=== PATIENT | male | born 1940 | race Caucasian/White ===

== ENCOUNTER 2017-05-28 11:00 | Inpatient (IN) | payer MEDICARE ==
[2017-05-28] MEDS ORDERED: ACETAMINOPHEN TAB 500 MG TAB PO STA (11:11)
[2017-05-28] MEDS ORDERED: IPRATROPIUM-ALBUTEROL 3 ML NEB INHALATION STA (11:13)
--- NOTE | 2017-05-28 11:19 | ED ---
SOB HPI - General Chief Complaint: Shortness of Breath Stated Complaint: Cough, headache, poss sinus infection Source: patient, EMS Mode of arrival: EMS - History of Present Illness Initial Comments: Patient is a 77-year-old male who presents for evaluation for shortness of breath/cough and sore throat for the last 2-3 days. Past medical history as below. Patient saw his primary care physician yesterday and prescribed him amoxicillin for suspected sinus infection. He precipitously declined today. He states that he is coughing up a clear phlegm. Shortness of breath. Sore throat secondary to the cough. He denies any ear pain or sinus pain. He has a fever of 103 currently. Known diabetic and his sugars been a little bit elevated. Been compliant with his medications. He has no history of heart failure. He's had an echo in the past which was apparently normal. No swelling to the lower extremities. No no sick contacts. No recent long distance travel. No history of DVT or pulmonary embolism. Currently denies headaches, chest pain, nausea, vomiting, diarrhea, pain or burning with urination. - Related Data Home Medications Medication Instructions Recorded Confirmed Aspirin EC [Ecotrin Low Dose] 81 mg PO DAILY 05/28/17 05/28/17 Atorvastatin [Lipitor] 80 mg PO HS 05/28/17 05/28/17 EPINEPHrine (Auto Inject) [Epipen] 0.3 mg PO ONCE PRN 05/28/17 05/28/17 Nitroglycerin Sl Tabs [Nitrostat] 0.4 mg SUBLINGUAL Q5M PRN 05/28/17 05/28/17 Pioglitazone [Actos] 45 mg PO DAILY 05/28/17 05/28/17 Primidone [Mysoline] 50 mg PO DAILY 05/28/17 05/28/17 Quinapril HCl [Accupril] 20 mg PO DAILY 05/28/17 05/28/17 Sodium Polystyrene Sulfon/Sorb 15 gm PO DAILY 05/28/17 05/28/17 [Kionex 15 gm/60 ml Suspension] Soy Lecithin 1 cap PO BID 05/28/17 05/28/17 glyBURIDE [Diabeta] 5 mg PO BID 05/28/17 05/28/17 sitaGLIPtin [Januvia] 100 mg PO DAILY 05/28/17 05/28/17 Allergies Allergy/AdvReac Type Severity Reaction Status Date / Time bee venom protein (honey bee) Allergy Anaphylaxis Verified 05/28/17 11:20 Review of Systems ROS Statement: Those systems with pertinent positive or pertinent negative responses have been documented in the HPI. ROS Other: All systems not noted in ROS Statement are negative. Past Medical History Past Medical History: Diabetes Mellitus, Hyperlipidemia History of Any Multi-Drug Resistant Organisms: None Reported Past Surgical History: No Surgical Hx Reported Past Psychological History: No Psychological Hx Reported Smoking Status: Former smoker Past Alcohol Use History: None Reported Past Drug Use History: None Reported General Exam General appearance: alert, in no apparent distress, other (Nontoxic appearing) Head exam: Present: atraumatic, normocephalic, normal inspection Eye exam: Present: normal appearance, PERRL, EOMI. Absent: scleral icterus, conjunctival injection, periorbital swelling ENT exam: Present: normal exam, normal oropharynx, mucous membranes moist, TM's normal bilaterally, other (Normal TMs bilaterally. No significant erythema to the posterior oropharynx. Cannot fully visualize tonsils but appear otherwise unremarkable. Anterior cervical lymphadenopathy. No pain with palpation of the sinuses.) Neck exam: Present: normal inspection. Absent: tenderness, meningismus, lymphadenopathy Respiratory exam: Present: wheezes, rales, other (Coarse breath sounds bilaterally with intermittent rails and wheeze. Conversational dyspnea. No hypoxia. Tachypea.). Absent: respiratory distress, rhonchi, stridor Cardiovascular Exam: Present: regular rate, normal rhythm, normal heart sounds, other (Normal S1 and S2. Distal pulses intact. Warm extremities. Cap refill less than 3 seconds.). Absent: systolic murmur, diastolic murmur, rubs, gallop , clicks GI/Abdominal exam: Present: soft, normal bowel sounds. Absent: distended, tenderness, guarding, rebound, rigid Extremities exam: Present: normal inspection, full ROM, normal capillary refill. Absent: tenderness, pedal edema, joint swelling, calf tenderness Back exam: Present: normal inspection Neurological exam: Present: alert, oriented X3, CN II-XII intact Psychiatric exam: Present: normal affect, normal mood Skin exam: Present: warm, dry, intact, normal color. Absent: rash Course Vital Signs 05/28/17 05/28/17 05/28/17 11:01 12:14 12:23 Temperature 103.3 F H Pulse Rate 93 88 92 Respiratory 20 Rate Blood Pressure 170/72 O2 Sat by Pulse 95 Oximetry 05/28/17 13:03 Temperature 102.8 F H Pulse Rate 89 Respiratory 18 Rate Blood Pressure 134/60 O2 Sat by Pulse 93 L Oximetry Medical Decision Making - Medical Decision Making 1110: Patient is a 77 year old male who presents for evaluation for cough and shortness of breath with sore throat over the last 3 days. Prescribed amoxicillin yesterday but precipitously decline today and his respiratory status. He has 3 out of 4 surgical criteria at this time. Tachypnea, tachycardia, febrile. He has no history of heart failure and the patient specifically states he's had a normal echocardiogram in the past. He has no swelling to the lower extremities. Strongly suspect bilateral pneumonia at this time. He has no swelling to the lower extremities. We'll order 2500 mL normal saline bolus. 2 view chest x-ray. Blood cultures, laboratory studies with a VBG, lactic acid and blood cultures. We'll empirically started on Rocephin and his ether myosin as he has no risk factors for hospital-acquired pneumonia. 1230: Reviewed EKG. Normal sinus rhythm at 92. AR interval 192. QRS 72. QTc 445. No ST changes. 1235: Reevaluated the patient. States that he feels terrible. Significant pain to his throat. He is tolerating his secretions. States that the pain in his throat is worse than any of his other symptoms. Continues to have coarse breath sounds bilaterally. Review chest x-ray which did not reveal a significant lobar pneumonia. There is some cephalization though however. No pleural effusions or signs of pulmonary vascular congestion. Laboratory studies revealed no leukocytosis or left shift. Lactic acid 1.8. Acute on chronic any disease. As the patient has 3 out of 4 SIRS criteria end organ damage with worsening kidney function and mild hypoxia and failed outpatient therapy, recommending admission for IV antibiotics and continued breathing treatments. Page to Dr. Welch's group per PCP preference. 1300: Reevaluated the patient. Heart rate improved to the 80s. Respiratory rate remains on the high end of normal and the 18-20 range. Pulse ox in the 93- 95% range on room air. Good cap refill less than 3 seconds. Believe that the patient is stable for the floor at this time. 1315: Spoke with Dr. Swesnon who agrees with admission. No further orders. - Lab Data Result diagrams: 05/28/17 12:09 05/28/17 12:09 Lab Results 05/28/17 05/28/17 05/28/17 Range/Units 12:09 12:09 12:09 WBC 7.8 (3.8-10.6) k/uL RBC 3.82 L (4.30-5.90) m/uL Hgb 12.2 L (13.0-17.5) gm/dL Hct 37.1 L (39.0-53.0) % MCV 97.1 (80.0-100.0) fL MCH 31.8 (25.0-35.0) pg MCHC 32.8 (31.0-37.0) g/dL RDW 14.4 (11.5-15.5) % Plt Count 120 L (150-450) k/uL Neutrophils % (Manual) 78 % Band Neutrophils % 9 % Lymphocytes % (Manual) 6 % Monocytes % (Manual) 7 % Neutrophils # (Manual) 6.70 (1.3-7.7) k/uL Lymphocytes # (Manual) 0.47 L (1.0-4.8) k/uL Monocytes # (Manual) 0.55 (0-1.0) k/uL Nucleated RBCs 0 (0-0) /100 WBC RBC Morphology Normal PT (9.0-12.0) sec INR (<1.2) APTT (22.0-30.0) sec VBG pH (7.31-7.41) VBG pCO2 (37-51) mmHg VBG HCO3 (24-28) mmol/L Sodium 133 L (137-145) mmol/L Potassium 4.4 (3.5-5.1) mmol/L Chloride 102 (98-107) mmol/L Carbon Dioxide 21 L (22-30) mmol/L Anion Gap 10 mmol/L BUN 34 H (9-20) mg/dL Creatinine 2.01 H (0.66-1.25) mg/dL Est GFR (MDRD) Af Amer 39 (>60 ml/min/1.73 sqM) Est GFR (MDRD) Non-Af 32 (>60 ml/min/1.73 sqM) Glucose 350 H (74-99) mg/dL Plasma Lactic Acid Shiva 1.8 (0.7-2.0) mmol/L Calcium 8.1 L (8.4-10.2) mg/dL Total Bilirubin 0.7 (0.2-1.3) mg/dL AST 40 (17-59) U/L ALT 46 (21-72) U/L Alkaline Phosphatase 59 (38-126) U/L Total Protein 6.6 (6.3-8.2) g/dL Albumin 3.5 (3.5-5.0) g/dL Urine Color Urine Appearance (Clear) Urine pH (5.0-8.0) Ur Specific [place] (1.001-1.035) Urine Protein (Negative) Urine Glucose (UA) (Negative) Urine Ketones (Negative) Urine Blood (Negative) Urine Nitrite (Negative) Urine Bilirubin (Negative) Urine Urobilinogen (<2.0) mg/dL Ur Leukocyte Esterase (Negative) Urine RBC (0-5) /hpf Urine WBC (0-5) /hpf Urine Mucus (None) /hpf 05/28/17 05/28/17 05/28/17 Range/Units 12:09 12:09 12:45 WBC (3.8-10.6) k/uL RBC (4.30-5.90) m/uL Hgb (13.0-17.5) gm/dL Hct (39.0-53.0) % MCV (80.0-100.0) fL MCH (25.0-35.0) pg MCHC (31.0-37.0) g/dL RDW (11.5-15.5) % Plt Count (150-450) k/uL Neutrophils % (Manual) % Band Neutrophils % % Lymphocytes % (Manual) % Monocytes % (Manual) % Neutrophils # (Manual) (1.3-7.7) k/uL Lymphocytes # (Manual) (1.0-4.8) k/uL Monocytes # (Manual) (0-1.0) k/uL Nucleated RBCs (0-0) /100 WBC RBC Morphology PT 11.4 (9.0-12.0) sec INR 1.1 (<1.2) APTT 22.3 (22.0-30.0) sec VBG pH 7.38 (7.31-7.41) VBG pCO2 37 (37-51) mmHg VBG HCO3 21 L (24-28) mmol/L Sodium (137-145) mmol/L Potassium (3.5-5.1) mmol/L Chloride (98-107) mmol/L Carbon Dioxide (22-30) mmol/L Anion Gap mmol/L BUN (9-20) mg/dL Creatinine (0.66-1.25) mg/dL Est GFR (MDRD) Af Amer (>60 ml/min/1.73 sqM) Est GFR (MDRD) Non-Af (>60 ml/min/1.73 sqM) Glucose (74-99) mg/dL Plasma Lactic Acid Shiva (0.7-2.0) mmol/L Calcium (8.4-10.2) mg/dL Total Bilirubin (0.2-1.3) mg/dL AST (17-59) U/L ALT (21-72) U/L Alkaline Phosphatase (38-126) U/L Total Protein (6.3-8.2) g/dL Albumin (3.5-5.0) g/dL Urine Color Yellow Urine Appearance Clear (Clear) Urine pH 5.5 (5.0-8.0) Ur Specific [place] 1.011 (1.001-1.035) Urine Protein 1+ H (Negative) Urine Glucose (UA) 3+ H (Negative) Urine Ketones Negative (Negative) Urine Blood Trace H (Negative) Urine Nitrite Negative (Negative) Urine Bilirubin Negative (Negative) Urine Urobilinogen <2.0 (<2.0) mg/dL Ur Leukocyte Esterase Negative (Negative) Urine RBC 6 H (0-5) /hpf Urine WBC 1 (0-5) /hpf Urine Mucus Rare H (None) /hpf Disposition Clinical Impression: Sepsis, CAP (community acquired pneumonia), Acute on chronic kidney failure Disposition: ADMITTED IP TO THIS HOSP Condition: Fair Referrals: Lesly Ortiz MD [Primary Care Provider] - 1-2 days Decision to Admit Reason: Admit from EC
--- NOTE | 2017-05-28 11:48 | XR ---
EXAMINATION TYPE: XR chest 2V DATE OF EXAM: 05/28/2017 COMPARISON: NONE HISTORY: Shortness of breath TECHNIQUE: Frontal and lateral views of the chest are obtained. FINDINGS: Scattered senescent parenchymal changes noted. Hyperinflation compatible with COPD. No evidence for infiltrate. No evidence for atelectasis. Vascular crowding at the lung bases. Heart size is stable. Mediastinal structures are stable and grossly unremarkable. No evidence for hilar prominence. Degenerative changes dorsal spine. IMPRESSION: 1. No evidence for acute pulmonary disease.
[2017-05-28] MEDS: SODIUM CHLORIDE 0.9% 500 ML IV SCH ×3 (12:02→13:22)
[2017-05-28 12:25] LABS: CH 31.9; HCT 37.1 % (39.0-53.0); HDW 2.82; HGB 12.2 gm/dL (13.0-17.5); Immature Gran Flag Moderate; MCH 31.8 pg (25.0-35.0); MCHC 32.8 g/dL (31.0-37.0); MCV 97.1 fL (80.0-100.0); Mean Platelet Volume 8.8; RBC 3.82 m/uL (4.30-5.90); RDW 14.4 % (11.5-15.5); VBG PH 7.38 (7.31-7.41); WBC 7.8 k/uL (3.8-10.6); WBC (Perox) 7.78
[2017-05-28 12:30] LABS: INR 1.1 (<1.2); Partial Thromboplastin Time 22.3 sec (22.0-30.0); Prothrombin Time 11.4 sec (9.0-12.0)
[2017-05-28 12:35] LABS: Calcium 8.1 mg/dL (8.4-10.2); Potassium 4.4 mmol/L (3.5-5.1); Total Bilirubin 0.7 mg/dL (0.2-1.3); Total Protein 6.6 g/dL (6.3-8.2)
[2017-05-28] MEDS ORDERED: RX INFO: IV CONTRAST WAS GIVEN 1 EACH MISC MISCELLANE PRN (12:37)
[2017-05-28] MEDS ORDERED: KETOROLAC 30 MG/ML 1 ML VIAL IVP STA (12:38)
[2017-05-28 12:45] LABS: Add Differential Manual Differential
[2017-05-28 12:47] LABS: Band Neutrophils % 9 %; Nucleated Red Blood Cells 0 /100 WBC (0-0); Total Cells Counted 100
[2017-05-28 12:48] LABS: RBC Morphology Normal
[2017-05-28 13:00] LABS: Appearance,Urine Clear (Clear); Bilirubin,Urine Negative (Negative); Glucose,Urine (UA) 3+ (Negative); Ketones,Urine Negative (Negative); Leukocyte Esterase,Urine Negative (Negative); Mucus,Urine Rare /hpf; Nitrite,Urine Negative (Negative); PH, Urine 5.5 (5.0-8.0); Particle Count 3383; Protein,Urine 1+ (Negative); RBC,Urine 6 /hpf (0-5); Specific Gravity,Urine 1.011 (1.001-1.035); UA Billing (MACRO vs. MICRO) MICRO; Urobilinogen,Urine <2.0 mg/dL (<2.0); WBC,Urine 1 /hpf (0-5)
[2017-05-28] MEDS ORDERED: NALOXONE 0.4 MG/ML 1 ML VIAL IV PRN (13:13)
[2017-05-28] MEDS ORDERED: ACETAMINOPHEN TAB 325 MG TAB PO PRN (14:15)
[2017-05-28 14:44] LABS: Glucose,Whole Blood 289 mg/dL (75-99)
[2017-05-28] MEDS: AZITHROMYCIN 500 MG in SODIUM CHLORIDE 0.9% 250 ML IVPB SCH (14:57)
[2017-05-28] MEDS ORDERED: NITROGLYCERIN SL TABS 0.4 MG TAB SUBLINGUAL PRN (15:38)
[2017-05-28] MEDS: SODIUM CHLORIDE 0.9% 1,000 ML IV SCH (15:48)
[2017-05-28 16:57] LABS: Glucose,Whole Blood 310 mg/dL (75-99)
[2017-05-28] MEDS ORDERED: INSULIN LISPRO (humaLOG) 300 UNIT/3 ML VIAL SQ SCH (17:30)
[2017-05-28] MEDS: INSULIN LISPRO (humaLOG) 300 UNIT/3 ML VIAL SQ SCH ×2 (17:40→21:14)
[2017-05-28] MEDS ORDERED: IPRATROPIUM-ALBUTEROL 3 ML NEB INHALATION PRN ×2 (18:52)
[2017-05-28] MEDS ORDERED: INSULIN LISPRO (humaLOG) 300 UNIT/3 ML VIAL SQ ONE ×2 (18:54→21:46)
[2017-05-28] MEDS: SYMBICORT 160-4.5 MCG INHALER INHALATION SCH (19:09)
[2017-05-28] MEDS: IPRATROPIUM-ALBUTEROL 3 ML NEB INHALATION SCH (19:29)
[2017-05-28 19:53] LABS: Hemoglobin A1C 6.9 % (4.2-6.1)
[2017-05-28] MEDS: ATORVASTATIN 80 MG TAB PO SCH (20:32)
[2017-05-28 21:00] LABS: Glucose,Whole Blood 241 mg/dL (75-99)
[2017-05-28] MEDS ORDERED: methylPREDNISolone SOD SUCCI 125 MG/2 ML VIAL IV STA (21:44)
[2017-05-28] MEDS ORDERED: INSULIN GLARGINE 100 UNIT/ML 10 ML VIAL SQ SCH (21:45)
[2017-05-28] MEDS: guaiFENesin-DM 100-10MG/5ML 10 ML CUP PO PRN (22:15)
[2017-05-29] MEDS ORDERED: FUROSEMIDE 10 MG/ML 4 ML VIAL IV STA (00:11)
[2017-05-29 00:25] LABS: Glucose,Whole Blood 201 mg/dL (75-99)
--- NOTE | 2017-05-29 01:10 | XR ---
CXR 1 View INDICATION: Shortness of breath COMPARISON: Chest radiograph 05/28/17 11:41:39 FINDINGS: The cardiomediastinal silhouette is similar. Calcification of the aortic knob. Increased lung markings, nonspecific. Possible ill defined opacification of the medial bilateral lower lung thomson. There maybe some atelectasis at the lung bases. No definite evidence for pleural effusions. Osseous structures are grossly unchanged. Degenerative changes of the right acromioclavicular joint. There are overlying leads limiting evaluation. Tubular structure overlying the right upper chest/lower neck, nonspecific. Please correlate with physical exam. IMPRESSION: Possible ill defined opacification of the medial bilateral lower lung thomosn, nonspecific and may represent atelectasis although air space disease is difficult to exclude. No definite evidence for large pleural effusion.
[2017-05-29 01:17] LABS: ABG Base Excess -6.3 mmol/L; ABG HCO3 17 mmol/L (21-25); ABG PCO2 24 mmHg (35-45); ABG PH 7.46 (7.35-7.45); ABG PO2 110 mmHg (83-108); ABG TCO2 18 mmol/L (19-24)
[2017-05-29 05:21] LABS: CH 32.4; CHCM 32.2; HDW 2.81; HGB 11.8 gm/dL (13.0-17.5); Immature Gran Flag Marked; MCH 32.4 pg (25.0-35.0); MCV 101.3 fL (80.0-100.0); Macrocytosis Slight; Mean Platelet Volume 8.7; RBC 3.65 m/uL (4.30-5.90); RDW 14.9 % (11.5-15.5); WBC 8.1 k/uL (3.8-10.6); WBC (Perox) 8.65
[2017-05-29 05:32] LABS: Magnesium 1.6 mg/dL (1.6-2.3); Phosphorous 3.6 mg/dL (2.5-4.5); Potassium 4.9 mmol/L (3.5-5.1); Total Bilirubin 0.8 mg/dL (0.2-1.3); Total Protein 6.7 g/dL (6.3-8.2)
[2017-05-29] MEDS ORDERED: Magnesium Replacement Protocol 1 EACH MISC MISCELLANE PRN (05:58)
[2017-05-29] MEDS ORDERED: methylPREDNISolone SOD SUCCI 125 MG/2 ML VIAL IV SCH (06:00)
[2017-05-29] MEDS: MAGNESIUM SULFATE-D5W PMX 1 GM in DEXTROSE/WATER 1 100ML.BAG IVPB SCH ×2 (06:26→07:33)
[2017-05-29 07:14] LABS: Add Differential Manual Differential
[2017-05-29 07:25] LABS: Band Neutrophils % 53 %; Metamyelocytes % 2 %; Nucleated Red Blood Cells 0 /100 WBC (0-0); Total Cells Counted 200
[2017-05-29 07:26] LABS: Large Platelets Present
[2017-05-29] MEDS: SYMBICORT 160-4.5 MCG INHALER INHALATION SCH ×2 (07:29→19:47)
[2017-05-29] MEDS: IPRATROPIUM-ALBUTEROL 3 ML NEB INHALATION SCH ×4 (07:29→19:47)
[2017-05-29 07:51] LABS: Glucose,Whole Blood 277 mg/dL (75-99)
--- NOTE | 2017-05-29 07:51 | XR ---
EXAMINATION TYPE: XR chest 1V DATE OF EXAM: 05/29/2017 COMPARISON: NONE HISTORY: Shortness of breath. Follow-up exam. TECHNIQUE: Single frontal view of the chest is obtained. FINDINGS: The previously described bibasilar opacities appear less conspicuous on today's examinatio n and likely represent bibasilar atelectasis. No pleural effusion or pneumothorax. Cardiomediastinal silhouette is within normal limits. Osseous structures are intact. IMPRESSION: 1. Bibasilar opacities appear as atelectasis, however early pneumonia remains a possibility in the ap propriate clinical setting.
[2017-05-29] MEDS: INSULIN LISPRO (humaLOG) 300 UNIT/3 ML VIAL SQ SCH ×6 (07:55→12:43)
[2017-05-29] MEDS: HEPARIN SODIUM,PORCINE 5,000 UNIT/ML 1 ML VIAL SQ SCH ×2 (07:56→15:43)
[2017-05-29] MEDS ORDERED: FAMOTIDINE 20 MG TAB PO SCH (09:00)
[2017-05-29] MEDS ORDERED: LISINOPRIL 20 MG TAB PO SCH (09:00)
[2017-05-29] MEDS: PRIMIDONE 50 MG TAB PO SCH (09:42)
[2017-05-29] MEDS: LINAGLIPTIN 5 MG TABLET PO SCH (09:42)
[2017-05-29] MEDS: ASPIRIN 81 MG CHEW PO SCH (09:42)
[2017-05-29] MEDS: PIOGLITAZONE 45 MG TAB PO SCH (09:42)
[2017-05-29 09:47] LABS: Creatine Kinase MB 3.9 ng/mL (0.0-2.4); Troponin I 0.112 ng/mL (0.000-0.034)
[2017-05-29] MEDS: AZITHROMYCIN 500 MG in SODIUM CHLORIDE 0.9% 250 ML IVPB SCH (11:22)
[2017-05-29 11:32] LABS: Glucose,Whole Blood 362 mg/dL (75-99)
--- NOTE | 2017-05-29 14:09 | P.HPIM ---
History of Present Illness Patient is a 77-year-old male who presents for evaluation for shortness of breath/cough and sore throat for the last 2-3 days. Past medical history as below. Patient saw his primary care physician yesterday and prescribed him amoxicillin for suspected sinus infection. He states that he is coughing up a clear phlegm. Shortness of breath. Sore throat secondary to the cough. He denies any ear pain or sinus pain. He has a fever of 103 currently. Known diabetic and his sugars been a little bit elevated. Been compliant with his medications. He has no history of heart failure. He's had an echo in the past which was apparently normal. No swelling to the lower extremities. No no sick contacts. No recent long distance travel. No history of DVT or pulmonary embolism. Currently denies headaches, chest pain, nausea, vomiting, diarrhea, pain or burning with urination. Patient denied any photophobia, abdominal pain patient started having diarrhea after antibiotics. There is no clear-cut evidence of pneumonia on the chest x-ray, no other sources of infections and was were appreciated patient was started on antibiotics for pneumonia from ER. Patient is afebrile since his admission last night. As patient was hypotensive was transferred to ICU last night. Review of Systems REVIEW OF SYSTEMS: CONSTITUTIONAL: No fever, no malaise, no fatigue. HEENT: No recent visual problems or hearing problems. Denied any sore throat. CARDIOVASCULAR: No chest pain, orthopnea, PND, no palpitations, no syncope. PULMONARY: As mentioned in nature history of present illness GASTROINTESTINAL: No diarrhea, no nausea, no vomiting, no abdominal pain. Normoactive bowel sounds. NEUROLOGICAL: No headaches, no weakness, no numbness. HEMATOLOGICAL: Denies any bleeding or petechiae. GENITOURINARY: Denies any burning micturition, frequency, or urgency. MUSCULOSKELETAL/RHEUMATOLOGICAL: Denies any joint pain, swelling, or any muscle pain. ENDOCRINE: Denies any polyuria or polydipsia. The rest of the 14-point review of systems is negative. Past Medical History Past Medical History: Diabetes Mellitus, Hyperlipidemia, Hypertension, Renal Disease Additional Past Medical History / Comment(s): NIDDM TYPE II, ANEMIA LONG AGO History of Any Multi-Drug Resistant Organisms: None Reported Past Surgical History: No Surgical Hx Reported Additional Past Surgical History / Comment(s): L SHOULDER CYSTECTOMY, BILATERAL CATARACT REMOVALS WITH LENS IMPLANTS. Past Anesthesia/Blood Transfusion Reactions: No Reported Reaction Past Psychological History: No Psychological Hx Reported Additional Psychological History / Comment(s): PT RESIDES WITH HIS SPOUSE. HE IS INDEPENDENT. Smoking Status: Former smoker Past Alcohol Use History: None Reported Additional Past Alcohol Use History / Comment(s): PT STATES HE STARTED SMOKING IN 1960 AND QUIT MANY YRS AGO BUT CANNOT RECALL YEAR OR HIS AGE AT TIME OF QUITTING. Past Drug Use History: None Reported - Past Family History Father Family Medical History: Diabetes Mellitus Additional Family Medical History / Comment(s): FATHER AT THE AGE OF 89YRS. Mother Family Medical History: COPD Additional Family Medical History / Comment(s): MOTHER HAD A "BAD HEART." SHE OF EMPHYSEMA AT THE AGE OF 68YRS. Medications and Allergies Home Medications Medication Instructions Recorded Confirmed Type Aspirin EC [Ecotrin Low Dose] 81 mg PO DAILY 05/28/17 05/28/17 History Atorvastatin [Lipitor] 80 mg PO HS 05/28/17 05/28/17 History EPINEPHrine (Auto Inject) [Epipen] 0.3 mg PO ONCE PRN 05/28/17 05/28/17 History Nitroglycerin Sl Tabs [Nitrostat] 0.4 mg SUBLINGUAL Q5M PRN 05/28/17 05/28/17 History Pioglitazone [Actos] 45 mg PO DAILY 05/28/17 05/28/17 History Primidone [Mysoline] 50 mg PO DAILY 05/28/17 05/28/17 History Quinapril HCl [Accupril] 20 mg PO DAILY 05/28/17 05/28/17 History Sodium Polystyrene Sulfon/Sorb 15 gm PO DAILY 05/28/17 05/28/17 History [Kionex 15 gm/60 ml Suspension] Soy Lecithin 1 cap PO BID 05/28/17 05/28/17 History glyBURIDE [Diabeta] 5 mg PO BID 05/28/17 05/28/17 History sitaGLIPtin [Januvia] 100 mg PO DAILY 05/28/17 05/28/17 History Allergies Allergy/AdvReac Type Severity Reaction Status Date / Time bee venom protein (honey bee) Allergy Anaphylaxis Verified 05/28/17 11:20 Physical Exam Vitals: Vital Signs Temp Pulse Pulse Resp BP BP Pulse Ox 05/29/17 12:00 98.6 F 67 18 123/55 95 05/29/17 11:28 72 05/29/17 11:20 70 05/29/17 11:00 64 19 87/45 95 05/29/17 10:00 70 19 87/45 98 05/29/17 09:00 75 19 149/54 97 05/29/17 08:30 75 16 97 05/29/17 08:00 75 20 149/54 97 05/29/17 07:40 76 05/29/17 07:32 66 95 05/29/17 07:30 70 24 123/47 99 05/29/17 07:00 60 18 123/47 97 05/29/17 06:30 64 21 140/52 98 05/29/17 06:00 77 18 135/63 100 05/29/17 05:30 64 19 135/63 100 05/29/17 05:00 64 20 148/52 100 05/29/17 04:30 64 23 141/56 100 05/29/17 04:00 99.5 F 57 L 20 141/56 98 05/29/17 03:30 68 23 129/63 97 05/29/17 03:00 62 21 125/53 96 05/29/17 02:30 62 23 148/59 98 05/29/17 02:00 66 19 152/66 94 L 05/29/17 01:30 72 24 149/62 97 05/29/17 01:00 99.8 F H 70 25 H 128/55 98 05/29/17 00:50 72 27 H 144/55 97 05/29/17 00:40 73 26 H 144/55 98 05/29/17 00:34 71 27 H 144/55 98 05/28/17 23:00 101.6 F H 81 30 H 138/56 98 05/28/17 22:45 101.7 F H 82 30 H 179/69 97 05/28/17 19:23 94 05/28/17 19:09 90 05/28/17 15:10 99.4 F 05/28/17 14:41 101.2 F H 89 18 128/73 97 Intake and Output 05/28/17 05/29/17 05/29/17 22:59 06:59 14:59 Intake Total 60 840 Output Total 1010 930 Balance -950 -90 Intake: IV 60 550 Azithromycin 500 mg In 250 Sodium Chloride 0.9% 250 ml @ 125 mls/hr IVPB DAILY [facility] Rx#:[id number] Magnesium Sulfate-D5w Pmx 200 1 gm In Dextrose/Water 1 100ml.bag @ 100 mls/hr IVPB Q1H [facility] Rx#: [id number] Sodium Chloride 0.9% 1, 60 100 000 ml @ 20 mls/hr IV . Q24H [facility] Rx#:[id number] Intake, IV Titration 50 Amount cefTRIAXone 1,000 mg In 50 Sodium Chloride 0.9% 50 ml @ 100 mls/hr IVPB DAILY [facility] Rx#:[id number] Oral 240 Output: Urine 1010 930 Other: Voiding Method Urinal Urinal # Voids 2 1 1 Weight 96 kg Patient Weight 05/30/17 06:59 Weight 96 kg PHYSICAL EXAMINATION: GENERAL: The patient is alert and oriented x3, not in any acute distress. Well developed, well nourished. HEENT: Pupils are round and equally reacting to light. EOMI. No scleral icterus. No conjunctival pallor. Normocephalic, atraumatic. No pharyngeal erythema. No thyromegaly. CARDIOVASCULAR: S1 and S2 present. No murmurs, rubs, or gallops. PULMONARY: Chest is clear to auscultation, bilateral expiratory wheezing was appreciated. ABDOMEN: Soft, nontender, nondistended, normoactive bowel sounds. No palpable organomegaly. MUSCULOSKELETAL: No joint swelling or deformity. EXTREMITIES: No cyanosis, clubbing, or pedal edema. NEUROLOGICAL: Gross neurological examination did not reveal any focal deficits. SKIN: No rashes. Results CBC & Chem 7: 05/29/17 04:52 05/29/17 04:52 Labs: Abnormal Lab Results - Last 24 Hours (Table) 05/28/17 05/28/17 05/28/17 Range/Units 12:09 14:40 16:54 RBC (4.30-5.90) m/uL Hgb (13.0-17.5) gm/dL Hct (39.0-53.0) % MCV (80.0-100.0) fL Plt Count (150-450) k/uL Lymphocytes # (Manual) (1.0-4.8) k/uL Metamyelocytes # (Man) (0) k/uL ABG pH (7.35-7.45) ABG pCO2 (35-45) mmHg ABG pO2 (83-108) mmHg ABG HCO3 (21-25) mmol/L ABG Total CO2 (19-24) mmol/L ABG O2 Saturation (94-97) % Sodium (137-145) mmol/L Carbon Dioxide (22-30) mmol/L BUN (9-20) mg/dL Creatinine (0.66-1.25) mg/dL Glucose (74-99) mg/dL POC Glucose (mg/dL) 289 H 310 H (75-99) mg/dL Hemoglobin A1c 6.9 H (4.2-6.1) % Plasma Lactic Acid Shiva (0.7-2.0) mmol/L Calcium (8.4-10.2) mg/dL Total Creatine Kinase (55-170) U/L CK-MB (CK-2) (0.0-2.4) ng/mL Troponin I (0.000-0.034) ng/mL 05/28/17 05/29/17 05/29/17 Range/Units 20:44 00:22 00:39 RBC (4.30-5.90) m/uL Hgb (13.0-17.5) gm/dL Hct (39.0-53.0) % MCV (80.0-100.0) fL Plt Count (150-450) k/uL Lymphocytes # (Manual) (1.0-4.8) k/uL Metamyelocytes # (Man) (0) k/uL ABG pH (7.35-7.45) ABG pCO2 (35-45) mmHg ABG pO2 (83-108) mmHg ABG HCO3 (21-25) mmol/L ABG Total CO2 (19-24) mmol/L ABG O2 Saturation (94-97) % Sodium (137-145) mmol/L Carbon Dioxide (22-30) mmol/L BUN (9-20) mg/dL Creatinine (0.66-1.25) mg/dL Glucose (74-99) mg/dL POC Glucose (mg/dL) 241 H 201 H (75-99) mg/dL Hemoglobin A1c (4.2-6.1) % Plasma Lactic Acid Shiva 2.9 H* (0.7-2.0) mmol/L Calcium (8.4-10.2) mg/dL Total Creatine Kinase (55-170) U/L CK-MB (CK-2) (0.0-2.4) ng/mL Troponin I (0.000-0.034) ng/mL 05/29/17 05/29/17 05/29/17 Range/Units 01:07 04:52 04:52 RBC 3.65 L (4.30-5.90) m/uL Hgb 11.8 L (13.0-17.5) gm/dL Hct 37.0 L (39.0-53.0) % MCV 101.3 H (80.0-100.0) fL Plt Count 105 L (150-450) k/uL Lymphocytes # (Manual) 0.57 L (1.0-4.8) k/uL Metamyelocytes # (Man) 0.16 H (0) k/uL ABG pH 7.46 H (7.35-7.45) ABG pCO2 24 L (35-45) mmHg ABG pO2 110 H (83-108) mmHg ABG HCO3 17 L (21-25) mmol/L ABG Total CO2 18 L (19-24) mmol/L ABG O2 Saturation 99.0 H (94-97) % Sodium 135 L (137-145) mmol/L Carbon Dioxide 19 L (22-30) mmol/L BUN 36 H (9-20) mg/dL Creatinine 1.90 H (0.66-1.25) mg/dL Glucose 230 H (74-99) mg/dL POC Glucose (mg/dL) (75-99) mg/dL Hemoglobin A1c (4.2-6.1) % Plasma Lactic Acid Shiva (0.7-2.0) mmol/L Calcium 8.0 L (8.4-10.2) mg/dL Total Creatine Kinase (55-170) U/L CK-MB (CK-2) (0.0-2.4) ng/mL Troponin I (0.000-0.034) ng/mL 05/29/17 05/29/17 05/29/17 Range/Units 04:52 07:49 10:19 RBC (4.30-5.90) m/uL Hgb (13.0-17.5) gm/dL Hct (39.0-53.0) % MCV (80.0-100.0) fL Plt Count (150-450) k/uL Lymphocytes # (Manual) (1.0-4.8) k/uL Metamyelocytes # (Man) (0) k/uL ABG pH (7.35-7.45) ABG pCO2 (35-45) mmHg ABG pO2 (83-108) mmHg ABG HCO3 (21-25) mmol/L ABG Total CO2 (19-24) mmol/L ABG O2 Saturation (94-97) % Sodium (137-145) mmol/L Carbon Dioxide (22-30) mmol/L BUN (9-20) mg/dL Creatinine (0.66-1.25) mg/dL Glucose (74-99) mg/dL POC Glucose (mg/dL) 277 H (75-99) mg/dL Hemoglobin A1c (4.2-6.1) % Plasma Lactic Acid Shiva (0.7-2.0) mmol/L Calcium (8.4-10.2) mg/dL Total Creatine Kinase 548 H (55-170) U/L CK-MB (CK-2) 3.9 H* (0.0-2.4) ng/mL Troponin I 0.112 H* 0.077 H* (0.000-0.034) ng/mL 05/29/17 Range/Units 11:30 RBC (4.30-5.90) m/uL Hgb (13.0-17.5) gm/dL Hct (39.0-53.0) % MCV (80.0-100.0) fL Plt Count (150-450) k/uL Lymphocytes # (Manual) (1.0-4.8) k/uL Metamyelocytes # (Man) (0) k/uL ABG pH (7.35-7.45) ABG pCO2 (35-45) mmHg ABG pO2 (83-108) mmHg ABG HCO3 (21-25) mmol/L ABG Total CO2 (19-24) mmol/L ABG O2 Saturation (94-97) % Sodium (137-145) mmol/L Carbon Dioxide (22-30) mmol/L BUN (9-20) mg/dL Creatinine (0.66-1.25) mg/dL Glucose (74-99) mg/dL POC Glucose (mg/dL) 362 H (75-99) mg/dL Hemoglobin A1c (4.2-6.1) % Plasma Lactic Acid Shiva (0.7-2.0) mmol/L Calcium (8.4-10.2) mg/dL Total Creatine Kinase (55-170) U/L CK-MB (CK-2) (0.0-2.4) ng/mL Troponin I (0.000-0.034) ng/mL Microbiology - Last 24 Hours (Table) 05/28/17 12:45 Urine Culture - Preliminary Urine,Voided Thrombosis Risk Factor Assmnt - Choose All That Apply Any of the Below Risk Factors Present?: Yes Each Factor Represents 1 point: Medical pt on bed rest, Obesity (BMI >25), Serious lung disease incl. pneumonia (< 1month) Other Risk Factors: Yes Each Risk Factor Represents 3 Points: Age 75 years or older Other congenital or acquired thrombophilia - If yes, enter type in comment: No Thrombosis Risk Factor Assessment Total Risk Factor Score: 6 Thrombosis Risk Factor Assessment Level: High Risk Assessment and Plan Plan: #1 sepsis: Source of infection is not clear there is a very low suspicion of pneumonia and patient is on antibiotics for pneumonia in the form of Rocephin and azithromycin which will be continued. We'll await for the blood cultures. #2 COPD with acute exacerbation and acute hypercapnic respiratory failure secondary to that which improved. Patient will be switched to oral prednisone #3 diabetes mellitus type 2: Highly elevated blood sugars secondary to systemic steroids patient will be resumed on his home regimen additionally patient will be on sliding scale for systemic steroids. #4 minimally elevation of troponins without any chest pain or significant EKG changes, this is secondary to hypoxemia from COPD. #5 acute renal failure secondary to prerenal azotemia expected to improve with IV fluids. 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
--- NOTE | 2017-05-29 16:43 | ECHOF ---
Referral Reason:assess LVF MEASUREMENTS -------- HEIGHT: 165.1 cm WEIGHT: 77.1 kg BP: 120/60 RVIDd: 3.2 cm (< 3.3) IVSd: 1.0 cm (0.6 - 1.1) LVIDd: 5.0 cm (3.9 - 5.3) LVPWd: 1.1 cm (0.6 - 1.1) IVSs: 1.5 cm LVIDs: 3.7 cm LVPWs: 1.1 cm LA Diam: 4.0 cm (2.7 - 3.8) LAESV Index (A-L): 44.15 ml/m Ao Diam: 3.3 cm (2.0 - 3.7) LA Diam: 3.9 cm (2.7 - 3.8) MV EXCURSION: 18.742 mm (> 18.000) MV EF SLOPE: 73 mm/s (70 - 150) EPSS: 0.7 cm MV E Vipin: 0.71 m/s MV DecT: 314 ms MV A Vipin: 1.12 m/s MV E/A Ratio: 0.63 RAP: 5.00 mmHg RVSP: 19.41 mmHg FINDINGS -------- Sinus rhythm. This was a techncally difficult study with suboptimal views, , Definity utilized for enhancement of images. There is mild concentric left ventricular hypertrophy. Overall left ventricular systolic function is normal with, an EF between 55 - 60 %. The right ventricle is normal in size. LA is severely dilated >40 ml/m2 The right atrial size is normal. There is mild aortic valve sclerosis. There is no evidence of aortic regurgitation. Mild mitral annular calcification present. Mild mitral regurgitation is present. Mild tricuspid regurgitation present. Right ventricular systolic pressure is normal at < 35 mmHg. There is no evidence of pulmonary hypertension. The pulmonic valve was not well visualized. The aortic root, ascending aorta and aortic arch are normal. There is no pericardial effusion. CONCLUSIONS -------- 1. This was a techncally difficult study with suboptimal views, , Definity utilized for enhancement of images. 2. Mild tricuspid regurgitation present. 3. Right ventricular systolic pressure is normal at < 35 mmHg. 4. There is no evidence of pulmonary hypertension. 5. The pulmonic valve was not well visualized. 6. The aortic root, ascending aorta and aortic arch are normal. 7. There is no pericardial effusion. 8. There is mild concentric left ventricular hypertrophy. 9. Overall left ventricular systolic function is normal with, an EF between 55 - 60 %. 10. The right ventricle is normal in size. 11. LA is severely dilated >40 ml/m2 12. The right atrial size is normal. 13. There is mild aortic valve sclerosis. 14. Mild mitral annular calcification present. 15. Mild mitral regurgitation is present. HEAT CURER: Molly Red RDCS
[2017-05-29 17:23] LABS: Glucose,Whole Blood 436 mg/dL (75-99)
[2017-05-29] MEDS ORDERED: INSULIN REGULAR BOLUS (FROM DRIP BAG) IV PRN (17:23)
[2017-05-29] MEDS: INSULIN REGULAR 100 UNIT in SODIUM CHLORIDE 0.9% 100 ML IV SCH ×2 (17:53→22:10)
[2017-05-29] MEDS: BENZOCAINE/MENTHOL LOZENG 1 EACH LOZENGE MUCOUS MEM PRN ×2 (17:57→23:02)
[2017-05-29 18:28] LABS: Glucose,Whole Blood 413 mg/dL (75-99)
[2017-05-29 19:02] LABS: Glucose,Whole Blood 377 mg/dL (75-99)
[2017-05-29 20:00] LABS: Glucose,Whole Blood 270 mg/dL (75-99)
[2017-05-29] MEDS: SODIUM CHLORIDE 0.9% 1,000 ML IV SCH (20:08)
[2017-05-29] MEDS ORDERED: INSULIN GLARGINE 100 UNIT/ML 10 ML VIAL SQ SCH (21:00)
[2017-05-29] MEDS: ATORVASTATIN 80 MG TAB PO SCH (21:04)
[2017-05-29 21:06] LABS: Glucose,Whole Blood 246 mg/dL (75-99)
[2017-05-29 22:00] LABS: Glucose,Whole Blood 212 mg/dL (75-99)
[2017-05-29 22:59] LABS: Glucose,Whole Blood 156 mg/dL (75-99)
[2017-05-29] MEDS: guaiFENesin-DM 100-10MG/5ML 10 ML CUP PO PRN (23:36)
[2017-05-30 00:05] LABS: Glucose,Whole Blood 121 mg/dL (75-99)
[2017-05-30] MEDS: HEPARIN SODIUM,PORCINE 5,000 UNIT/ML 1 ML VIAL SQ SCH ×4 (00:06→21:45)
[2017-05-30 01:07] LABS: Glucose,Whole Blood 117 mg/dL (75-99)
[2017-05-30 01:58] LABS: Glucose,Whole Blood 118 mg/dL (75-99)
[2017-05-30 03:01] LABS: Glucose,Whole Blood 123 mg/dL (75-99)
[2017-05-30 04:00] LABS: Glucose,Whole Blood 130 mg/dL (75-99)
[2017-05-30 05:05] LABS: Glucose,Whole Blood 130 mg/dL (75-99)
[2017-05-30 05:38] LABS: Basophils % (A) 0 %; CH 32.7; CHCM 33.3; Eosinophils % (A) 0 %; HCT 33.3 % (39.0-53.0); HDW 2.81; HGB 10.8 gm/dL (13.0-17.5); Luc # (Auto) 0.13; Luc % (Auto) 2; Lymphocytes # (A) 0.8 k/uL (1.0-4.8); Lymphocytes % (A) 9 %; MCH 31.9 pg (25.0-35.0); MCHC 32.3 g/dL (31.0-37.0); MCV 98.9 fL (80.0-100.0); Mean Platelet Volume 9.5; Monocytes # (A) 0.4 k/uL (0-1.0); Monocytes % (A) 5 %; Neutrophils # (A) 7.2 k/uL (1.3-7.7); Neutrophils % (A) 84 %; RBC 3.37 m/uL (4.30-5.90); WBC 8.6 k/uL (3.8-10.6); WBC (Perox) 9.12
[2017-05-30 05:57] LABS: Magnesium 2.3 mg/dL (1.6-2.3); Phosphorous 3.6 mg/dL (2.5-4.5); Potassium 4.1 mmol/L (3.5-5.1)
[2017-05-30 06:13] LABS: Glucose,Whole Blood 135 mg/dL (75-99)
[2017-05-30 07:01] LABS: Glucose,Whole Blood 129 mg/dL (75-99)
--- NOTE | 2017-05-30 07:16 | XR ---
EXAMINATION TYPE: XR chest 1V DATE OF EXAM: 05/30/2017 COMPARISON: 05/29/2017 HISTORY: Shortness of breath TECHNIQUE: Single frontal view of the chest is obtained. FINDINGS: Improvement in bibasilar subsegmental consolidation. Atherosclerotic change aorta. Arthrop athy shoulders. No overt failure. Heart size stable. IMPRESSION: 1. Interval improvement of basilar atelectasis or infiltrate.
[2017-05-30 08:44] LABS: Glucose,Whole Blood 160 mg/dL (75-99)
[2017-05-30] MEDS: IPRATROPIUM-ALBUTEROL 3 ML NEB INHALATION SCH ×4 (08:44→20:20)
[2017-05-30] MEDS: SYMBICORT 160-4.5 MCG INHALER INHALATION SCH ×2 (08:44→20:20)
[2017-05-30] MEDS: AZITHROMYCIN 500 MG TAB PO SCH (08:53)
[2017-05-30] MEDS: ASPIRIN 81 MG CHEW PO SCH (08:53)
[2017-05-30] MEDS: FAMOTIDINE 20 MG TAB PO SCH (08:53)
[2017-05-30] MEDS: LINAGLIPTIN 5 MG TABLET PO SCH (08:54)
[2017-05-30] MEDS: PRIMIDONE 50 MG TAB PO SCH (08:54)
[2017-05-30] MEDS: predniSONE 20 MG TAB PO SCH (08:54)
[2017-05-30] MEDS: PIOGLITAZONE 45 MG TAB PO SCH (08:54)
[2017-05-30 09:03] LABS: Glucose,Whole Blood 162 mg/dL (75-99)
[2017-05-30 12:28] LABS: Glucose,Whole Blood 269 mg/dL (75-99)
--- NOTE | 2017-05-30 12:43 | P.CNPUL ---
History of Present Illness Consult date: 05/29/17 Reason for consult: dyspnea, cough, chest pain, COPD, hypoxemia, pneumonia Chief complaint: Shortness of breath and cough started about 3-4 days ago History of present illness: Mr. Langley is a 77-year-old male who is seen and evaluated examined in the ICU patient started having symptoms about 4-5 days ago with a sore throat gradually WB increase cough congestion and. No sputum production patient was treated outpatient basis for oral amoxicillin without any significant relief due to persistent symptoms patient called EMS and eventually was brought into the emergency department was evaluated sensitively admitted into the hospital, off not that his phlegm is clear mucoid thick but lately yellowish tinge was appearing she did spike fever up to 103 patient denies any cardiovascular problems or issues he had an echocardiogram in the past which was unremarkable, he sugars however somewhat elevated, patient was initially admitted into the hospital due to increasing shortness of breath and gurgling eventually transferred to the ICU patient did receive 40 mg of Lasix and arterial blood gas and chest x-ray was performed patient of note that did respond with IV furosemide with some stabilization of the respiration currently patient is on 3 L oxygen is present at the bedside, patient specifically denies any chest pain denies any hemoptysis or him at bases denies any night sweats or fever or chills does have some facial pain and tenderness and sore throat which is overall stable, and denies any history of prior pneumonias recently, denies headache nausea vomiting diarrhea Review of Systems All systems: negative Constitutional: Reports as per HPI, Reports chills, Reports daytime sleepiness, Reports fatigue, Reports fever, Reports malaise, Reports night sweats, Reports poor appetite, Reports sweats, Reports weakness Ears: deny: decreased hearing, ear discharge, earache, tinnitus Ears, nose, mouth and throat: Reports as per HPI, Reports headache, Reports hoarseness, Reports post-nasal drip, Reports sinus pain, Reports sinus pressure , Reports sore throat, Reports voice changes Cardiovascular: Reports as per HPI Respiratory: Reports as per HPI Genitourinary: Reports as per HPI Musculoskeletal: Reports as per HPI Musculoskeletal: absent: as per HPI Integumentary: Reports as per HPI Neurological: Reports as per HPI Psychiatric: Reports as per HPI Endocrine: Reports as per HPI Hematologic/Lymphatic: Reports as per HPI Allergic/Immunologic: Reports as per HPI Past Medical History Past Medical History: Diabetes Mellitus, Hyperlipidemia, Hypertension, Renal Disease Additional Past Medical History / Comment(s): NIDDM TYPE II, ANEMIA LONG AGO History of Any Multi-Drug Resistant Organisms: None Reported Past Surgical History: No Surgical Hx Reported Additional Past Surgical History / Comment(s): L SHOULDER CYSTECTOMY, BILATERAL CATARACT REMOVALS WITH LENS IMPLANTS. Past Anesthesia/Blood Transfusion Reactions: No Reported Reaction Past Psychological History: No Psychological Hx Reported Additional Psychological History / Comment(s): PT RESIDES WITH HIS SPOUSE. HE IS INDEPENDENT. Smoking Status: Former smoker Past Alcohol Use History: None Reported Additional Past Alcohol Use History / Comment(s): PT STATES HE STARTED SMOKING IN 1960 AND QUIT MANY YRS AGO BUT CANNOT RECALL YEAR OR HIS AGE AT TIME OF QUITTING. Past Drug Use History: None Reported - Past Family History Father Family Medical History: Diabetes Mellitus Additional Family Medical History / Comment(s): FATHER AT THE AGE OF 89YRS. Mother Family Medical History: COPD Additional Family Medical History / Comment(s): MOTHER HAD A "BAD HEART." SHE OF EMPHYSEMA AT THE AGE OF 68YRS. Medications and Allergies Home Medications Medication Instructions Recorded Confirmed Type Aspirin EC [Ecotrin Low Dose] 81 mg PO DAILY 05/28/17 05/28/17 History Atorvastatin [Lipitor] 80 mg PO HS 05/28/17 05/28/17 History EPINEPHrine (Auto Inject) [Epipen] 0.3 mg PO ONCE PRN 05/28/17 05/28/17 History Nitroglycerin Sl Tabs [Nitrostat] 0.4 mg SUBLINGUAL Q5M PRN 05/28/17 05/28/17 History Pioglitazone [Actos] 45 mg PO DAILY 05/28/17 05/28/17 History Primidone [Mysoline] 50 mg PO DAILY 05/28/17 05/28/17 History Quinapril HCl [Accupril] 20 mg PO DAILY 05/28/17 05/28/17 History Sodium Polystyrene Sulfon/Sorb 15 gm PO DAILY 05/28/17 05/28/17 History [Kionex 15 gm/60 ml Suspension] Soy Lecithin 1 cap PO BID 05/28/17 05/28/17 History glyBURIDE [Diabeta] 5 mg PO BID 05/28/17 05/28/17 History sitaGLIPtin [Januvia] 100 mg PO DAILY 05/28/17 05/28/17 History Allergies Allergy/AdvReac Type Severity Reaction Status Date / Time bee venom protein (honey bee) Allergy Anaphylaxis Verified 05/28/17 11:20 Physical Exam Vitals: Vital Signs Temp Pulse Pulse Resp BP BP Pulse Ox 05/29/17 07:40 76 05/29/17 07:32 66 95 05/29/17 07:00 60 18 123/47 97 05/29/17 06:30 64 21 140/52 98 05/29/17 06:00 77 18 135/63 100 05/29/17 05:30 64 19 135/63 100 05/29/17 05:00 64 20 148/52 100 05/29/17 04:30 64 23 141/56 100 05/29/17 04:00 99.5 F 57 L 20 141/56 98 05/29/17 03:30 68 23 129/63 97 05/29/17 03:00 62 21 125/53 96 05/29/17 02:30 62 23 148/59 98 05/29/17 02:00 66 19 152/66 94 L 05/29/17 01:30 72 24 149/62 97 05/29/17 01:00 99.8 F H 70 25 H 128/55 98 05/29/17 00:50 72 27 H 144/55 97 05/29/17 00:40 73 26 H 144/55 98 05/29/17 00:34 71 27 H 144/55 98 05/28/17 23:00 101.6 F H 81 30 H 138/56 98 05/28/17 22:45 101.7 F H 82 30 H 179/69 97 05/28/17 19:23 94 05/28/17 19:09 90 05/28/17 15:10 99.4 F 05/28/17 14:41 101.2 F H 89 18 128/73 97 05/28/17 13:46 101.7 F H 81 24 134/60 95 05/28/17 13:03 102.8 F H 89 18 134/60 93 L 05/28/17 12:23 92 05/28/17 12:14 88 05/28/17 11:01 103.3 F H 93 20 170/72 95 Intake and Output 05/28/17 05/29/17 05/29/17 22:59 06:59 14:59 Intake Total 60 120 Output Total 1010 180 Balance -950 -60 Intake: IV 60 120 Magnesium Sulfate-D5w Pmx 100 1 gm In Dextrose/Water 1 100ml.bag @ 100 mls/hr IVPB Q1H [facility] Rx#: [id number] Sodium Chloride 0.9% 1, 60 20 000 ml @ 20 mls/hr IV . Q24H [facility] Rx#:[id number] Output: Urine 1010 180 Other: Voiding Method Urinal # Voids 2 1 - Constitutional General appearance: average body habitus, cooperative, disheveled, mild distress - EENT Eyes: EOMI, PERRLA, normal appearance ENT: hearing grossly normal, normal oropharynx Ears: bilateral: normal - Neck Neck: normal ROM Carotids: bilateral: upstroke normal, bruit absent Thyroid: bilateral: normal size - Respiratory Respiratory: bilateral: rhonchi, prolonged expiration - Cardiovascular Rhythm: regular Heart sounds: normal: S1, S2 - Gastrointestinal General gastrointestinal: normal bowel sounds, soft - Integumentary Integumentary: normal, normal turgor - Neurologic Neurologic: CNII-XII intact - Musculoskeletal Musculoskeletal: gait normal, strength equal bilaterally - Psychiatric Psychiatric: A&O x's 3, appropriate affect, intact judgment & insight Results - Laboratory Findings CBC and BMP: 05/29/17 04:52 05/29/17 04:52 ABG ABG pH 7.46 (7.35-7.45) H 05/29/17 01:07 ABG pCO2 24 mmHg (35-45) L 05/29/17 01:07 ABG pO2 110 mmHg (83-108) H 05/29/17 01:07 ABG O2 Saturation 99.0 % (94-97) H 05/29/17 01:07 PT/INR, D-dimer PT 11.4 sec (9.0-12.0) 05/28/17 12:09 INR 1.1 (<1.2) 05/28/17 12:09 Abnormal lab findings: Abnormal Labs 05/28/17 05/28/17 05/28/17 12:09 12:09 12:09 RBC 3.82 L Hgb 12.2 L Hct 37.1 L MCV Plt Count 120 L Lymphocytes # (Manual) 0.47 L Metamyelocytes # (Man) ABG pH ABG pCO2 ABG pO2 ABG HCO3 ABG Total CO2 ABG O2 Saturation VBG HCO3 21 L Sodium 133 L Carbon Dioxide 21 L BUN 34 H Creatinine 2.01 H Glucose 350 H POC Glucose (mg/dL) Hemoglobin A1c Plasma Lactic Acid Shiva Calcium 8.1 L Urine Protein Urine Glucose (UA) Urine Blood Urine RBC Urine Mucus 05/28/17 05/28/17 05/28/17 12:09 12:45 14:40 RBC Hgb Hct MCV Plt Count Lymphocytes # (Manual) Metamyelocytes # (Man) ABG pH ABG pCO2 ABG pO2 ABG HCO3 ABG Total CO2 ABG O2 Saturation VBG HCO3 Sodium Carbon Dioxide BUN Creatinine Glucose POC Glucose (mg/dL) 289 H Hemoglobin A1c 6.9 H Plasma Lactic Acid Shiva Calcium Urine Protein 1+ H Urine Glucose (UA) 3+ H Urine Blood Trace H Urine RBC 6 H Urine Mucus Rare H 05/28/17 05/28/17 05/29/17 16:54 20:44 00:22 RBC Hgb Hct MCV Plt Count Lymphocytes # (Manual) Metamyelocytes # (Man) ABG pH ABG pCO2 ABG pO2 ABG HCO3 ABG Total CO2 ABG O2 Saturation VBG HCO3 Sodium Carbon Dioxide BUN Creatinine Glucose POC Glucose (mg/dL) 310 H 241 H 201 H Hemoglobin A1c Plasma Lactic Acid Shiva Calcium Urine Protein Urine Glucose (UA) Urine Blood Urine RBC Urine Mucus 05/29/17 05/29/17 05/29/17 00:39 01:07 04:52 RBC 3.65 L Hgb 11.8 L Hct 37.0 L MCV 101.3 H Plt Count 105 L Lymphocytes # (Manual) 0.57 L Metamyelocytes # (Man) 0.16 H ABG pH 7.46 H ABG pCO2 24 L ABG pO2 110 H ABG HCO3 17 L ABG Total CO2 18 L ABG O2 Saturation 99.0 H VBG HCO3 Sodium Carbon Dioxide BUN Creatinine Glucose POC Glucose (mg/dL) Hemoglobin A1c Plasma Lactic Acid Shiva 2.9 H* Calcium Urine Protein Urine Glucose (UA) Urine Blood Urine RBC Urine Mucus 05/29/17 05/29/17 04:52 07:49 RBC Hgb Hct MCV Plt Count Lymphocytes # (Manual) Metamyelocytes # (Man) ABG pH ABG pCO2 ABG pO2 ABG HCO3 ABG Total CO2 ABG O2 Saturation VBG HCO3 Sodium 135 L Carbon Dioxide 19 L BUN 36 H Creatinine 1.90 H Glucose 230 H POC Glucose (mg/dL) 277 H Hemoglobin A1c Plasma Lactic Acid Shiva Calcium 8.0 L Urine Protein Urine Glucose (UA) Urine Blood Urine RBC Urine Mucus - Diagnostic Findings Chest x-ray: report reviewed, image reviewed (The chest x-ray performed on 05/28 as well as the 05/29/2017 midnight followed by earlier this morning on May 29 have been reviewed initial x-ray was fairly unremarkable however subsequent to x-ray revealed presence of bilateral basal pneumonia, EKG revealed no ST segment significant changes normal sinus rhythm) Assessment and Plan Plan: Bilateral pneumonia basal likely community-acquired Acute bilateral sinusitis Exacerbation of CHF acute on chronic diastolic or systolic heart failure responded well with furosemide Sepsis Acute on chronic renal failure stage III Uncontrolled diabetes and hyperglycemia Severe COPD with acute COPD exacerbation related to above Plan is to follow up on the sputum culture results are reported urine and blood cultures are being performed as well, would recommend to maintain patient on the IV Rocephin and Zithromax and steroids and bronchodilators, will check cardiac enzymes and order an echocardiogram as well will keep patient in ICU for now with close monitoring and observation further recommendations pending, if remains stable can moved out of the ICU by and of the day provided cardiac enzymes and echocardiogram are within normal limits Time with Patient: Greater than 30
--- NOTE | 2017-05-30 12:47 | P.PN ---
Subjective Principal diagnosis: Acute COPD exacerbation, purulent tracheobronchitis, congestive heart failure likely acute diastolic heart failure and pulmonary edema related to that Patient has been seen and evaluated examined in the ICU overall respiratory status slightly better patient's blood pressure however continued to be on higher side I reviewed his home medications and the antihypertensive agents are being restarted including other medications he is still a very thick purulent sputum however tenacity and color continued to improve there is no hemoptysis present overall plan is to increase activity as tolerated continue other supportive care if remains stable cannula moved out of the ICU to stepdown unit Objective - Vital Signs Vital signs: Vital Signs Temp 99.3 F 05/30/17 04:00 Pulse 82 05/30/17 12:26 Resp 20 05/30/17 12:15 BP 159/68 05/30/17 07:00 Pulse Ox 94 L 05/30/17 07:00 Intake & Output 05/29/17 05/30/17 05/30/17 18:59 06:59 18:59 Intake Total 1475.318 834.135 Output Total 2054 119 Balance -579.682 -355.865 Weight 96 kg 96.7 kg Intake: IV 670 260 Azithromycin 500 mg In 250 Sodium Chloride 0.9% 250 ml @ 125 mls/hr IVPB DAILY [facility] Rx#:[id number] Magnesium Sulfate-D5w Pmx 200 1 gm In Dextrose/Water 1 100ml.bag @ 100 mls/hr IVPB Q1H [facility] Rx#: [id number] Sodium Chloride 0.9% 1, 220 260 000 ml @ 20 mls/hr IV . Q24H [facility] Rx#:[id number] Intake, IV Titration 65.318 74.135 Amount Insulin Regular 100 unit 15.318 74.135 In Sodium Chloride 0.9% 100 ml @ Per Protocol IV .Q0M [facility] Rx#:[id number] cefTRIAXone 1,000 mg In 50 Sodium Chloride 0.9% 50 ml @ 100 mls/hr IVPB DAILY [facility] Rx#:[id number] Oral 740 500 Output: Urine 2054 1190 Other: Voiding Method Urinal Urinal # Voids 1 0 - Exam - Constitutional General appearance: average body habitus, cooperative, disheveled, mild distress - EENT Eyes: EOMI, PERRLA, normal appearance ENT: hearing grossly normal, normal oropharynx Ears: bilateral: normal - Neck Neck: normal ROM Carotids: bilateral: upstroke normal, bruit absent Thyroid: bilateral: normal size - Respiratory Respiratory: bilateral: rhonchi, prolonged expiration - Cardiovascular Rhythm: regular Heart sounds: normal: S1, S2 - Gastrointestinal General gastrointestinal: normal bowel sounds, soft - Integumentary Integumentary: normal, normal turgor - Neurologic Neurologic: CNII-XII intact - Musculoskeletal Musculoskeletal: gait normal, strength equal bilaterally - Psychiatric Psychiatric: A&O x's 3, appropriate affect, intact judgment & insight - Labs CBC & Chem 7: 05/30/17 05:17 05/30/17 05:17 Labs: Abnormal Lab Results - Last 24 Hours (Table) 05/29/17 05/29/17 05/29/17 Range/Units 16:50 17:22 18:27 RBC (4.30-5.90) m/uL Hgb (13.0-17.5) gm/dL Hct (39.0-53.0) % Plt Count (150-450) k/uL Lymphocytes # (1.0-4.8) k/uL Sodium (137-145) mmol/L Carbon Dioxide (22-30) mmol/L BUN (9-20) mg/dL Creatinine (0.66-1.25) mg/dL Glucose (74-99) mg/dL POC Glucose (mg/dL) 436 H 413 H (75-99) mg/dL Calcium (8.4-10.2) mg/dL Troponin I 0.069 H* (0.000-0.034) ng/mL 05/29/17 05/29/17 05/29/17 Range/Units 19:00 19:58 21:05 RBC (4.30-5.90) m/uL Hgb (13.0-17.5) gm/dL Hct (39.0-53.0) % Plt Count (150-450) k/uL Lymphocytes # (1.0-4.8) k/uL Sodium (137-145) mmol/L Carbon Dioxide (22-30) mmol/L BUN (9-20) mg/dL Creatinine (0.66-1.25) mg/dL Glucose (74-99) mg/dL POC Glucose (mg/dL) 377 H 270 H 246 H (75-99) mg/dL Calcium (8.4-10.2) mg/dL Troponin I (0.000-0.034) ng/mL 05/29/17 05/29/17 05/30/17 Range/Units 21:58 22:58 00:03 RBC (4.30-5.90) m/uL Hgb (13.0-17.5) gm/dL Hct (39.0-53.0) % Plt Count (150-450) k/uL Lymphocytes # (1.0-4.8) k/uL Sodium (137-145) mmol/L Carbon Dioxide (22-30) mmol/L BUN (9-20) mg/dL Creatinine (0.66-1.25) mg/dL Glucose (74-99) mg/dL POC Glucose (mg/dL) 212 H 156 H 121 H (75-99) mg/dL Calcium (8.4-10.2) mg/dL Troponin I (0.000-0.034) ng/mL 05/30/17 05/30/17 05/30/17 Range/Units 01:05 01:56 02:59 RBC (4.30-5.90) m/uL Hgb (13.0-17.5) gm/dL Hct (39.0-53.0) % Plt Count (150-450) k/uL Lymphocytes # (1.0-4.8) k/uL Sodium (137-145) mmol/L Carbon Dioxide (22-30) mmol/L BUN (9-20) mg/dL Creatinine (0.66-1.25) mg/dL Glucose (74-99) mg/dL POC Glucose (mg/dL) 117 H 118 H 123 H (75-99) mg/dL Calcium (8.4-10.2) mg/dL Troponin I (0.000-0.034) ng/mL 05/30/17 05/30/17 05/30/17 Range/Units 03:58 05:03 05:17 RBC 3.37 L (4.30-5.90) m/uL Hgb 10.8 L (13.0-17.5) gm/dL Hct 33.3 L (39.0-53.0) % Plt Count 111 L (150-450) k/uL Lymphocytes # 0.8 L (1.0-4.8) k/uL Sodium (137-145) mmol/L Carbon Dioxide (22-30) mmol/L BUN (9-20) mg/dL Creatinine (0.66-1.25) mg/dL Glucose (74-99) mg/dL POC Glucose (mg/dL) 130 H 130 H (75-99) mg/dL Calcium (8.4-10.2) mg/dL Troponin I (0.000-0.034) ng/mL 05/30/17 05/30/17 05/30/17 Range/Units 05:17 06:11 07:01 RBC (4.30-5.90) m/uL Hgb (13.0-17.5) gm/dL Hct (39.0-53.0) % Plt Count (150-450) k/uL Lymphocytes # (1.0-4.8) k/uL Sodium 136 L (137-145) mmol/L Carbon Dioxide 18 L (22-30) mmol/L BUN 41 H (9-20) mg/dL Creatinine 1.60 H (0.66-1.25) mg/dL Glucose 131 H (74-99) mg/dL POC Glucose (mg/dL) 135 H 129 H (75-99) mg/dL Calcium 8.0 L (8.4-10.2) mg/dL Troponin I (0.000-0.034) ng/mL 05/30/17 05/30/17 05/30/17 Range/Units 08:43 09:00 12:25 RBC (4.30-5.90) m/uL Hgb (13.0-17.5) gm/dL Hct (39.0-53.0) % Plt Count (150-450) k/uL Lymphocytes # (1.0-4.8) k/uL Sodium (137-145) mmol/L Carbon Dioxide (22-30) mmol/L BUN (9-20) mg/dL Creatinine (0.66-1.25) mg/dL Glucose (74-99) mg/dL POC Glucose (mg/dL) 160 H 162 H 269 H (75-99) mg/dL Calcium (8.4-10.2) mg/dL Troponin I (0.000-0.034) ng/mL Microbiology - Last 24 Hours (Table) 05/29/17 16:40 Gram Stain - Preliminary Sputum Sputum Culture - Preliminary 05/28/17 12:45 Urine Culture - Final Urine,Voided 05/28/17 12:09 Blood Culture - Preliminary Blood No Growth after 24 hours 05/28/17 12:00 Blood Culture - Preliminary Blood No Growth after 24 hours Assessment and Plan Plan: Bilateral pneumonia basal likely community-acquired Acute bilateral sinusitis Exacerbation of CHF acute on chronic diastolic or systolic heart failure responded well with furosemide Sepsis Acute on chronic renal failure stage III Uncontrolled diabetes and hyperglycemia Severe COPD with acute COPD exacerbation related to above Plan is to follow up on the sputum culture results are reported urine and blood cultures are being performed as well, would recommend to maintain patient on the IV Rocephin and Zithromax and steroids and bronchodilators, will check cardiac enzymes and order an echocardiogram as well will keep patient in ICU for now with close monitoring and observation further recommendations pending, if remains stable can moved out of the ICU by and of the day provided cardiac enzymes and echocardiogram are within normal limits, dilated LA hour as been noted will monitor and observe off not that on the mild degree of MR has been seen, patient remains in sinus rhythm Time with Patient: Greater than 30
[2017-05-30] MEDS: INSULIN LISPRO (humaLOG) 300 UNIT/3 ML VIAL SQ SCH ×4 (13:07→21:45)
[2017-05-30] MEDS: LISINOPRIL 20 MG TAB PO SCH (13:10)
[2017-05-30] MEDS: SODIUM CHLORIDE 0.9% 1,000 ML IV SCH (15:51)
[2017-05-30 16:38] LABS: Glucose,Whole Blood 377 mg/dL (75-99)
--- NOTE | 2017-05-30 17:35 | P.PN ---
Subjective Progress note being dictated for Dr. Welch Interval history:Patient is a 77-year-old male who presents for evaluation for shortness of breath/cough and sore throat for the last 2-3 days. Past medical history as below. Patient saw his primary care physician yesterday and prescribed him amoxicillin for suspected sinus infection. He states that he is coughing up a clear phlegm. Shortness of breath. Sore throat secondary to the cough. He denies any ear pain or sinus pain. He has a fever of 103 currently. Known diabetic and his sugars been a little bit elevated. Been compliant with his medications. He has no history of heart failure. He's had an echo in the past which was apparently normal. No swelling to the lower extremities. No no sick contacts. No recent long distance travel. No history of DVT or pulmonary embolism. Currently denies headaches, chest pain, nausea, vomiting, diarrhea, pain or burning with urination. Patient denied any photophobia, abdominal pain patient started having diarrhea after antibiotics. There is no clear-cut evidence of pneumonia on the chest x-ray, no other sources of infections and was were appreciated patient was started on antibiotics for pneumonia from ER. Patient is afebrile since his admission last night. As patient was hypotensive was transferred to ICU last night. 05/30/2017 maintained on IV fluid hydration. Sodium improving. Productive cough with thick purulent sputum. Continues on Rocephin and Zithromax with cultures pending. Afebrile,Normal WBC. Hypertensive. Chest x-ray reporting improvement of bibasilar atelectasis/infiltrate. REVIEW OF SYSTEMS: CONSTITUTIONAL: No fever, no malaise, no fatigue. HEENT: No recent visual problems or hearing problems. Denied any sore throat. CARDIOVASCULAR: No chest pain, orthopnea, PND, no palpitations, no syncope. PULMONARY: As mentioned above GASTROINTESTINAL: No diarrhea, no nausea, no vomiting, no abdominal pain. Normoactive bowel sounds. NEUROLOGICAL: No headaches, no weakness, no numbness. HEMATOLOGICAL: Denies any bleeding or petechiae. GENITOURINARY: Denies any burning micturition, frequency, or urgency. MUSCULOSKELETAL/RHEUMATOLOGICAL: Denies any joint pain, swelling, or any muscle pain. ENDOCRINE: Denies any polyuria or polydipsia. Active Medications Acetaminophen (Tylenol Tab) 650 mg PO Q6HR PRN PRN Reason: Fever and/ or Pain Last Admin: 05/28/17 22:49 Dose: 650 mg Albuterol/Ipratropium (Duoneb 0.5 Mg-3 Mg/3 Ml Soln) 3 ml INHALATION RT-Q2H PRN PRN Reason: Shortness Of Breath Or Wheezing Albuterol/Ipratropium (Duoneb 0.5 Mg-3 Mg/3 Ml Soln) 3 ml INHALATION RT-QID [facility] Last Admin: 05/30/17 12:14 Dose: 3 ml Aspirin (Aspirin) 81 mg PO DAILY [facility] Last Admin: 05/30/17 08:53 Dose: 81 mg Atorvastatin Calcium (Lipitor) 80 mg PO HS [facility] Last Admin: 05/29/17 21:04 Dose: 80 mg Azithromycin (Zithromax) 500 mg PO DAILY [facility] Last Admin: 05/30/17 08:53 Dose: 500 mg Benzocaine/Menthol (Cepacol Lozenge) 1 each MUCOUS MEM Q4HR PRN PRN Reason: Sore Throat Last Admin: 05/29/17 23:02 Dose: 1 each Budesonide/Formoterol Fumarate (Symbicort 160-4.5 Mcg Inhaler) 2 puff INHALATION RT-BID [facility] Last Admin: 05/30/17 08:44 Dose: 2 puff Famotidine (Pepcid) 20 mg PO DAILY [facility] Last Admin: 05/30/17 08:53 Dose: 20 mg Guaifenesin/Dextromethorphan (Robitussin Dm) 10 ml PO Q6H PRN PRN Reason: Cough Last Admin: 05/29/17 23:36 Dose: 10 ml Heparin Sodium (Porcine) (Heparin) 5,000 unit SQ Q8HR [facility] Last Admin: 05/30/17 17:02 Dose: 5,000 unit Ceftriaxone Sodium 1,000 mg/ (Sodium Chloride) 50 mls @ 100 mls/hr IVPB DAILY [facility] Last Admin: 05/30/17 08:44 Dose: 100 mls/hr Insulin Human Lispro (Humalog) 0 unit SQ ACHS [facility] PRN Reason: Protocol Last Admin: 05/30/17 17:02 Dose: 4 unit Linagliptin (Tradjenta) 5 mg PO DAILY [facility] Last Admin: 05/30/17 08:54 Dose: 5 mg Lisinopril (Zestril) 20 mg PO DAILY [facility] Last Admin: 05/30/17 13:10 Dose: 20 mg Miscellaneous Information (Magnesium Per Protocol) 1 each MISCELLANE DAILY PRN ; Protocol PRN Reason: Per Protocol Naloxone HCl (Narcan) 0.2 mg IV Q2M PRN PRN Reason: Opioid Reversal Nitroglycerin (Nitrostat) 0.4 mg SUBLINGUAL Q5M PRN PRN Reason: Angina Pioglitazone HCl (Actos) 45 mg PO DAILY [facility] Last Admin: 05/30/17 08:54 Dose: 45 mg Prednisone () 60 mg PO DAILY [facility] Last Admin: 05/30/17 08:54 Dose: 60 mg Primidone (Mysoline) 50 mg PO DAILY [facility] Last Admin: 05/30/17 08:54 Dose: 50 mg Objective - Vital Signs Vital signs: Vital Signs Temp 99.3 F 05/30/17 04:00 Pulse 82 05/30/17 12:26 Resp 20 05/30/17 12:15 BP 157/61 05/30/17 12:00 Pulse Ox 96 05/30/17 12:00 Intake & Output 05/29/17 05/30/17 05/30/17 18:59 06:59 18:59 Intake Total 1475.318 061.767 7981 Output Total 2055 1190 720 Balance -579.682 -355.865 400 Weight 96 kg 96.7 kg Intake: IV 670 260 Azithromycin 500 mg In 250 Sodium Chloride 0.9% 250 ml @ 125 mls/hr IVPB DAILY [facility] Rx#:[id number] Magnesium Sulfate-D5w Pmx 200 1 gm In Dextrose/Water 1 100ml.bag @ 100 mls/hr IVPB Q1H [facility] Rx#: [id number] Sodium Chloride 0.9% 1, 220 260 000 ml @ 20 mls/hr IV . Q24H [facility] Rx#:[id number] Intake, IV Titration 65.318 74.135 Amount Insulin Regular 100 unit 15.318 74.135 In Sodium Chloride 0.9% 100 ml @ Per Protocol IV .Q0M [facility] Rx#:[id number] cefTRIAXone 1,000 mg In 50 Sodium Chloride 0.9% 50 ml @ 100 mls/hr IVPB DAILY [facility] Rx#:[id number] Oral 326 983 0895 Output: Urine 5 1190 720 Other: Voiding Method Urinal Urinal # Voids 1 0 - Exam GENERAL: The patient is alert and oriented x3, no acute distress. Well developed , well nourished. HEENT: Pupils are equal. No scleral icterus. No conjunctival pallor. Normocephalic, atraumatic. CARDIOVASCULAR: S1 and S2 present. No murmurs, rubs, or gallops. PULMONARY: Chest is clear to auscultation, scattered rhonchi, occasional fine expiratory wheeze scattered ABDOMEN: Soft, nontender, nondistended, normoactive bowel sounds. No palpable organomegaly. MUSCULOSKELETAL: No joint swelling or deformity. EXTREMITIES: No cyanosis, clubbing, or pedal edema. NEUROLOGICAL: Gross neurological examination did not reveal any focal deficits. SKIN: No rashes. - Labs CBC & Chem 7: 05/30/17 05:05/30/17 05:17 Labs: Abnormal Lab Results - Last 24 Hours (Table) 05/29/17 05/29/17 05/29/17 Range/Units 16:50 17:22 18:27 RBC (4.30-5.90) m/uL Hgb (13.0-17.5) gm/dL Hct (39.0-53.0) % Plt Count (150-450) k/uL Lymphocytes # (1.0-4.8) k/uL Sodium (137-145) mmol/L Carbon Dioxide (22-30) mmol/L BUN (9-20) mg/dL Creatinine (0.66-1.25) mg/dL Glucose (74-99) mg/dL POC Glucose (mg/dL) 436 H 413 H (75-99) mg/dL Calcium (8.4-10.2) mg/dL Troponin I 0.069 H* (0.000-0.034) ng/mL 05/29/17 05/29/17 05/29/17 Range/Units 19:00 19:58 21:05 RBC (4.30-5.90) m/uL Hgb (13.0-17.5) gm/dL Hct (39.0-53.0) % Plt Count (150-450) k/uL Lymphocytes # (1.0-4.8) k/uL Sodium (137-145) mmol/L Carbon Dioxide (22-30) mmol/L BUN (9-20) mg/dL Creatinine (0.66-1.25) mg/dL Glucose (74-99) mg/dL POC Glucose (mg/dL) 377 H 270 H 246 H (75-99) mg/dL Calcium (8.4-10.2) mg/dL Troponin I (0.000-0.034) ng/mL 05/29/17 05/29/17 05/30/17 Range/Units 21:58 22:58 00:03 RBC (4.30-5.90) m/uL Hgb (13.0-17.5) gm/dL Hct (39.0-53.0) % Plt Count (150-450) k/uL Lymphocytes # (1.0-4.8) k/uL Sodium (137-145) mmol/L Carbon Dioxide (22-30) mmol/L BUN (9-20) mg/dL Creatinine (0.66-1.25) mg/dL Glucose (74-99) mg/dL POC Glucose (mg/dL) 212 H 156 H 121 H (75-99) mg/dL Calcium (8.4-10.2) mg/dL Troponin I (0.000-0.034) ng/mL 05/30/17 05/30/17 05/30/17 Range/Units 01:05 01:56 02:59 RBC (4.30-5.90) m/uL Hgb (13.0-17.5) gm/dL Hct (39.0-53.0) % Plt Count (150-450) k/uL Lymphocytes # (1.0-4.8) k/uL Sodium (137-145) mmol/L Carbon Dioxide (22-30) mmol/L BUN (9-20) mg/dL Creatinine (0.66-1.25) mg/dL Glucose (74-99) mg/dL POC Glucose (mg/dL) 117 H 118 H 123 H (75-99) mg/dL Calcium (8.4-10.2) mg/dL Troponin I (0.000-0.034) ng/mL 05/30/17 05/30/17 05/30/17 Range/Units 03:58 05:03 05:17 RBC 3.37 L (4.30-5.90) m/uL Hgb 10.8 L (13.0-17.5) gm/dL Hct 33.3 L (39.0-53.0) % Plt Count 111 L (150-450) k/uL Lymphocytes # 0.8 L (1.0-4.8) k/uL Sodium (137-145) mmol/L Carbon Dioxide (22-30) mmol/L BUN (9-20) mg/dL Creatinine (0.66-1.25) mg/dL Glucose (74-99) mg/dL POC Glucose (mg/dL) 130 H 130 H (75-99) mg/dL Calcium (8.4-10.2) mg/dL Troponin I (0.000-0.034) ng/mL 05/30/17 05/30/17 05/30/17 Range/Units 05:17 06:11 07:01 RBC (4.30-5.90) m/uL Hgb (13.0-17.5) gm/dL Hct (39.0-53.0) % Plt Count (150-450) k/uL Lymphocytes # (1.0-4.8) k/uL Sodium 136 L (137-145) mmol/L Carbon Dioxide 18 L (22-30) mmol/L BUN 41 H (9-20) mg/dL Creatinine 1.60 H (0.66-1.25) mg/dL Glucose 131 H (74-99) mg/dL POC Glucose (mg/dL) 135 H 129 H (75-99) mg/dL Calcium 8.0 L (8.4-10.2) mg/dL Troponin I (0.000-0.034) ng/mL 05/30/17 05/30/17 05/30/17 Range/Units 08:43 09:00 12:25 RBC (4.30-5.90) m/uL Hgb (13.0-17.5) gm/dL Hct (39.0-53.0) % Plt Count (150-450) k/uL Lymphocytes # (1.0-4.8) k/uL Sodium (137-145) mmol/L Carbon Dioxide (22-30) mmol/L BUN (9-20) mg/dL Creatinine (0.66-1.25) mg/dL Glucose (74-99) mg/dL POC Glucose (mg/dL) 160 H 162 H 269 H (75-99) mg/dL Calcium (8.4-10.2) mg/dL Troponin I (0.000-0.034) ng/mL Microbiology - Last 24 Hours (Table) 05/29/17 16:40 Gram Stain - Preliminary Sputum Sputum Culture - Preliminary 05/28/17 12:45 Urine Culture - Final Urine,Voided 05/28/17 12:09 Blood Culture - Preliminary Blood No Growth after 24 hours 05/28/17 12:00 Blood Culture - Preliminary Blood No Growth after 24 hours Assessment and Plan Plan: #1 sepsis secondary to bilateral pneumonia, possibly community-acquired, #2 COPD with acute exacerbation and acute hypercapnic respiratory failure #3 diabetes mellitus type 2: elevated blood sugars secondary to systemic steroids #4 minimally elevation of troponins without any chest pain or significant EKG changes, this is secondary to hypoxemia from COPD. #5 acute on chronic renal failure, stage II, secondary to prerenal azotemia, chronic kidney disease from diabetic nephropathy #6 hypovolemic hyponatremia Plan: Continue on current medication regime , antibiotics, monitoring and symptomatic treatment. Follow cultures closely. Maintain IV fluid hydration. Close monitoring of electrolytes and renal function with repeat labs ordered for a.m. 6 E. overflow awaiting bed on 6 E. telemetry. The impression and plan of care has been dictated as directed. : I performed a H&P examination of this patient and discussed the same with the dictator. I agree with the dictator's note. Any additional findings/opinions/ etc. will be noted.
[2017-05-30 21:28] LABS: Glucose,Whole Blood 349 mg/dL (75-99)
[2017-05-30] MEDS: ATORVASTATIN 80 MG TAB PO SCH (21:45)
[2017-05-31 06:15] LABS: Glucose,Whole Blood 216 mg/dL (75-99)
[2017-05-31 06:44] LABS: CH 32.2; CHCM 32.7; HDW 2.85; HGB 10.3 gm/dL (13.0-17.5); MCH 31.8 pg (25.0-35.0); MCHC 32.1 g/dL (31.0-37.0); MCV 99.2 fL (80.0-100.0); Mean Platelet Volume 8.8; RBC 3.23 m/uL (4.30-5.90); RDW 14.9 % (11.5-15.5); WBC 7.1 k/uL (3.8-10.6)
[2017-05-31 06:56] LABS: Calcium 8.4 mg/dL (8.4-10.2); Magnesium 2.6 mg/dL (1.6-2.3); Phosphorous 2.9 mg/dL (2.5-4.5); Potassium 4.6 mmol/L (3.5-5.1)
[2017-05-31] MEDS: INSULIN LISPRO (humaLOG) 300 UNIT/3 ML VIAL SQ SCH ×4 (07:02→22:03)
[2017-05-31] MEDS: SYMBICORT 160-4.5 MCG INHALER INHALATION SCH ×2 (08:21→19:45)
[2017-05-31] MEDS: IPRATROPIUM-ALBUTEROL 3 ML NEB INHALATION SCH ×4 (08:22→19:45)
[2017-05-31] MEDS: PIOGLITAZONE 45 MG TAB PO SCH (09:29)
[2017-05-31] MEDS: HEPARIN SODIUM,PORCINE 5,000 UNIT/ML 1 ML VIAL SQ SCH ×3 (09:29→22:05)
[2017-05-31] MEDS: predniSONE 20 MG TAB PO SCH (09:29)
[2017-05-31] MEDS: LISINOPRIL 20 MG TAB PO SCH (09:30)
[2017-05-31] MEDS: LINAGLIPTIN 5 MG TABLET PO SCH (09:30)
[2017-05-31] MEDS: AZITHROMYCIN 500 MG TAB PO SCH (09:30)
[2017-05-31] MEDS: FAMOTIDINE 20 MG TAB PO SCH (09:30)
[2017-05-31] MEDS: ASPIRIN 81 MG CHEW PO SCH (09:30)
[2017-05-31] MEDS: PRIMIDONE 50 MG TAB PO SCH (09:30)
[2017-05-31 11:48] LABS: Glucose,Whole Blood 244 mg/dL (75-99)
--- NOTE | 2017-05-31 12:26 | P.PN ---
Subjective Principal diagnosis: Acute COPD exacerbation, purulent tracheobronchitis, congestive heart failure likely acute diastolic heart failure and pulmonary edema related to that, patient has been seen and evaluated examined during the rounds clinically doing better, congestion is improved but still gets short of breath on activity and exertion amount of phlegm production is slightly better now Patient has been seen and evaluated examined in the medical floor overall respiratory status slightly better patient's blood pressure however continued to be on higher side I reviewed his home medications and the antihypertensive agents are being restarted including other medications he is still a very thick purulent sputum however tenacity and color continued to improve there is no hemoptysis present overall plan is to increase activity as tolered, chest x-ray performed yesterday reviewed and revealed presence of resolving bibasilar infiltrate Objective - Vital Signs Vital signs: Vital Signs Temp 97.6 F 05/31/17 12:00 Pulse 71 05/31/17 12:00 Resp 18 05/31/17 12:00 BP 137/63 05/31/17 12:00 Pulse Ox 95 05/31/17 12:00 Intake & Output 05/30/17 05/31/17 05/31/17 18:59 06:59 18:59 Intake Total 1520 180 Output Total 920 Balance 600 180 Weight 92.7 kg Intake: Oral 1520 180 Output: Urine 920 Other: Voiding Method Urinal Urinal Urinal # Voids 1 2 1 - Exam - Constitutional General appearance: average body habitus, cooperative, disheveled, mild distress - EENT Eyes: EOMI, PERRLA, normal appearance ENT: hearing grossly normal, normal oropharynx Ears: bilateral: normal - Neck Neck: normal ROM Carotids: bilateral: upstroke normal, bruit absent Thyroid: bilateral: normal size - Respiratory Respiratory: bilateral: rhonchi, prolonged expiration - Cardiovascular Rhythm: regular Heart sounds: normal: S1, S2 - Gastrointestinal General gastrointestinal: normal bowel sounds, soft - Integumentary Integumentary: normal, normal turgor - Neurologic Neurologic: CNII-XII intact - Musculoskeletal Musculoskeletal: gait normal, strength equal bilaterally - Psychiatric Psychiatric: A&O x's 3, appropriate affect, intact judgment & insight - Labs CBC & Chem 7: 05/31/17 06:01 05/31/17 06:01 Labs: Abnormal Lab Results - Last 24 Hours (Table) 05/30/17 05/30/17 05/30/17 Range/Units 12:25 16:36 21:26 RBC (4.30-5.90) m/uL Hgb (13.0-17.5) gm/dL Hct (39.0-53.0) % Plt Count (150-450) k/uL Chloride (98-107) mmol/L BUN (9-20) mg/dL Creatinine (0.66-1.25) mg/dL Glucose (74-99) mg/dL POC Glucose (mg/dL) 269 H 377 H 349 H (75-99) mg/dL Magnesium (1.6-2.3) mg/dL 05/31/17 05/31/17 05/31/17 Range/Units 06:01 06:01 06:14 RBC 3.23 L (4.30-5.90) m/uL Hgb 10.3 L (13.0-17.5) gm/dL Hct 32.0 L (39.0-53.0) % Plt Count 122 L (150-450) k/uL Chloride 108 H (98-107) mmol/L BUN 41 H (9-20) mg/dL Creatinine 1.50 H (0.66-1.25) mg/dL Glucose 217 H (74-99) mg/dL POC Glucose (mg/dL) 216 H (75-99) mg/dL Magnesium 2.6 H (1.6-2.3) mg/dL 05/31/17 Range/Units 11:46 RBC (4.30-5.90) m/uL Hgb (13.0-17.5) gm/dL Hct (39.0-53.0) % Plt Count (150-450) k/uL Chloride (98-107) mmol/L BUN (9-20) mg/dL Creatinine (0.66-1.25) mg/dL Glucose (74-99) mg/dL POC Glucose (mg/dL) 244 H (75-99) mg/dL Magnesium (1.6-2.3) mg/dL Microbiology - Last 24 Hours (Table) 05/28/17 12:09 Blood Culture - Preliminary Blood No Growth after 48 hours 05/28/17 12:00 Blood Culture - Preliminary Blood No Growth after 48 hours Assessment and Plan Plan: Bilateral pneumonia basal likely community-acquired Acute bilateral sinusitis Exacerbation of CHF acute on chronic diastolic or systolic heart failure responded well with furosemide Sepsis Acute on chronic renal failure stage III Uncontrolled diabetes and hyperglycemia Severe COPD with acute COPD exacerbation related to above Plan is to follow up on the sputum culture results are reported urine and blood cultures are being performed as well, would recommend to maintain patient on the IV Rocephin and Zithromax and steroids and bronchodilators, will check cardiac enzymes and order an echocardiogram as well will keep patient in ICU for now with close monitoring and observation further recommendations pending, if remains stable can moved out of the ICU by and of the day provided cardiac enzymes and echocardiogram are within normal limits, dilated LA hour as been noted will monitor and observe off not that on the mild degree of MR has been seen, patient remains in sinus rhythm Time with Patient: Greater than 30
--- NOTE | 2017-05-31 16:37 | P.PN ---
Subjective Progress note being dictated for Dr. Welch Interval history:Patient is a 77-year-old male who presents for evaluation for shortness of breath/cough and sore throat for the last 2-3 days. Past medical history as below. Patient saw his primary care physician yesterday and prescribed him amoxicillin for suspected sinus infection. He states that he is coughing up a clear phlegm. Shortness of breath. Sore throat secondary to the cough. He denies any ear pain or sinus pain. He has a fever of 103 currently. Known diabetic and his sugars been a little bit elevated. Been compliant with his medications. He has no history of heart failure. He's had an echo in the past which was apparently normal. No swelling to the lower extremities. No no sick contacts. No recent long distance travel. No history of DVT or pulmonary embolism. Currently denies headaches, chest pain, nausea, vomiting, diarrhea, pain or burning with urination. Patient denied any photophobia, abdominal pain patient started having diarrhea after antibiotics. There is no clear-cut evidence of pneumonia on the chest x-ray, no other sources of infections and was were appreciated patient was started on antibiotics for pneumonia from ER. Patient is afebrile since his admission last night. As patient was hypotensive was transferred to ICU last night. 05/30/2017 maintained on IV fluid hydration. Sodium improving. Productive cough with thick purulent sputum. Continues on Rocephin and Zithromax with cultures pending. Afebrile,Normal WBC. Hypertensive. Chest x-ray reporting improvement of bibasilar atelectasis/infiltrate. 05/31/2017 maintained on nebulized bronchodilators, antibiotics, steroids.breathing continues to improve ,sputum cultures reporting Magdalena albicans, hypertensive and antihypertensives resumed. Afebrile. Telemetry sinus rhythm, occasional PVCs, bradycardia. Objective - Vital Signs Vital signs: Vital Signs Temp 97.6 F 05/31/17 12:00 Pulse 72 05/31/17 13:42 Resp 18 05/31/17 12:00 BP 137/63 05/31/17 12:00 Pulse Ox 95 05/31/17 12:00 Intake & Output 05/30/17 05/31/17 05/31/17 18:59 06:59 18:59 Intake Total 1520 440 Output Total 920 Balance 600 440 Weight 92.7 kg Intake: Oral 1520 440 Output: Urine 920 Other: Voiding Method Urinal Urinal Urinal # Voids 1 2 1 - Exam GENERAL: The patient is alert and oriented x3, no acute distress. Well developed , well nourished. HEENT: Pupils are equal. No scleral icterus. No conjunctival pallor. Normocephalic, atraumatic. CARDIOVASCULAR: S1 and S2 present. No murmurs, rubs, or gallops. PULMONARY: Chest is clear to auscultation, scattered rhonchi, no crackles ABDOMEN: Soft, nontender, nondistended, normoactive bowel sounds. No palpable organomegaly. MUSCULOSKELETAL: No joint swelling or deformity. EXTREMITIES: No cyanosis, clubbing, or pedal edema. NEUROLOGICAL: Gross neurological examination did not reveal any focal deficits. SKIN: No rashes. - Labs CBC & Chem 7: 05/31/17 06:01 05/31/17 06:01 Labs: Abnormal Lab Results - Last 24 Hours (Table) 05/30/17 05/30/17 05/31/17 Range/Units 16:36 21:26 06:01 RBC 3.23 L (4.30-5.90) m/uL Hgb 10.3 L (13.0-17.5) gm/dL Hct 32.0 L (39.0-53.0) % Plt Count 122 L (150-450) k/uL Chloride (98-107) mmol/L BUN (9-20) mg/dL Creatinine (0.66-1.25) mg/dL Glucose (74-99) mg/dL POC Glucose (mg/dL) 377 H 349 H (75-99) mg/dL Magnesium (1.6-2.3) mg/dL 05/31/17 05/31/17 05/31/17 Range/Units 06:01 06:14 11:46 RBC (4.30-5.90) m/uL Hgb (13.0-17.5) gm/dL Hct (39.0-53.0) % Plt Count (150-450) k/uL Chloride 108 H (98-107) mmol/L BUN 41 H (9-20) mg/dL Creatinine 1.50 H (0.66-1.25) mg/dL Glucose 217 H (74-99) mg/dL POC Glucose (mg/dL) 216 H 244 H (75-99) mg/dL Magnesium 2.6 H (1.6-2.3) mg/dL Microbiology - Last 24 Hours (Table) 05/28/17 12:09 Blood Culture - Preliminary Blood No Growth after 72 hours 05/28/17 12:00 Blood Culture - Preliminary Blood No Growth after 72 hours 05/29/17 16:40 Gram Stain - Preliminary Sputum Sputum Culture - Preliminary Magdalena albicans Assessment and Plan Plan: #1 sepsis secondary to bilateral pneumonia, possibly community-acquired, Magdalena albicans in sputum. #2 COPD with acute exacerbation and acute hypercapnic respiratory failure #3 diabetes mellitus type 2: elevated blood sugars secondary to systemic steroids #4 minimally elevation of troponins without any chest pain or significant EKG changes, this is secondary to hypoxemia from COPD. #5 acute on chronic renal failure, stage II, secondary to prerenal azotemia, chronic kidney disease from diabetic nephropathy #6 hypovolemic hyponatremia Plan: Continue on current medication regime , antibiotics, monitoring and symptomatic treatment. Diflucan added to med regime. Close monitoring of electrolytes and renal function with repeat labs ordered for a.m. follow closely with pulmonary. Increase ambulation as tolerated. The impression and plan of care has been dictated as directed. : I performed a H&P examination of this patient and discussed the same with the dictator. I agree with the dictator's note. Any additional findings/opinions/ etc. will be noted.
[2017-05-31 16:43] LABS: Glucose,Whole Blood 411 mg/dL (75-99)
[2017-05-31] MEDS: FLUCONAZOLE 100 MG TAB PO SCH (17:09)
[2017-05-31 21:26] LABS: Glucose,Whole Blood 364 mg/dL (75-99)
[2017-05-31] MEDS: ATORVASTATIN 80 MG TAB PO SCH (22:04)
[2017-06-01 06:01] LABS: Glucose,Whole Blood 250 mg/dL (75-99)
[2017-06-01 06:48] LABS: CH 32.3; CHCM 32.2; HCT 36.3 % (39.0-53.0); HGB 11.3 gm/dL (13.0-17.5); MCH 31.4 pg (25.0-35.0); MCHC 31.1 g/dL (31.0-37.0); MCV 100.9 fL (80.0-100.0); Macrocytosis Slight; Mean Platelet Volume 8.6; WBC 10.2 k/uL (3.8-10.6)
[2017-06-01 06:58] LABS: Calcium 9.1 mg/dL (8.4-10.2); Magnesium 2.6 mg/dL (1.6-2.3); Phosphorous 3.2 mg/dL (2.5-4.5); Potassium 4.7 mmol/L (3.5-5.1)
[2017-06-01] MEDS: INSULIN LISPRO (humaLOG) 300 UNIT/3 ML VIAL SQ SCH ×3 (06:59→18:21)
[2017-06-01] MEDS: AZITHROMYCIN 500 MG TAB PO SCH (08:40)
[2017-06-01] MEDS: ASPIRIN 81 MG CHEW PO SCH (08:40)
[2017-06-01] MEDS: HEPARIN SODIUM,PORCINE 5,000 UNIT/ML 1 ML VIAL SQ SCH ×3 (08:40→22:58)
[2017-06-01] MEDS: FAMOTIDINE 20 MG TAB PO SCH (08:40)
[2017-06-01] MEDS: IPRATROPIUM-ALBUTEROL 3 ML NEB INHALATION SCH ×4 (08:41→20:14)
[2017-06-01] MEDS: FLUCONAZOLE 100 MG TAB PO SCH (08:41)
[2017-06-01] MEDS: LINAGLIPTIN 5 MG TABLET PO SCH (08:41)
[2017-06-01] MEDS: LISINOPRIL 20 MG TAB PO SCH (08:41)
[2017-06-01] MEDS: PRIMIDONE 50 MG TAB PO SCH (08:42)
[2017-06-01] MEDS: PIOGLITAZONE 45 MG TAB PO SCH (08:42)
[2017-06-01] MEDS: predniSONE 20 MG TAB PO SCH (08:42)
[2017-06-01] MEDS: SYMBICORT 160-4.5 MCG INHALER INHALATION SCH ×2 (08:52→20:14)
--- NOTE | 2017-06-01 11:31 | P.PN ---
Subjective This is a 77-year-old male patient was admitted with Acute COPD exacerbation, purulent tracheobronchitis, congestive heart failure likely acute diastolic heart failure and pulmonary edema related to that, patient has been seen and evaluated examined during the rounds clinically doing better, congestion is improved but still gets short of breath on activity and exertion amount of phlegm production is slightly better now. Patient states his phlegm production has decreased significantly in the last 24 hours. He states his cough is almost completely resolved. He is afebrile, no overnight events. Denies any further complaints. is at bedside. Objective - Vital Signs Vital signs: Vital Signs Temp 97.6 F 06/01/17 08:30 Pulse 82 06/01/17 08:54 Resp 16 06/01/17 08:30 BP 138/63 06/01/17 08:30 Pulse Ox 95 06/01/17 08:45 Intake & Output 05/31/17 06/01/17 06/01/17 18:59 06:59 18:59 Intake Total 670 Output Total 500 500 Balance 170 -500 Weight 92.9 kg Intake: Intake, IV Titration 50 Amount cefTRIAXone 1,000 mg In 50 Sodium Chloride 0.9% 50 ml @ 100 mls/hr IVPB DAILY [facility] Rx#:[id number] Oral 620 Output: Urine 500 500 Other: Voiding Method Urinal Urinal Urinal # Voids 1 2 - Exam GENERAL EXAM: Alert, active, comfortable in no apparent distress. HEAD: Normocephalic. EYES: Normal reaction of pupils, equal size. NOSE: Clear with pink turbinates. THROAT: No erythema or exudates. NECK: No masses, no JVD. CHEST: No chest wall deformity. LUNGS: Lung sounds noted to be slightly coarse with some scattered rhonchi. ASIS diminished CVS: S1 and S2 normal with no audible mumurs, regular rhythm. ABDOMEN: No hepatosplenomegaly, normal bowel sounds, no guarding or rigidity. EXTREMITIES: No edema noted, pedal pulses palpable. SKIN: No rashes CENTRAL NERVOUS SYSTEM: No focal deficits, tone is normal in all 4 extremities. - Labs CBC & Chem 7: 06/01/17 05:54 06/01/17 05:54 Labs: Abnormal Lab Results - Last 24 Hours (Table) 05/31/17 05/31/17 05/31/17 Range/Units 11:46 16:41 21:24 RBC (4.30-5.90) m/uL Hgb (13.0-17.5) gm/dL Hct (39.0-53.0) % MCV (80.0-100.0) fL Carbon Dioxide (22-30) mmol/L BUN (9-20) mg/dL Creatinine (0.66-1.25) mg/dL Glucose (74-99) mg/dL POC Glucose (mg/dL) 244 H 411 H 364 H (75-99) mg/dL Magnesium (1.6-2.3) mg/dL 06/01/17 06/01/17 06/01/17 Range/Units 05:54 05:54 05:59 RBC 3.60 L (4.30-5.90) m/uL Hgb 11.3 L (13.0-17.5) gm/dL Hct 36.3 L (39.0-53.0) % MCV 100.9 H (80.0-100.0) fL Carbon Dioxide 19 L (22-30) mmol/L BUN 42 H (9-20) mg/dL Creatinine 1.50 H (0.66-1.25) mg/dL Glucose 263 H (74-99) mg/dL POC Glucose (mg/dL) 250 H (75-99) mg/dL Magnesium 2.6 H (1.6-2.3) mg/dL Microbiology - Last 24 Hours (Table) 05/29/17 16:40 Gram Stain - Preliminary Sputum Sputum Culture - Preliminary Magdalena albicans Yeast species 05/28/17 12:09 Blood Culture - Preliminary Blood No Growth after 72 hours 05/28/17 12:00 Blood Culture - Preliminary Blood No Growth after 72 hours Assessment and Plan Plan: Bilateral pneumonia basal likely community-acquired Acute bilateral sinusitis Exacerbation of CHF acute on chronic diastolic or systolic heart failure responded well with furosemide Sepsis Acute on chronic renal failure stage III Uncontrolled diabetes and hyperglycemia Severe COPD with acute COPD exacerbation related to above Patient could be cleared for discharge in the near future from pulmonary standpoint. Patient will need to continue on oral antibiotics. Patient also is on Diflucan for Magdalena in the sputum. Medications have been reviewed and will be continued as ordered. Continue with pulmonary hygiene, coughing and deep breathing exercises, and supportive care. Supplemental oxygen to maintain oxygen saturations of 92% or better. Continue nebulizer treatments. Patient will need to follow up in the outpatient setting. GI and DVT prophylaxis. We will continue to monitor labs/results and adjust treatment as necessary. Further recommendations pending. I performed an examination of the patient and discussed their management with the nurse practitioner. I have reviewed the nurse practitioner's note and agree with the documented findings and plan of care.
[2017-06-01 11:44] LABS: Glucose,Whole Blood 247 mg/dL (75-99)
[2017-06-01 16:54] LABS: Glucose,Whole Blood 403 mg/dL (75-99)
[2017-06-01] MEDS ORDERED: INSULIN REGULAR BOLUS (FROM DRIP BAG) IV ONE (17:10)
--- NOTE | 2017-06-01 17:37 | P.PN ---
Subjective Progress note being dictated for Dr. Welch Interval history:Patient is a 77-year-old male who presents for evaluation for shortness of breath/cough and sore throat for the last 2-3 days. Past medical history as below. Patient saw his primary care physician yesterday and prescribed him amoxicillin for suspected sinus infection. He states that he is coughing up a clear phlegm. Shortness of breath. Sore throat secondary to the cough. He denies any ear pain or sinus pain. He has a fever of 103 currently. Known diabetic and his sugars been a little bit elevated. Been compliant with his medications. He has no history of heart failure. He's had an echo in the past which was apparently normal. No swelling to the lower extremities. No no sick contacts. No recent long distance travel. No history of DVT or pulmonary embolism. Currently denies headaches, chest pain, nausea, vomiting, diarrhea, pain or burning with urination. Patient denied any photophobia, abdominal pain patient started having diarrhea after antibiotics. There is no clear-cut evidence of pneumonia on the chest x-ray, no other sources of infections and was were appreciated patient was started on antibiotics for pneumonia from ER. Patient is afebrile since his admission last night. As patient was hypotensive was transferred to ICU last night. 05/30/2017 maintained on IV fluid hydration. Sodium improving. Productive cough with thick purulent sputum. Continues on Rocephin and Zithromax with cultures pending. Afebrile,Normal WBC. Hypertensive. Chest x-ray reporting improvement of bibasilar atelectasis/infiltrate. 05/31/2017 maintained on nebulized bronchodilators, antibiotics, steroids.breathing continues to improve ,sputum cultures reporting Magdalena albicans, hypertensive and antihypertensives resumed. Afebrile. Telemetry sinus rhythm, occasional PVCs, bradycardia. 06/01 breathing much improved. Maintaining O2 sats of 97% on room air. Afebrile. Creatinine unchanged, 1.5. Denies chest pain, palpitations or increased shortness of breath. Initially planning for discharge but patient developed proximal atrial fibrillation with controlled ventricular rate. Remains in atrial fibrillation for about 4 hours and converted spontaneously to sinus rhythm. Asymptomatic. Magnesium 2.6. Objective - Vital Signs Vital signs: Vital Signs Temp 97.8 F 06/01/17 16:48 Pulse 70 06/01/17 16:48 Resp 18 06/01/17 16:51 BP 152/69 06/01/17 16:48 Pulse Ox 97 06/01/17 16:48 Intake & Output 05/31/17 06/01/17 06/01/17 18:59 06:59 18:59 Intake Total 670 100 Output Total 500 500 Balance 170 -500 100 Weight 92.9 kg Intake: Intake, IV Titration 50 Amount cefTRIAXone 1,000 mg In 50 Sodium Chloride 0.9% 50 ml @ 100 mls/hr IVPB DAILY [facility] Rx#:[id number] Oral 620 100 Output: Urine 500 500 Other: Voiding Method Urinal Urinal Urinal # Voids 1 2 2 - Exam GENERAL: The patient sitting up in chair ,alert and oriented x3, no acute distress. Well developed, well nourished. HEENT: Pupils are equal. No scleral icterus. No conjunctival pallor. Normocephalic, atraumatic. Oral mucosa moist. CARDIOVASCULAR: S1 and S2 present. No murmurs, rubs, or gallops. PULMONARY: Chest is clear to auscultation, scattered rhonchi, no crackles ABDOMEN: Soft, nontender, nondistended, normoactive bowel sounds. No palpable organomegaly. No guarding, no rigidity MUSCULOSKELETAL: No joint swelling or deformity. EXTREMITIES: No cyanosis, clubbing, or pedal edema. NEUROLOGICAL: Gross neurological examination did not reveal any focal deficits. SKIN: No rashes. - Labs CBC & Chem 7: 06/01/17 05:54 06/01/17 05:54 Labs: Abnormal Lab Results - Last 24 Hours (Table) 05/31/17 06/01/17 06/01/17 Range/Units 21:24 05:54 05:54 RBC 3.60 L (4.30-5.90) m/uL Hgb 11.3 L (13.0-17.5) gm/dL Hct 36.3 L (39.0-53.0) % MCV 100.9 H (80.0-100.0) fL Carbon Dioxide 19 L (22-30) mmol/L BUN 42 H (9-20) mg/dL Creatinine 1.50 H (0.66-1.25) mg/dL Glucose 263 H (74-99) mg/dL POC Glucose (mg/dL) 364 H (75-99) mg/dL Magnesium 2.6 H (1.6-2.3) mg/dL 06/01/17 06/01/17 06/01/17 Range/Units 05:59 11:42 16:52 RBC (4.30-5.90) m/uL Hgb (13.0-17.5) gm/dL Hct (39.0-53.0) % MCV (80.0-100.0) fL Carbon Dioxide (22-30) mmol/L BUN (9-20) mg/dL Creatinine (0.66-1.25) mg/dL Glucose (74-99) mg/dL POC Glucose (mg/dL) 250 H 247 H 403 H (75-99) mg/dL Magnesium (1.6-2.3) mg/dL Microbiology - Last 24 Hours (Table) 05/28/17 12:09 Blood Culture - Preliminary Blood No Growth after 96 hours 05/28/17 12:00 Blood Culture - Preliminary Blood No Growth after 96 hours 05/29/17 16:40 Gram Stain - Final Sputum Sputum Culture - Final Magdalena albicans Magdalena glabrata Assessment and Plan Plan: #1 sepsis secondary to bilateral pneumonia, possibly community-acquired, Magdalena albicans in sputum. #2 COPD with acute exacerbation and acute hypercapnic respiratory failure #3 diabetes mellitus type 2: elevated blood sugars secondary to systemic steroids #4 minimally elevation of troponins without any chest pain or significant EKG changes, this is secondary to hypoxemia from COPD. #5 acute on chronic renal failure, stage II, secondary to prerenal azotemia, chronic kidney disease from diabetic nephropathy #6 hypovolemic hyponatremia, resolved Plan: Continue on current medication regime , antibiotics, monitoring and symptomatic treatment. Close monitoring of Accu-Cheks as patient on oral steroids. Discharge held, Cardiology consulted regarding new onset proximal atrial fibrillation. Echo ordered. Further recommendations to follow. The impression and plan of care has been dictated as directed. : I performed a H&P examination of this patient and discussed the same with the dictator. I agree with the dictator's note. Any additional findings/opinions/ etc. will be noted.
[2017-06-01] MEDS ORDERED: INSULIN REGULAR 100 UNIT in SODIUM CHLORIDE 0.9% 100 ML IV SCH (18:00)
[2017-06-01 19:28] LABS: Glucose,Whole Blood 400 mg/dL (75-99)
[2017-06-01 19:51] LABS: Glucose,Whole Blood 333 mg/dL (75-99)
[2017-06-01 20:32] LABS: Glucose,Whole Blood 280 mg/dL (75-99)
[2017-06-01 20:56] LABS: Glucose,Whole Blood 238 mg/dL (75-99)
[2017-06-01] MEDS: ATORVASTATIN 80 MG TAB PO SCH (21:15)
[2017-06-01 23:05] LABS: Glucose,Whole Blood 179 mg/dL (75-99)
[2017-06-02 00:57] LABS: Glucose,Whole Blood 184 mg/dL (75-99)
[2017-06-02 03:08] LABS: Glucose,Whole Blood 167 mg/dL (75-99)
[2017-06-02 05:26] LABS: Glucose,Whole Blood 103 mg/dL (75-99)
[2017-06-02 06:24] LABS: Calcium 9.2 mg/dL (8.4-10.2); Magnesium 2.4 mg/dL (1.6-2.3); Phosphorous 3.1 mg/dL (2.5-4.5); Potassium 4.3 mmol/L (3.5-5.1)
[2017-06-02 06:53] LABS: Glucose,Whole Blood 132 mg/dL (75-99)
[2017-06-02] MEDS: INSULIN LISPRO (humaLOG) 300 UNIT/3 ML VIAL SQ SCH ×3 (07:07→12:13)
[2017-06-02] MEDS: IPRATROPIUM-ALBUTEROL 3 ML NEB INHALATION SCH ×3 (08:08→15:30)
[2017-06-02] MEDS: SYMBICORT 160-4.5 MCG INHALER INHALATION SCH (08:08)
[2017-06-02 08:17] LABS: Glucose,Whole Blood 196 mg/dL (75-99)
[2017-06-02] MEDS: ASPIRIN 81 MG CHEW PO SCH (08:38)
[2017-06-02] MEDS: HEPARIN SODIUM,PORCINE 5,000 UNIT/ML 1 ML VIAL SQ SCH (08:38)
[2017-06-02] MEDS: FLUCONAZOLE 100 MG TAB PO SCH (08:39)
[2017-06-02] MEDS: LISINOPRIL 20 MG TAB PO SCH (08:39)
[2017-06-02] MEDS: AZITHROMYCIN 500 MG TAB PO SCH (08:39)
[2017-06-02] MEDS: FAMOTIDINE 20 MG TAB PO SCH (08:39)
[2017-06-02] MEDS: PRIMIDONE 50 MG TAB PO SCH (08:40)
[2017-06-02] MEDS: PIOGLITAZONE 45 MG TAB PO SCH (08:40)
[2017-06-02] MEDS: LINAGLIPTIN 5 MG TABLET PO SCH (08:40)
[2017-06-02 08:53] VITALS: RESP 16; TEMP 97.5
[2017-06-02] MEDS ORDERED: predniSONE 20 MG TAB PO SCH (09:00)
[2017-06-02 09:57] LABS: Glucose,Whole Blood 152 mg/dL (75-99)
[2017-06-02] MEDS ORDERED: LINAGLIPTIN 5 MG TABLET PO SCH (10:00)
[2017-06-02] MEDS ORDERED: PIOGLITAZONE 45 MG TAB PO SCH (10:00)
[2017-06-02] MEDS ORDERED: glipiZIDE 10 MG TAB PO SCH (10:00)
[2017-06-02 11:04] VITALS: BP 166/70
[2017-06-02 11:10] VITALS: BMI 27.8
--- NOTE | 2017-06-02 11:28 | P.PN ---
Subjective 06/01/17- This is a 77-year-old male patient was admitted with Acute COPD exacerbation, purulent tracheobronchitis, congestive heart failure likely acute diastolic heart failure and pulmonary edema related to that, patient has been seen and evaluated examined during the rounds clinically doing better, congestion is improved but still gets short of breath on activity and exertion amount of phlegm production is slightly better now. Patient states his phlegm production has decreased significantly in the last 24 hours. He states his cough is almost completely resolved. He is afebrile, no overnight events. Denies any further complaints. is at bedside. 06/02/17- patient has been seen examined and evaluated today on the selective care unit. The patient was being set up for discharge yesterday however did go into atrial fibrillation with controlled rate for approximately 4 hours before being spontaneously converted back to sinus rhythm. He was asymptomatic throughout the rhythm change. He denied any chest pain palpitations or increased shortness of breath. He continues to use his incentive spirometer and has increased his ambulation and activity. Patient states he is feeling much better and would like to go home. Patient needs to see cardiology before discharge. Objective - Vital Signs Vital signs: Vital Signs Temp 97.5 F L 06/02/17 08:40 Pulse 77 06/02/17 11:04 Resp 16 06/02/17 11:05 BP 166/70 06/02/17 11:04 Pulse Ox 97 06/02/17 11:04 Intake & Output 06/01/17 06/02/17 06/02/17 18:59 06:59 18:59 Intake Total 100 94.673 0.758 Output Total 300 Balance 100 -205.327 0.758 Weight 92.9 kg 92.9 kg Intake: Intake, IV Titration 94.673 0.758 Amount Insulin Regular 100 unit 94.673 0.758 In Sodium Chloride 0.9% 100 ml @ Titrate IV .Q0M [facility] Rx#:[id number] Oral 100 Output: Urine 300 Other: Voiding Method Urinal Urinal # Voids 2 - Exam GENERAL EXAM: Alert, active, comfortable in no apparent distress. HEAD: Normocephalic. EYES: Normal reaction of pupils, equal size. NOSE: Clear with pink turbinates. THROAT: No erythema or exudates. NECK: No masses, no JVD. CHEST: No chest wall deformity. LUNGS: Lung sounds noted to be slightly coarse with some faint scattered rhonchi. Bases diminished CVS: S1 and S2 normal with no audible mumurs, regular rhythm. ABDOMEN: No hepatosplenomegaly, normal bowel sounds, no guarding or rigidity. EXTREMITIES: No edema noted, pedal pulses palpable. SKIN: No rashes CENTRAL NERVOUS SYSTEM: No focal deficits, tone is normal in all 4 extremities. - Labs CBC & Chem 7: 06/01/17 05:54 06/02/17 05:42 Labs: Abnormal Lab Results - Last 24 Hours (Table) 06/01/17 06/01/17 06/01/17 Range/Units 11:42 16:52 19:07 Carbon Dioxide (22-30) mmol/L BUN (9-20) mg/dL Creatinine (0.66-1.25) mg/dL Glucose (74-99) mg/dL POC Glucose (mg/dL) 247 H 403 H 400 H (75-99) mg/dL Magnesium (1.6-2.3) mg/dL 06/01/17 06/01/17 06/01/17 Range/Units 19:47 20:11 20:49 Carbon Dioxide (22-30) mmol/L BUN (9-20) mg/dL Creatinine (0.66-1.25) mg/dL Glucose (74-99) mg/dL POC Glucose (mg/dL) 333 H 280 H 238 H (75-99) mg/dL Magnesium (1.6-2.3) mg/dL 06/01/17 06/02/17 06/02/17 Range/Units 22:53 00:46 02:56 Carbon Dioxide (22-30) mmol/L BUN (9-20) mg/dL Creatinine (0.66-1.25) mg/dL Glucose (74-99) mg/dL POC Glucose (mg/dL) 179 H 184 H 167 H (75-99) mg/dL Magnesium (1.6-2.3) mg/dL 06/02/17 06/02/17 06/02/17 Range/Units 05:14 05:42 06:52 Carbon Dioxide 20 L (22-30) mmol/L BUN 41 H (9-20) mg/dL Creatinine 1.60 H (0.66-1.25) mg/dL Glucose 66 L (74-99) mg/dL POC Glucose (mg/dL) 103 H 132 H (75-99) mg/dL Magnesium 2.4 H (1.6-2.3) mg/dL 06/02/17 06/02/17 Range/Units 08:15 09:55 Carbon Dioxide (22-30) mmol/L BUN (9-20) mg/dL Creatinine (0.66-1.25) mg/dL Glucose (74-99) mg/dL POC Glucose (mg/dL) 196 H 152 H (75-99) mg/dL Magnesium (1.6-2.3) mg/dL Microbiology - Last 24 Hours (Table) 05/28/17 12:09 Blood Culture - Preliminary Blood No Growth after 96 hours 05/28/17 12:00 Blood Culture - Preliminary Blood No Growth after 96 hours 05/29/17 16:40 Gram Stain - Final Sputum Sputum Culture - Final Magdalena albicans Magdalena glabrata Assessment and Plan Plan: Bilateral pneumonia basal likely community-acquired Acute bilateral sinusitis Exacerbation of CHF acute on chronic diastolic or systolic heart failure responded well with furosemide Sepsis Acute on chronic renal failure stage III Uncontrolled diabetes and hyperglycemia Severe COPD with acute COPD exacerbation related to above Patient could be cleared for discharge in the near future from pulmonary standpoint. Patient will need to continue on oral antibiotics. Patient also is on Diflucan for Magdalena in the sputum. Medications have been reviewed and will be continued as ordered. Continue with pulmonary hygiene, coughing and deep breathing exercises, and supportive care. Supplemental oxygen to maintain oxygen saturations of 92% or better. Continue nebulizer treatments. Patient will need to follow up in the outpatient setting. GI and DVT prophylaxis. Appreciate cardiology input. We will continue to monitor labs/results and adjust treatment as necessary. Further recommendations pending. I performed an examination of the patient and discussed their management with the nurse practitioner. I have reviewed the nurse practitioner's note and agree with the documented findings and plan of care.
[2017-06-02 11:35] LABS: Glucose,Whole Blood 140 mg/dL (75-99)
--- NOTE | 2017-06-02 11:50 | P.CRDCN ---
History of Present Illness Consult date: 06/02/17 Requesting physician: Asher Swenson Consult reason: atrial fibrillation Chief complaint: Shortness of breath, sore throat and fever History of present illness: This is a pleasant 77-year-old gentleman with history of hypertension , hyperlipidemia, diabetes, stage II renal disease, anemia, who follows with Dr. David in the office. He presented to the hospital on this occasion with symptoms of sore throat with associated shortness of breath. Patient was also febrile with a temperature of 103. No clear-cut evidence of pneumonia, patient was started on IV antibiotics with the suspicion of a tracheobronchitis as well as receiving treatment for exacerbation of COPD. Patient did have a productive cough with thick purulent sputum. Continues to feel wheezy today, but cough is much improved. They were getting the patient ready for discharge yesterday and he apparently went into atrial fibrillation. Within approximately 4 hours the patient converted to normal sinus rhythm and continues to be in sinus rhythm this morning. Potassium 4.3, BUN 41, creatinine 1.6. Magnesium level 2.4. Troponins 0.112, 0.07, 0.06. Likely secondary to oxygen supply and demand mismatch. EKG on arrival showed normal sinus rhythm with nonspecific ST-T wave changes. EKG performed at the time patient was in atrial fibrillation showed A. fib with a slow ventricular response. Patient did have an echocardiogram with Doppler study performed which revealed an ejection fraction of 55-60%. LA is severely dilated. Chest x-ray revealed bibasilar opacities which appear to be atelectasis however early pneumonia remains a possibility. At the time of my examination, patient overall feels well, continues to have wheezing in the chest, cough much improved. Denies having any chest discomfort denies prior history of atrial fibrillation, denies any palpitations. Patient is quite eager to be discharged home to attend the of his nephew. Past Medical History Past Medical History: Diabetes Mellitus, Hyperlipidemia, Hypertension, Renal Disease Additional Past Medical History / Comment(s): NIDDM TYPE II, ANEMIA LONG AGO History of Any Multi-Drug Resistant Organisms: None Reported Past Surgical History: No Surgical Hx Reported Additional Past Surgical History / Comment(s): L SHOULDER CYSTECTOMY, BILATERAL CATARACT REMOVALS WITH LENS IMPLANTS. Past Anesthesia/Blood Transfusion Reactions: No Reported Reaction Past Psychological History: No Psychological Hx Reported Additional Psychological History / Comment(s): PT RESIDES WITH HIS SPOUSE. HE IS INDEPENDENT. Smoking Status: Former smoker Past Alcohol Use History: None Reported Additional Past Alcohol Use History / Comment(s): PT STATES HE STARTED SMOKING IN 1960 AND QUIT MANY YRS AGO BUT CANNOT RECALL YEAR OR HIS AGE AT TIME OF QUITTING. Past Drug Use History: None Reported - Past Family History Father Family Medical History: Diabetes Mellitus Additional Family Medical History / Comment(s): FATHER AT THE AGE OF 89YRS. Mother Family Medical History: COPD Additional Family Medical History / Comment(s): MOTHER HAD A "BAD HEART." SHE OF EMPHYSEMA AT THE AGE OF 68YRS. Medications and Allergies Home Medications Medication Instructions Recorded Confirmed Type Aspirin EC [Ecotrin Low Dose] 81 mg PO DAILY 05/28/17 05/28/17 History Atorvastatin [Lipitor] 80 mg PO HS 05/28/17 05/28/17 History EPINEPHrine (Auto Inject) [Epipen] 0.3 mg PO ONCE PRN 05/28/17 05/28/17 History Nitroglycerin Sl Tabs [Nitrostat] 0.4 mg SUBLINGUAL Q5M PRN 05/28/17 05/28/17 History Pioglitazone [Actos] 45 mg PO DAILY 05/28/17 05/28/17 History Primidone [Mysoline] 50 mg PO DAILY 05/28/17 05/28/17 History Sodium Polystyrene Sulfon/Sorb 15 gm PO DAILY 05/28/17 05/28/17 History [Kionex 15 gm/60 ml Suspension] Soy Lecithin 1 cap PO BID 05/28/17 05/28/17 History glyBURIDE [Diabeta] 5 mg PO BID 05/28/17 05/28/17 History sitaGLIPtin [Januvia] 100 mg PO DAILY 05/28/17 05/28/17 History Allergies Allergy/AdvReac Type Severity Reaction Status Date / Time bee venom protein (honey bee) Allergy Anaphylaxis Verified 05/28/17 11:20 Physical Exam Vitals: Vital Signs Temp Pulse Pulse Resp BP Pulse Ox 06/02/17 11:05 16 06/02/17 11:04 77 16 166/70 97 06/02/17 08:40 97.5 F L 78 16 161/70 98 06/02/17 08:11 78 97 06/02/17 04:00 97.8 F 70 16 130/58 97 06/02/17 00:00 98.2 F 71 20 118/56 94 L 06/01/17 20:31 76 06/01/17 20:14 76 06/01/17 20:00 98 F 71 20 170/73 97 06/01/17 16:51 18 06/01/17 16:48 97.8 F 70 18 152/69 97 06/01/17 16:09 76 06/01/17 15:56 72 06/01/17 12:05 73 06/01/17 11:55 71 Intake and Output 06/01/17 06/02/17 06/02/17 22:59 06:59 14:59 Intake Total 76.239 18.434 0.758 Output Total 300 Balance 76.239 -281.566 0.758 Intake: Intake, IV Titration 76.239 18.434 0.758 Amount Insulin Regular 100 unit 76.239 18.434 0.758 In Sodium Chloride 0.9% 100 ml @ Titrate IV .Q0M [facility] Rx#:[id number] Output: Urine 300 Other: Voiding Method Urinal Urinal Weight 92.9 kg 92.9 kg Patient Weight 06/03/17 06:59 Weight 92.9 kg PHYSICAL EXAMINATION: HEENT: Head is atraumatic, normocephalic. Pupils equal, round. Neck is supple. There is no elevated jugular venous pressure. HEART EXAMINATION: Heart S1, S2 normal. No murmur or gallop heard. CHEST EXAMINATION: Reveal scattered coarse rhonchi and wheezing throughout ABDOMEN: [ Soft, nontender. Bowel sounds are heard. No organomegaly noted]. EXTREMITIES:[ 2+ peripheral pulses with no evidence of peripheral edema and no calf tenderness noted]. NEUROLOGIC [patient is awake, alert and oriented -3.] . Results 06/01/17 05:54 06/02/17 05:42 Comprehensive Metabolic Panel 06/02/17 Range/Units 05:42 Sodium 138 (137-145) mmol/L Potassium 4.3 (3.5-5.1) mmol/L Chloride 106 (98-107) mmol/L Carbon Dioxide 20 L (22-30) mmol/L BUN 41 H (9-20) mg/dL Creatinine 1.60 H (0.66-1.25) mg/dL Glucose 66 L (74-99) mg/dL Calcium 9.2 (8.4-10.2) mg/dL Current Medications Generic Name Dose Route Start Last Admin Trade Name Freq PRN Reason Stop Dose Admin Acetaminophen 650 mg 05/28/17 14:15 05/28/17 22:49 Tylenol Tab PO 650 mg Q6HR PRN Administration Fever and/ or Pain Albuterol/Ipratropium 3 ml 05/28/17 18:52 Duoneb 0.5 Mg-3 Mg/3 Ml Soln INHALATION RT-Q2H PRN Shortness Of Breath Or Wheezing Albuterol/Ipratropium 3 ml 05/28/17 20:00 06/02/17 08:08 Duoneb 0.5 Mg-3 Mg/3 Ml Soln INHALATION 3 ml RT-QID JOÃO Administration Aspirin 81 mg 05/29/17 09:00 06/02/17 08:38 Aspirin PO 81 mg DAILY JOÃO Administration Atorvastatin Calcium 80 mg 05/28/17 21:00 06/01/17 21:15 Lipitor PO 80 mg HS JOÃO Administration Azithromycin 500 mg 05/30/17 09:00 06/02/17 08:39 Zithromax PO 500 mg DAILY JOÃO Administration Benzocaine/Menthol 1 each 05/29/17 16:43 05/29/17 23:02 Cepacol Lozenge MUCOUS MEM 1 each Q4HR PRN Administration Sore Throat Budesonide/Formoterol Fumarate 2 puff 05/28/17 20:00 06/02/17 08:08 Symbicort 160-4.5 Mcg Inhaler INHALATION 2 puff RT-BID JOÃO Administration Famotidine 20 mg 05/30/17 09:00 06/02/17 08:39 Pepcid PO 20 mg DAILY JOÃO Administration Fluconazole 100 mg 05/31/17 17:00 06/02/17 08:39 Diflucan PO 100 mg DAILY JOÃO Administration Glipizide 10 mg 06/02/17 10:00 06/02/17 10:23 Glucotrol PO 10 mg BID JOÃO Administration Guaifenesin/Dextromethorphan 10 ml 05/28/17 21:41 05/29/17 23:36 Robitussin Dm PO 10 ml Q6H PRN Administration Cough Heparin Sodium (Porcine) 5,000 unit 05/29/17 08:00 06/02/17 08:38 Heparin SQ 5,000 unit Q8HR JOÃO Administration Ceftriaxone Sodium 1,000 mg/ 50 mls @ 100 mls/hr 05/28/17 11:15 06/02/17 10: 25 Sodium Chloride IVPB 100 mls/hr DAILY JOÃO Administration Insulin Human Lispro 0 unit 06/02/17 10:02 06/02/17 10:24 Humalog SQ 2 unit ACHS JOÃO Administration Protocol Linagliptin 5 mg 05/29/17 09:00 06/02/17 08:40 Tradjenta PO Not Given DAILY JOÃO Lisinopril 20 mg 05/30/17 12:45 06/02/17 08:39 Zestril PO 20 mg DAILY JOÃO Administration Miscellaneous Information 1 each 05/29/17 05:58 Magnesium Per Protocol MISCELLANE DAILY PRN Per Protocol Protocol Naloxone HCl 0.2 mg 05/28/17 13:13 Narcan IV Q2M PRN Opioid Reversal Nitroglycerin 0.4 mg 05/28/17 15:38 Nitrostat SUBLINGUAL Q5M PRN Angina Pioglitazone HCl 45 mg 05/29/17 09:00 06/02/17 08:40 Actos PO 45 mg DAILY JOÃO Administration Prednisone 40 mg 06/02/17 09:00 06/02/17 08:39 PO 40 mg DAILY JOÃO Administration Primidone 50 mg 05/29/17 09:00 06/02/17 08:40 Mysoline PO 50 mg DAILY JOÃO Administration Intake and Output 06/01/17 06/02/17 06/02/17 22:59 06:59 14:59 Intake Total 76.239 18.434 0.758 Output Total 300 Balance 76.239 -281.566 0.758 Intake: Intake, IV Titration 76.239 18.434 0.758 Amount Insulin Regular 100 unit 76.239 18.434 0.758 In Sodium Chloride 0.9% 100 ml @ Titrate IV .Q0M [facility] Rx#:[id number] Output: Urine 300 Other: Voiding Method Urinal Urinal Weight 92.9 kg 92.9 kg Patient Weight 06/03/17 06:59 Weight 92.9 kg 06/01/17 05:54 06/02/17 05:42 EKG Interpretations (text) Original EKG shows normal sinus rhythm with nonspecific ST-T wave changes Assessment and Plan Plan: Assessment and plan #1 sepsis, secondary pneumonia, possibly community acquired. #2 exacerbation of COPD with acute hypercapnia and respiratory failure #3 diabetes #4 hypertension #5 hyperlipidemia #6 acute on chronic renal failure, stage II #7 paroxysmal atrial fibrillation, appears to be of new onset #8 abnormal troponin, not consistent with acute coronary syndrome, likely secondary to oxygen supply and demand mismatch echocardiogram with Doppler study revealed normal left ventricular systolic function. Plan We will request a TSH level be performed. Continue aspirin 81 mg daily, Lipitor 80 mg daily, consider the addition of beta oscar or calcium channel oscar to the patient's medication regime. It has been explained to the patient that if he persists to have episodes of paroxysmal atrial fibrillation, he will require an anticoagulant for stroke prevention. Further recommendations to follow. DNP note has been reviewed, I agree with a documented findings and plan of care. Patient was seen and examined.
[2017-06-02 12:03] VITALS: PULSE 76
[2017-06-02] MEDS ORDERED: INSULIN LISPRO (humaLOG) 300 UNIT/3 ML VIAL SQ SCH (12:30)
--- NOTE | 2017-06-02 13:31 | P.CRDCN ---
History of Present Illness History of present illness: Patient interviewed and examined. Admitted with pneumonitis COPD and currently on steroids Atrial fibrillation, rate controlled Diabetes type 2 on medications Hypertension, just started on Zestril 20 mg by mouth daily, also on prednisone Taking atorvastatin 80 mg daily and aspirin Creatinine clearance about 44 Plan Anticoagulated for stroke prevention, high SABA VASC score ELIQUIS 2.5 g twice daily Follow-up with Dr. Monreal as scheduled Home blood pressure monitoring and if blood pressure still elevated then I will add amlodipine in the future See full dictation by Dr. haridn Past Medical History Past Medical History: Diabetes Mellitus, Hyperlipidemia, Hypertension, Renal Disease Additional Past Medical History / Comment(s): NIDDM TYPE II, ANEMIA LONG AGO History of Any Multi-Drug Resistant Organisms: None Reported Past Surgical History: No Surgical Hx Reported Additional Past Surgical History / Comment(s): L SHOULDER CYSTECTOMY, BILATERAL CATARACT REMOVALS WITH LENS IMPLANTS. Past Anesthesia/Blood Transfusion Reactions: No Reported Reaction Past Psychological History: No Psychological Hx Reported Additional Psychological History / Comment(s): PT RESIDES WITH HIS SPOUSE. HE IS INDEPENDENT. Smoking Status: Former smoker Past Alcohol Use History: None Reported Additional Past Alcohol Use History / Comment(s): PT STATES HE STARTED SMOKING IN 1959 AND QUIT MANY YRS AGO BUT CANNOT RECALL YEAR OR HIS AGE AT TIME OF QUITTING. Past Drug Use History: None Reported - Past Family History Father Family Medical History: Diabetes Mellitus Additional Family Medical History / Comment(s): FATHER AT THE AGE OF 89YRS. Mother Family Medical History: COPD Additional Family Medical History / Comment(s): MOTHER HAD A "BAD HEART." SHE OF EMPHYSEMA AT THE AGE OF 68YRS. Medications and Allergies Home Medications Medication Instructions Recorded Confirmed Type Aspirin EC [Ecotrin Low Dose] 81 mg PO DAILY 05/28/17 05/28/17 History Atorvastatin [Lipitor] 80 mg PO HS 05/28/17 05/28/17 History EPINEPHrine (Auto Inject) [Epipen] 0.3 mg PO ONCE PRN 05/28/17 05/28/17 History Nitroglycerin Sl Tabs [Nitrostat] 0.4 mg SUBLINGUAL Q5M PRN 05/28/17 05/28/17 History Pioglitazone [Actos] 45 mg PO DAILY 05/28/17 05/28/17 History Primidone [Mysoline] 50 mg PO DAILY 05/28/17 05/28/17 History Sodium Polystyrene Sulfon/Sorb 15 gm PO DAILY 05/28/17 05/28/17 History [Kionex 15 gm/60 ml Suspension] Soy Lecithin 1 cap PO BID 05/28/17 05/28/17 History glyBURIDE [Diabeta] 5 mg PO BID 05/28/17 05/28/17 History sitaGLIPtin [Januvia] 100 mg PO DAILY 05/28/17 05/28/17 History Allergies Allergy/AdvReac Type Severity Reaction Status Date / Time bee venom protein (honey bee) Allergy Anaphylaxis Verified 05/28/17 11:20 Physical Exam Vitals: Vital Signs Temp Pulse Pulse Resp BP Pulse Ox 06/02/17 12:03 76 06/02/17 11:49 74 06/02/17 11:05 16 06/02/17 11:04 77 16 166/70 97 06/02/17 08:40 97.5 F L 78 16 161/70 98 06/02/17 08:11 78 97 06/02/17 04:00 97.8 F 70 16 130/58 97 06/02/17 00:00 98.2 F 71 20 118/56 94 L 06/01/17 20:31 76 06/01/17 20:14 76 06/01/17 20:00 98 F 71 20 170/73 97 06/01/17 16:51 18 06/01/17 16:48 97.8 F 70 18 152/69 97 06/01/17 16:09 76 06/01/17 15:56 72 Intake and Output 06/01/17 06/02/17 06/02/17 22:59 06:59 14:59 Intake Total 76.239 18.434 120.758 Output Total 300 Balance 76.239 -281.566 120.758 Intake: Intake, IV Titration 76.239 18.434 0.758 Amount Insulin Regular 100 unit 76.239 18.434 0.758 In Sodium Chloride 0.9% 100 ml @ Titrate IV .Q0M [facility] Rx#:[id number] Oral 120 Output: Urine 300 Other: Voiding Method Urinal Urinal Weight 92.9 kg 92.9 kg Patient Weight 06/03/17 06:59 Weight 92.9 kg Results 06/01/17 05:54 06/02/17 05:42 Comprehensive Metabolic Panel 06/02/17 Range/Units 05:42 Sodium 138 (137-145) mmol/L Potassium 4.3 (3.5-5.1) mmol/L Chloride 106 (98-107) mmol/L Carbon Dioxide 20 L (22-30) mmol/L BUN 41 H (9-20) mg/dL Creatinine 1.60 H (0.66-1.25) mg/dL Glucose 66 L (74-99) mg/dL Calcium 9.2 (8.4-10.2) mg/dL Current Medications Generic Name Dose Route Start Last Admin Trade Name Freq PRN Reason Stop Dose Admin Acetaminophen 650 mg 05/28/17 14:15 05/28/17 22:49 Tylenol Tab PO 650 mg Q6HR PRN Administration Fever and/ or Pain Albuterol/Ipratropium 3 ml 05/28/17 18:52 Duoneb 0.5 Mg-3 Mg/3 Ml Soln INHALATION RT-Q2H PRN Shortness Of Breath Or Wheezing Albuterol/Ipratropium 3 ml 05/28/17 20:00 06/02/17 11:48 Duoneb 0.5 Mg-3 Mg/3 Ml Soln INHALATION 3 ml RT-QID JOÃO Administration Aspirin 81 mg 05/29/17 09:00 06/02/17 08:38 Aspirin PO 81 mg DAILY JOÃO Administration Atorvastatin Calcium 80 mg 05/28/17 21:00 06/01/17 21:15 Lipitor PO 80 mg HS JOÃO Administration Azithromycin 500 mg 05/30/17 09:00 06/02/17 08:39 Zithromax PO 500 mg DAILY JOÃO Administration Benzocaine/Menthol 1 each 05/29/17 16:43 05/29/17 23:02 Cepacol Lozenge MUCOUS MEM 1 each Q4HR PRN Administration Sore Throat Budesonide/Formoterol Fumarate 2 puff 05/28/17 20:00 06/02/17 08:08 Symbicort 160-4.5 Mcg Inhaler INHALATION 2 puff RT-BID JOÃO Administration Famotidine 20 mg 05/30/17 09:00 06/02/17 08:39 Pepcid PO 20 mg DAILY JOÃO Administration Fluconazole 100 mg 05/31/17 17:00 06/02/17 08:39 Diflucan PO 100 mg DAILY JOÃO Administration Glipizide 10 mg 06/02/17 10:00 06/02/17 10:23 Glucotrol PO 10 mg BID JOÃO Administration Guaifenesin/Dextromethorphan 10 ml 05/28/17 21:41 05/29/17 23:36 Robitussin Dm PO 10 ml Q6H PRN Administration Cough Heparin Sodium (Porcine) 5,000 unit 05/29/17 08:00 06/02/17 08:38 Heparin SQ 5,000 unit Q8HR JOÃO Administration Ceftriaxone Sodium 1,000 mg/ 50 mls @ 100 mls/hr 05/28/17 11:15 06/02/17 10: 25 Sodium Chloride IVPB 100 mls/hr DAILY JOÃO Administration Insulin Human Lispro 0 unit 06/02/17 10:02 06/02/17 12:13 Humalog SQ 1 unit ACHS JOÃO Administration Protocol Linagliptin 5 mg 05/29/17 09:00 06/02/17 08:40 Tradjenta PO Not Given DAILY [facility] Lisinopril 20 mg 05/30/17 12:45 06/02/17 08:39 Zestril PO 20 mg DAILY JOÃO Administration Miscellaneous Information 1 each 05/29/17 05:58 Magnesium Per Protocol MISCELLANE DAILY PRN Per Protocol Protocol Naloxone HCl 0.2 mg 05/28/17 13:13 Narcan IV Q2M PRN Opioid Reversal Nitroglycerin 0.4 mg 05/28/17 15:38 Nitrostat SUBLINGUAL Q5M PRN Angina Pioglitazone HCl 45 mg 05/29/17 09:00 06/02/17 08:40 Actos PO 45 mg DAILY JOÃO Administration Prednisone 40 mg 06/02/17 09:00 06/02/17 08:39 PO 40 mg DAILY JOÃO Administration Primidone 50 mg 05/29/17 09:00 06/02/17 08:40 Mysoline PO 50 mg DAILY JOÃO Administration Intake and Output 06/01/17 06/02/17 06/02/17 22:59 06:59 14:59 Intake Total 76.239 18.434 120.758 Output Total 300 Balance 76.239 -281.566 120.758 Intake: Intake, IV Titration 76.239 18.434 0.758 Amount Insulin Regular 100 unit 76.239 18.434 0.758 In Sodium Chloride 0.9% 100 ml @ Titrate IV .Q0M [facility] Rx#:[id number] Oral 120 Output: Urine 300 Other: Voiding Method Urinal Urinal Weight 92.9 kg 92.9 kg Patient Weight 06/03/17 06:59 Weight 92.9 kg 06/01/17 05:54 06/02/17 05:42
[2017-06-02] MEDS ORDERED: APIXABAN 2.5 MG TABLET PO SCH (13:45)
--- NOTE | 2017-06-02 15:53 | P.DS ---
Providers Date of admission: 05/28/17 13:13 Expected date of discharge: 06/02/17 Attending physician: MD Dr. Lasha De Leon. Consults: 05/28/17 18:56 Consult Physician Routine Consulting Provider: Real Kendrick Consult Reason/Comments: pneumonia Do you want consulting provider notified?: Yes 06/01/17 15:41 Consult Physician Routine Consulting Provider: [facility] Consult Reason/Comments: parox. afib. Do you want consulting provider notified?: Yes Primary care physician: Lesly Ortiz Hospital Course: Final Diagnoses: #1 sepsis secondary to bilateral pneumonia, possibly community-acquired, Magdalena albicans in sputum. #2 COPD with acute exacerbation and acute hypercapnic respiratory failure #3 diabetes mellitus type 2: elevated blood sugars secondary to systemic steroids #4 minimally elevation of troponins without any chest pain or significant EKG changes, this is secondary to hypoxemia from COPD. #5 acute on chronic renal failure, stage II, secondary to prerenal azotemia, chronic kidney disease from diabetic nephropathy #6 new-onset proximal A. fib, sinus rhythm currently Hospital course:Patient is a 77-year-old male admitted with sepsis secondary to bilateral pneumonia, acute COPD exacerbation, acute hypoxic, hypercapnic respiratory failure and multiple other medical issues. Evaluated by pulmonary. Maintained on nebulized dilators antibiotics, steroids with significant clinical improvement. Prior to discharge developed new-onset proximal atrial fibrillation with controlled ventricular rate, spontaneously converted back to and remains in sinus rhythm. Evaluated by cardiology and initiated on anticoagulation with Eliquis. Patient has been cleared by all consults for discharge. Patient is being discharged home in a stable condition with guarded prognosis. The impression and plan of care has been dictated as directed as a scribe. : I performed a H&P examination of this patient and discussed the same with the dictator. I agree with the dictator's note. Any additional findings/opinions/ etc. will be noted. Patient Condition at Discharge: Stable Plan - Discharge Summary New Discharge Prescriptions: New Albuterol Inhaler [Ventolin Hfa Inhaler] 2 puff INHALATION QID #1 inhaler Budesonide-Formot 160-4.5 Mcg [Symbicort 160-4.5 Mcg Inhaler] 2 puff INHALATION RT-BID #1 inh Fluconazole [Diflucan] 100 mg PO DAILY #5 tab Ipratropium [place] [Atrovent Hfa] 2 puff INHALATION QID #1 inhaler Lisinopril [Zestril] 20 mg PO DAILY #30 tab predniSONE 10 mg PO DIRECTED #30 tab Azithromycin [Zithromax Tri-Terrence] 500 mg PO DAILY #5 tab Cefuroxime Axetil [Ceftin] 500 mg PO BID #10 tab Apixaban [Eliquis] 2.5 mg PO BID #1 tab Continue sitaGLIPtin [Januvia] 100 mg PO DAILY Nitroglycerin Sl Tabs [Nitrostat] 0.4 mg SUBLINGUAL Q5M PRN PRN Reason: Angina Atorvastatin [Lipitor] 80 mg PO HS Sodium Polystyrene Sulfon/Sorb [Kionex 15 gm/60 ml Suspension] 15 gm PO DAILY Pioglitazone [Actos] 45 mg PO DAILY Aspirin EC [Ecotrin Low Dose] 81 mg PO DAILY glyBURIDE [Diabeta] 5 mg PO BID Primidone [Mysoline] 50 mg PO DAILY EPINEPHrine (Auto Inject) [Epipen] 0.3 mg PO ONCE PRN PRN Reason: Anaphylaxis Soy Lecithin 1 cap PO BID Discontinued Quinapril HCl [Accupril] 20 mg PO DAILY Discharge Medication List Aspirin EC [Ecotrin Low Dose] 81 mg PO DAILY 05/28/17 [History] Atorvastatin [Lipitor] 80 mg PO HS 05/28/17 [History] EPINEPHrine (Auto Inject) [Epipen] 0.3 mg PO ONCE PRN 05/28/17 [History] Nitroglycerin Sl Tabs [Nitrostat] 0.4 mg SUBLINGUAL Q5M PRN 05/28/17 [History] Pioglitazone [Actos] 45 mg PO DAILY 05/28/17 [History] Primidone [Mysoline] 50 mg PO DAILY 05/28/17 [History] Sodium Polystyrene Sulfon/Sorb [Kionex 15 gm/60 ml Suspension] 15 gm PO DAILY [History] Soy Lecithin 1 cap PO BID 05/28/17 [History] glyBURIDE [Diabeta] 5 mg PO BID 05/28/17 [History] sitaGLIPtin [Januvia] 100 mg PO DAILY 05/28/17 [History] Albuterol Inhaler [Ventolin Hfa Inhaler] 2 puff INHALATION QID #1 inhaler [Rx] Budesonide-Formot 160-4.5 Mcg [Symbicort 160-4.5 Mcg Inhaler] 2 puff INHALATION RT-BID #1 inh 06/01/17 [Rx] Fluconazole [Diflucan] 100 mg PO DAILY #5 tab 06/01/17 [Rx] Ipratropium [place] [Atrovent Hfa] 2 puff INHALATION QID #1 inhaler 06/01/17 [Rx ] Lisinopril [Zestril] 20 mg PO DAILY #30 tab 06/01/17 [Rx] predniSONE 10 mg PO DIRECTED #30 tab 06/01/17 [Rx] Apixaban [Eliquis] 2.5 mg PO BID #1 tab 06/02/17 [Rx] Azithromycin [Zithromax Tri-Terrence] 500 mg PO DAILY #5 tab 06/02/17 [Rx] Cefuroxime Axetil [Ceftin] 500 mg PO BID #10 tab 06/02/17 [Rx] Follow up Appointment(s)/Referral(s): Darryn Stratton MD [STAFF PHYSICIAN] - 07/31/17 6:00 pm (July 14 at 9:15AM Stress Echocardiogram August 12 at 9:30AM Carotid Ultrasound) Real Kendrick MD [STAFF PHYSICIAN] - 06/15/17 10:30 am (AT DR ORTIZ'S OFFICE) Lesly Ortiz MD [Primary Care Provider] - 06/05/17 12:15 pm Ambulatory/Diagnostic Orders: Complete Blood Count w/diff [LAB.AMB] Time Frame: 3 Days, Location: Determined By Patient Patient Instructions/Handouts: Atrial Fibrillation (DC), Renal Failure Diet (DC ), COPD (Chronic Obstructive Pulmonary Disease) (DC), Community Acquired Pneumonia (DC) Activity/Diet/Wound Care/Special Instructions: Pending cardiology recommendations /anticoagulation . Antibx. as per Pulmonary. Confirm cardiology follow-up appointment prior to discharge Diet: Cardiac, consistent carb Accu-Cheks before meals and at bedtime, maintain log and take to follow-up visit with PCP for further recommendations Script for Eliquis & coupon for 30 day supply sent to pharmacy, take twice daily as ordered. Activity: Limited until follow up.
== END 2017-06-02 15:50 | disposition home or self-care (01) | DRG 871 ==
LOC: EC 11:00 → 4MS4W 13:13 → 6ICU 05-29 00:32 → 6SEL 05-30 16:19
PROVIDERS: ADMIT Internal Medicine; ATTEND Internal Medicine
DX: A41.9 Sepsis, unspecified organism (principal); J18.9 Pneumonia, unspecified organism; I50.33 Acute on chronic diastolic (congestive) heart failure; N17.9 Acute kidney failure, unspecified; I95.9 Hypotension, unspecified; J96.01 Acute respiratory failure with hypoxia; J96.02 Acute respiratory failure with hypercapnia; E11.21 Type 2 diabetes mellitus with diabetic nephropathy; I13.0 Hypertensive heart and chronic kidney disease with heart failure and stage 1 through stage 4 chronic kidney disease, or unspecified chronic kidney disease; J44.0 Chronic obstructive pulmonary disease with (acute) lower respiratory infection; E87.1 Hypo-osmolality and hyponatremia; E11.22 Type 2 diabetes mellitus with diabetic chronic kidney disease; J44.1 Chronic obstructive pulmonary disease with (acute) exacerbation; J98.11 Atelectasis; E11.65 Type 2 diabetes mellitus with hyperglycemia; I48.0 Paroxysmal atrial fibrillation; D64.9 Anemia, unspecified; J01.90 Acute sinusitis, unspecified; I49.3 Ventricular premature depolarization; E78.5 Hyperlipidemia, unspecified; N18.2 Chronic kidney disease, stage 2 (mild); T38.0X5A Adverse effect of glucocorticoids and synthetic analogues, initial encounter; Z96.1 Presence of intraocular lens; Z98.42 Cataract extraction status, left eye; Z98.41 Cataract extraction status, right eye; Z87.891 Personal history of nicotine dependence; Z79.82 Long term (current) use of aspirin; Z79.84 Long term (current) use of oral hypoglycemic drugs; Z79.899 Other long term (current) drug therapy
CPT/HCPCS: 36415; 36600; 71010; 71020; 80048; 80053; 81001; 82550; 82553; 82803; 82805; 83036; 83605; 83735; 84100; 84443; 84484; 85025; 85027; 85610; 85730; 87040; 87070; 87086; 87205; 93005; 93306; 94640; 94760; 96365; 96366; 96375; 99285

== ENCOUNTER → 2017-07-14 | Outpatient (CLI) | payer MEDICARE ==
--- NOTE | 2017-07-14 13:20 | XR ---
EXAMINATION TYPE: XR chest 2V DATE OF EXAM: 07/14/2017 COMPARISON: May 30, 2017 HISTORY: Shortness of breath TECHNIQUE: Frontal and lateral views of the chest are obtained. FINDINGS: Scattered senescent parenchymal changes noted. Hyperinflation compatible with COPD. No evidence for infiltrate. No evidence for atelectasis. Heart size is stable. Mediastinal structures are stable and grossly unremarkable. No evidence for hilar prominence. Degenerative changes dorsal spine. IMPRESSION: 1. No evidence for acute pulmonary disease.
== END | disposition home or self-care (01) ==
LOC: RADXRMAIN 12:58
PROVIDERS: ATTEND Internal Medicine Sleep Medicine
DX: J18.9 Pneumonia, unspecified organism (principal)
CPT/HCPCS: 71020

== ENCOUNTER → 2018-02-03 | Outpatient (CLI) | payer MEDICARE ==
[2018-02-03 08:45] LABS: Appearance,Urine Clear (Clear); Bilirubin,Urine Negative (Negative); Blood,Urine Negative (Negative); Color,Urine Light Yellow; Glucose,Urine (UA) Negative (Negative); Ketones,Urine Negative (Negative); Leukocyte Esterase,Urine Negative (Negative); Nitrite,Urine Negative (Negative); Protein,Urine Negative (Negative); Specific Gravity,Urine 1.009 (1.001-1.035); Urobilinogen,Urine <2.0 mg/dL (<2.0)
[2018-02-03 09:06] LABS: Albumin 4.1 g/dL (3.5-5.0); Calcium 9.8 mg/dL (8.4-10.2); Phosphorus 4.2 mg/dL (2.5-4.5); Total Bilirubin 0.6 mg/dL (0.2-1.3); Total Protein 7.2 g/dL (6.3-8.2)
[2018-02-03 18:48] LABS: Hemoglobin A1C 6.4 % (4.0-6.0)
== END ==
LOC: LABWHC1 07:57
PROVIDERS: ATTEND Internal Medicine
DX: N18.2 Chronic kidney disease, stage 2 (mild) (principal); E08.22 Diabetes mellitus due to underlying condition with diabetic chronic kidney disease
CPT/HCPCS: 36415; 80053; 81003; 82652; 83036; 83970; 84100

== ENCOUNTER → 2018-05-07 | Outpatient (CLI) | payer MEDICARE ==
[2018-05-07 09:35] LABS: Basophils % (A) 0 %; Eosinophils # (A) 0.2 k/uL (0-0.7); Eosinophils % (A) 2 %; HCT 39.3 % (39.0-53.0); HGB 12.5 gm/dL (13.0-17.5); Lymphocytes # (A) 1.2 k/uL (1.0-4.8); Lymphocytes % (A) 18 %; MCH 30.9 pg (25.0-35.0); MCHC 31.9 g/dL (31.0-37.0); MCV 96.9 fL (80.0-100.0); Mean Platelet Volume 7.7; Monocytes # (A) 0.6 k/uL (0-1.0); Monocytes % (A) 9 %; Neutrophils # (A) 4.8 k/uL (1.3-7.7); Neutrophils % (A) 68 %; Platelet Count 173 k/uL (150-450); RBC 4.05 m/uL (4.30-5.90); RDW 14.3 % (11.5-15.5)
[2018-05-07 09:50] LABS: Appearance,Urine Clear (Clear); Bilirubin,Urine Negative (Negative); Blood,Urine Trace (Negative); Color,Urine Light Yellow; Glucose,Urine (UA) Negative (Negative); Ketones,Urine Negative (Negative); Leukocyte Esterase,Urine Negative (Negative); Mucus,Urine Rare /hpf; Nitrite,Urine Negative (Negative); PH, Urine 5.5 (5.0-8.0); Protein,Urine Trace (Negative); RBC,Urine 2 /hpf (0-5); Squamous Epithelial Cell,Urine <1 /hpf (0-4); Urobilinogen,Urine <2.0 mg/dL (<2.0); WBC,Urine <1 /hpf (0-5)
[2018-05-07 10:15] LABS: Calcium 9.9 mg/dL (8.4-10.2); Magnesium 1.8 mg/dL (1.6-2.3); Phosphorus 4.2 mg/dL (2.5-4.5); Potassium 4.4 mmol/L (3.5-5.1); Total Bilirubin 0.7 mg/dL (0.2-1.3); Total Protein 7.3 g/dL (6.3-8.2); Uric Acid 6.9 mg/dL (3.5-8.5)
[2018-05-07 16:46] LABS: Iron Saturation 19.1 (15.00-50.00)
[2018-05-07 17:21] LABS: Parathyroid Hormone Intact 9.5 pg/mL (14.0-72.0)
== END | disposition home or self-care (01) ==
LOC: LABWHC1 09:06
PROVIDERS: ATTEND Internal Medicine
DX: N39.0 Urinary tract infection, site not specified (principal); D64.9 Anemia, unspecified; N25.81 Secondary hyperparathyroidism of renal origin; E55.9 Vitamin D deficiency, unspecified; M10.9 Gout, unspecified; N18.4 Chronic kidney disease, stage 4 (severe)
CPT/HCPCS: 36415; 80053; 81001; 82043; 82306; 82570; 82728; 83540; 83550; 83735; 83970; 84100; 84550; 85025; 85027

== ENCOUNTER → 2019-06-24 | Outpatient (CLI) | payer MEDICARE ==
[2019-06-24 10:03] LABS: Basophils # (A) 0.1 k/uL (0-0.2); Basophils % (A) 1 %; Eosinophils # (A) 0.1 k/uL (0-0.7); Eosinophils % (A) 2 %; HGB 13.3 gm/dL (13.0-17.5); Lymphocytes % (A) 16 %; MCH 30.7 pg (25.0-35.0); MCHC 31.6 g/dL (31.0-37.0); MCV 97.1 fL (80.0-100.0); Mean Platelet Volume 7.8; Monocytes # (A) 0.5 k/uL (0-1.0); Monocytes % (A) 8 %; Neutrophils # (A) 4.2 k/uL (1.3-7.7); Neutrophils % (A) 70 %; Platelet Count 175 k/uL (150-450); RBC 4.33 m/uL (4.30-5.90); RDW 13.8 % (11.5-15.5); WBC 5.9 k/uL (3.8-10.6)
[2019-06-24 12:33] LABS: Appearance,Urine Clear (Clear); Bilirubin,Urine Negative (Negative); Blood,Urine Negative (Negative); Color,Urine Yellow; Glucose,Urine (UA) 2+ (Negative); Hyaline Casts,Urine 4 /lpf (0-2); Ketones,Urine Negative (Negative); Leukocyte Esterase,Urine Negative (Negative); Mucus,Urine Rare /hpf; Nitrite,Urine Negative (Negative); PH, Urine 5.5 (5.0-8.0); Protein,Urine 2+ (Negative); RBC,Urine 1 /hpf (0-5); Specific Gravity,Urine 1.015 (1.001-1.035); Urobilinogen,Urine <2.0 mg/dL (<2.0); WBC,Urine 1 /hpf (0-5)
[2019-06-24 16:58] LABS: Iron Saturation 21.59 (15.00-50.00)
[2019-06-24 17:07] LABS: Vitamin D 25 Hydroxy 34.8 ng/mL (30.0-100.0)
[2019-06-24 17:14] LABS: African American GFR (CKD) 50.6 (60.0-200.0); Albumin 3.8 g/dL (3.80-4.90); Albumin/Globulin Ratio 1.52 (1.60-3.17); BUN/Creat Ratio 20.67 Ratio (12.00-20.00); Calcium 9.2 mg/dL (8.7-10.3); Globulin 2.5 g/dL (1.6-3.3); Magnesium 1.9 mg/dL (1.5-2.4); Phosphorus 3.2 mg/dL (2.4-5.1); Potassium 4.3 mmol/L (3.5-5.5); Total Bilirubin 0.8 mg/dL (0.3-1.2); Total Protein 6.3 g/dL (6.2-8.2)
[2019-06-24 18:14] LABS: Hemoglobin A1C 6.9 % (4.0-6.0)
== END | disposition home or self-care (01) ==
LOC: LABWHC1 09:29
PROVIDERS: ATTEND Nurse Practitioner Family
DX: N39.0 Urinary tract infection, site not specified (principal); E55.9 Vitamin D deficiency, unspecified; M10.9 Gout, unspecified; N25.81 Secondary hyperparathyroidism of renal origin; N18.4 Chronic kidney disease, stage 4 (severe); E11.22 Type 2 diabetes mellitus with diabetic chronic kidney disease; E61.1 Iron deficiency
CPT/HCPCS: 36415; 80053; 81001; 82306; 82728; 83036; 83540; 83550; 83735; 83970; 84100; 84550; 85025

== ENCOUNTER 2021-03-22 11:58 | Inpatient (IN) | payer MEDICARE ==
[2021-03-22] MEDS ORDERED: SODIUM CHLORIDE 0.9% 1,000 ML IV STA ×2 (12:18→13:21)
--- NOTE | 2021-03-22 12:22 | ED ---
General Adult HPI - General Chief complaint: Dizziness Stated complaint: Vertigo Time Seen by Provider: 03/22/21 12:11 Source: patient, EMS, RN notes reviewed Mode of arrival: EMS Limitations: no limitations - History of Present Illness Initial comments: Patient is a pleasant 80-year-old male presenting to the emergency department with dizziness. Onset of symptoms was yesterday, close to 24 hours ago. Patient has dizziness described as spinning. Symptoms are worse with upright position and head movements. Symptoms improved with lying down and rest. Patient did have an episode he was bending over yesterday where dizziness, worsening did pass out. Patient had another episode today with increased dizziness when he vomited. Patient states following vomiting there has been resolution of symptoms and now is symptom-free. No headache. No confusion. No weakness. No speech problems. No visual changes. - Related Data Home Medications Medication Instructions Recorded Confirmed Aspirin EC [Ecotrin Low Dose] 81 mg PO DAILY 05/28/17 04/04/19 Atorvastatin [Lipitor] 80 mg PO HS 05/28/17 04/04/19 EPINEPHrine (Auto Inject) [Epipen] 0.3 mg PO ONCE PRN 05/28/17 04/04/19 Pioglitazone [Actos] 45 mg PO DAILY 05/28/17 04/04/19 Primidone [Mysoline] 50 mg PO DAILY 05/28/17 04/04/19 sitaGLIPtin [Januvia] 100 mg PO DAILY 05/28/17 04/04/19 Dulaglutide [Trulicity] 1.75 mg SQ WEEKLY 04/04/19 04/04/19 Ferrous Sulfate [Iron] 325 mg PO DAILY 04/04/19 04/04/19 Previous Rx's Medication Instructions Recorded lisinopriL [Zestril] 20 mg PO DAILY #30 tab 06/01/17 Apixaban [Eliquis] 2.5 mg PO BID #1 tab 06/02/17 Allergies Allergy/AdvReac Type Severity Reaction Status Date / Time bee venom protein (honey bee) Allergy Anaphylaxis Verified 03/22/21 12:04 Review of Systems ROS Statement: Those systems with pertinent positive or pertinent negative responses have been documented in the HPI. ROS Other: All systems not noted in ROS Statement are negative. Constitutional: Denies: fever Eyes: Denies: eye pain ENT: Denies: ear pain Respiratory: Denies: cough Cardiovascular: Denies: chest pain Endocrine: Denies: fatigue Gastrointestinal: Reports: nausea, vomiting. Denies: abdominal pain Genitourinary: Denies: dysuria Musculoskeletal: Denies: back pain Skin: Denies: rash Neurological: Reports: vertigo. Denies: headache, weakness, numbness, paresthesias, confusion, abnormal gait Past Medical History Past Medical History: Atrial Fibrillation, Diabetes Mellitus, GERD/Reflux, Hyperlipidemia, Hypertension, Pneumonia, Renal Disease Additional Past Medical History / Comment(s): NIDDM TYPE II, ANEMIA LONG AGO History of Any Multi-Drug Resistant Organisms: None Reported Past Surgical History: No Surgical Hx Reported Additional Past Surgical History / Comment(s): BILATERAL CATARACT REMOVALS WITH LENS IMPLANTS. Past Anesthesia/Blood Transfusion Reactions: No Reported Reaction Past Psychological History: No Psychological Hx Reported Smoking Status: Former smoker Past Alcohol Use History: Rare Past Drug Use History: None Reported - Past Family History Father Family Medical History: Diabetes Mellitus Additional Family Medical History / Comment(s): FATHER AT THE AGE OF 89YRS. Mother Family Medical History: COPD Additional Family Medical History / Comment(s): MOTHER HAD A "BAD HEART." SHE OF EMPHYSEMA AT THE AGE OF 68YRS. General Exam Limitations: no limitations General appearance: alert, in no apparent distress Head exam: Present: normocephalic Eye exam: Present: normal appearance, PERRL, EOMI. Absent: nystagmus ENT exam: Present: normal oropharynx Neck exam: Present: normal inspection Respiratory exam: Present: normal lung sounds bilaterally Cardiovascular Exam: Present: regular rate, normal rhythm GI/Abdominal exam: Present: soft. Absent: tenderness Extremities exam: Present: normal inspection Neurological exam: Present: alert, oriented X3, CN II-XII intact. Absent: motor sensory deficit Expanded Neurological exam: Present: protecting the airway Patient oriented to: Present: person, place, time Speech: Present: fluid speech Cranial nerves: EOM's Intact: Normal, Facial Sensation: Normal Cerebellar function: Finger to Nose: Normal Sensory exam: Upper Extremity Light Touch: Normal, Lower Extremity Light Touch: Normal Motor strength exam: RUE: 5, LUE: 5, RLE: 5, LLE: 5 Eye Response: (4) open spontaneously Motor Response: (6) obeys commands Verbal Response: (5) oriented Psychiatric exam: Present: normal affect, normal mood Skin exam: Present: normal color Course Vital Signs 03/22/21 03/22/21 12:05 14:09 Temperature 97.5 F L Pulse Rate 80 67 Respiratory 16 18 Rate Blood Pressure 122/40 141/56 O2 Sat by Pulse 100 99 Oximetry EKG Findings - EKG Comments: EKG Findings:: Sinus rhythm with a rate of 60. For screening AV block with VA of 250. QRS 90. QT 484. QTC 484. Normal axis. Normal QRS. No acute ST ibarra ge. Medical Decision Making - Medical Decision Making Patient reevaluated and updated. Case discussed with Dr. Orlando, covering for Dr. Ortiz, who will admit. - Lab Data Result diagrams: 03/22/21 12:30 03/22/21 12:30 Lab Results 03/22/21 03/22/21 03/22/21 Range/Units 12:30 12:30 12:30 WBC 10.4 (3.8-10.6) k/uL RBC 4.81 (4.30-5.90) m/uL Hgb 15.0 (13.0-17.5) gm/dL Hct 45.0 (39.0-53.0) % MCV 93.5 (80.0-100.0) fL MCH 31.1 (25.0-35.0) pg MCHC 33.3 (31.0-37.0) g/dL RDW 13.9 (11.5-15.5) % Plt Count 197 (150-450) k/uL MPV 8.1 Neutrophils % 81 % Lymphocytes % 9 % Monocytes % 8 % Eosinophils % 1 % Basophils % 0 % Neutrophils # 8.4 H (1.3-7.7) k/uL Lymphocytes # 0.9 L (1.0-4.8) k/uL Monocytes # 0.9 (0-1.0) k/uL Eosinophils # 0.1 (0-0.7) k/uL Basophils # 0.0 (0-0.2) k/uL PT 10.2 (9.0-12.0) sec INR 0.9 (<1.2) APTT 21.8 L (22.0-30.0) sec Sodium 125 L (137-145) mmol/L Potassium 2.7 L* (3.5-5.1) mmol/L Chloride 92 L (98-107) mmol/L Carbon Dioxide 24 (22-30) mmol/L Anion Gap 9 mmol/L BUN 71 H (9-20) mg/dL Creatinine 3.06 H (0.66-1.25) mg/dL Est GFR (CKD-EPI)AfAm 21 (>60 ml/min/1.73 sqM) Est GFR (CKD-EPI)NonAf 18 (>60 ml/min/1.73 sqM) Glucose 257 H (74-99) mg/dL Plasma Lactic Acid Shiva (0.7-2.0) mmol/L Calcium 7.8 L (8.4-10.2) mg/dL Total Bilirubin 0.5 (0.2-1.3) mg/dL AST 30 (17-59) U/L ALT 22 (4-49) U/L Alkaline Phosphatase 85 (38-126) U/L Troponin I (0.000-0.034) ng/mL Total Protein 5.3 L (6.3-8.2) g/dL Albumin 2.6 L (3.5-5.0) g/dL 03/22/21 03/22/21 Range/Units 12:30 12:30 WBC (3.8-10.6) k/uL RBC (4.30-5.90) m/uL Hgb (13.0-17.5) gm/dL Hct (39.0-53.0) % MCV (80.0-100.0) fL MCH (25.0-35.0) pg MCHC (31.0-37.0) g/dL RDW (11.5-15.5) % Plt Count (150-450) k/uL MPV Neutrophils % % Lymphocytes % % Monocytes % % Eosinophils % % Basophils % % Neutrophils # (1.3-7.7) k/uL Lymphocytes # (1.0-4.8) k/uL Monocytes # (0-1.0) k/uL Eosinophils # (0-0.7) k/uL Basophils # (0-0.2) k/uL PT (9.0-12.0) sec INR (<1.2) APTT (22.0-30.0) sec Sodium (137-145) mmol/L Potassium (3.5-5.1) mmol/L Chloride (98-107) mmol/L Carbon Dioxide (22-30) mmol/L Anion Gap mmol/L BUN (9-20) mg/dL Creatinine (0.66-1.25) mg/dL Est GFR (CKD-EPI)AfAm (>60 ml/min/1.73 sqM) Est GFR (CKD-EPI)NonAf (>60 ml/min/1.73 sqM) Glucose (74-99) mg/dL Plasma Lactic Acid Shiva 1.6 (0.7-2.0) mmol/L Calcium (8.4-10.2) mg/dL Total Bilirubin (0.2-1.3) mg/dL AST (17-59) U/L ALT (4-49) U/L Alkaline Phosphatase (38-126) U/L Troponin I 0.064 H* (0.000-0.034) ng/mL Total Protein (6.3-8.2) g/dL Albumin (3.5-5.0) g/dL - Radiology Data Radiology results: report reviewed (Computed tomography scan of the brain shows degenerative changes) Disposition Clinical Impression: Vertigo, Acute on chronic kidney failure, Hyponatremia, Hypokalemia Disposition: ADMITTED IP TO THIS HOSP Is patient prescribed a controlled substance at d/c from ED?: No Decision Time: 13:41
[2021-03-22 12:56] LABS: Albumin 2.6 g/dL (3.5-5.0); Calcium 7.8 mg/dL (8.4-10.2); Total Bilirubin 0.5 mg/dL (0.2-1.3); Total Protein 5.3 g/dL (6.3-8.2)
[2021-03-22 12:57] LABS: Basophils % (A) 0 %; Eosinophils # (A) 0.1 k/uL (0-0.7); Eosinophils % (A) 1 %; Lymphocytes # (A) 0.9 k/uL (1.0-4.8); Lymphocytes % (A) 9 %; MCH 31.1 pg (25.0-35.0); MCHC 33.3 g/dL (31.0-37.0); MCV 93.5 fL (80.0-100.0); Mean Platelet Volume 8.1; Monocytes # (A) 0.9 k/uL (0-1.0); Monocytes % (A) 8 %; Neutrophils # (A) 8.4 k/uL (1.3-7.7); Neutrophils % (A) 81 %; Platelet Count 197 k/uL (150-450); RBC 4.81 m/uL (4.30-5.90); RDW 13.9 % (11.5-15.5); WBC 10.4 k/uL (3.8-10.6)
[2021-03-22 12:58] LABS: Potassium 2.7 mmol/L (3.5-5.1)
[2021-03-22 13:08] LABS: INR 0.9 (<1.2); Prothrombin Time 10.2 sec (9.0-12.0)
[2021-03-22] MEDS ORDERED: POTASSIUM CHLORIDE 20 MEQ in WATER FOR INJECTION 1 100ML.BAG IVPB STA (13:21)
[2021-03-22] MEDS ORDERED: POTASSIUM CHLORIDE ER 20 MEQ TAB.ER PO STA (13:22)
[2021-03-22 13:28] LABS: Partial Thromboplastin Time 21.8 sec (22.0-30.0)
[2021-03-22] MEDS ORDERED: NALOXONE 0.4 MG/ML 1 ML VIAL IV PRN (13:41)
--- NOTE | 2021-03-22 14:23 | CT ---
EXAMINATION TYPE: CT brain wo con DATE OF EXAM: 03/22/2021 COMPARISON: None HISTORY: Vertigo, syncope CT DLP: 1090.4 mGycm Automated exposure control for dose reduction was used. FINDINGS: Moderate generalized degenerative change. Periventricular areas of low attenuation are nonspecific. Orbits are symmetric. Sinuses are clear. Craniocervical junction maintained. Sella turcica has a normal appearance. No evidence of mass effect or midline shift. No acute hemorrhage. IMPRESSION: DEGENERATIVE AND NONSPECIFIC WHITE MATTER CHANGES MOST TYPICAL REMOTE ISCHEMIA.
[2021-03-22 15:53] LABS: Appearance,Urine Clear (Clear); Bilirubin,Urine Negative (Negative); Blood,Urine Negative (Negative); Color,Urine Yellow; Glucose,Urine (UA) 4+ (Negative); Hyaline Casts,Urine 3 /lpf (0-2); Ketones,Urine Negative (Negative); Leukocyte Esterase,Urine Negative (Negative); Mucus,Urine Rare /hpf; Nitrite,Urine Negative (Negative); PH, Urine 5.5 (5.0-8.0); Protein,Urine 2+ (Negative); Squamous Epithelial Cell,Urine <1 /hpf (0-4); Urobilinogen,Urine <2.0 mg/dL (<2.0); WBC,Urine 2 /hpf (0-5)
[2021-03-22 16:40] LABS: Glucose,Whole Blood 325 mg/dL (75-99)
[2021-03-22] MEDS: amLODIPine 10 MG TAB PO SCH (17:24)
[2021-03-22] MEDS: INSULIN ASPART (NovoLOG) 100 UNIT/ML VIAL SQ SCH ×2 (17:24→20:09)
[2021-03-22 20:04] LABS: Glucose,Whole Blood 304 mg/dL (75-99)
[2021-03-22] MEDS: ATORVASTATIN 80 MG TAB PO SCH (20:09)
[2021-03-22] MEDS: APIXABAN 2.5 MG TABLET PO SCH (20:09)
--- NOTE | 2021-03-22 22:37 | P.HPIM ---
History of Present Illness H&P Date: 03/22/21 Chief Complaint: Dizziness Patient is a 8-year-old male with a known history of paroxysmal atrial fibrillation on anticoagulation with Eliquis, hypertension, chronic renal dis ease, diabetes type 2 insulin-dependent, hyperlipidemia, previous history of smoking presents to ER with complaints of dizziness and vertigo. Patient has been having symptoms for the past 20 hours. Patient felt like room spinning. Symptoms get worse with upright position and head movements. Improved with lying down on the bed. Patient had episode of dizziness and vomiting this morning. Patient felt his symptoms are improved after the vomiting. No headache. No chest pain or shortness of breath. Denied abdominal pain or diarrhea. EKG showed a sinus rhythm with first-degree AV block. CT head showed degenerative and nonspecific white matter changes most typical remote ischemia. Laboratory data showed sodium 125 potassium 2.7, chloride 92, BUN 71 and creatinine 3.06 and blood sugar is 257 Troponin 0 0.064 Review of Systems Constitutional: Patient denies any fever or chills . No generalized weakness or weight loss. Abdomen: Patient denied nausea vomiting and diarrhea and abdominal pain. Cardiovascular: Patient denies any chest pain or short of breath no palpitations. Respiratory: patient denied any cough or sputum production. No shortness of breath Neurologic: Patient denied any numbness or tingling headache.Patient does have dizziness and room spinning. Musculoskeletal: Patient denies any complaints of joint swelling or deformity. Skin: Negative Psychiatric: Negative Endocrine: No heat or cold intolerance. No recent weight gain. Genitourinary: No dysuria or hematuria. All other 14 point ROS negative except the above Past Medical History Past Medical History: Atrial Fibrillation, Diabetes Mellitus, GERD/Reflux, Hyperlipidemia, Hypertension, Pneumonia, Renal Disease Additional Past Medical History / Comment(s): NIDDM TYPE II, ANEMIA LONG AGO History of Any Multi-Drug Resistant Organisms: None Reported Past Surgical History: No Surgical Hx Reported Additional Past Surgical History / Comment(s): BILATERAL CATARACT REMOVALS WITH LENS IMPLANTS. Past Anesthesia/Blood Transfusion Reactions: No Reported Reaction Past Psychological History: No Psychological Hx Reported Smoking Status: Former smoker Past Alcohol Use History: Rare Past Drug Use History: None Reported - Past Family History Father Family Medical History: Diabetes Mellitus Additional Family Medical History / Comment(s): FATHER AT THE AGE OF 89YRS. Mother Family Medical History: COPD Additional Family Medical History / Comment(s): MOTHER HAD A "BAD HEART." SHE OF EMPHYSEMA AT THE AGE OF 68YRS. Brother(s) Additional Family Medical History / Comment(s): Alzheimer's Disease Medications and Allergies Home Medications Medication Instructions Recorded Confirmed Type Aspirin EC [Ecotrin Low Dose] 81 mg PO DAILY 05/28/17 03/22/21 History Atorvastatin [Lipitor] 80 mg PO HS 05/28/17 03/22/21 History EPINEPHrine (Auto Inject) [Epipen] 0.3 mg PO ONCE PRN 05/28/17 03/22/21 History Pioglitazone [Actos] 45 mg PO DAILY 05/28/17 03/22/21 History Primidone [Mysoline] 50 mg PO DAILY 05/28/17 03/22/21 History lisinopriL [Zestril] 20 mg PO DAILY #30 tab 06/01/17 03/22/21 Rx Apixaban [Eliquis] 2.5 mg PO BID #1 tab 06/02/17 03/22/21 Rx Dulaglutide [Trulicity] 1.5 mg SQ TU 04/04/19 03/22/21 History Canagliflozin [Invokana] 100 mg PO DAILY 03/22/21 03/22/21 History Chlorthalidone [Hygroton] 25 mg PO DAILY 03/22/21 03/22/21 History Ergocalciferol [Vitamin D2 (1250 1,250 mcg PO Q14D 03/22/21 03/22/21 History Mcg = 18470 Iu)] INSULIN LISPRO (HumaLOG) [humaLOG] See Protocol SQ TID-W/MEALS PRN 03/22/21 History Omeprazole Magnesium [PriLOSEC] 20 mg PO DAILY 03/22/21 03/22/21 History amLODIPine [Norvasc] 10 mg PO DAILY 03/22/21 03/22/21 History Allergies Allergy/AdvReac Type Severity Reaction Status Date / Time bee venom protein (honey bee) Allergy Anaphylaxis Verified 03/22/21 15:52 Physical Exam Vitals: Vital Signs Temp Pulse Pulse Resp BP BP Pulse Ox 03/22/21 20:00 97.9 F 69 18 118/48 99 03/22/21 16:00 97.5 F L 78 18 130/67 100 03/22/21 15:19 97.5 F L 67 18 140/59 100 03/22/21 14:09 67 18 141/56 99 03/22/21 12:05 97.5 F L 80 16 122/40 100 Intake and Output 03/22/21 03/22/21 03/22/21 06:59 14:59 22:59 Intake Total 250 Output Total 1 Balance -1 250 Intake: IV 10 0.9 10 Oral 240 Output: Urine 1 Other: Voiding Method Toilet # Voids 1 Weight 78.471 kg PHYSICAL EXAMINATION: Patient is lying in the bed comfortably, no acute distress, awake alert and oriented.. HEENT: Normocephalic. Neck is supple. Pupils reactive. Nostrils clear. Oral cavity is moist. Neck reveals no JVD, carotid bruits, or thyromegaly. CHEST EXAMINATION: Trachea is central. Symmetrical expansion. Lung thomson clear to auscultation and percussion. CARDIAC: Normal S1, S2 with no gallops. No murmurs ABDOMEN: Soft. Bowel sounds normal. No organomegaly. No abdominal bruits. Extremities: reveal no edema. No clubbing or cyanosis Neurologically awake, alert, oriented x3 with well-coordinated movements. No focal deficits noted Skin: No rash or skin lesions. Psychiatric: Coperative. Nonsuicidal Musculoskeletal: No joint swelling or deformity. Normal range of motion. Results CBC & Chem 7: 03/22/21 12:30 03/22/21 12:30 Labs: Abnormal Lab Results - Last 24 Hours (Table) 03/22/21 03/22/21 03/22/21 Range/Units 12:30 12:30 12:30 Neutrophils # 8.4 H (1.3-7.7) k/uL Lymphocytes # 0.9 L (1.0-4.8) k/uL APTT 21.8 L (22.0-30.0) sec Sodium (137-145) mmol/L Potassium (3.5-5.1) mmol/L Chloride (98-107) mmol/L BUN (9-20) mg/dL Creatinine (0.66-1.25) mg/dL Glucose (74-99) mg/dL POC Glucose (mg/dL) (75-99) mg/dL Calcium (8.4-10.2) mg/dL Troponin I (0.000-0.034) ng/mL Total Protein (6.3-8.2) g/dL Albumin (3.5-5.0) g/dL Urine Protein 2+ H (Negative) Urine Glucose (UA) 4+ H (Negative) Hyaline Casts 3 H (0-2) /lpf Urine Mucus Rare H (None) /hpf 03/22/21 03/22/21 03/22/21 Range/Units 12:30 12:30 16:39 Neutrophils # (1.3-7.7) k/uL Lymphocytes # (1.0-4.8) k/uL APTT (22.0-30.0) sec Sodium 125 L (137-145) mmol/L Potassium 2.7 L* (3.5-5.1) mmol/L Chloride 92 L (98-107) mmol/L BUN 71 H (9-20) mg/dL Creatinine 3.06 H (0.66-1.25) mg/dL Glucose 257 H (74-99) mg/dL POC Glucose (mg/dL) 325 H (75-99) mg/dL Calcium 7.8 L (8.4-10.2) mg/dL Troponin I 0.064 H* (0.000-0.034) ng/mL Total Protein 5.3 L (6.3-8.2) g/dL Albumin 2.6 L (3.5-5.0) g/dL Urine Protein (Negative) Urine Glucose (UA) (Negative) Hyaline Casts (0-2) /lpf Urine Mucus (None) /hpf 03/22/21 Range/Units 20:03 Neutrophils # (1.3-7.7) k/uL Lymphocytes # (1.0-4.8) k/uL APTT (22.0-30.0) sec Sodium (137-145) mmol/L Potassium (3.5-5.1) mmol/L Chloride (98-107) mmol/L BUN (9-20) mg/dL Creatinine (0.66-1.25) mg/dL Glucose (74-99) mg/dL POC Glucose (mg/dL) 304 H (75-99) mg/dL Calcium (8.4-10.2) mg/dL Troponin I (0.000-0.034) ng/mL Total Protein (6.3-8.2) g/dL Albumin (3.5-5.0) g/dL Urine Protein (Negative) Urine Glucose (UA) (Negative) Hyaline Casts (0-2) /lpf Urine Mucus (None) /hpf Thrombosis Risk Factor Assmnt - DVT/VTE Prophylaxis DVT/VTE Prophylaxis: Pharmacologic Prophylaxis ordered - Choose All That Apply Each Risk Factor Represents 3 Points: Age 75 years or older Thrombosis Risk Factor Assessment Total Risk Factor Score: 3 Thrombosis Risk Factor Assessment Level: Moderate Risk Assessment and Plan Assessment: Dizziness and vertigo possibly positional. Rule out orthostatic hypotension. Severe hypokalemia. Chlorthalidone on hold. Replacing. Hypovolemic hyponatremia Acute kidney injury with creatinine 3.06. Baseline 1.4 Hyperglycemia with uncontrolled diabetes type 2 Elevated troponin level likely due to renal injury. Paroxysmal atrial fibrillation on anticoagulation with Eliquis Diabetes type 2 GERD Hyperlipidemia Previous history of smoking DVT prophylaxis patient is already on Eliquis. Plan: Patient began on telemetry monitoring. Continue with IV hydration. Chlorthalidone is on hold. Replace electrolytes and follow-up magnesium level. Continue with home medications and insulin regimen. Nephrology was consulted. Monitor renal function. 2D echocardiogram will be ordered and cardiology was consulted. Continue to follow closely. Time with Patient: Greater than 30
[2021-03-23] MEDS ORDERED: HEPARIN SODIUM,PORCINE/PF 5,000 UNIT/0.5 ML SYRINGE SQ SCH
[2021-03-23 05:48] LABS: Glucose,Whole Blood 137 mg/dL (75-99)
[2021-03-23] MEDS: INSULIN ASPART (NovoLOG) 100 UNIT/ML VIAL SQ SCH ×4 (06:18→20:18)
[2021-03-23] MEDS: PANTOPRAZOLE 40 MG TABLET PO SCH (06:18)
--- NOTE | 2021-03-23 06:33 | XR ---
EXAMINATION TYPE: XR chest 1V DATE OF EXAM: 03/23/2021 CLINICAL HISTORY: Difficulty breathing . TECHNIQUE: Single AP portable upright view of the chest is obtained. COMPARISON: Chest x-ray from April 04, 2019 FINDINGS: There is mild scattered chronic parenchymal change greatest in the lung bases. Diminished inspiration without new suspicious focal airspace opacity, pleural effusion, or pneumothorax seen kelly aterally. Cardiac silhouette size stable and within normal limits with atherosclerotic change aortic knob. Osseous structures are intact. IMPRESSION: Chronic changes without acute pulmonary process.
[2021-03-23 08:47] LABS: Albumin 2.5 g/dL (3.5-5.0); Magnesium 2.2 mg/dL (1.6-2.3); Phosphorus 4.4 mg/dL (2.5-4.5); Potassium 3.1 mmol/L (3.5-5.1); Total Bilirubin 0.4 mg/dL (0.2-1.3); Total Protein 5.2 g/dL (6.3-8.2)
[2021-03-23] MEDS ORDERED: POTASSIUM CHLORIDE ER 20 MEQ TAB.ER PO STA (08:50)
[2021-03-23] MEDS ORDERED: lisinopriL 20 MG TAB PO SCH (09:00)
[2021-03-23] MEDS: amLODIPine 10 MG TAB PO SCH (09:09)
[2021-03-23] MEDS: APIXABAN 2.5 MG TABLET PO SCH ×2 (09:12→20:17)
[2021-03-23] MEDS: ASPIRIN 81 MG PO SCH (09:12)
[2021-03-23] MEDS: PRIMIDONE 50 MG TAB PO SCH (09:12)
[2021-03-23] MEDS: PIOGLITAZONE 45 MG TAB PO SCH (09:12)
--- NOTE | 2021-03-23 09:19 | P.NPCON ---
History of Present Illness - Reason for Consult acute renal failure, chronic renal failure - History of Present Illness Reason for consultation: Acute kidney injury on chronic kidney disease History of present illness: The patient is a 80-year-old male seen in consultation for acute kidney injury on chronic kidney disease. Patient has chronic kidney disease stage IIIa secondary to diabetic kidney disease. Baseline creatinine 1.5-1.6. Patient presented to the hospital after he felt dizzy and sustained a fall yesterday at home. He denies losing consciousness. Patient states he hit his elbow but not his head. Patient states he also vomited once yesterday after he returned from the chiropractor and since then has been feeling better. He is currently receiving IV fluids. Renal function is improving. He was noted to be orthostatic as his standing blood pressure dropped to 98/42. He denies use of nonsteroidals. No fever or chills. No cough. No chest pain or shortness of breath. No edema. Potassium noted to be low and is being replaced. Sodium level was also low and is improving with IV hydration. Vital signs are stable. General: The patient appeared well nourished and normally developed. HEENT: Head exam is unremarkable. Neck is without jugular venous distension. LUNGS: Breath sounds decreased. HEART: Rate and Rhythm are regular. ABDOMEN: Soft, no distention. EXTREMITITES: No clubbing, cyanosis, or edema. Past Medical History Past Medical History: Atrial Fibrillation, Diabetes Mellitus, GERD/Reflux, Hyperlipidemia, Hypertension, Pneumonia, Renal Disease Additional Past Medical History / Comment(s): NIDDM TYPE II, ANEMIA LONG AGO History of Any Multi-Drug Resistant Organisms: None Reported Past Surgical History: No Surgical Hx Reported Additional Past Surgical History / Comment(s): BILATERAL CATARACT REMOVALS WITH LENS IMPLANTS. Past Anesthesia/Blood Transfusion Reactions: No Reported Reaction Past Psychological History: No Psychological Hx Reported Smoking Status: Former smoker Past Alcohol Use History: Rare Past Drug Use History: None Reported - Past Family History Father Family Medical History: Diabetes Mellitus Additional Family Medical History / Comment(s): FATHER AT THE AGE OF 89YRS. Mother Family Medical History: COPD Additional Family Medical History / Comment(s): MOTHER HAD A "BAD HEART." SHE OF EMPHYSEMA AT THE AGE OF 68YRS. Brother(s) Additional Family Medical History / Comment(s): Alzheimer's Disease Medications and Allergies Home Medications Medication Instructions Recorded Confirmed Type Aspirin EC [Ecotrin Low Dose] 81 mg PO DAILY 05/28/17 03/22/21 History Atorvastatin [Lipitor] 80 mg PO HS 05/28/17 03/22/21 History EPINEPHrine (Auto Inject) [Epipen] 0.3 mg PO ONCE PRN 05/28/17 03/22/21 History Pioglitazone [Actos] 45 mg PO DAILY 05/28/17 03/22/21 History Primidone [Mysoline] 50 mg PO DAILY 05/28/17 03/22/21 History lisinopriL [Zestril] 20 mg PO DAILY #30 tab 06/01/17 03/22/21 Rx Apixaban [Eliquis] 2.5 mg PO BID #1 tab 06/02/17 03/22/21 Rx Dulaglutide [Trulicity] 1.5 mg SQ TU 04/04/19 03/22/21 History Canagliflozin [Invokana] 100 mg PO DAILY 03/22/21 03/22/21 History Chlorthalidone [Hygroton] 25 mg PO DAILY 03/22/21 03/22/21 History Ergocalciferol [Vitamin D2 (1250 1,250 mcg PO Q14D 03/22/21 03/22/21 History Mcg = 90984 Iu)] INSULIN LISPRO (HumaLOG) [humaLOG] See Protocol SQ TID-W/MEALS PRN 03/22/21 History Omeprazole Magnesium [PriLOSEC] 20 mg PO DAILY 03/22/21 03/22/21 History amLODIPine [Norvasc] 10 mg PO DAILY 03/22/21 03/22/21 History Allergies Allergy/AdvReac Type Severity Reaction Status Date / Time bee venom protein (honey bee) Allergy Anaphylaxis Verified 03/22/21 15:52 Physical Exam Vitals: Vital Signs Temp Pulse Pulse Pulse Pulse Pulse Resp 03/23/21 09:07 97.5 F L 66 16 03/23/21 03:28 97.9 F 66 68 65 18 03/23/21 01:58 69 18 03/22/21 23:15 98.0 F 69 18 03/22/21 20:00 97.9 F 69 18 03/22/21 16:00 97.5 F L 78 18 03/22/21 15:19 97.5 F L 67 18 03/22/21 14:09 67 18 03/22/21 12:05 97.5 F L 80 16 BP BP BP BP BP Pulse Ox 03/23/21 09:07 115/56 99 03/23/21 03:28 127/54 98/42 133/49 97 03/23/21 01:58 03/22/21 23:15 119/46 94 L 03/22/21 20:00 118/48 99 03/22/21 16:00 130/67 100 03/22/21 15:19 140/59 100 03/22/21 14:09 141/56 99 03/22/21 12:05 122/40 100 Intake and Output 03/22/21 03/23/21 03/23/21 22:59 06:59 14:59 Intake Total 250 240 Output Total 300 Balance 250 -60 Intake: IV 10 0.9 10 Oral 240 240 Output: Urine 300 Other: Voiding Method Toilet Toilet # Voids 1 1 Weight 79.4 kg Results - Lab Results Most recent lab results Calcium 8.0 mg/dL (8.4-10.2) L 03/23/21 07:52 Phosphorus 4.4 mg/dL (2.5-4.5) 03/23/21 07:52 Magnesium 2.2 mg/dL (1.6-2.3) 03/23/21 07:52 03/22/21 12:30 03/23/21 07:52 Assessment and Plan Plan: Assessment: 1. Acute kidney injury mostly prerenal secondary to hypovolemia and hypotension improving with IV hydration. Creatinine was 2.06 on admission and is 2.73 today. 2. Chronic kidney disease stage IIIA with baseline creatinine near 1.5-1.6 secondary to diabetic kidney disease. 3. Orthostatic hypotension with component of hypovolemia. 4. Hypovolemic hyponatremia improving with IV hydration. 5. Hyponatremia from diuretics. 6. Diabetes mellitus. Plan: Maintain IV fluids. Hold lisinopril and chlorthalidone. Hold amlodipine for systolic blood pressure less than 125. Continue to monitor orthostatics. Replace potassium. Avoid nephrotoxins. Continue to monitor renal function and urine output. Thank you for the consultation. I will continue to follow the patient with you during his hospital stay.
[2021-03-23] MEDS: SODIUM CHLORIDE 0.9% 1,000 ML IV SCH ×2 (10:35→20:18)
--- NOTE | 2021-03-23 10:36 | P.CRDCN ---
History of Present Illness Consult date: 03/23/21 Reason for Consult (text): Dizziness, elevated troponin Chief complaint: Dizziness History of present illness: This is a pleasant 80-year-old gentleman with documented history of hypertension, paroxysmal atrial fibrillation, hyperlipidemia, diabetes, stage III renal disease, anemia, presented to the hospital with symptoms of dizziness. According to the patient, he became quite dizzy, bent over to pick something up and fell down onto his elbow. He denies losing any consciousness. Patient does state that he was placed on an increased dose of Lasix which she has been taking at home for the past one week. He also states that he had 1 episode of vomiting. Orthostatic blood pressures were obtained, blood pressure 133/48 lying, 127/50 sitting, 98/42 standing. He is 97% on room air, heart rate mainta ined in the 60s lying sitting and standing. He is afebrile. His EKG on presentation here showed a normal sinus rhythm with first-degree AV block, upon review of the monitor, it appears the patient is also having intermittent winky block rhythm. CAT scan of the brain was performed which revealed degenerative and nonspecific white matter changes. Chest x-ray showed chronic changes without any acute pulmonary process. Laboratory data was reviewed, white blood cell count is normal 15, platelet count 197. Sodium on admission 125, potassium 2.7, BUN 71, creatinine 3.06. Troponins 0.06, 0.05, 0.05. Upon review of old records, patient does have persistent abnormality in troponin noted. There is no significant rise and fall pattern. Laboratory data from this morning, sodium 129, potassium 3.1, BUN 72, creatinine 2.7. At the time of my examination this morning, patient is sitting up in bed, feels well, denies any dizziness or lightheadedness. Chaudhry virus was not detected. Past Medical History Past Medical History: Atrial Fibrillation, Diabetes Mellitus, GERD/Reflux, Hyperlipidemia, Hypertension, Pneumonia, Renal Disease Additional Past Medical History / Comment(s): NIDDM TYPE II, ANEMIA LONG AGO History of Any Multi-Drug Resistant Organisms: None Reported Past Surgical History: No Surgical Hx Reported Additional Past Surgical History / Comment(s): BILATERAL CATARACT REMOVALS WITH LENS IMPLANTS. Past Anesthesia/Blood Transfusion Reactions: No Reported Reaction Past Psychological History: No Psychological Hx Reported Smoking Status: Former smoker Past Alcohol Use History: Rare Past Drug Use History: None Reported - Past Family History Father Family Medical History: Diabetes Mellitus Additional Family Medical History / Comment(s): FATHER AT THE AGE OF 89YRS. Mother Family Medical History: COPD Additional Family Medical History / Comment(s): MOTHER HAD A "BAD HEART." SHE OF EMPHYSEMA AT THE AGE OF 68YRS. Brother(s) Additional Family Medical History / Comment(s): Alzheimer's Disease Medications and Allergies Home Medications Medication Instructions Recorded Confirmed Type Aspirin EC [Ecotrin Low Dose] 81 mg PO DAILY 05/28/17 03/22/21 History Atorvastatin [Lipitor] 80 mg PO HS 05/28/17 03/22/21 History EPINEPHrine (Auto Inject) [Epipen] 0.3 mg PO ONCE PRN 05/28/17 03/22/21 History Pioglitazone [Actos] 45 mg PO DAILY 05/28/17 03/22/21 History Primidone [Mysoline] 50 mg PO DAILY 05/28/17 03/22/21 History lisinopriL [Zestril] 20 mg PO DAILY #30 tab 06/01/17 03/22/21 Rx Apixaban [Eliquis] 2.5 mg PO BID #1 tab 06/02/17 03/22/21 Rx Dulaglutide [Trulicity] 1.5 mg SQ TU 04/04/19 03/22/21 History Canagliflozin [Invokana] 100 mg PO DAILY 03/22/21 03/22/21 History Chlorthalidone [Hygroton] 25 mg PO DAILY 03/22/21 03/22/21 History Ergocalciferol [Vitamin D2 (1250 1,250 mcg PO Q14D 03/22/21 03/22/21 History Mcg = 34597 Iu)] INSULIN LISPRO (HumaLOG) [humaLOG] See Protocol SQ TID-W/MEALS PRN 03/22/21 History Omeprazole Magnesium [PriLOSEC] 20 mg PO DAILY 03/22/21 03/22/21 History amLODIPine [Norvasc] 10 mg PO DAILY 03/22/21 03/22/21 History Allergies Allergy/AdvReac Type Severity Reaction Status Date / Time bee venom protein (honey bee) Allergy Anaphylaxis Verified 03/22/21 15:52 Physical Exam Vitals: Vital Signs Temp Pulse Pulse Pulse Pulse Pulse Resp 03/23/21 09:07 97.5 F L 66 16 03/23/21 03:28 97.9 F 66 68 65 18 03/23/21 01:58 69 18 03/22/21 23:15 98.0 F 69 18 03/22/21 20:00 97.9 F 69 18 03/22/21 16:00 97.5 F L 78 18 03/22/21 15:19 97.5 F L 67 18 03/22/21 14:09 67 18 03/22/21 12:05 97.5 F L 80 16 BP BP BP BP BP Pulse Ox 03/23/21 09:07 115/56 99 03/23/21 03:28 127/54 98/42 133/49 97 03/23/21 01:58 03/22/21 23:15 119/46 94 L 03/22/21 20:00 118/48 99 03/22/21 16:00 130/67 100 03/22/21 15:19 140/59 100 03/22/21 14:09 141/56 99 03/22/21 12:05 122/40 100 Intake and Output 03/22/21 03/23/21 03/23/21 22:59 06:59 14:59 Intake Total 250 240 Output Total 300 Balance 250 -60 Intake: IV 10 0.9 10 Oral 240 240 Output: Urine 300 Other: Voiding Method Toilet Toilet # Voids 1 1 Weight 79.4 kg PHYSICAL EXAMINATION: GENERAL: 80-year-old gentleman in no acute distress at the time of my examination HEENT: Head is atraumatic, normocephalic. Pupils equal, round. Sclera anicteric. Conjunctiva are clear. Mucous membranes of the mouth are moist. Neck is supple. There is no elevated jugular venous pressure. No carotid bruit is heard. HEART EXAMINATION: Heart S1, S2 Systolic murmur is heard . CHEST EXAMINATION: Lungs are clear to auscultation and precussion. No chest wall tenderness is noted on palpation or with deep breathing. ABDOMEN: Soft, nontender. Bowel sounds are heard. No organomegaly noted. EXTREMITIES: 2+ peripheral pulses with no evidence of peripheral edema and no calf tenderness noted. NEUROLOGIC patient is awake, alert and oriented 3 . . Results 03/22/21 12:30 03/23/21 07:52 Cardiac Enzymes 03/22/21 03/22/21 03/22/21 Range/Units 12:30 12:30 23:09 AST 30 (17-59) U/L Troponin I 0.064 H* 0.055 H* (0.000-0.034) ng/mL 03/23/21 03/23/21 Range/Units 07:52 07:52 AST 29 (17-59) U/L Troponin I 0.052 H* (0.000-0.034) ng/mL Coagulation 03/22/21 Range/Units 12:30 PT 10.2 (9.0-12.0) sec APTT 21.8 L (22.0-30.0) sec CBC 03/22/21 Range/Units 12:30 WBC 10.4 (3.8-10.6) k/uL RBC 4.81 (4.30-5.90) m/uL Hgb 15.0 (13.0-17.5) gm/dL Hct 45.0 (39.0-53.0) % Plt Count 197 (150-450) k/uL Comprehensive Metabolic Panel 03/22/21 03/23/21 Range/Units 12:30 07:52 Sodium 125 L 129 L (137-145) mmol/L Potassium 2.7 L* 3.1 L (3.5-5.1) mmol/L Chloride 92 L 98 (98-107) mmol/L Carbon Dioxide 24 23 (22-30) mmol/L BUN 71 H 72 H (9-20) mg/dL Creatinine 3.06 H 2.73 H (0.66-1.25) mg/dL Glucose 257 H 193 H (74-99) mg/dL Calcium 7.8 L 8.0 L (8.4-10.2) mg/dL AST 30 29 (17-59) U/L ALT 22 21 (4-49) U/L Alkaline Phosphatase 85 84 (38-126) U/L Total Protein 5.3 L 5.2 L (6.3-8.2) g/dL Albumin 2.6 L 2.5 L (3.5-5.0) g/dL Current Medications Generic Name Dose Route Start Last Admin Trade Name Freq PRN Reason Stop Dose Admin Amlodipine Besylate 10 mg 03/22/21 17:00 03/23/21 09:09 Amlodipine 10 Mg Tab PO Not Given DAILY JOÃO Apixaban 2.5 mg 03/22/21 21:00 03/23/21 09:12 Apixaban 2.5 Mg Tablet PO 2.5 mg BID JOÃO Administration Protocol Aspirin 81 mg 03/23/21 09:00 03/23/21 09:12 Aspirin 81 Mg PO 81 mg DAILY JOÃO Administration Atorvastatin Calcium 80 mg 03/22/21 21:00 03/22/21 20:09 Atorvastatin 80 Mg Tab PO 80 mg HS JOÃO Administration Ergocalciferol 1,250 mcg 03/27/21 12:00 Ergocalciferol 1,250 Mcg (50,000 Iu) Capsule PO Q14D [facility] Sodium Chloride 1,000 mls @ 75 mls/hr 03/23/21 09:30 Saline 0.9% IV .[id number] [facility] Insulin Aspart 0 unit 03/22/21 17:30 03/23/21 06:18 Insulin Aspart (Novolog) 100 Unit/Ml Vial SQ 1 unit ACHS [facility] Administration Protocol Naloxone HCl 0.2 mg 03/22/21 13:41 Naloxone 0.4 Mg/Ml 1 Ml Vial IV Q2M PRN Opioid Reversal Non-Formulary Medication 1.75 mg 03/26/21 09:00 Dulaglutide [Trulicity] SQ TU [facility] Pantoprazole Sodium 40 mg 03/23/21 07:30 03/23/21 06:18 Pantoprazole 40 Mg Tablet PO 40 mg [id number] JOÃO Administration Pioglitazone HCl 45 mg 03/23/21 09:00 03/23/21 09:12 Pioglitazone 45 Mg Tab PO 45 mg DAILY JOÃO Administration Primidone 50 mg 03/23/21 09:00 03/23/21 09:12 Primidone 50 Mg Tab PO 50 mg DAILY JOÃO Administration Intake and Output 03/22/21 03/23/21 03/23/21 22:59 06:59 14:59 Intake Total 250 240 Output Total 300 Balance 250 -60 Intake: IV 10 0.9 10 Oral 240 240 Output: Urine 300 Other: Voiding Method Toilet Toilet # Voids 1 1 Weight 79.4 kg 03/22/21 12:30 03/23/21 07:52 EKG Interpretations (text) EKG shows a normal sinus rhythm with first-degree AV block Assessment and Plan Plan: Assessment and plan #1 acute on chronic kidney injury, likely secondary to hypotension and hypovolemia. Creatinine improving this morning with hydration. #2 orthostatic hypotension, hypovolemia could be contributing to this as well. #3 hyponatremia, likely secondary to diuretic use #4 diabetes #5 hypertension #6 hyperlipidemia #7 abnormality in troponin, no significant rise and fall pattern, likely secondary to abnormal renal function. Upon review of prior records, patient does have abnormality in troponin. Patient denies having any chest discomfort. #8 intermittent winky block rhythm #9 hypokalemia Plan We will obtain an echocardiogram with Doppler study, the patient's most recent echo was in 2019 revealed a normal left ventricular systolic function, mild mitral regurgitation. 10 you IV fluids, lisinopril and chlorthalidone continue to be on hold. Continue to monitor orthostatics. Replace potassium. We will also continue to monitor the patient's rhythm for any significant pauses. Further recommendations to follow. DNP note has been reviewed, I agree with a documented findings and plan of care. Patient was seen and examined.
[2021-03-23] MEDS ORDERED: FLUDROCORTISONE 0.1 MG TAB PO SCH (11:00)
[2021-03-23 11:58] LABS: Glucose,Whole Blood 310 mg/dL (75-99)
[2021-03-23 12:06] VITALS: BMI 23.7
--- NOTE | 2021-03-23 13:25 | P.PN ---
Subjective Patient is a 80-year-old male with a known history of paroxysmal atrial fibrillation on anticoagulation with Eliquis, hypertension, chronic renal di sease, diabetes type 2 insulin-dependent, hyperlipidemia, previous history of smoking presents to ER with complaints of dizziness and vertigo. Patient has been having symptoms for the past 20 hours. Patient felt like room spinning. Symptoms get worse with upright position and head movements. Improved with lying down on the bed. Patient had episode of dizziness and vomiting this morning. Patient felt his symptoms are improved after the vomiting. No headache. No chest pain or shortness of breath. Denied abdominal pain or diarrhea. EKG showed a sinus rhythm with first-degree AV block. CT head showed degenerative and nonspecific white matter changes most typical remote ischemia. Laboratory data showed sodium 125 potassium 2.7, chloride 92, BUN 71 and creatinine 3.06 and blood sugar is 257 Troponin 0 0.064 Subjective: 03/23/2021 This is a pleasant 80 years old male who presents with failing and well and week and little confused secondary to hyponatremia with sodium was 125 on admission went up to 129 today while he is on normal saline at 75 mL/h, creatinine is also elevated with acute kidney injury, creatinine 2.7 compared to 3.0 on admission. Baseline is 1.4-2.0. Prop Setter already on the case and patient is already on normal saline Patient currently on Eliquis 2.5 mg for his history of A. fib. No signs of bleeding. Sodium and creatinine improving as above [employer] Agent and wood filler him on the case. Patient informed not to take chlorthalidone anymore for hyponatremia and he agrees. Lisinopril is also on hold for acute kidney injury. Objective - Vital Signs Vital signs: Vital Signs Temp 97.5 F L 03/23/21 09:07 Pulse 69 03/23/21 12:59 Resp 16 03/23/21 12:59 BP 122/45 03/23/21 12:59 Pulse Ox 99 03/23/21 12:59 Intake & Output 03/22/21 03/23/21 03/23/21 18:59 06:59 18:59 Intake Total 240 10 480 Output Total 1 300 Balance 239 10 180 Weight 78.471 kg 79.4 kg 79.4 kg Intake: IV 10 0.9 10 Oral 240 480 Output: Urine 1 300 Other: Voiding Method Toilet Toilet Toilet # Voids 1 - Labs CBC & Chem 7: 03/22/21 12:30 03/23/21 07:52 Labs: Abnormal Lab Results - Last 24 Hours (Table) 03/22/21 03/22/21 03/22/21 Range/Units 12:30 12:30 12:30 APTT 21.8 L (22.0-30.0) sec Sodium (137-145) mmol/L Potassium (3.5-5.1) mmol/L BUN (9-20) mg/dL Creatinine (0.66-1.25) mg/dL Glucose (74-99) mg/dL POC Glucose (mg/dL) (75-99) mg/dL Calcium (8.4-10.2) mg/dL Troponin I 0.064 H* (0.000-0.034) ng/mL Total Protein (6.3-8.2) g/dL Albumin (3.5-5.0) g/dL Urine Protein 2+ H (Negative) Urine Glucose (UA) 4+ H (Negative) Hyaline Casts 3 H (0-2) /lpf Urine Mucus Rare H (None) /hpf 03/22/21 03/22/21 03/22/21 Range/Units 16:39 20:03 23:09 APTT (22.0-30.0) sec Sodium (137-145) mmol/L Potassium (3.5-5.1) mmol/L BUN (9-20) mg/dL Creatinine (0.66-1.25) mg/dL Glucose (74-99) mg/dL POC Glucose (mg/dL) 325 H 304 H (75-99) mg/dL Calcium (8.4-10.2) mg/dL Troponin I 0.055 H* (0.000-0.034) ng/mL Total Protein (6.3-8.2) g/dL Albumin (3.5-5.0) g/dL Urine Protein (Negative) Urine Glucose (UA) (Negative) Hyaline Casts (0-2) /lpf Urine Mucus (None) /hpf 03/23/21 03/23/21 03/23/21 Range/Units 05:46 07:52 07:52 APTT (22.0-30.0) sec Sodium 129 L (137-145) mmol/L Potassium 3.1 L (3.5-5.1) mmol/L BUN 72 H (9-20) mg/dL Creatinine 2.73 H (0.66-1.25) mg/dL Glucose 193 H (74-99) mg/dL POC Glucose (mg/dL) 137 H (75-99) mg/dL Calcium 8.0 L (8.4-10.2) mg/dL Troponin I 0.052 H* (0.000-0.034) ng/mL Total Protein 5.2 L (6.3-8.2) g/dL Albumin 2.5 L (3.5-5.0) g/dL Urine Protein (Negative) Urine Glucose (UA) (Negative) Hyaline Casts (0-2) /lpf Urine Mucus (None) /hpf 03/23/21 Range/Units 11:56 APTT (22.0-30.0) sec Sodium (137-145) mmol/L Potassium (3.5-5.1) mmol/L BUN (9-20) mg/dL Creatinine (0.66-1.25) mg/dL Glucose (74-99) mg/dL POC Glucose (mg/dL) 310 H (75-99) mg/dL Calcium (8.4-10.2) mg/dL Troponin I (0.000-0.034) ng/mL Total Protein (6.3-8.2) g/dL Albumin (3.5-5.0) g/dL Urine Protein (Negative) Urine Glucose (UA) (Negative) Hyaline Casts (0-2) /lpf Urine Mucus (None) /hpf Assessment and Plan Assessment: Dizziness secondary to severe hyponatremia, improving Hypovolemic hyponatremia secondary to chlorthalidone which is held now Acute kidney injury on chronic kidney disease stage III Paroxysmal atrial fibrillation on Eliquis Postural hypotension Elevated troponin secondary to kidney disease with no evidence of acute coronary syndrome while barking machine feeder on the case. 2 diabetes mellitus Hyperlipidemia History of GERD Plan: This is a pleasant 8 years old male who presents with hypokalemia and hyponatremia. With normal saline and monitor sodium level. Follow-up barking machine feeder for elevated troponin, follow-up wood filler recommendation Labs and medication were reviewed.. Continue same treatment. Continue with symptomatic treatment. Resume home medication. Monitor lytes and vitals. DVT and GI prophylaxis. Further recommendationsas per clinical course of the patient DVT prophylaxis: Eliquis GI Prophylaxis: Ppi Prognosis is guarded
[2021-03-23 16:51] LABS: Glucose,Whole Blood 188 mg/dL (75-99)
[2021-03-23] MEDS: ATORVASTATIN 80 MG TAB PO SCH (20:17)
[2021-03-23 20:18] LABS: Glucose,Whole Blood 261 mg/dL (75-99)
[2021-03-24 05:52] LABS: Glucose,Whole Blood 121 mg/dL (75-99)
[2021-03-24] MEDS: INSULIN ASPART (NovoLOG) 100 UNIT/ML VIAL SQ SCH ×4 (05:53→20:38)
[2021-03-24] MEDS: PANTOPRAZOLE 40 MG TABLET PO SCH (05:55)
[2021-03-24] MEDS: PRIMIDONE 50 MG TAB PO SCH (08:24)
[2021-03-24] MEDS: ASPIRIN 81 MG PO SCH (08:24)
[2021-03-24] MEDS: amLODIPine 5 MG TAB PO SCH (08:24)
[2021-03-24] MEDS: APIXABAN 2.5 MG TABLET PO SCH ×2 (08:24→20:38)
[2021-03-24] MEDS: PIOGLITAZONE 45 MG TAB PO SCH (08:26)
--- NOTE | 2021-03-24 08:44 | P.PN ---
Subjective Patient is seen in follow-up for acute kidney injury on chronic kidney disease. Renal function improving with IV hydration. Diuretics held. No dizziness with standing. Vital signs are stable. General: The patient appeared well nourished and normally developed. HEENT: Head exam is unremarkable. Neck is without jugular venous distension. LUNGS: Breath sounds decreased. HEART: Rate and Rhythm are regular. ABDOMEN: Soft, no distention. EXTREMITITES: No edema. Objective - Vital Signs Vital signs: Vital Signs Temp 97.7 F 03/24/21 08:00 Pulse 66 03/24/21 08:00 Resp 15 03/24/21 08:00 BP 134/49 03/24/21 08:00 Pulse Ox 100 03/24/21 08:00 Intake & Output 03/23/21 03/24/21 03/24/21 18:59 06:59 18:59 Intake Total 720 600 240 Output Total 750 600 Balance -30 600 -360 Weight 79.4 kg 81.4 kg Intake: IV 600 0.9 600 Oral 720 240 Output: Urine 750 600 Other: Voiding Method Toilet Toilet # Voids 1 - Labs CBC & Chem 7: 03/22/21 12:30 03/23/21 07:52 Labs: Abnormal Lab Results - Last 24 Hours (Table) 03/23/21 03/23/21 03/23/21 Range/Units 07:52 07:52 11:56 Sodium 129 L (137-145) mmol/L Potassium 3.1 L (3.5-5.1) mmol/L BUN 72 H (9-20) mg/dL Creatinine 2.73 H (0.66-1.25) mg/dL Glucose 193 H (74-99) mg/dL POC Glucose (mg/dL) 310 H (75-99) mg/dL Calcium 8.0 L (8.4-10.2) mg/dL Troponin I 0.052 H* (0.000-0.034) ng/mL Total Protein 5.2 L (6.3-8.2) g/dL Albumin 2.5 L (3.5-5.0) g/dL 03/23/21 03/23/21 03/24/21 Range/Units 16:49 20:17 05:50 Sodium (137-145) mmol/L Potassium (3.5-5.1) mmol/L BUN (9-20) mg/dL Creatinine (0.66-1.25) mg/dL Glucose (74-99) mg/dL POC Glucose (mg/dL) 188 H 261 H 121 H (75-99) mg/dL Calcium (8.4-10.2) mg/dL Troponin I (0.000-0.034) ng/mL Total Protein (6.3-8.2) g/dL Albumin (3.5-5.0) g/dL Assessment and Plan Plan: Assessment: 1. Acute kidney injury mostly prerenal secondary to hypovolemia and hypotension improving with IV hydration. Creatinine was 3.06 on admission and down to 2.73 as of yesterday. 2. Chronic kidney disease stage IIIA with baseline creatinine near 1.5-1.6 secondary to diabetic kidney disease. 3. Orthostatic hypotension with component of hypovolemia. 4. Hypovolemic hyponatremia improving with IV hydration. 5. Hypovolemia from diuretics. 6. Diabetes mellitus. Plan: Maintain IV fluids. Hold lisinopril and chlorthalidone. Decrease dose of amlodipine to 5 mg daily and hold for standing systolic blood pressure less than 125. Continue to monitor orthostatics. Avoid nephrotoxins. Continue to monitor renal function and urine output. Morning labs pending.
[2021-03-24 08:58] LABS: Calcium 8.2 mg/dL (8.4-10.2); Magnesium 2.3 mg/dL (1.6-2.3); Potassium 3.8 mmol/L (3.5-5.1)
--- NOTE | 2021-03-24 09:02 | ECHOF ---
Referral Reason:dizziness MEASUREMENTS -------- HEIGHT: 182.9 cm WEIGHT: 79.4 kg BP: 115/56 IVSd: 1.4 cm (0.6 - 1.1) LVIDd: 4.1 cm (3.9 - 5.3) LVPWd: 1.2 cm (0.6 - 1.1) IVSs: 1.9 cm LVIDs: 2.7 cm LVPWs: 1.9 cm LAESV Index (A-L): 46.99 ml/m Ao Diam: 3.1 cm (2.0 - 3.7) AV Cusp: 1.8 cm (1.5 - 2.6) LA Diam: 3.3 cm (2.7 - 3.8) MV EXCURSION: 11.333 mm (> 18.000) MV EF SLOPE: 55 mm/s (70 - 150) EPSS: 0.6 cm MV E Vipin: 1.00 m/s MV DecT: 276 ms MV A Vipin: 1.25 m/s MV E/A Ratio: 0.80 RAP: 5.00 mmHg RVSP: 22.97 mmHg FINDINGS -------- Resting bradycardia (HR<60bpm). This was a technically difficult study with suboptimal views. The left ventricular size is normal. There is moderate concentric left ventricular hypertrophy. O verall left ventricular systolic function is normal with, an EF between 60 - 65 %. The RV was not well visualized. LA is severely dilated >40 ml/m2 The right atrium was not well visualized. 5.0mg of Lumason was utilized for enhancement of images Interatrial and interventricular septum intact. There is no evidence of aortic regurgitation. There is no evidence of aortic stenosis. [id number] mitral regurgitation is present. Mild tricuspid regurgitation present. There is no evidence of pulmonary hypertension. The right v entricular systolic pressure, as measured by Doppler, is 22.97mmHg. The pulmonic valve was not well visualized. The aortic root size is normal. IVC Not well visulized. There is no pericardial effusion. CONCLUSIONS -------- 1. This was a technically difficult study with suboptimal views. 2. The left ventricular size is normal. 3. There is moderate concentric left ventricular hypertrophy. 4. Overall left ventricular systolic function is normal with, an EF between 60 - 65 %. 5. LA is severely dilated >40 ml/m2 6. Dfyz-wy-[id number] mitral regurgitation is present. 7. Mild tricuspid regurgitation present. GARMENT FITTER: Radha Cabral RDCS
[2021-03-24 11:56] LABS: Glucose,Whole Blood 296 mg/dL (75-99)
[2021-03-24 12:11] VITALS: RESP 16
--- NOTE | 2021-03-24 13:22 | P.PN ---
Subjective Progress Note Date: 03/24/21 HISTORY OF PRESENT ILLNESS: This is a pleasant 80-year-old gentleman with documented history of hypertension, paroxysmal atrial fibrillation, hyperlipidemia, diabetes, stage III renal disease, anemia, presented to the hospital with symptoms of dizziness. According to the patient, he became quite dizzy, bent over to pick something up and fell down onto his elbow. He denies losing any consciousness. Patient does state that he was placed on an increased dose of Lasix which she has been taking at home for the past one week. He also states that he had 1 episode of v omiting. Orthostatic blood pressures were obtained, blood pressure 133/48 lying, 127/50 sitting, 98/42 standing. He is 97% on room air, heart rate maintained in the 60s lying sitting and standing. He is afebrile. His EKG on presentation here showed a normal sinus rhythm with first-degree AV block, upon review of the monitor, it appears the patient is also having intermittent winky block rhythm. CAT scan of the brain was performed which revealed degenerative and nonspecific white matter changes. Chest x-ray showed chronic changes without any acute pulmonary process. Laboratory data was reviewed, white blood cell count is normal 15, platelet count 197. Sodium on admission 125, potassium 2.7, BUN 71, creatinine 3.06. Troponins 0.06, 0.05, 0.05. Upon review of old records, patient does have persistent abnormality in troponin noted. There is no significant rise and fall pattern. Laboratory data from this morning, sodium 129, potassium 3.1, BUN 72, creatinine 2.7. At the time of my examination this morning, patient is sitting up in bed, feels well, denies any dizziness or ligh theadedness. Chaudhry virus was not detected. 03/24/2021 Patient examined this morning at the bedside. Patient denies chest pain or pressure. He denies shortness of breath. Orthostatic blood pressures have improved. He denies dizziness or lightheadedness. Creatinine has improved today to 2.44. Echocardiogram completed revealed ejection fraction 60-65%, [id number] mitral regurgitation and mild tricuspid regurgitation PHYSICAL EXAM: VITAL SIGNS: Reviewed. GENERAL: Well-developed in no acute distress. NECK: Supple. No JVD or thyromegaly LUNGS: Respirations even and unlabored. Lungs essentially clear to auscultation bilaterally. HEART: Regular rate and rhythm. S1 and S2 heard. Systolic murmur noted. EXTREMITIES: Normal range of motion. No clubbing or cyanosis. Peripheral pulses intact. No lower extremity edema ASSESSMENT: Orthostatic hypotension, improved with IV hydration Acute on chronic kidney disease, likely second to hypotension and hypovolemia Paroxysmal atrial fibrillation on anticoagulation Eliquis Hyponatremia Diabetes mellitus Hypertension Hyperlipidemia Abnormal troponins, likely secondary to abnormal renal function Intermittent Wenckebach Hypokalemia PLAN: Continue to hold diuretics Continue IV fluids Continue to monitor orthostatic blood pressures Further recommendations pending patient course Nurse practitioner note has been reviewed by physician. Signing provider agrees with the documented findings, assessment, and plan of care. Objective - Vital Signs Vital signs: Vital Signs Temp 98.0 F 03/24/21 12:09 Pulse 63 03/24/21 12:09 Resp 16 03/24/21 12:09 BP 142/51 03/24/21 12:09 Pulse Ox 100 03/24/21 12:09 Intake & Output 03/23/21 03/24/21 03/24/21 18:59 06:59 18:59 Intake Total 720 600 240 Output Total 750 600 Balance -30 600 -360 Weight 79.4 kg 81.4 kg Intake: IV 600 0.9 600 Oral 720 240 Output: Urine 750 600 Other: Voiding Method Toilet Toilet Toilet # Voids 1 - Labs CBC & Chem 7: 03/22/21 12:30 03/24/21 07:36 Labs: Abnormal Lab Results - Last 24 Hours (Table) 03/23/21 03/23/21 03/24/21 Range/Units 16:49 20:17 05:50 Sodium (137-145) mmol/L BUN (9-20) mg/dL Creatinine (0.66-1.25) mg/dL Glucose (74-99) mg/dL POC Glucose (mg/dL) 188 H 261 H 121 H (75-99) mg/dL Calcium (8.4-10.2) mg/dL 03/24/21 03/24/21 Range/Units 07:36 11:55 Sodium 134 L (137-145) mmol/L BUN 68 H (9-20) mg/dL Creatinine 2.44 H (0.66-1.25) mg/dL Glucose 158 H (74-99) mg/dL POC Glucose (mg/dL) 296 H (75-99) mg/dL Calcium 8.2 L (8.4-10.2) mg/dL
[2021-03-24 16:53] LABS: Glucose,Whole Blood 246 mg/dL (75-99)
[2021-03-24] MEDS: SODIUM CHLORIDE 0.9% 1,000 ML IV SCH (17:12)
--- NOTE | 2021-03-24 17:33 | P.PN ---
Subjective Patient is a 80-year-old male with a known history of paroxysmal atrial fibrillation on anticoagulation with Eliquis, hypertension, chronic renal di sease, diabetes type 2 insulin-dependent, hyperlipidemia, previous history of smoking presents to ER with complaints of dizziness and vertigo. Patient has been having symptoms for the past 20 hours. Patient felt like room spinning. Symptoms get worse with upright position and head movements. Improved with lying down on the bed. Patient had episode of dizziness and vomiting this morning. Patient felt his symptoms are improved after the vomiting. No headache. No chest pain or shortness of breath. Denied abdominal pain or diarrhea. EKG showed a sinus rhythm with first-degree AV block. CT head showed degenerative and nonspecific white matter changes most typical remote ischemia. Laboratory data showed sodium 125 potassium 2.7, chloride 92, BUN 71 and creatinine 3.06 and blood sugar is 257 Troponin 0 0.064 Subjective: 03/23/2021 This is a pleasant 80 years old male who presents with failing and well and week and little confused secondary to hyponatremia with sodium was 125 on admission went up to 129 today while he is on normal saline at 75 mL/h, creatinine is also elevated with acute kidney injury, creatinine 2.7 compared to 3.0 on admission. Baseline is 1.4-2.0. Llama Farmer already on the case and patient is already on normal saline Patient currently on Eliquis 2.5 mg for his history of A. fib. No signs of bleeding. Sodium and creatinine improving as above Sales Special Agent and rn lpn lvn him on the case. Patient informed not to take chlorthalidone anymore for hyponatremia and he agrees. Lisinopril is also on hold for acute kidney injury. 03/24/2021 Patients with no more confusion, he is awake and alert. Talking normally. Having a shower daily with at bedside. Hemodynamically he is stable. Creatinine is trending down 3.0 down to 2.4 while he is on normal saline at 75 mL/h. Sodium improved to 134 Keep holding diuretics with chlorthalidone and lisinopril. Patient is on Eliquis 2.5 mg. Continue with normal saline at 75 mL/h on follow-up creatinine Objective - Vital Signs Vital signs: Vital Signs Temp 98.1 F 03/24/21 17:11 Pulse 63 03/24/21 17:11 Resp 16 03/24/21 17:11 BP 152/70 06/20/21 17:11 Pulse Ox 100 03/24/21 17:11 Intake & Output 03/23/21 03/24/21 03/24/21 18:59 06:59 18:59 Intake Total 720 600 480 Output Total 750 600 Balance -30 600 -120 Weight 79.4 kg 81.4 kg Intake: IV 600 0.9 600 Oral 720 480 Output: Urine 750 600 Other: Voiding Method Toilet Toilet Toilet # Voids 1 - Exam GENERAL: The patient is alert and oriented x3, not in any acute distress. Well developed, well nourished. HEENT: Pupils are round and equally reacting to light. EOMI. No scleral icterus. No conjunctival pallor. Normocephalic, atraumatic. No pharyngeal erythema. No thyromegaly. CARDIOVASCULAR: S1 and S2 present. No murmurs, rubs, or gallops. PULMONARY: Chest is clear to auscultation, no wheezing or crackles. ABDOMEN: Soft, nontender, nondistended, normoactive bowel sounds. No palpable organomegaly. MUSCULOSKELETAL: No joint swelling or deformity. EXTREMITIES: No cyanosis, clubbing, or pedal edema. NEUROLOGICAL: Gross neurological examination did not reveal any focal deficits. SKIN: No rashes. no petechiae. - Labs CBC & Chem 7: 03/22/21 12:30 03/24/21 07:36 Labs: Abnormal Lab Results - Last 24 Hours (Table) 03/23/21 03/24/21 03/24/21 Range/Units 20:17 05:50 07:36 Sodium 134 L (137-145) mmol/L BUN 68 H (9-20) mg/dL Creatinine 2.44 H (0.66-1.25) mg/dL Glucose 158 H (74-99) mg/dL POC Glucose (mg/dL) 261 H 121 H (75-99) mg/dL Calcium 8.2 L (8.4-10.2) mg/dL 03/24/21 03/24/21 Range/Units 11:55 16:50 Sodium (137-145) mmol/L BUN (9-20) mg/dL Creatinine (0.66-1.25) mg/dL Glucose (74-99) mg/dL POC Glucose (mg/dL) 296 H 246 H (75-99) mg/dL Calcium (8.4-10.2) mg/dL Assessment and Plan Assessment: Dizziness secondary to severe hyponatremia, improving Hypovolemic hyponatremia secondary to chlorthalidone which is held now Acute kidney injury on chronic kidney disease stage III Paroxysmal atrial fibrillation on Eliquis Postural hypotension Elevated troponin secondary to kidney disease with no evidence of acute coronary syndrome while sexual health physician on the case. 2 diabetes mellitus Hyperlipidemia History of GERD Plan: This is a pleasant 8 years old male who presents with hypokalemia and hyponatremia. With normal saline and monitor sodium level. Follow-up sexual health physician for elevated troponin, follow-up rn lpn lvn recommendation Labs and medication were reviewed.. Continue same treatment. Continue with symptomatic treatment. Resume home medication. Monitor lytes and vitals. DVT and GI prophylaxis. Further recommendationsas per clinical course of the patient DVT prophylaxis: Eliquis GI Prophylaxis: Ppi Prognosis is guarded
[2021-03-24 20:38] LABS: Glucose,Whole Blood 204 mg/dL (75-99)
[2021-03-24] MEDS: ATORVASTATIN 80 MG TAB PO SCH (20:38)
[2021-03-25] MEDS: SODIUM CHLORIDE 0.9% 1,000 ML IV SCH (03:25)
[2021-03-25] MEDS: PANTOPRAZOLE 40 MG TABLET PO SCH (06:06)
[2021-03-25] MEDS: INSULIN ASPART (NovoLOG) 100 UNIT/ML VIAL SQ SCH ×4 (06:06→19:52)
[2021-03-25 06:31] LABS: Glucose,Whole Blood 188 mg/dL (75-99)
[2021-03-25 08:25] LABS: Calcium 8.5 mg/dL (8.4-10.2); Magnesium 2.2 mg/dL (1.6-2.3); Potassium 3.9 mmol/L (3.5-5.1)
[2021-03-25] MEDS: PIOGLITAZONE 45 MG TAB PO SCH (08:32)
[2021-03-25] MEDS: amLODIPine 5 MG TAB PO SCH (08:32)
[2021-03-25] MEDS: PRIMIDONE 50 MG TAB PO SCH (08:32)
[2021-03-25] MEDS: ASPIRIN 81 MG PO SCH (08:32)
[2021-03-25] MEDS: APIXABAN 2.5 MG TABLET PO SCH ×2 (08:32→19:51)
--- NOTE | 2021-03-25 08:51 | P.PN ---
Subjective Patient is seen in follow-up for acute kidney injury on chronic kidney disease. Renal function improving with IV hydration. Diuretics held. No dizziness with standing. Oral intake is good. No changes overnight. Vital signs are stable. General: The patient appeared well nourished and normally developed. HEENT: Head exam is unremarkable. Neck is without jugular venous distension. LUNGS: Breath sounds decreased. HEART: Rate and Rhythm are regular. ABDOMEN: Soft, no distention. EXTREMITITES: No edema. Objective - Vital Signs Vital signs: Vital Signs Temp 98.3 F 03/25/21 03:23 Pulse 65 03/25/21 03:23 Resp 16 03/25/21 03:23 BP 153/67 03/25/21 03:23 Pulse Ox 99 03/25/21 03:23 Intake & Output 03/24/21 03/25/21 03/25/21 18:59 06:59 18:59 Intake Total 720 Output Total 600 Balance 120 Weight 80.6 kg Intake: Oral 720 Output: Urine 600 Other: Voiding Method Toilet Toilet Urinal # Voids 1 - Labs CBC & Chem 7: 03/22/21 12:30 03/25/21 07:46 Labs: Abnormal Lab Results - Last 24 Hours (Table) 03/24/21 03/24/21 03/24/21 Range/Units 07:36 11:55 16:50 Sodium 134 L (137-145) mmol/L BUN 68 H (9-20) mg/dL Creatinine 2.44 H (0.66-1.25) mg/dL Glucose 158 H (74-99) mg/dL POC Glucose (mg/dL) 296 H 246 H (75-99) mg/dL Calcium 8.2 L (8.4-10.2) mg/dL 03/24/21 03/25/21 03/25/21 Range/Units 20:24 06:03 07:46 Sodium (137-145) mmol/L BUN 51 H (9-20) mg/dL Creatinine 1.81 H (0.66-1.25) mg/dL Glucose 192 H (74-99) mg/dL POC Glucose (mg/dL) 204 H 188 H (75-99) mg/dL Calcium (8.4-10.2) mg/dL Assessment and Plan Plan: Assessment: 1. Acute kidney injury mostly prerenal secondary to hypovolemia and hypotension improving with IV hydration. Creatinine was 3.06 on admission and down to 1.81 today. 2. Chronic kidney disease stage IIIA with baseline creatinine near 1.5-1.6 secondary to diabetic kidney disease. 3. Orthostatic hypotension with component of hypovolemia. Resolved. 4. Hypovolemic hyponatremia improving with IV hydration. 5. Hypovolemia from diuretics. 6. Diabetes mellitus. Plan: Hep-Lock IV fluids. Hold lisinopril and chlorthalidone. Decreased dose of amlodipine to 5 mg daily and hold for standing systolic blood pressure less than 125. Continue to monitor orthostatics. Avoid nephrotoxins. Continue to monitor renal function and urine output. Possible discharge today. Follow up outpatient in 1 week. He was advised to monitor his blood pressure at home, including standing blood pressure
--- NOTE | 2021-03-25 09:23 | P.PN ---
Subjective This is a pleasant 80-year-old male past medical history significant for paroxysmal atrial fibrillation, hypertension, dyslipidemia, diabetes mellitus and chronic kidney disease. He follows in the office with Dr. Stratton. He is seen and examined sitting up in bed in no acute distress. He denies symptoms of chest pain, shortness of breath, dizziness or palpitations. Telemetry tracings for the previous 24 hours reviewed, he had an episode of Wenkebach in the afternoon around 1201 yesterday. He does not recall being symptomatic at that time. Blood pressure 172/80 heart rate 69 afebrile and maintaining oxygen saturation on room air. Laboratory data reviewed, sodium 137, potassium 3.9, creatinine 1.81 and magnesium 2.2. Currently maintained on amlodipine 5 mg daily, Eliquis 2.5 mg twice a day, aspirin 81 mg daily and atorvastatin 80 mg daily. Echocardiogram on this admission reveals preserved LV systolic function with ejection fraction 60-65%, severely dilated left atrium, mild to moderate MR and mild TR. GENERAL: Well-appearing, well-nourished and in no acute distress. NECK: Supple without JVD or thyromegaly. LUNGS: Breath sounds clear to auscultation bilaterally. Respiration equal and unlabored. No wheezes, rales or rhonchi. HEART: Regular rate and rhythm with systolic ejection murmur at the base, no rubs or gallops. S1 and S2 heard. EXTREMITIES: Normal range of motion, no edema. No clubbing or cyanosis. Tiara pheral pulses intact. ASSESSMENT Orthostatic hypotension, resolved Acute on chronic kidney disease, improved Paroxysmal atrial fibrillation, currently maintaining SR on eliquis Wenkebach, intermittent and asymptomatic Hyponatremia Hypertension Dyslipidemia Troponin leak secondary to abnormal renal function not related to primary cardiac injury PLAN Recommend keeping sysotlic blood pressure above 120 mmHg. Defer diuretic therapy to nephrology. Avoid rate lowering agents due to second degree AVB. Stable for discharge from a cardiac perspective, follow up with Dr. Stratton in the office. Nurse Practitioner note has been reviewed, I agree with a documented findings and plan of care. Patient was seen and examined. Objective - Vital Signs Vital signs: Vital Signs Temp 98.0 F 03/25/21 08:00 Pulse 69 03/25/21 08:00 Resp 16 03/25/21 08:00 BP 172/80 03/25/21 08:00 Pulse Ox 99 03/25/21 08:00 Intake & Output 03/24/21 03/25/21 03/25/21 18:59 06:59 18:59 Intake Total 720 480 Output Total 600 Balance 120 480 Weight 80.6 kg Intake: Oral 720 480 Output: Urine 600 Other: Voiding Method Toilet Toilet Urinal # Voids 1 - Labs CBC & Chem 7: 03/22/21 12:30 03/25/21 07:46 Labs: Abnormal Lab Results - Last 24 Hours (Table) 03/24/21 03/24/21 03/24/21 Range/Units 11:55 16:50 20:24 BUN (9-20) mg/dL Creatinine (0.66-1.25) mg/dL Glucose (74-99) mg/dL POC Glucose (mg/dL) 296 H 246 H 204 H (75-99) mg/dL 03/25/21 03/25/21 Range/Units 06:03 07:46 BUN 51 H (9-20) mg/dL Creatinine 1.81 H (0.66-1.25) mg/dL Glucose 192 H (74-99) mg/dL POC Glucose (mg/dL) 188 H (75-99) mg/dL
[2021-03-25 11:51] LABS: Glucose,Whole Blood 215 mg/dL (75-99)
[2021-03-25] MEDS ORDERED: amLODIPine 5 MG TAB PO STA (13:34)
[2021-03-25] MEDS: hydrALAZINE HCL 50 MG TAB PO SCH ×2 (13:46→19:51)
[2021-03-25 16:41] LABS: Glucose,Whole Blood 263 mg/dL (75-99)
[2021-03-25 19:51] LABS: Glucose,Whole Blood 219 mg/dL (75-99)
[2021-03-25] MEDS: ATORVASTATIN 80 MG TAB PO SCH (19:51)
[2021-03-25 19:58] VITALS: TEMP 97.6
[2021-03-25] MEDS ORDERED: DOXAZOSIN 2 MG TAB PO SCH ×2 (21:00→23:00)
--- NOTE | 2021-03-25 21:05 | P.PN ---
Subjective Patient is a 80-year-old male with a known history of paroxysmal atrial fibrillation on anticoagulation with Eliquis, hypertension, chronic renal di sease, diabetes type 2 insulin-dependent, hyperlipidemia, previous history of smoking presents to ER with complaints of dizziness and vertigo. Patient has been having symptoms for the past 20 hours. Patient felt like room spinning. Symptoms get worse with upright position and head movements. Improved with lying down on the bed. Patient had episode of dizziness and vomiting this morning. Patient felt his symptoms are improved after the vomiting. No headache. No chest pain or shortness of breath. Denied abdominal pain or diarrhea. EKG showed a sinus rhythm with first-degree AV block. CT head showed degenerative and nonspecific white matter changes most typical remote ischemia. Laboratory data showed sodium 125 potassium 2.7, chloride 92, BUN 71 and creatinine 3.06 and blood sugar is 257 Troponin 0 0.064 Subjective: 03/23/2021 This is a pleasant 80 years old male who presents with failing and well and week and little confused secondary to hyponatremia with sodium was 125 on admission went up to 129 today while he is on normal saline at 75 mL/h, creatinine is also elevated with acute kidney injury, creatinine 2.7 compared to 3.0 on admission. Baseline is 1.4-2.0. Commercial Sales Director already on the case and patient is already on normal saline Patient currently on Eliquis 2.5 mg for his history of A. fib. No signs of bleeding. Sodium and creatinine improving as above Theatrical Trouper and shirt turner him on the case. Patient informed not to take chlorthalidone anymore for hyponatremia and he agrees. Lisinopril is also on hold for acute kidney injury. 03/24/2021 Patients with no more confusion, he is awake and alert. Talking normally. Having a shower daily with at bedside. Hemodynamically he is stable. Creatinine is trending down 3.0 down to 2.4 while he is on normal saline at 75 mL/h. Sodium improved to 134 Keep holding diuretics with chlorthalidone and lisinopril. Patient is on Eliquis 2.5 mg. Continue with normal saline at 75 mL/h on follow-up creatinine 03/25/2021 Patient is back to his basic pelvis status, no chest pain or dyspnea. No other symptoms. No headache, no confusion or drowsiness. No seizure. Creatinine is down to 1.8. IV fluid was stopped. patient was cleared for discharge by cardiology and nephrology team if his high blood pressure is controlled. however 187/67 this evening . He got his dose of prednisone is an 50 mg and we going to check it and couple hours if his still high we will add another antihypertensive medication. Discussed with bedside nurse Patient advised to avoid lisinopril, hydrochlorothiazide/chlorthalidone and invoka And to follow up with his PCP in one week after discharge and he agrees Objective - Vital Signs Vital signs: Vital Signs Temp 97.6 F 03/25/21 19:57 Pulse 70 03/25/21 19:57 Resp 16 03/25/21 19:57 BP 187/67 03/25/21 19:57 Pulse Ox 100 03/25/21 19:57 Intake & Output 03/25/21 03/25/21 03/26/21 06:59 18:59 06:59 Intake Total 960 Balance 960 Weight 80.6 kg Intake: Oral 960 Other: Voiding Method Toilet Urinal # Voids 1 1 1 - Exam GENERAL: The patient is alert and oriented x3, not in any acute distress. Well developed, well nourished. HEENT: Pupils are round and equally reacting to light. EOMI. No scleral icterus. No conjunctival pallor. Normocephalic, atraumatic. No pharyngeal erythema. No thyromegaly. CARDIOVASCULAR: S1 and S2 present. No murmurs, rubs, or gallops. PULMONARY: Chest is clear to auscultation, no wheezing or crackles. ABDOMEN: Soft, nontender, nondistended, normoactive bowel sounds. No palpable organomegaly. MUSCULOSKELETAL: No joint swelling or deformity. EXTREMITIES: No cyanosis, clubbing, or pedal edema. NEUROLOGICAL: Gross neurological examination did not reveal any focal deficits. SKIN: No rashes. no petechiae. - Labs CBC & Chem 7: 03/22/21 12:30 03/25/21 07:46 Labs: Abnormal Lab Results - Last 24 Hours (Table) 03/25/21 03/25/21 03/25/21 Range/Units 06:03 07:46 11:49 BUN 51 H (9-20) mg/dL Creatinine 1.81 H (0.66-1.25) mg/dL Glucose 192 H (74-99) mg/dL POC Glucose (mg/dL) 188 H 215 H (75-99) mg/dL 03/25/21 03/25/21 Range/Units 16:39 19:50 BUN (9-20) mg/dL Creatinine (0.66-1.25) mg/dL Glucose (74-99) mg/dL POC Glucose (mg/dL) 263 H 219 H (75-99) mg/dL Assessment and Plan Assessment: Dizziness secondary to severe hyponatremia, improving Hypovolemic hyponatremia secondary to chlorthalidone which is held now Acute kidney injury on chronic kidney disease stage III Paroxysmal atrial fibrillation on Eliquis Postural hypotension Elevated troponin secondary to kidney disease with no evidence of acute coronary syndrome while car dispatcher on the case. 2 diabetes mellitus Hyperlipidemia History of GERD Plan: This is a pleasant 8 years old male who presents with hypokalemia and hyponatremia. With normal saline and monitor sodium level. Follow-up car dispatcher for elevated troponin, follow-up shirt turner recommendation Labs and medication were reviewed.. Continue same treatment. Continue with symptomatic treatment. Resume home medication. Monitor lytes and vitals. DVT and GI prophylaxis. Further recommendationsas per clinical course of the pat ient DVT prophylaxis: Eliquis GI Prophylaxis: Ppi Prognosis is guarded
[2021-03-26] MEDS: INSULIN ASPART (NovoLOG) 100 UNIT/ML VIAL SQ SCH (05:57)
[2021-03-26 05:58] LABS: Glucose,Whole Blood 131 mg/dL (75-99)
[2021-03-26] MEDS: PANTOPRAZOLE 40 MG TABLET PO SCH (05:59)
[2021-03-26 07:45] LABS: Calcium 8.4 mg/dL (8.4-10.2); Potassium 3.9 mmol/L (3.5-5.1)
[2021-03-26] MEDS: hydrALAZINE HCL 50 MG TAB PO SCH (08:03)
[2021-03-26] MEDS: APIXABAN 2.5 MG TABLET PO SCH (08:03)
[2021-03-26] MEDS: PIOGLITAZONE 45 MG TAB PO SCH (08:04)
[2021-03-26] MEDS: ASPIRIN 81 MG PO SCH (08:04)
[2021-03-26] MEDS: PRIMIDONE 50 MG TAB PO SCH (08:09)
[2021-03-26] MEDS ORDERED: NON FORMULARY DRUG (Dulaglutide [Trulicity] 1.5 MG/0.5 ML Pen.Injctr) SQ SCH (09:00)
[2021-03-26] MEDS ORDERED: amLODIPine 10 MG TAB PO SCH (09:00)
--- NOTE | 2021-03-26 09:39 | P.PN ---
Subjective Patient is seen in follow-up for acute kidney injury on chronic kidney disease. Renal function improved with IV hydration. Diuretics held. No dizziness with standing. Oral intake is good. Blood pressure now on the higher side. Vital signs are stable. General: The patient appeared well nourished and normally developed. HEENT: Head exam is unremarkable. Neck is without jugular venous distension. LUNGS: Breath sounds decreased. HEART: Rate and Rhythm are regular. ABDOMEN: Soft, no distention. EXTREMITITES: No edema. Objective - Vital Signs Vital signs: Vital Signs Temp 97.6 F 03/25/21 19:57 Pulse 65 03/26/21 07:45 Resp 16 03/26/21 07:45 BP 174/63 03/26/21 08:56 Pulse Ox 100 03/26/21 07:45 Intake & Output 03/25/21 03/26/21 03/26/21 18:59 06:59 18:59 Intake Total 960 180 Output Total 0 Balance 960 180 Weight 79.6 kg Intake: Oral 960 180 Output: Stool 0 Other: Voiding Method Toilet Urinal # Voids 1 1 0 - Labs CBC & Chem 7: 03/22/21 12:30 03/26/21 06:43 Labs: Abnormal Lab Results - Last 24 Hours (Table) 03/25/21 03/25/21 03/25/21 Range/Units 11:49 16:39 19:50 Sodium (137-145) mmol/L BUN (9-20) mg/dL Creatinine (0.66-1.25) mg/dL Glucose (74-99) mg/dL POC Glucose (mg/dL) 215 H 263 H 219 H (75-99) mg/dL 03/26/21 03/26/21 Range/Units 05:57 06:43 Sodium 134 L (137-145) mmol/L BUN 42 H (9-20) mg/dL Creatinine 1.69 H (0.66-1.25) mg/dL Glucose 154 H (74-99) mg/dL POC Glucose (mg/dL) 131 H (75-99) mg/dL Assessment and Plan Plan: Assessment: 1. Acute kidney injury mostly prerenal secondary to hypovolemia and hypotension improving with IV hydration. Creatinine was 3.06 on admission and down to 1.69 today. 2. Chronic kidney disease stage IIIA with baseline creatinine near 1.5-1.6 secondary to diabetic kidney disease. 3. Orthostatic hypotension with component of hypovolemia. Resolved. 4. Hypovolemic hyponatremia improved with IV hydration. 5. Hypovolemia from diuretics. Resolved. 6. Diabetes mellitus. Plan: Remains off IV fluids. Hold lisinopril and chlorthalidone. Continue to monitor orthostatics. Avoid nephrotoxins. Continue to monitor renal function and urine output. Doxazosin was added yesterday. I will increase the dose of hydralazine to 100 mg 3 times a day. Possible discharge today. Follow up outpatient in 1 week. He was advised to monitor his blood pressure at home, including standing blood pressure
--- NOTE | 2021-03-26 10:57 | P.PN ---
Subjective This is a pleasant 80-year-old male past medical history significant for paroxysmal atrial fibrillation, hypertension, dyslipidemia, diabetes mellitus and chronic kidney disease. He follows in the office with Dr. Stratton. He is seen and examined sitting up in bed in no acute distress. He denies symptoms of chest pain, shortness of breath, dizziness or palpitations. Telemetry tracings for the previous 24 hours reviewed, he had an episode of Wenkebach in the afternoon around 1201 yesterday. He does not recall being symptomatic at that time. Blood pressure 172/80 heart rate 69 afebrile and maintaining oxygen saturation on room air. Laboratory data reviewed, sodium 137, potassium 3.9, creatinine 1.81 and magnesium 2.2. Currently maintained on amlodipine 5 mg daily, Eliquis 2.5 mg twice a day, aspirin 81 mg daily and atorvastatin 80 mg daily. Echocardiogram on this admission reveals preserved LV systolic function with ejection fraction 60-65%, severely dilated left atrium, mild to moderate MR and mild TR. 03/26/2021 Pt seen and examined resting comfortably in bed in no acute distress. He denies any symptoms of dizziness. No chest pain, shortness of breath or palpitations. Blood pressure was elevated yesterday and nephrology increased his dose of amlodipine and resumed hydralazine. Currently he is 174/63 heart rate in the 60's. Sinus rhythm on the monitor. Laboratory data reviewed, sodium 134, potassium 3.9 and creatinine 1.69. GENERAL: Well-appearing, well-nourished and in no acute distress. NECK: Supple without JVD or thyromegaly. LUNGS: Breath sounds clear to auscultation bilaterally. Respiration equal and unlabored. No wheezes, rales or rhonchi. HEART: Regular rate and rhythm with systolic ejection murmur at the base, no rubs or gallops. S1 and S2 heard. EXTREMITIES: Normal range of motion, no edema. No clubbing or cyanosis. Peripheral pulses intact. ASSESSMENT Orthostatic hypotension, resolved Acute on chronic kidney disease, improved Paroxysmal atrial fibrillation, currently maintaining SR on eliquis Wenkebach, intermittent and asymptomatic Hyponatremia Hypertension Dyslipidemia Troponin leak secondary to abnormal renal function not related to primary cardiac injury PLAN Hypertension management per nephrology. Continue eliquis for thromboembolic protection. Follow up with Dr. Stratton upon discharge. Nurse Practitioner note has been reviewed, I agree with a documented findings an d plan of care. Patient was seen and examined. Objective - Vital Signs Vital signs: Vital Signs Temp 97.6 F 03/25/21 19:57 Pulse 65 03/26/21 07:45 Resp 16 03/26/21 07:45 BP 174/63 03/26/21 08:56 Pulse Ox 100 03/26/21 07:45 Intake & Output 03/25/21 03/26/21 03/26/21 18:59 06:59 18:59 Intake Total 960 180 Output Total 0 Balance 960 180 Weight 79.6 kg Intake: Oral 960 180 Output: Stool 0 Other: Voiding Method Toilet Urinal # Voids 1 1 0 - Labs CBC & Chem 7: 03/22/21 12:30 03/26/21 06:43 Labs: Abnormal Lab Results - Last 24 Hours (Table) 03/25/21 03/25/21 03/25/21 Range/Units 11:49 16:39 19:50 Sodium (137-145) mmol/L BUN (9-20) mg/dL Creatinine (0.66-1.25) mg/dL Glucose (74-99) mg/dL POC Glucose (mg/dL) 215 H 263 H 219 H (75-99) mg/dL 03/26/21 03/26/21 Range/Units 05:57 06:43 Sodium 134 L (137-145) mmol/L BUN 42 H (9-20) mg/dL Creatinine 1.69 H (0.66-1.25) mg/dL Glucose 154 H (74-99) mg/dL POC Glucose (mg/dL) 131 H (75-99) mg/dL
[2021-03-26] MEDS ORDERED: hydrALAZINE HCL 50 MG TAB PO STA (11:19)
[2021-03-26 11:39] LABS: Glucose,Whole Blood 292 mg/dL (75-99)
[2021-03-26 11:56] VITALS: PULSE 64
[2021-03-26 12:58] VITALS: BP 155/60
[2021-03-26] MEDS ORDERED: hydrALAZINE HCL 50 MG TAB PO SCH (16:00)
--- NOTE | 2021-03-27 01:08 | P.DS ---
Providers Date of admission: 03/22/21 13:41 Attending physician: Marybel Orlando Consults: 03/22/21 13:41 Consult Physician Urgent Consulting Provider: Gloria Silva Consult Reason/Comments: arf, hyponatremia, hypokalemia Do you want consulting provider notified?: Yes 03/22/21 22:35 Consult Physician Routine Consulting Provider: Micky Abreu Consult Reason/Comments: Elevated trop Do you want consulting provider notified?: Yes, Notify in am Primary care physician: Lesly Ortiz Hospital Course: Diagnoses: Dizziness secondary to severe hyponatremia, improved Hypovolemic hyponatremia secondary to chlorthalidone which is held now Hypertension with urgency, controlled upon discharged Acute kidney injury on chronic kidney disease stage III. Improved Paroxysmal atrial fibrillation on Eliquis Elevated troponin secondary to kidney disease with no evidence of acute coronary syndrome while material flow engineer on the case. 2 diabetes mellitus Hyperlipidemia History of GERD Hospital course: Patient is a 80-year-old male with a known history of paroxysmal atrial fibrillation on anticoagulation with Eliquis, hypertension, chronic renal disease, diabetes type 2 insulin-dependent, hyperlipidemia, previous history of smoking presents to ER with complaints of dizziness. Patient found to have severe hyponatremia on admission at 125, he was treated with normal saline and sodium of 134 upon admission. He had hyponatremia secondary to his diuretics with chlorthalidone which is stopped. Patient advised to avoid using chlorthalidone or lisinopril the future which is held as well. Anesthetic patient was started on hydralazine, doxazosin losing as well as amlodipine and his blood pressure is controlled upon discharge. Creatinine trending down from 3.0 on admission down to 1.6 on discharge patient has been evaluated by several consultants with the installation drafter and material flow engineer who cleared him for discharge Patient is back to his baseline. He was eager to discharge. at bedside Problems and management plan were discussed with the patient and he verbalized understanding and acceptance Patient was found stable and can be discharged home however he needs follow-up as an outpatient. Patient was instructed to follow up with PCP within one week and patient agrees Patient agrees with the appointments made for him with Dr. Ortiz on 03/[address] Dawson on 03/25. Also he was instructed to follow up with his material flow engineer Dr. Monreal in 1-2 weeks and he agrees to call and make his own appointments Physical exam Gen: patient is a AAOx3, no distress CVS: S1-S2, RRR, no murmur Lungs: B/L CTA, no wheezing Abdomen: soft, no distention, no tenderness, positive bowel sounds Extremity: no leg edema or induration Time spent more than 35 minutes Plan - Discharge Summary Discharge Rx Participant: No New Discharge Prescriptions: New hydrALAZINE HCL [Apresoline] 100 mg PO TID #90 tablet Doxazosin [Cardura] 2 mg PO HS #30 tab Continue Atorvastatin [Lipitor] 80 mg PO HS Pioglitazone [Actos] 45 mg PO DAILY Aspirin EC [Ecotrin Low Dose] 81 mg PO DAILY Primidone [Mysoline] 50 mg PO DAILY EPINEPHrine (Auto Inject) [Epipen] 0.3 mg PO ONCE PRN PRN Reason: Anaphylaxis Apixaban [Eliquis] 2.5 mg PO BID #1 tab Dulaglutide [Trulicity] 1.5 mg SQ TU amLODIPine [Norvasc] 10 mg PO DAILY INSULIN LISPRO (HumaLOG) [humaLOG] See Protocol SQ TID-W/MEALS PRN PRN Reason: hyperglycemia Omeprazole Magnesium [PriLOSEC] 20 mg PO DAILY Ergocalciferol [Vitamin D2 (1250 Mcg = 57813 Iu)] 1,250 mcg PO Q14D Discontinued lisinopriL [Zestril] 20 mg PO DAILY #30 tab Canagliflozin [Invokana] 100 mg PO DAILY Chlorthalidone [Hygroton] 25 mg PO DAILY Discharge Medication List Aspirin EC [Ecotrin Low Dose] 81 mg PO DAILY 05/28/17 [History] Atorvastatin [Lipitor] 80 mg PO HS 05/28/17 [History] EPINEPHrine (Auto Inject) [Epipen] 0.3 mg PO ONCE PRN 05/28/17 [History] Pioglitazone [Actos] 45 mg PO DAILY 05/28/17 [History] Primidone [Mysoline] 50 mg PO DAILY 05/28/17 [History] Apixaban [Eliquis] 2.5 mg PO BID #1 tab 06/02/17 [Rx] Dulaglutide [Trulicity] 1.5 mg SQ TU 04/04/19 [History] Ergocalciferol [Vitamin D2 (1250 Mcg = 96602 Iu)] 1,250 mcg PO Q14D 03/22/21 [History] INSULIN LISPRO (HumaLOG) [humaLOG] See Protocol SQ TID-W/MEALS PRN 03/22/21 [History] Omeprazole Magnesium [PriLOSEC] 20 mg PO DAILY 03/22/21 [History] amLODIPine [Norvasc] 10 mg PO DAILY 03/22/21 [History] Doxazosin [Cardura] 2 mg PO HS #30 tab 03/26/21 [Rx] hydrALAZINE HCL [Apresoline] 100 mg PO TID #90 tablet 03/26/21 [Rx] Follow up Appointment(s)/Referral(s): Darryn Stratton MD [STAFF PHYSICIAN] - 2 Weeks (office will call) Lesly Ortiz MD [Primary Care Provider] - 03/27/21 10:40 am Thierry Dawson DO [STAFF PHYSICIAN] - 04/24/21 11:00 am Patient Instructions/Handouts: Dehydration (DC), Chronic Kidney Disease (DC), Hyponatremia (DC), Hypokalemia (DC) Activity/Diet/Wound Care/Special Instructions: Low carbohydrate diet 1800 kcal per day with Heart healthy diet, restricted sodium and fluid Activity is restricted till see your doctor We recommend to check your blood glucose 4 times a day. Each meal and at bedtime. Keep the results in a log book Inferior glucose is less than 70 or more than 400, then call 911 on come to emergency room Discharge Disposition: HOME SELF-CARE
[2021-03-27] MEDS ORDERED: ERGOCALCIFEROL 1,250 MCG (50,000 IU) CAPSULE PO SCH (12:00)
== END 2021-03-26 14:20 | disposition home or self-care (01) | DRG 641 ==
LOC: EC 11:58 → 3SCARD 13:41
PROVIDERS: ADMIT Internal Medicine; ATTEND Internal Medicine
DX: E87.1 Hypo-osmolality and hyponatremia (principal); N17.9 Acute kidney failure, unspecified; T50.2X5A Adverse effect of carbonic-anhydrase inhibitors, benzothiadiazides and other diuretics, initial encounter; E11.22 Type 2 diabetes mellitus with diabetic chronic kidney disease; E11.65 Type 2 diabetes mellitus with hyperglycemia; E78.5 Hyperlipidemia, unspecified; E86.1 Hypovolemia; E87.6 Hypokalemia; I12.9 Hypertensive chronic kidney disease with stage 1 through stage 4 chronic kidney disease, or unspecified chronic kidney disease; I44.1 Atrioventricular block, second degree; I48.0 Paroxysmal atrial fibrillation; I95.1 Orthostatic hypotension; K21.9 Gastro-esophageal reflux disease without esophagitis; N18.31 Chronic kidney disease, stage 3a; D63.1 Anemia in chronic kidney disease; Z91.81 History of falling; Z20.822 Contact with and (suspected) exposure to COVID-19; Z87.01 Personal history of pneumonia (recurrent); Z91.030 Bee allergy status; R77.8 Other specified abnormalities of plasma proteins; Z79.01 Long term (current) use of anticoagulants; Z79.4 Long term (current) use of insulin; Z79.82 Long term (current) use of aspirin; Z79.899 Other long term (current) drug therapy; Z82.0 Family history of epilepsy and other diseases of the nervous system; Z82.5 Family history of asthma and other chronic lower respiratory diseases; Z83.3 Family history of diabetes mellitus; Z87.891 Personal history of nicotine dependence; Z98.42 Cataract extraction status, left eye; Z98.41 Cataract extraction status, right eye; Z96.1 Presence of intraocular lens
CPT/HCPCS: 36415; 70450; 71045; 80048; 80053; 81001; 83605; 83735; 84100; 84484; 85025; 85610; 85730; 87635; 93005; 93306; 96360; 99285

== ENCOUNTER 2021-03-31 09:54 | Emergency (ER) | payer MEDICARE ==
[2021-03-31 09:58] VITALS: TEMP 97.8
[2021-03-31] MEDS ORDERED: SODIUM CHLORIDE 0.9% 500 ML 500 ML IV STA ×2 (10:20→11:31)
[2021-03-31 10:25] LABS: Glucose,Whole Blood 228 mg/dL (75-99)
[2021-03-31 10:33] LABS: Basophils # (A) 0.1 k/uL (0-0.2); Basophils % (A) 1 %; Eosinophils # (A) 0.1 k/uL (0-0.7); Eosinophils % (A) 1 %; HCT 39.6 % (39.0-53.0); HGB 13.7 gm/dL (13.0-17.5); Lymphocytes % (A) 10 %; MCH 32.5 pg (25.0-35.0); MCHC 34.6 g/dL (31.0-37.0); MCV 93.9 fL (80.0-100.0); Mean Platelet Volume 7.8; Monocytes # (A) 1.1 k/uL (0-1.0); Monocytes % (A) 11 %; Neutrophils # (A) 8.4 k/uL (1.3-7.7); Neutrophils % (A) 78 %; Platelet Count 159 k/uL (150-450); RBC 4.21 m/uL (4.30-5.90); RDW 13.4 % (11.5-15.5); WBC 10.8 k/uL (3.8-10.6)
--- NOTE | 2021-03-31 10:33 | ED ---
Weakness HPI - General Chief complaint: Weakness Stated complaint: Revisit/Weakness Time Seen by Provider: 03/31/21 10:03 Source: patient Mode of arrival: wheelchair Limitations: no limitations - History of Present Illness Initial comments: Patient is an 80-year-old male presenting to the emergency Department with complaints of feeling shaky this morning. Patient was recently admitted to our facility, discharged 5 days ago for lower electrolytes. He states he is feeling better since his discharge, yesterday he felt really good. He states he woke up this morning and went to syn[employer] and was feeling really shaky so came back in for evaluation. He does admit to some very mild shortness of breath but no chest pain, no dizziness. He states he did eat breakfast as usual this morning. He denies any abdominal pain, no nausea or vomiting, has been having regular bowel movements. Denies any fevers. Patient was recently started on hydralazine, Ca rdura upon discharge from the hospital. He denies any falls. He has no further complaints at this time. Patient is a little hypertensive upon arrival at 176/58, rest of vitals are normal. - Related Data Home Medications Medication Instructions Recorded Confirmed RX: Aspirin EC [Ecotrin Low Dose] 81 mg PO DAILY 05/28/17 03/22/21 RX: Atorvastatin [Lipitor] 80 mg PO HS 05/28/17 03/22/21 RX: EPINEPHrine (Auto Inject) 0.3 mg PO ONCE PRN 05/28/17 03/22/21 [Epipen] RX: Pioglitazone [Actos] 45 mg PO DAILY 05/28/17 03/22/21 RX: Primidone [Mysoline] 50 mg PO DAILY 05/28/17 03/22/21 RX: Dulaglutide [Trulicity] 1.5 mg SQ TU 04/04/19 03/22/21 RX: Ergocalciferol [Vitamin D2 1,250 mcg PO Q14D 03/22/21 03/22/21 (1250 Mcg = 42290 Iu)] RX: INSULIN LISPRO (HumaLOG) See Protocol SQ TID-W/MEALS PRN 03/22/21 03/25/21 [humaLOG] RX: Omeprazole Magnesium [PriLOSEC] 20 mg PO DAILY 03/22/21 03/22/21 RX: amLODIPine [Norvasc] 10 mg PO DAILY 03/22/21 03/22/21 Previous Rx's Medication Instructions Recorded RX: Apixaban [Eliquis] 2.5 mg PO BID #1 tab 06/02/17 RX: Doxazosin [Cardura] 2 mg PO HS #30 tab 03/26/21 RX: hydrALAZINE HCL [Apresoline] 100 mg PO TID #90 tablet 03/26/21 Allergies Allergy/AdvReac Type Severity Reaction Status Date / Time bee venom protein (honey bee) Allergy Anaphylaxis Verified 03/31/21 09:58 Review of Systems ROS Statement: Those systems with pertinent positive or pertinent negative responses have been documented in the HPI. ROS Other: All systems not noted in ROS Statement are negative. Past Medical History Past Medical History: Atrial Fibrillation, Diabetes Mellitus, GERD/Reflux, Hyperlipidemia, Hypertension, Pneumonia, Renal Disease Additional Past Medical History / Comment(s): NIDDM TYPE II, ANEMIA LONG AGO History of Any Multi-Drug Resistant Organisms: None Reported Past Surgical History: No Surgical Hx Reported Additional Past Surgical History / Comment(s): BILATERAL CATARACT REMOVALS WITH LENS IMPLANTS. Past Anesthesia/Blood Transfusion Reactions: No Reported Reaction Past Psychological History: No Psychological Hx Reported Smoking Status: Former smoker Past Alcohol Use History: Rare Past Drug Use History: None Reported - Past Family History Father Family Medical History: Diabetes Mellitus Additional Family Medical History / Comment(s): FATHER AT THE AGE OF 89YRS. Mother Family Medical History: COPD Additional Family Medical History / Comment(s): MOTHER HAD A "BAD HEART." SHE OF EMPHYSEMA AT THE AGE OF 68YRS. Brother(s) Additional Family Medical History / Comment(s): Alzheimer's Disease General Exam - General Exam Comments Initial Comments: GENERAL: Patient is well-developed and well-nourished. Patient is nontoxic and in no acute distress. HEAD: Atraumatic, normocephalic. EYES: Pupils equal round and reactive to light, extraocular movements intact, sclera anicteric, conjunctiva are normal. Eyelids were unremarkable. ENT: TMs normal, nares patent, oropharynx clear without exudates. Moist mucous membranes. NECK: Normal range of motion, supple without lymphadenopathy or JVD. LUNGS: Unlabored respirations. Breath sounds clear to auscultation bilaterally and equal. No wheezes rales or rhonchi. HEART: Regular rate and rhythm without murmurs, rubs or gallops. ABDOMEN: Soft, nontender, normoactive bowel sounds. No guarding, no rebound. No masses appreciated. : Deferred MUSCULOSKELETAL: Normal extremities with adequate strength and normal range of motion, no pitting or edema. No clubbing or cyanosis. NEUROLOGICAL: Patient is alert and oriented x 3. Motor and sensory are also intact. Cranial nerves II through XII grossly intact. Symmetrical smile. Normal speech, normal gait. PSYCH: Normal mood, normal affect. SKIN: Warm, Dry, normal turgor, no rashes or lesions noted. Limitations: no limitations Course Vital Signs 03/31/21 03/31/21 03/31/21 09:55 10:24 10:33 Temperature 97.8 F Pulse Rate 82 82 Pulse Rate [ 79 Facility Environmental Technician ] Respiratory 18 18 16 Rate Blood Pressure 176/58 181/66 O2 Sat by Pulse 97 98 Oximetry 03/31/21 03/31/21 11:01 12:45 Temperature Pulse Rate 80 88 Pulse Rate [ Facility Environmental Technician ] Respiratory 16 16 Rate Blood Pressure 194/70 176/66 O2 Sat by Pulse 100 98 Oximetry EKG Findings - EKG Comments: EKG Findings:: Normal sinus rhythm, normal ECG, no signs of an acute process. Ventricular rate 81, [place] interval 200, QT 374. Medical Decision Making - Medical Decision Making Patient is an 80-year-old male with history of A. fib, diabetes, presenting for feeling shaky this morning. Patient was recently admitted and discharged 5 days ago for low potassium and sodium. EKG shows no acute process, chest x-ray is clear. Blood work shows sodium is 131, potassium is normal at 3.9, creatinine BUN is stable at 1.55, sugar is slightly elevated at 228, urine shows some protein and glucose, no signs of infection. Patient received 1 L fluids. His blood pressure did start climbing however he was due for his new blood pressure medication, that was given here and his blood pressure did come down. He has been asymptomatic here in the ER. States he did have a friend recently and thinks it could've been stress related. He is stable for discharge. Recommend following up with his PCP. Return parameters were discussed the patient and he verbalized understanding. Case discussed with Dr. Weaver. - Lab Data Result diagrams: 03/31/21 10:00 03/31/21 10:00 Lab Results 03/31/21 03/31/21 03/31/21 Range/Units 10:00 10:00 10:00 WBC 10.8 H (3.8-10.6) k/uL RBC 4.21 L (4.30-5.90) m/uL Hgb 13.7 (13.0-17.5) gm/dL Hct 39.6 (39.0-53.0) % MCV 93.9 (80.0-100.0) fL MCH 32.5 (25.0-35.0) pg MCHC 34.6 (31.0-37.0) g/dL RDW 13.4 (11.5-15.5) % Plt Count 159 (150-450) k/uL MPV 7.8 Neutrophils % 78 % Lymphocytes % 10 % Monocytes % 11 % Eosinophils % 1 % Basophils % 1 % Neutrophils # 8.4 H (1.3-7.7) k/uL Lymphocytes # 1.0 (1.0-4.8) k/uL Monocytes # 1.1 H (0-1.0) k/uL Eosinophils # 0.1 (0-0.7) k/uL Basophils # 0.1 (0-0.2) k/uL PT 10.2 (9.0-12.0) sec INR 0.9 (<1.2) APTT 23.4 (22.0-30.0) sec Sodium 131 L (137-145) mmol/L Potassium 3.9 (3.5-5.1) mmol/L Chloride 100 (98-107) mmol/L Carbon Dioxide 24 (22-30) mmol/L Anion Gap 7 mmol/L BUN 36 H (9-20) mg/dL Creatinine 1.55 H (0.66-1.25) mg/dL Est GFR (CKD-EPI)AfAm 48 (>60 ml/min/1.73 sqM) Est GFR (CKD-EPI)NonAf 42 (>60 ml/min/1.73 sqM) Glucose 239 H (74-99) mg/dL POC Glucose (mg/dL) (75-99) mg/dL POC Glu Hedis Abstractor ID Plasma Lactic Acid Shiva (0.7-2.0) mmol/L Calcium 9.0 (8.4-10.2) mg/dL Magnesium 2.0 (1.6-2.3) mg/dL Total Bilirubin 0.7 (0.2-1.3) mg/dL AST 34 (17-59) U/L ALT 24 (4-49) U/L Alkaline Phosphatase 105 (38-126) U/L Troponin I (0.000-0.034) ng/mL Total Protein 6.2 L (6.3-8.2) g/dL Albumin 3.1 L (3.5-5.0) g/dL Urine Color Urine Appearance (Clear) Urine pH (5.0-8.0) Ur Specific Carpenter (1.001-1.035) Urine Protein (Negative) Urine Glucose (UA) (Negative) Urine Ketones (Negative) Urine Blood (Negative) Urine Nitrite (Negative) Urine Bilirubin (Negative) Urine Urobilinogen (<2.0) mg/dL Ur Leukocyte Esterase (Negative) Urine WBC (0-5) /hpf Hyaline Casts (0-2) /lpf 03/31/21 03/31/21 03/31/21 Range/Units 10:00 10:00 10:24 WBC (3.8-10.6) k/uL RBC (4.30-5.90) m/uL Hgb (13.0-17.5) gm/dL Hct (39.0-53.0) % MCV (80.0-100.0) fL MCH (25.0-35.0) pg MCHC (31.0-37.0) g/dL RDW (11.5-15.5) % Plt Count (150-450) k/uL MPV Neutrophils % % Lymphocytes % % Monocytes % % Eosinophils % % Basophils % % Neutrophils # (1.3-7.7) k/uL Lymphocytes # (1.0-4.8) k/uL Monocytes # (0-1.0) k/uL Eosinophils # (0-0.7) k/uL Basophils # (0-0.2) k/uL PT (9.0-12.0) sec INR (<1.2) APTT (22.0-30.0) sec Sodium (137-145) mmol/L Potassium (3.5-5.1) mmol/L Chloride (98-107) mmol/L Carbon Dioxide (22-30) mmol/L Anion Gap mmol/L BUN (9-20) mg/dL Creatinine (0.66-1.25) mg/dL Est GFR (CKD-EPI)AfAm (>60 ml/min/1.73 sqM) Est GFR (CKD-EPI)NonAf (>60 ml/min/1.73 sqM) Glucose (74-99) mg/dL POC Glucose (mg/dL) 228 H (75-99) mg/dL POC Glu Hedis Abstractor ID S[place]a [place] Plasma Lactic Acid Shiva 1.7 (0.7-2.0) mmol/L Calcium (8.4-10.2) mg/dL Magnesium (1.6-2.3) mg/dL Total Bilirubin (0.2-1.3) mg/dL AST (17-59) U/L ALT (4-49) U/L Alkaline Phosphatase (38-126) U/L Troponin I 0.028 (0.000-0.034) ng/mL Total Protein (6.3-8.2) g/dL Albumin (3.5-5.0) g/dL Urine Color Urine Appearance (Clear) Urine pH (5.0-8.0) Ur Specific Carpenter (1.001-1.035) Urine Protein (Negative) Urine Glucose (UA) (Negative) Urine Ketones (Negative) Urine Blood (Negative) Urine Nitrite (Negative) Urine Bilirubin (Negative) Urine Urobilinogen (<2.0) mg/dL Ur Leukocyte Esterase (Negative) Urine WBC (0-5) /hpf Hyaline Casts (0-2) /lpf 03/31/21 Range/Units 10:54 WBC (3.8-10.6) k/uL RBC (4.30-5.90) m/uL Hgb (13.0-17.5) gm/dL Hct (39.0-53.0) % MCV (80.0-100.0) fL MCH (25.0-35.0) pg MCHC (31.0-37.0) g/dL RDW (11.5-15.5) % Plt Count (150-450) k/uL MPV Neutrophils % % Lymphocytes % % Monocytes % % Eosinophils % % Basophils % % Neutrophils # (1.3-7.7) k/uL Lymphocytes # (1.0-4.8) k/uL Monocytes # (0-1.0) k/uL Eosinophils # (0-0.7) k/uL Basophils # (0-0.2) k/uL PT (9.0-12.0) sec INR (<1.2) APTT (22.0-30.0) sec Sodium (137-145) mmol/L Potassium (3.5-5.1) mmol/L Chloride (98-107) mmol/L Carbon Dioxide (22-30) mmol/L Anion Gap mmol/L BUN (9-20) mg/dL Creatinine (0.66-1.25) mg/dL Est GFR (CKD-EPI)AfAm (>60 ml/min/1.73 sqM) Est GFR (CKD-EPI)NonAf (>60 ml/min/1.73 sqM) Glucose (74-99) mg/dL POC Glucose (mg/dL) (75-99) mg/dL POC Glu Hedis Abstractor ID Plasma Lactic Acid Shiva (0.7-2.0) mmol/L Calcium (8.4-10.2) mg/dL Magnesium (1.6-2.3) mg/dL Total Bilirubin (0.2-1.3) mg/dL AST (17-59) U/L ALT (4-49) U/L Alkaline Phosphatase (38-126) U/L Troponin I (0.000-0.034) ng/mL Total Protein (6.3-8.2) g/dL Albumin (3.5-5.0) g/dL Urine Color Yellow Urine Appearance Clear (Clear) Urine pH 7.0 (5.0-8.0) Ur Specific Carpenter 1.011 (1.001-1.035) Urine Protein 3+ H (Negative) Urine Glucose (UA) 3+ H (Negative) Urine Ketones Negative (Negative) Urine Blood Negative (Negative) Urine Nitrite Negative (Negative) Urine Bilirubin Negative (Negative) Urine Urobilinogen <2.0 (<2.0) mg/dL Ur Leukocyte Esterase Negative (Negative) Urine WBC <1 (0-5) /hpf Hyaline Casts 1 (0-2) /lpf Disposition Clinical Impression: Dehydration, Weakness Disposition: HOME SELF-CARE Condition: Stable Instructions (If sedation given, give patient instructions): Dehydration (ED) Additional Instructions: Please return to the Emergency Department if symptoms worsen or any other concerns. Follow-up with your primary care physician. Is patient prescribed a controlled substance at d/c from ED?: No Referrals: Lesly Ortiz MD [Primary Care Provider] - 1-2 days Time of Disposition: 13:02
[2021-03-31 10:36] VITALS: RESP 16
[2021-03-31 10:42] LABS: Albumin 3.1 g/dL (3.5-5.0); Potassium 3.9 mmol/L (3.5-5.1); Total Bilirubin 0.7 mg/dL (0.2-1.3); Total Protein 6.2 g/dL (6.3-8.2)
[2021-03-31 10:48] LABS: INR 0.9 (<1.2); Partial Thromboplastin Time 23.4 sec (22.0-30.0); Prothrombin Time 10.2 sec (9.0-12.0)
--- NOTE | 2021-03-31 10:51 | XR ---
EXAMINATION TYPE: XR chest 2V DATE OF EXAM: 03/31/2021 COMPARISON: 03/23/2021 HISTORY: Shortness of breath TECHNIQUE: Frontal and lateral views of the chest are obtained. FINDINGS: Scattered senescent parenchymal changes noted. Hyperinflation compatible with COPD. No evidence for infiltrate. No evidence for atelectasis. Heart size is stable. Mediastinal structures are stable and grossly unremarkable. No evidence for hilar prominence. Degenerative changes dorsal spine. IMPRESSION: 1. No evidence for acute pulmonary disease.
[2021-03-31 11:05] LABS: Appearance,Urine Clear (Clear); Bilirubin,Urine Negative (Negative); Blood,Urine Negative (Negative); Color,Urine Yellow; Glucose,Urine (UA) 3+ (Negative); Hyaline Casts,Urine 1 /lpf (0-2); Ketones,Urine Negative (Negative); Leukocyte Esterase,Urine Negative (Negative); Nitrite,Urine Negative (Negative); Protein,Urine 3+ (Negative); Specific Gravity,Urine 1.011 (1.001-1.035); Urobilinogen,Urine <2.0 mg/dL (<2.0); WBC,Urine <1 /hpf (0-5)
[2021-03-31] MEDS ORDERED: hydrALAZINE HCL 50 MG TAB PO STA (11:31)
[2021-03-31 12:46] VITALS: BP 176/66; PULSE 88
== END 2021-03-31 13:15 | disposition home or self-care (01) ==
LOC: EC 09:54
DX: E86.0 Dehydration (principal); R06.02 Shortness of breath; I10 Essential (primary) hypertension; E78.5 Hyperlipidemia, unspecified; E11.36 Type 2 diabetes mellitus with diabetic cataract; I48.91 Unspecified atrial fibrillation; K21.9 Gastro-esophageal reflux disease without esophagitis; Z87.891 Personal history of nicotine dependence; Z79.01 Long term (current) use of anticoagulants; Z79.4 Long term (current) use of insulin; Z79.82 Long term (current) use of aspirin
CPT/HCPCS: 36415; 71046; 80053; 81001; 83605; 83735; 84484; 85025; 85610; 85730; 93005; 96360; 99285

== ENCOUNTER 2021-04-11 02:53 | Inpatient (IN) | payer MEDICARE ==
[2021-04-11] MEDS ORDERED: IPRATROPIUM-ALBUTEROL 3 ML NEB INHALATION STA (03:00)
--- NOTE | 2021-04-11 03:11 | ED ---
SOB HPI - General Stated Complaint: SOB Time Seen by Provider: 04/11/21 02:59 Source: patient, EMS, RN notes reviewed, old records reviewed Mode of arrival: EMS Limitations: no limitations - History of Present Illness Initial Comments: This is an 80-year-old male DF for evaluation. Patient resents for significant shortness of breath, feels it prior episodes of pneumonia no chest pain. Patient states is worse his breathing is been. Patient denies any chest pain. Patient again states this feels a prior episodes of pneumonia we'll denies fever. He does have cough and congestion. No again no chest pain. MD Complaint: shortness of breath -: hour(s) Severity: severe Severity scale (1-10): 9 Consistency: constant Improves With: nothing Worsens With: lying flat, exertion, movement Known History Of: congestive heart failure Context: recent URI, recent illness Associated Symptoms: palpitations Treatments Prior to Arrival: none - Related Data Home Medications Medication Instructions Recorded Confirmed Aspirin EC [Ecotrin Low Dose] 81 mg PO DAILY 05/28/17 04/11/21 Atorvastatin [Lipitor] 80 mg PO HS 05/28/17 04/11/21 EPINEPHrine (Auto Inject) [Epipen] 0.3 mg PO ONCE PRN 05/28/17 04/11/21 Pioglitazone [Actos] 45 mg PO DAILY 05/28/17 04/11/21 Primidone [Mysoline] 50 mg PO DAILY 05/28/17 04/11/21 Dulaglutide [Trulicity] 1.5 mg SQ TU 04/04/19 04/11/21 Ergocalciferol [Vitamin D2 (1250 1,250 mcg PO Q14D 03/22/21 04/11/21 Mcg = 99434 Iu)] INSULIN LISPRO (HumaLOG) [humaLOG] See Protocol SQ TID-W/MEALS PRN 03/22/21 04/11/21 Omeprazole Magnesium [PriLOSEC] 20 mg PO DAILY 03/22/21 04/11/21 Insulin Degludec [Tresiba 12 units SQ HS 04/11/21 04/11/21 Flextouch U-200] NIFEdipine XL [Procardia Xl] 90 mg PO DAILY 04/11/21 04/11/21 Previous Rx's Medication Instructions Recorded Apixaban [Eliquis] 2.5 mg PO BID #1 tab 06/02/17 Doxazosin [Cardura] 2 mg PO HS #30 tab 03/26/21 hydrALAZINE HCL [Apresoline] 100 mg PO TID #90 tablet 03/26/21 Allergies Allergy/AdvReac Type Severity Reaction Status Date / Time bee venom protein (honey bee) Allergy Anaphylaxis Verified 04/11/21 07:22 Review of Systems ROS Statement: Those systems with pertinent positive or pertinent negative responses have been documented in the HPI. ROS Other: All systems not noted in ROS Statement are negative. Past Medical History Past Medical History: Atrial Fibrillation, Diabetes Mellitus, GERD/Reflux, Hyperlipidemia, Hypertension, Pneumonia, Renal Disease Additional Past Medical History / Comment(s): NIDDM TYPE II, ANEMIA LONG AGO History of Any Multi-Drug Resistant Organisms: None Reported Past Surgical History: No Surgical Hx Reported Additional Past Surgical History / Comment(s): BILATERAL CATARACT REMOVALS WITH LENS IMPLANTS. Past Anesthesia/Blood Transfusion Reactions: No Reported Reaction Past Psychological History: No Psychological Hx Reported Smoking Status: Former smoker Past Alcohol Use History: Rare Past Drug Use History: None Reported - Past Family History Father Family Medical History: Diabetes Mellitus Additional Family Medical History / Comment(s): FATHER AT THE AGE OF 89YRS. Mother Family Medical History: COPD Additional Family Medical History / Comment(s): MOTHER HAD A "BAD HEART." SHE OF EMPHYSEMA AT THE AGE OF 68YRS. Brother(s) Additional Family Medical History / Comment(s): Alzheimer's Disease General Exam Limitations: no limitations General appearance: alert, in no apparent distress, anxious Head exam: Present: atraumatic, normocephalic, normal inspection Eye exam: Present: normal appearance, PERRL, EOMI. Absent: scleral icterus, conjunctival injection, periorbital swelling ENT exam: Present: normal exam, mucous membranes moist Neck exam: Present: normal inspection. Absent: tenderness, meningismus, lymphadenopathy Respiratory exam: Present: normal lung sounds bilaterally. Absent: respiratory distress, wheezes, rales, rhonchi, stridor Cardiovascular Exam: Present: tachycardia, irregular rhythm, normal heart sounds. Absent: systolic murmur, diastolic murmur, rubs, gallop, clicks GI/Abdominal exam: Present: soft, normal bowel sounds. Absent: distended, tenderness, guarding, rebound, rigid Extremities exam: Present: normal inspection, full ROM, normal capillary refill. Absent: tenderness, pedal edema, joint swelling, calf tenderness Back exam: Present: normal inspection Neurological exam: Present: alert, oriented X3, CN II-XII intact Psychiatric exam: Present: normal affect, normal mood Skin exam: Present: warm, dry, intact, normal color. Absent: rash Course Vital Signs 04/11/21 04/11/21 04/11/21 02:59 03:02 03:14 Temperature 98.8 F Pulse Rate 22 L 93 Respiratory 101 H 22 Rate Blood Pressure 189/73 O2 Sat by Pulse 93 L Oximetry 04/11/21 04/11/21 04/11/21 03:25 03:29 04:49 Temperature Pulse Rate 98 88 92 Respiratory 28 H 21 Rate Blood Pressure 175/69 165/90 O2 Sat by Pulse 95 94 L Oximetry 04/11/21 04/11/21 04/11/21 06:08 06:53 07:27 Temperature 98.6 F Pulse Rate 77 93 78 Respiratory 22 18 18 Rate Blood Pressure 161/72 155/77 160/72 O2 Sat by Pulse 95 95 96 Oximetry 04/11/21 04/11/21 04/11/21 09:15 10:06 12:13 Temperature Pulse Rate 85 62 60 Respiratory 16 16 16 Rate Blood Pressure 158/72 129/72 131/64 O2 Sat by Pulse 98 98 97 Oximetry - Reevaluation(s) Reevaluation #1: 04/11/21 06:27 Medical record is reviewed Reevaluation #2: 04/11/21 06:28 Patient's heart rate improved without treatment here in the ER Reevaluation #3: 04/11/21 06:28 Patient still remains short of breath Medical Decision Making - Medical Decision Making 80 male the ER with atrial fibrillation with RVR, history of, on eliquis will anticoagulate with elevated troponin today. Patient also found to have CHF. - Lab Data Result diagrams: 04/11/21 03:25 04/11/21 03:25 Lab Results 04/11/21 04/11/21 04/11/21 Range/Units 03:25 03:25 03:25 WBC 14.5 H (3.8-10.6) k/uL RBC 4.11 L (4.30-5.90) m/uL Hgb 12.6 L (13.0-17.5) gm/dL Hct 38.4 L (39.0-53.0) % MCV 93.4 (80.0-100.0) fL MCH 30.7 (25.0-35.0) pg MCHC 32.8 (31.0-37.0) g/dL RDW 14.2 (11.5-15.5) % Plt Count 207 (150-450) k/uL MPV 7.6 Neutrophils % 90 % Lymphocytes % 3 % Monocytes % 5 % Eosinophils % 1 % Basophils % 0 % Neutrophils # 13.1 H (1.3-7.7) k/uL Lymphocytes # 0.4 L (1.0-4.8) k/uL Monocytes # 0.7 (0-1.0) k/uL Eosinophils # 0.1 (0-0.7) k/uL Basophils # 0.0 (0-0.2) k/uL PT 10.6 (9.0-12.0) sec INR 1.0 (<1.2) APTT 18.3 L (22.0-30.0) sec Sodium 126 L (137-145) mmol/L Potassium 3.3 L (3.5-5.1) mmol/L Chloride 97 L (98-107) mmol/L Carbon Dioxide 21 L (22-30) mmol/L Anion Gap 8 mmol/L BUN 28 H (9-20) mg/dL Creatinine 1.40 H (0.66-1.25) mg/dL Est GFR (CKD-EPI)AfAm 55 (>60 ml/min/1.73 sqM) Est GFR (CKD-EPI)NonAf 47 (>60 ml/min/1.73 sqM) Glucose 286 H (74-99) mg/dL Plasma Lactic Acid Shiva (0.7-2.0) mmol/L Calcium 7.9 L (8.4-10.2) mg/dL Magnesium 1.9 (1.6-2.3) mg/dL Total Bilirubin 1.5 H (0.2-1.3) mg/dL AST 46 (17-59) U/L ALT 40 (4-49) U/L Alkaline Phosphatase 127 H (38-126) U/L Creatine Kinase 75 (55-170) U/L Troponin I (0.000-0.034) ng/mL NT-Pro-B Natriuret Pep pg/mL Total Protein 5.6 L (6.3-8.2) g/dL Albumin 2.6 L (3.5-5.0) g/dL 04/11/21 04/11/21 04/11/21 Range/Units 03:25 03:25 03:25 WBC (3.8-10.6) k/uL RBC (4.30-5.90) m/uL Hgb (13.0-17.5) gm/dL Hct (39.0-53.0) % MCV (80.0-100.0) fL MCH (25.0-35.0) pg MCHC (31.0-37.0) g/dL RDW (11.5-15.5) % Plt Count (150-450) k/uL MPV Neutrophils % % Lymphocytes % % Monocytes % % Eosinophils % % Basophils % % Neutrophils # (1.3-7.7) k/uL Lymphocytes # (1.0-4.8) k/uL Monocytes # (0-1.0) k/uL Eosinophils # (0-0.7) k/uL Basophils # (0-0.2) k/uL PT (9.0-12.0) sec INR (<1.2) APTT (22.0-30.0) sec Sodium (137-145) mmol/L Potassium (3.5-5.1) mmol/L Chloride (98-107) mmol/L Carbon Dioxide (22-30) mmol/L Anion Gap mmol/L BUN (9-20) mg/dL Creatinine (0.66-1.25) mg/dL Est GFR (CKD-EPI)AfAm (>60 ml/min/1.73 sqM) Est GFR (CKD-EPI)NonAf (>60 ml/min/1.73 sqM) Glucose (74-99) mg/dL Plasma Lactic Acid Shiva 1.2 (0.7-2.0) mmol/L Calcium (8.4-10.2) mg/dL Magnesium (1.6-2.3) mg/dL Total Bilirubin (0.2-1.3) mg/dL AST (17-59) U/L ALT (4-49) U/L Alkaline Phosphatase (38-126) U/L Creatine Kinase (55-170) U/L Troponin I 0.574 H* (0.000-0.034) ng/mL NT-Pro-B Natriuret Pep 80109 pg/mL Total Protein (6.3-8.2) g/dL Albumin (3.5-5.0) g/dL - EKG Data -: EKG Interpreted by Me (EKG shows A. fib 86 QRS 86 QTc 490) - Radiology Data Radiology results: report reviewed (chest x-rays positive for CHF), image reviewed Critical Care Time Critical Care Time: Yes Total Critical Care Time: 31 Disposition Clinical Impression: Weakness, Chest pain, Hyponatremia, Hypokalemia, CKD (chronic kidney disease), Acute on chronic kidney failure, Acute pulmonary edema, Congestive heart failure, Elevated troponin Disposition: ADMITTED IP TO THIS [facility] Condition: Serious Is patient prescribed a controlled substance at d/c from ED?: No
[2021-04-11 03:32] LABS: Basophils % (A) 0 %; Eosinophils # (A) 0.1 k/uL (0-0.7); Eosinophils % (A) 1 %; HCT 38.4 % (39.0-53.0); HGB 12.6 gm/dL (13.0-17.5); Lymphocytes # (A) 0.4 k/uL (1.0-4.8); Lymphocytes % (A) 3 %; MCH 30.7 pg (25.0-35.0); MCHC 32.8 g/dL (31.0-37.0); MCV 93.4 fL (80.0-100.0); Mean Platelet Volume 7.6; Monocytes # (A) 0.7 k/uL (0-1.0); Monocytes % (A) 5 %; Neutrophils # (A) 13.1 k/uL (1.3-7.7); Neutrophils % (A) 90 %; Platelet Count 207 k/uL (150-450); RBC 4.11 m/uL (4.30-5.90); RDW 14.2 % (11.5-15.5); WBC 14.5 k/uL (3.8-10.6)
--- NOTE | 2021-04-11 03:43 | XR ---
EXAMINATION TYPE: XR chest 2V DATE OF EXAM: 04/11/2021 COMPARISON: 03/31/2021 HISTORY: Difficulty breathing TECHNIQUE: FINDINGS: There is pulmonary vascular congestion. There is some blunting of the costophrenic angles. There are chest leads. There are no hilar masses. There is spurring at the AC joints. IMPRESSION: There is evidence for new mild congestive heart failure compared to old exam. There are n ew bilateral pleural effusions.
[2021-04-11 03:48] LABS: Prothrombin Time 10.6 sec (9.0-12.0)
[2021-04-11 03:54] LABS: Partial Thromboplastin Time 18.3 sec (22.0-30.0)
[2021-04-11 04:36] LABS: Albumin 2.6 g/dL (3.5-5.0); Calcium 7.9 mg/dL (8.4-10.2); Magnesium 1.9 mg/dL (1.6-2.3); Potassium 3.3 mmol/L (3.5-5.1); Total Bilirubin 1.5 mg/dL (0.2-1.3); Total Protein 5.6 g/dL (6.3-8.2)
[2021-04-11] MEDS ORDERED: NITROGLYCERIN SL TABS 0.4 MG TAB SUBLINGUAL PRN (06:01)
[2021-04-11] MEDS ORDERED: ASPIRIN 81 MG PO STA (06:01)
[2021-04-11] MEDS ORDERED: AZITHROMYCIN 500 MG in SODIUM CHLORIDE 0.9% 250 ML IVPB STA (06:01)
[2021-04-11] MEDS ORDERED: HEPARIN SODIUM 1,000 UN/ML (10ML VL) IV ONE (06:01)
[2021-04-11] MEDS ORDERED: PNEUMONIA PROTOCOL UTILIZED 1 EACH MISC PO PRN (06:01)
[2021-04-11] MEDS ORDERED: HEPARIN SOD,PORK IN 0.45% NACL 25,000 UNIT in 0.45% NACL 1 250ML.BAG IV SCH (06:15)
[2021-04-11] MEDS: FUROSEMIDE 10 MG/ML 4 ML VIAL IV SCH ×2 (06:45→18:04)
[2021-04-11] MEDS: METOPROLOL TARTRATE 25 MG TAB PO SCH ×2 (09:07→12:38)
[2021-04-11] MEDS ORDERED: hydrALAZINE HCL 50 MG TAB PO SCH (10:15)
--- NOTE | 2021-04-11 12:33 | CONS ---
CONSULTATION CHIEF COMPLAINT: Shortness of breath. Wilfredo is an 80-year-old gentleman with multiple medical problems including permanent atrial fibrillation, hypertension, diabetes, dyslipidemia, who is admitted to the hospital with symptoms of shortness of breath. He states that he has PND and orthopnea with some leg edema. He was admitted to hospital recently and an echocardiogram at that time revealed normal LV systolic function. He was evaluated. He was admitted at that time with dizziness and elevated troponin and had evidence of renal failure. At the time of my evaluation this morning, he appears comfortable at rest. Blood pressure is elevated. Patient is in atrial fibrillation with controlled ventricular rate, O2 saturation is 98% on 2 L. His BNP is elevated at 16,300. Troponins are mildly elevated at 0.5 and 0.4, but his tropes are elevated even on his last admission at 0.5. This could be due to the heart failure, could also be due to the renal insufficiency with elevated creatinine. PAST MEDICAL HISTORY: Significant for diastolic heart failure, hypertension, dyslipidemia, and permanent atrial fibrillation. MEDICATIONS: Medications at home included Eliquis 2.5 b.i.d., aspirin, atorvastatin, Cardura, Trulicity, insulin, Actos, Mysoline, Apresoline, Procardia. ALLERGY: HONEY BEE. FAMILY HISTORY: Negative for premature coronary artery disease. SOCIAL HISTORY: Negative for smoking, EtOH abuse, or drug abuse. He appears somewhat confused. REVIEW OF SYSTEMS: HEENT is unremarkable. CARDIAC as described above. RESPIRATORY as described above. GI negative. ENDOCRINE negative. ALLERGY none. SKIN: Negative. MUSCULOSKELETAL: Significant for arthritis. PSYCHOSOCIAL negative. ENDOCRINE negative. DERM negative. CONSTITUTIONAL negative. ONCOLOGICAL negative. BOOT REPAIRER negative. Rest of the system review is not relevant. PHYSICAL EXAMINATION: Patient is afebrile. Heart rate is 80 beats per minute, blood pressure is 158/72. Respiratory rate is 16, O2 saturation is 98% on 2 L. NECK: There is no jugular venous distention. Carotid upstroke is diminished. There is no bruit. CHEST exam reveals diminished air entry at the bases with occasional crackles. HEART exam reveals first and second heart sounds. Systolic murmur at the apex. ABDOMEN: Soft. Examination of EXTREMITIES reveals mild bilateral edema. Peripheral pulses are palpable. LABS: Show a hemoglobin of 12.6. Platelet count is 207. Potassium is 3.3, creatinine is 1.4. Troponins are mildly elevated. BNP is elevated. EKG shows atrial fibrillation with nonspecific ST-T wave changes. An echocardiogram in March showed normal LV systolic function with mild to moderate mitral and mild tricuspid regurgitation with normal RV systolic pressure. ASSESSMENT: 1. Acute exacerbation of chronic diastolic heart failure. 2. Permanent atrial fibrillation with controlled ventricular rate. 3. Chronic renal failure. PLAN: I will treat the patient with IV Lasix. Continue the beta blockers. ANGELICA inhibitors are contraindicated due to the renal failure. I will resume the hydralazine that the patient was on and Procardia if necessary. We should resume the Eliquis that the patient was on at home and stop the IV heparin. He is not a candidate for invasive procedures at this time. MMODL / IJN: [id number] /
[2021-04-11] MEDS: APIXABAN 2.5 MG TABLET PO SCH ×2 (12:37→20:26)
--- NOTE | 2021-04-11 12:37 | ECHOF ---
Referral Reason:chf MEASUREMENTS -------- HEIGHT: 177.8 cm WEIGHT: 78.5 kg BP: 155/77 IVSd: 1.4 cm (0.6 - 1.1) LVIDd: 3.0 cm (3.9 - 5.3) LVPWd: 1.5 cm (0.6 - 1.1) IVSs: 1.5 cm LVIDs: 1.6 cm LVPWs: 1.7 cm RAP: 5.00 mmHg RVSP: 16.42 mmHg FINDINGS -------- Limited Study The left ventricular size is normal. There is moderate concentric left ventricular hypertrophy. O verall left ventricular systolic function is normal with, an EF between 55 - 60 %. There is a trivial pericardial effusion present. Large Pleural Effusion. CONCLUSIONS -------- 1. There is moderate concentric left ventricular hypertrophy. 2. Overall left ventricular systolic function is normal with, an EF between 55 - 60 %. 3. There is a trivial pericardial effusion present. 4. Large Pleural Effusion. [employer] BOOKKEEPER: Skylar Edmonds RDCS
[2021-04-11] MEDS: ASPIRIN 81 MG PO SCH (12:38)
[2021-04-11 13:12] LABS: Glucose,Whole Blood 274 mg/dL (75-99)
[2021-04-11] MEDS ORDERED: INSULIN LISPRO 100 UNIT/ML SQ PRN (13:37)
[2021-04-11] MEDS ORDERED: NON FORMULARY DRUG (Aspirin Ec 81 MG Tablet.Dr) PO SCH (13:45)
[2021-04-11 14:19] VITALS: BMI 24.3
[2021-04-11] MEDS: PANTOPRAZOLE 40 MG TABLET PO SCH (15:24)
[2021-04-11] MEDS: NIFEdipine XL 90 MG TAB.ER.24 PO SCH (15:24)
[2021-04-11 17:23] LABS: Glucose,Whole Blood 261 mg/dL (75-99)
--- NOTE | 2021-04-11 17:26 | P.HPIM ---
History of Present Illness H&P Date: 04/11/21 Chief Complaint: Difficulty in breathing, cough, swelling of his lower extre mities Mr. Langley is an 80-year-old male with a past medical history of atrial fibrillation, diabetes mellitus, GERD, hypertension, hyperlipidemia, renal disease, chronic anemia, former smoker, into the hospital with a chief complaint of difficulty in breathing cough generalized weakness and swelling of bilateral lower extremities. Patient's at the bedside and also provided the history. Patient states for the past couple of days his been having cough with difficulty in breathing. Cough is mostly dry and sometimes whitish sputum. He denies having any fevers chills or rigors. Patient was complaining of generalized weakness and fatigue. He also states that he could not lie flat in the bed so he was using couple of pillows. He has paroxysmal nocturnal dyspnea. He also complains of swelling of his bilateral lower extremities. Patient has history of diastolic heart failure and atrial fibrillation, he is on anticoagulation with Eliquis. Patient denied having any chest pain or palpitations. She denies having any abdominal pain nausea vomiting or diarrhea. No dysuria or hematuria. Patient denies having any sick contacts. He was recently admitted in the hospital for dizziness and had acute kidney injury. He also had an echocardiogram done showing ejection fraction of 60-65% with severely dilated left atrium, [id number] mitral regurgitation. In the ER at the time of admission patient had a temperature of 98.8, heart rate 100, respiratory 22, blood pressure 189/73, saturating at 93% on 6 L of nasal cannula. On reviewing his labs white count of 14.5, hemoglobin 12.6, platelets 207. Sodium 126, percussion 3.3, chloride 97, bicarb 21, BUN 28, creatinine 1.4 . He has elevation in troponin 0.574, 0.492, 0.333 and albumin of 2.6. He had an EKG done showing atrial fibrillation with a rate around 80-90. Chest x-ray was showing mild congestive heart failure and new bilateral pleural effusions. Patient was started on a heparin drip, given ceftriaxone and Zithromax in breathing treatments and admitted for further management. Review of Systems REVIEW OF SYSTEMS: CONSTITUTIONAL: Fatigue and generalized weakness HEENT: No headache, no neck stiffness, no blurring of vision CARDIOVASCULAR: As per HPI PULMONARY: Cough, difficulty in breathing GASTROINTESTINAL: No Abdominal pain nausea vomiting or diarrhea NEUROLOGICAL: No focal weakness of extremities HEMATOLOGICAL: Denies any bleeding or petechiae. GENITOURINARY: Denies any burning micturition, frequency, or urgency. MUSCULOSKELETAL/RHEUMATOLOGICAL: Denies any joint pain, swelling, or any muscle pain. ENDOCRINE: Denies polyuria polydipsia or heat or cold intolerance The rest of the 14-point review of systems is negative. Past Medical History Past Medical History: Atrial Fibrillation, Diabetes Mellitus, GERD/Reflux, Hyperlipidemia, Hypertension, Pneumonia, Renal Disease Additional Past Medical History / Comment(s): NIDDM TYPE II, ANEMIA LONG AGO History of Any Multi-Drug Resistant Organisms: None Reported Past Surgical History: No Surgical Hx Reported Additional Past Surgical History / Comment(s): BILATERAL CATARACT REMOVALS WITH LENS IMPLANTS. Past Anesthesia/Blood Transfusion Reactions: No Reported Reaction Past Psychological History: No Psychological Hx Reported Smoking Status: Former smoker Past Alcohol Use History: Rare Past Drug Use History: None Reported - Past Family History Father Family Medical History: Diabetes Mellitus Additional Family Medical History / Comment(s): FATHER AT THE AGE OF 89YRS. Mother Family Medical History: COPD Additional Family Medical History / Comment(s): MOTHER HAD A "BAD HEART." SHE OF EMPHYSEMA AT THE AGE OF 68YRS. Brother(s) Additional Family Medical History / Comment(s): Alzheimer's Disease Medications and Allergies Home Medications Medication Instructions Recorded Confirmed Type Aspirin EC [Ecotrin Low Dose] 81 mg PO DAILY 05/28/17 04/11/21 History Atorvastatin [Lipitor] 80 mg PO HS 05/28/17 04/11/21 History EPINEPHrine (Auto Inject) [Epipen] 0.3 mg PO ONCE PRN 05/28/17 04/11/21 History Pioglitazone [Actos] 45 mg PO DAILY 05/28/17 04/11/21 History Primidone [Mysoline] 50 mg PO DAILY 05/28/17 04/11/21 History Apixaban [Eliquis] 2.5 mg PO BID #1 tab 06/02/17 04/11/21 Rx Dulaglutide [Trulicity] 1.5 mg SQ TU 04/04/19 04/11/21 History Ergocalciferol [Vitamin D2 (1250 1,250 mcg PO Q14D 03/22/21 04/11/21 History Mcg = 16313 Iu)] INSULIN LISPRO (HumaLOG) [humaLOG] See Protocol SQ TID-W/MEALS PRN 03/22/21 04/11/21 History Omeprazole Magnesium [PriLOSEC] 20 mg PO DAILY 03/22/21 04/11/21 History Doxazosin [Cardura] 2 mg PO HS #30 tab 03/26/21 04/11/21 Rx hydrALAZINE HCL [Apresoline] 100 mg PO TID #90 tablet 03/26/21 04/11/21 Rx Insulin Degludec [Tresiba 12 units SQ HS 04/11/21 04/11/21 History Flextouch U-200] NIFEdipine XL [Procardia Xl] 90 mg PO DAILY 04/11/21 04/11/21 History Allergies Allergy/AdvReac Type Severity Reaction Status Date / Time bee venom protein (honey bee) Allergy Anaphylaxis Verified 04/11/21 07:22 Physical Exam Vitals: Vital Signs Temp Pulse Pulse Resp BP BP Pulse Ox 04/11/21 13:10 96.7 F L 65 16 126/74 98 04/11/21 12:13 60 16 131/64 97 04/11/21 10:06 62 16 129/72 98 04/11/21 09:15 85 16 158/72 98 04/11/21 07:27 98.6 F 78 18 160/72 96 04/11/21 06:53 93 18 155/77 95 04/11/21 06:08 77 22 161/72 95 04/11/21 04:49 92 21 165/90 94 L 04/11/21 03:29 88 28 H 175/69 95 04/11/21 03:25 98 04/11/21 03:14 93 04/11/21 03:02 22 04/11/21 02:59 98.8 F 22 L 101 H 189/73 93 L Intake and Output 04/10/21 04/11/21 04/11/21 22:59 06:59 14:59 Output Total 1550 Balance -1550 Output: Urine 1300 Uretheral (Hill) 400 Post Void Residual 250 Other: Weight 78.471 kg 81.3 kg PHYSICAL EXAMINATION: GENERAL: Appears to be in no acute distress, chronically ill looking HEENT: Pupils are round and equally reacting to light. EOMI. No scleral icterus. No conjunctival pallor. CARDIOVASCULAR: S1 and S2 present. Irregularly irregular PULMONARY: Diminished breath sounds in both the bilateral lower lung thomson ABDOMEN: Soft,non -tender, normal bowel sounds. No guarding or rigidity. MUSCULOSKELETAL: No joint swelling or deformity. EXTREMITIES: Positive for bilateral pedal edema NEUROLOGICAL: Alert awake oriented 3 . Gross neurological examination did not reveal any focal deficits. SKIN:No rash Results CBC & Chem 7: 04/11/21 03:25 04/11/21 03:25 Labs: Abnormal Lab Results - Last 24 Hours (Table) 04/11/21 04/11/21 04/11/21 Range/Units 03:25 03:25 03:25 WBC 14.5 H (3.8-10.6) k/uL RBC 4.11 L (4.30-5.90) m/uL Hgb 12.6 L (13.0-17.5) gm/dL Hct 38.4 L (39.0-53.0) % Neutrophils # 13.1 H (1.3-7.7) k/uL Lymphocytes # 0.4 L (1.0-4.8) k/uL APTT 18.3 L (22.0-30.0) sec Sodium 126 L (137-145) mmol/L Potassium 3.3 L (3.5-5.1) mmol/L Chloride 97 L (98-107) mmol/L Carbon Dioxide 21 L (22-30) mmol/L BUN 28 H (9-20) mg/dL Creatinine 1.40 H (0.66-1.25) mg/dL Glucose 286 H (74-99) mg/dL POC Glucose (mg/dL) (75-99) mg/dL Calcium 7.9 L (8.4-10.2) mg/dL Total Bilirubin 1.5 H (0.2-1.3) mg/dL Alkaline Phosphatase 127 H (38-126) U/L Troponin I (0.000-0.034) ng/mL Total Protein 5.6 L (6.3-8.2) g/dL Albumin 2.6 L (3.5-5.0) g/dL 04/11/21 04/11/21 04/11/21 Range/Units 03:25 08:22 08:22 WBC (3.8-10.6) k/uL RBC (4.30-5.90) m/uL Hgb (13.0-17.5) gm/dL Hct (39.0-53.0) % Neutrophils # (1.3-7.7) k/uL Lymphocytes # (1.0-4.8) k/uL APTT 51.8 H (22.0-30.0) sec Sodium (137-145) mmol/L Potassium (3.5-5.1) mmol/L Chloride (98-107) mmol/L Carbon Dioxide (22-30) mmol/L BUN (9-20) mg/dL Creatinine (0.66-1.25) mg/dL Glucose (74-99) mg/dL POC Glucose (mg/dL) (75-99) mg/dL Calcium (8.4-10.2) mg/dL Total Bilirubin (0.2-1.3) mg/dL Alkaline Phosphatase (38-126) U/L Troponin I 0.574 H* 0.492 H* (0.000-0.034) ng/mL Total Protein (6.3-8.2) g/dL Albumin (3.5-5.0) g/dL 04/11/21 04/11/21 Range/Units 12:29 13:10 WBC (3.8-10.6) k/uL RBC (4.30-5.90) m/uL Hgb (13.0-17.5) gm/dL Hct (39.0-53.0) % Neutrophils # (1.3-7.7) k/uL Lymphocytes # (1.0-4.8) k/uL APTT 50.1 H (22.0-30.0) sec Sodium (137-145) mmol/L Potassium (3.5-5.1) mmol/L Chloride (98-107) mmol/L Carbon Dioxide (22-30) mmol/L BUN (9-20) mg/dL Creatinine (0.66-1.25) mg/dL Glucose (74-99) mg/dL POC Glucose (mg/dL) 274 H (75-99) mg/dL Calcium (8.4-10.2) mg/dL Total Bilirubin (0.2-1.3) mg/dL Alkaline Phosphatase (38-126) U/L Troponin I (0.000-0.034) ng/mL Total Protein (6.3-8.2) g/dL Albumin (3.5-5.0) g/dL Assessment and Plan Assessment: ASSESSMENT Acute diastolic congestive heart failure exacerbation Bilateral pleural effusion Hyponatremia hypervolemic Hypokalemia Chronic kidney disease stage III Elevated troponins Moderate protein calorie malnutrition Atrial fibrillation on anticoagulation with Eliquis Hypertension Hyperlipidemia GERD Diabetes mellitus Former smoker PLAN: Continue with IV Lasix Hold nephrotoxic agents Patient had an echocardiogram showing ejection fraction of 50-60% but severely dilated left atrium We'll consult pulmonary as the patient has bilateral pleural effusion Continue with anticoagulation for atrial fibrillation Unclear at this point of time with the patient has pneumonia or not, for now we'll continue with ceftriaxone and Zithromax Adjusted dose of insulin depending upon the patient's blood sugars GI DVT prophylaxis Overall prognosis is guarded Further recommendations depending on the progress of the patient
[2021-04-11] MEDS: INSULIN ASPART (NovoLOG) 100 UNIT/ML VIAL SQ SCH ×3 (18:03→20:25)
[2021-04-11] MEDS: hydrALAZINE HCL 50 MG TAB PO SCH ×2 (18:03→20:26)
[2021-04-11] MEDS: IPRATROPIUM-ALBUTEROL 3 ML NEB INHALATION PRN (19:28)
[2021-04-11] MEDS: INSULIN DETEMIR (LEVEMIR) 100 UNIT/ML SYR SQ SCH (20:26)
[2021-04-11] MEDS: ATORVASTATIN 40 MG TAB PO SCH (20:26)
[2021-04-11] MEDS: DOXAZOSIN 2 MG TAB PO SCH (20:26)
[2021-04-11 20:28] LABS: Glucose,Whole Blood 265 mg/dL (75-99)
[2021-04-11 21:02] LABS: Glucose,Whole Blood 244 mg/dL (75-99)
[2021-04-11] MEDS ORDERED: FUROSEMIDE 10 MG/ML 4 ML VIAL IV STA (21:07)
[2021-04-11 21:16] LABS: ABG Base Excess -0.5 mmol/L; ABG HCO3 24 mmol/L (21-25); ABG Oxygen Saturation 93.4 % (94-97); ABG PCO2 35 mmHg (35-45); ABG PH 7.44 (7.35-7.45); ABG PO2 65 mmHg (83-108); ABG TCO2 25 mmol/L (19-24); Allen Test Performed? Yes
--- NOTE | 2021-04-11 21:32 | XR ---
EXAMINATION TYPE: XR chest 1V portable DATE OF EXAM: 04/11/2021 CLINICAL HISTORY: Difficulty breathing and hypoxia. TECHNIQUE: Single AP portable upright view of the chest is obtained. COMPARISON: Chest x-ray from one day earlier and older studies FINDINGS: Mild to moderate central vascular congestion and interstitial edema is more prominent from prior study with more prominent visualized Desire B lines on current study. Small to tiny bilateral pleural effusions. Cardiac silhouette size is stable and within normal limits with atherosclerotic ch marybeth aortic knob. Degenerative change bilateral glenohumeral joints redemonstrated. IMPRESSION: Worsening central vascular congestion and interstitial edema.
[2021-04-11] MEDS ORDERED: NITROGLYCERIN OINT 1 INCH/GM PACKET TOPICAL ONE (22:01)
[2021-04-11] MEDS: NITROGLYCERIN OINT 1 INCH/GM PACKET TOPICAL SCH (22:09)
[2021-04-11] MEDS ORDERED: POTASSIUM CHLORIDE ER 20 MEQ TAB.ER PO STA (22:21)
--- NOTE | 2021-04-12 00:06 | P.EN ---
A team note Activated at 8:58 pm. Arrived on the scene shortly after. The patient who was admitted roughly 24 hours ago with impression of acute CHF exacerbation was found to be hypoxic and short of breath. Upon arrival, the patient was on a nonrebreather mask with SpO2 of 94%. He reported continued feelings of shortness of breath, which started over the past one hour. He denied chest pain, fever, chills. Also denied lower extremity pain or swelling. General: Non-toxic, in mild respiratory distress, appears stated age, normal weight HEENT: NC/AT, anicteric sclerae, moist conjunctiva, no lid-lag, PERRLA Cardiovascular: S1/S2 wnl, no murmurs, rubs, or gallops Lungs: Bilateral coarse breath sounds with some rales and wheezing, normal respiratory effort, no accessory muscle use Abdominal: Soft, non-tender, non-distended, no guarding, rebound, or rigidity Skin: Warm, dry Extremities: 1+ bilateral lower extremity pitting edema to knees Psychiatric: Alert and oriented to person, place and time, appropriate affect Neuro: CN II-XII grossly intact, no focal deficits noted Assessment/plan Shortness of breath, suspected secondary to flash pulmonary edema -EKG obtained and reviewed showing T-wave flattening in leads V5-V6 -Chest x-ray revealed worsening edema -Lasix 40 mg IV push ordered -Patient started on BiPAP -Cardiology and primary teams notified by the RN
[2021-04-12] MEDS: NITROGLYCERIN OINT 1 INCH/GM PACKET TOPICAL SCH ×3 (06:28→20:39)
[2021-04-12] MEDS: FUROSEMIDE 10 MG/ML 4 ML VIAL IV SCH ×2 (06:28→17:50)
[2021-04-12 07:24] LABS: Glucose,Whole Blood 181 mg/dL (75-99)
[2021-04-12] MEDS: INSULIN ASPART (NovoLOG) 100 UNIT/ML VIAL SQ SCH ×7 (07:50→20:40)
[2021-04-12] MEDS: AZITHROMYCIN 500 MG TAB PO SCH (07:55)
[2021-04-12] MEDS: NIFEdipine XL 90 MG TAB.ER.24 PO SCH (07:55)
[2021-04-12] MEDS: hydrALAZINE HCL 50 MG TAB PO SCH ×3 (07:56→20:39)
[2021-04-12] MEDS: APIXABAN 2.5 MG TABLET PO SCH ×2 (07:56→20:39)
[2021-04-12] MEDS: METOPROLOL TARTRATE 25 MG TAB PO SCH ×2 (07:56→20:39)
[2021-04-12] MEDS: ASPIRIN 81 MG PO SCH (07:56)
[2021-04-12] MEDS: PANTOPRAZOLE 40 MG TABLET PO SCH (07:56)
[2021-04-12] MEDS: IPRATROPIUM-ALBUTEROL 3 ML NEB INHALATION PRN ×2 (08:03→11:11)
[2021-04-12] MEDS ORDERED: ASPIRIN 325 MG TAB PO SCH (09:00)
[2021-04-12 09:23] LABS: Basophils % (A) 0 %; Eosinophils # (A) 0.1 k/uL (0-0.7); Eosinophils % (A) 1 %; HCT 34.2 % (39.0-53.0); HGB 11.1 gm/dL (13.0-17.5); Lymphocytes # (A) 0.8 k/uL (1.0-4.8); Lymphocytes % (A) 7 %; MCH 30.4 pg (25.0-35.0); MCHC 32.6 g/dL (31.0-37.0); MCV 93.4 fL (80.0-100.0); Mean Platelet Volume 8.4; Monocytes # (A) 0.7 k/uL (0-1.0); Monocytes % (A) 6 %; Neutrophils # (A) 9.8 k/uL (1.3-7.7); Neutrophils % (A) 85 %; Platelet Count 251 k/uL (150-450); RBC 3.66 m/uL (4.30-5.90); RDW 14.3 % (11.5-15.5); WBC 11.6 k/uL (3.8-10.6)
[2021-04-12 09:36] LABS: Albumin 2.6 g/dL (3.5-5.0); Calcium 7.6 mg/dL (8.4-10.2); Potassium 3.9 mmol/L (3.5-5.1); Total Bilirubin 0.8 mg/dL (0.2-1.3); Total Protein 5.7 g/dL (6.3-8.2)
[2021-04-12] MEDS ORDERED: FUROSEMIDE 10 MG/ML 10 ML VIAL IV STA (10:25)
[2021-04-12 11:05] LABS: Glucose,Whole Blood 236 mg/dL (75-99)
--- NOTE | 2021-04-12 14:20 | P.PN ---
Subjective Progress Note Date: 04/12/21 HISTORY OF PRESENT ILLNESS: This is a 80 year old male with chronic atrial fibrillation, hypertension, diabetes, and hyperlipidemia. Patient was admitted to the hospital due to shortn ess of breath. Patient was started on IV lasix. Patient experienced worsening respiratory distress overnight and an A-team was called. Patient was placed on Bipap. Patient was transferred to the ICU this morning for closer monitoring. Echo revealed EF 55-60%, trivial pericardial effusion, and large pleural effusion. PHYSICAL EXAM: VITAL SIGNS: Reviewed. GENERAL: Well-developed in no acute distress. NECK: Supple. No JVD or thyromegaly LUNGS: Respirations even and unlabored. Lungs diminished with bibasilar rales. HEART: Regular rate and rhythm. S1 and S2 heard. Systolic murmur. EXTREMITIES: Normal range of motion. No clubbing or cyanosis. Peripheral pulses intact. 1+ bilateral lower extremity edema ASSESSMENT: Shortness of breath Acute exacerbation of chronic diastolic heart failure Chronic persistent atrial fibrillation Chronic kidney disease Large pleural effusion PLAN: Continue current cardiac medications Continue IV lasix Accurate I&O Daily weights Monitor kidney function Further recommendations pending patient course Nurse practitioner note has been reviewed by physician. Signing provider agrees with the documented findings, assessment, and plan of care. Objective - Vital Signs Vital signs: Vital Signs Temp 98.3 F 04/12/21 11:30 Pulse 67 04/12/21 11:30 Resp 29 H 04/12/21 11:30 BP 118/59 04/12/21 11:30 Pulse Ox 98 04/12/21 11:30 Intake & Output 04/11/21 04/12/21 04/12/21 18:59 06:59 18:59 Intake Total 240 118 Output Total 1550 800 Balance -1310 -800 118 Weight 81.3 kg 81 kg Intake: Oral 240 118 Output: Urine 1300 800 Uretheral (Hill) 400 Post Void Residual 250 Other: Voiding Method Indwelling Catheter Indwelling Catheter # Bowel Movements 0 - Labs CBC & Chem 7: 04/12/21 08:21 04/12/21 08:21 Labs: Abnormal Lab Results - Last 24 Hours (Table) 04/11/21 04/11/21 04/11/21 Range/Units 17:22 20:20 21:01 WBC (3.8-10.6) k/uL RBC (4.30-5.90) m/uL Hgb (13.0-17.5) gm/dL Hct (39.0-53.0) % Neutrophils # (1.3-7.7) k/uL Lymphocytes # (1.0-4.8) k/uL D-Dimer (<0.60) mg/L FEU ABG pO2 (83-108) mmHg ABG Total CO2 (19-24) mmol/L ABG O2 Saturation (94-97) % Sodium (137-145) mmol/L Chloride (98-107) mmol/L Carbon Dioxide (22-30) mmol/L BUN (9-20) mg/dL Creatinine (0.66-1.25) mg/dL Glucose (74-99) mg/dL POC Glucose (mg/dL) 261 H 265 H 244 H (75-99) mg/dL Calcium (8.4-10.2) mg/dL Total Protein (6.3-8.2) g/dL Albumin (3.5-5.0) g/dL 04/11/21 04/11/21 04/12/21 Range/Units 21:14 21:41 07:16 WBC (3.8-10.6) k/uL RBC (4.30-5.90) m/uL Hgb (13.0-17.5) gm/dL Hct (39.0-53.0) % Neutrophils # (1.3-7.7) k/uL Lymphocytes # (1.0-4.8) k/uL D-Dimer 1.70 H (<0.60) mg/L FEU ABG pO2 65 L (83-108) mmHg ABG Total CO2 25 H (19-24) mmol/L ABG O2 Saturation 93.4 L (94-97) % Sodium (137-145) mmol/L Chloride (98-107) mmol/L Carbon Dioxide (22-30) mmol/L BUN (9-20) mg/dL Creatinine (0.66-1.25) mg/dL Glucose (74-99) mg/dL POC Glucose (mg/dL) 181 H (75-99) mg/dL Calcium (8.4-10.2) mg/dL Total Protein (6.3-8.2) g/dL Albumin (3.5-5.0) g/dL 04/12/21 04/12/21 04/12/21 Range/Units 08: 08:21 11:03 WBC 11.6 H (3.8-10.6) k/uL RBC 3.66 L (4.30-5.90) m/uL Hgb 11.1 L (13.0-17.5) gm/dL Hct 34.2 L (39.0-53.0) % Neutrophils # 9.8 H (1.3-7.7) k/uL Lymphocytes # 0.8 L (1.0-4.8) k/uL D-Dimer (<0.60) mg/L FEU ABG pO2 (83-108) mmHg ABG Total CO2 (19-24) mmol/L ABG O2 Saturation (94-97) % Sodium 124 L (137-145) mmol/L Chloride 93 L (98-107) mmol/L Carbon Dioxide 20 L (22-30) mmol/L BUN 48 H (9-20) mg/dL Creatinine 1.78 H (0.66-1.25) mg/dL Glucose 234 H (74-99) mg/dL POC Glucose (mg/dL) 236 H (75-99) mg/dL Calcium 7.6 L (8.4-10.2) mg/dL Total Protein 5.7 L (6.3-8.2) g/dL Albumin 2.6 L (3.5-5.0) g/dL Microbiology - Last 24 Hours (Table) 04/11/21 06:35 Blood Culture - Preliminary Blood No Growth after 24 hours 04/11/21 06:20 Blood Culture - Preliminary Blood No Growth after 24 hours 04/11/21 19:31 Gram Stain - Preliminary Sputum Sputum Culture - Preliminary
--- NOTE | 2021-04-12 15:30 | P.CNPUL ---
History of Present Illness Consult date: 04/12/21 Reason for consult: dyspnea History of present illness: 8-year-old male patient hospitalized for worsening shortness of breath. The patient was having orthopnea, unable to lay down flat in bed because of worsening shortness of breath. He is known to have history of CHF, diastolic heart failure, chronic atrial fibrillation and addition to diabetes mellitus and hypertension and hyperlipidemia and chronic kidney disease. Also suffers from chronic anemia. He was having some increased cough. Limited congestion. No chest pain. Over the past few days breathing got worse. He presented to the hospital because of worsening shortness of breath. Overnight he became more dyspneic and hypoxic. He was seen by the hospitalists and the patient was placed on a BiPAP and the patient was given additional dose of Lasix which somewhat improved his respiratory status. At the time of my evaluation, the patient was still struggling with his breathing. His pulse ox was around 76% on 6 L of oxygen by nasal cannula. At that point I put him back on a BiPAP at a pressure of 12/5 cm of water with an FiO2 of 100% and I transfer this patient to the intensive care unit. I also given additional dose of Lasix 60 mg IV push. Note that he was in atrial fibrillation. He was having some labored breathing. He was not using excessive muscle breathing. Limited edema in lower extremities bilaterally. His previous echocardiogram showed a preserved LV function with an ejection fraction of 665%, dilated LA, mild to moderate mitral regurgitation. His sodium is at time of admission was 126. BUN was 28 with a creatinine of 1.4. Troponins were minimally elevated at 0.5 and 0.4 and 0.3 respectively 3. EKG was consistent with atrial fibrillation, chest exit showed mild pulmonary vessel congestion and bilateral pleural effusion. Patient was started on IV heparin. The patient was given also Rocephin and Zithromax by the medical group regarding possibility of a pneumonia. His white cell count was at 14.5 with hemoglobin of 12.6. Review of Systems Constitutional: Reports fatigue, Reports weakness Eyes: denies as per HPI, denies blurred vision, denies bulging eye, denies d ecreased vision, denies diplopia, denies discharge, denies dry eye, denies irritation, denies itching, denies pain, denies photophobia, denies loss of peripheral vision, denies loss of vision, denies tunnel vision/blind spots Ears: deny: decreased hearing, ear discharge, earache, tinnitus Ears, nose, mouth and throat: Reports as per HPI Breasts: absent: as per HPI, gynecomastia Cardiovascular: Reports decreased exercise tolerance, Reports dyspnea on exertion, Reports irregular heart beat, Reports shortness of breath Respiratory: Reports cough, Reports dyspnea Gastrointestinal: Reports as per HPI Genitourinary: Reports as per HPI Musculoskeletal: Reports as per HPI Musculoskeletal: absent: ankle pain, ankle stiffness, ankle swelling Integumentary: Reports as per HPI Neurological: Reports as per HPI Psychiatric: Reports as per HPI Endocrine: Reports as per HPI Hematologic/Lymphatic: Reports as per HPI Allergic/Immunologic: Reports as per HPI Past Medical History Past Medical History: Atrial Fibrillation, Diabetes Mellitus, GERD/Reflux, Hyperlipidemia, Hypertension, Pneumonia, Renal Disease Additional Past Medical History / Comment(s): NIDDM TYPE II, ANEMIA CHRONIC History of Any Multi-Drug Resistant Organisms: None Reported Past Surgical History: No Surgical Hx Reported Additional Past Surgical History / Comment(s): BILATERAL CATARACT REMOVALS WITH LENS IMPLANTS. Past Anesthesia/Blood Transfusion Reactions: No Reported Reaction Past Psychological History: No Psychological Hx Reported Smoking Status: Former smoker Past Alcohol Use History: Rare Past Drug Use History: None Reported - Past Family History Father Family Medical History: Diabetes Mellitus Additional Family Medical History / Comment(s): FATHER AT THE AGE OF 89YRS. Mother Family Medical History: COPD Additional Family Medical History / Comment(s): MOTHER HAD A "BAD HEART." SHE OF EMPHYSEMA AT THE AGE OF 68YRS. Brother(s) Additional Family Medical History / Comment(s): Alzheimer's Disease Medications and Allergies Home Medications Medication Instructions Recorded Confirmed Type Aspirin EC [Ecotrin Low Dose] 81 mg PO DAILY 05/28/17 04/11/21 History Atorvastatin [Lipitor] 80 mg PO HS 05/28/17 04/11/21 History EPINEPHrine (Auto Inject) [Epipen] 0.3 mg PO ONCE PRN 05/28/17 04/11/21 History Pioglitazone [Actos] 45 mg PO DAILY 05/28/17 04/11/21 History Primidone [Mysoline] 50 mg PO DAILY 05/28/17 04/11/21 History Apixaban [Eliquis] 2.5 mg PO BID #1 tab 06/02/17 04/11/21 Rx Dulaglutide [Trulicity] 1.5 mg SQ TU 04/04/19 04/11/21 History Ergocalciferol [Vitamin D2 (1250 1,250 mcg PO Q14D 03/22/21 04/11/21 History Mcg = 43094 Iu)] INSULIN LISPRO (HumaLOG) [humaLOG] See Protocol SQ TID-W/MEALS PRN 03/22/21 04/11/21 History Omeprazole Magnesium [PriLOSEC] 20 mg PO DAILY 03/22/21 04/11/21 History Doxazosin [Cardura] 2 mg PO HS #30 tab 03/26/21 04/11/21 Rx hydrALAZINE HCL [Apresoline] 100 mg PO TID #90 tablet 03/26/21 04/11/21 Rx Insulin Degludec [Tresiba 12 units SQ HS 04/11/21 04/11/21 History Flextouch U-200] NIFEdipine XL [Procardia Xl] 90 mg PO DAILY 04/11/21 04/11/21 History Allergies Allergy/AdvReac Type Severity Reaction Status Date / Time bee venom protein (honey bee) Allergy Anaphylaxis Verified 04/11/21 07:22 Physical Exam Vitals: Vital Signs Temp Pulse Pulse Resp BP BP Pulse Ox 04/12/21 14:30 67 28 H 129/60 96 04/12/21 14:00 68 36 H 128/63 93 L 04/12/21 13:30 64 26 H 121/59 93 L 04/12/21 13:00 57 L 25 H 122/59 92 L 04/12/21 12:30 65 23 123/54 91 L 04/12/21 12:00 98.2 F 64 31 H 117/62 93 L 04/12/21 11:30 98.3 F 67 29 H 118/59 98 04/12/21 11:17 64 04/12/21 11:11 60 04/12/21 10:50 30 H 80 L 04/12/21 10:45 28 H 75 L 04/12/21 08:15 80 04/12/21 08:04 78 04/12/21 08:00 78 20 04/12/21 07:49 98.8 F 78 20 154/68 92 L 04/12/21 03:21 98.7 F 75 25 H 134/90 94 L 04/11/21 23:00 98.2 F 67 22 135/62 96 04/11/21 20:00 98.3 F 68 18 143/65 96 04/11/21 19:41 76 04/11/21 19:31 70 Intake and Output 04/12/21 04/12/21 04/12/21 06:59 14:59 22:59 Intake Total 118 Output Total 500 150 Balance -500 -32 Intake: Oral 118 Output: Urine 500 150 Other: Voiding Method Indwelling Catheter Indwelling Catheter Weight 81 kg mild degree of respiratory distress, placed on a BiPAP at a pressure of 12/5 with an FiO2 of 100%. Head exam was generally normal. There was no scleral icterus or corneal arcus. Mucous membranes were moist. Neck was supple and without jugular venous distension, thyromegaly, or carotid bruits. Carotids were easily palpable bilaterally. There was no adenopathy. Lungs sounds are quite diminished in lung bases bilaterally along with some dullness to percussion. No wheezes. Heart sounds are irregular, positive S1-S2, consistent with atrial fibrillation. Some accentuation of the second heart sound. No significant murmurs appreciated. Abdominal exam revealed normal bowel sounds. The abdomen was soft, non-tender, and without masses, organomegaly, or appreciable enlargement of the abdominal aorta Examination of the extremities revealed easily palpable radial, femoral and pedal pulses. There was no cyanosis, clubbing or edema. Examination of the skin revealed no evidence of significant rashes, suspicious appearing nevi or other concerning lesions. Neurologically, the patient is awake and alert and the patient does not have any focal neurological deficit. Cranial nerves are essentially intact. Results - Laboratory Findings CBC and BMP: 04/12/21 08:21 04/12/21 08:21 ABG ABG pH 7.44 (7.35-7.45) 04/11/21 21:14 ABG pCO2 35 mmHg (35-45) 04/11/21 21:14 ABG pO2 65 mmHg (83-108) L 04/11/21 21:14 ABG O2 Saturation 93.4 % (94-97) L 04/11/21 21:14 PT/INR, D-dimer PT 10.6 sec (9.0-12.0) 04/11/21 03:25 INR 1.0 (<1.2) 04/11/21 03:25 D-Dimer 1.70 mg/L FEU (<0.60) H 04/11/21 21:41 Abnormal lab findings: Abnormal Labs 04/11/21 04/11/21 04/11/21 03:25 03:25 03:25 WBC 14.5 H RBC 4.11 L Hgb 12.6 L Hct 38.4 L Neutrophils # 13.1 H Lymphocytes # 0.4 L APTT 18.3 L D-Dimer ABG pO2 ABG Total CO2 ABG O2 Saturation Sodium 126 L Potassium 3.3 L Chloride 97 L Carbon Dioxide 21 L BUN 28 H Creatinine 1.40 H Glucose 286 H POC Glucose (mg/dL) Calcium 7.9 L Total Bilirubin 1.5 H Alkaline Phosphatase 127 H Troponin I Total Protein 5.6 L Albumin 2.6 L 04/11/21 04/11/21 04/11/21 03:25 08:22 08:22 WBC RBC Hgb Hct Neutrophils # Lymphocytes # APTT 51.8 H D-Dimer ABG pO2 ABG Total CO2 ABG O2 Saturation Sodium Potassium Chloride Carbon Dioxide BUN Creatinine Glucose POC Glucose (mg/dL) Calcium Total Bilirubin Alkaline Phosphatase Troponin I 0.574 H* 0.492 H* Total Protein Albumin 04/11/21 04/11/21 04/11/21 12:29 12:29 13:10 WBC RBC Hgb Hct Neutrophils # Lymphocytes # APTT 50.1 H D-Dimer ABG pO2 ABG Total CO2 ABG O2 Saturation Sodium Potassium Chloride Carbon Dioxide BUN Creatinine Glucose POC Glucose (mg/dL) 274 H Calcium Total Bilirubin Alkaline Phosphatase Troponin I 0.333 H* Total Protein Albumin 04/11/21 04/11/21 04/11/21 17:22 20:20 21:01 WBC RBC Hgb Hct Neutrophils # Lymphocytes # APTT D-Dimer ABG pO2 ABG Total CO2 ABG O2 Saturation Sodium Potassium Chloride Carbon Dioxide BUN Creatinine Glucose POC Glucose (mg/dL) 261 H 265 H 244 H Calcium Total Bilirubin Alkaline Phosphatase Troponin I Total Protein Albumin 04/11/21 04/11/21 04/12/21 21:14 21:41 07:16 WBC RBC Hgb Hct Neutrophils # Lymphocytes # APTT D-Dimer 1.70 H ABG pO2 65 L ABG Total CO2 25 H ABG O2 Saturation 93.4 L Sodium Potassium Chloride Carbon Dioxide BUN Creatinine Glucose POC Glucose (mg/dL) 181 H Calcium Total Bilirubin Alkaline Phosphatase Troponin I Total Protein Albumin 04/12/21 04/12/21 04/12/21 08:21 08:21 11:03 WBC 11.6 H RBC 3.66 L Hgb 11.1 L Hct 34.2 L Neutrophils # 9.8 H Lymphocytes # 0.8 L APTT D-Dimer ABG pO2 ABG Total CO2 ABG O2 Saturation Sodium 124 L Potassium Chloride 93 L Carbon Dioxide 20 L BUN 48 H Creatinine 1.78 H Glucose 234 H POC Glucose (mg/dL) 236 H Calcium 7.6 L Total Bilirubin Alkaline Phosphatase Troponin I Total Protein 5.7 L Albumin 2.6 L - Diagnostic Findings Chest x-ray: image reviewed Assessment and Plan Plan: 1 acute hypoxic respiratory failure, likely on the basis of decompensated heart failure, bilateral pleural effusions, not pneumonia, doubt pulmonary embolism. Note that the patient had some abnormal troponin leak at a time of admission. This could be related to non-STEMI, although troponin leak in the setting of CHF and abnormal chronic kidney failure cannot be completely ruled out. 2 chronic atrial fibrillation 3 history of diastolic heart failure 4 chronic stage III kidney disease 5 hyponatremia, could be related to CHF 6 hypertension 7 hyperlipidemia 8 chronic anemia 9 diabetes mellitus type 2 Plan Give the patient additional dose of Lasix 60 mg IV push Put the patient on BiPAP at a pressure of 12/5 with an FiO2 of 100% Continue Lasix 40 mg IV every 12 hours Monitor I's and O's Transfer the patient to the intensive care unit Continue same antibiotic coverage Obtain noncontrast CAT scan of the chest Echocardiogram was noted Obtain cardiology consultation Continue anticoagulation We'll continue to follow.
[2021-04-12 16:51] LABS: Glucose,Whole Blood 157 mg/dL (75-99)
--- NOTE | 2021-04-12 16:55 | CT ---
EXAMINATION TYPE: CT chest wo con DATE OF EXAM: 04/12/2021 COMPARISON: None HISTORY: Dyspnea. CT DLP: 389.5 mGycm Automated exposure control for dose reduction was used. Images obtained from the thoracic inlet to the diaphragm with no contrast. There is moderate-sized bilateral pleural effusions. There is bilateral lower lobe pulmonary consolid ation and atelectasis. There is some mild infiltrate in both upper lobes which is mostly interstitial . Thoracic aorta is atheromatous. I see no mediastinal adenopathy. There is coronary artery calcifica tion. There is narrowing of the right lower lobe bronchi. The thoracic spine is intact. There is no compression fracture. There is spurring in the thoracic spi ne. Sternum is intact. There is some degenerative spurring in the mid and lower thoracic spine. IMPRESSION: Moderately large bilateral pleural effusions and larger on the right side. Occlusion of right lower l obe bronchi. Mass at the right pulmonary hilum not excluded. Bilateral lower lobe consolidation and a telectasis that is worse on the right side. Mild cardiomegaly. Atherosclerotic vascular disease.
[2021-04-12 18:45] LABS: Chol/HDL Ratio 2.31
[2021-04-12 20:27] LABS: Glucose,Whole Blood 259 mg/dL (75-99)
[2021-04-12] MEDS: ATORVASTATIN 40 MG TAB PO SCH (20:39)
[2021-04-12] MEDS: INSULIN DETEMIR (LEVEMIR) 100 UNIT/ML SYR SQ SCH (20:40)
[2021-04-12] MEDS: DOXAZOSIN 2 MG TAB PO SCH (20:48)
[2021-04-12] MEDS: TEMAZEPAM 15 MG CAP PO PRN (20:51)
[2021-04-12] MEDS ORDERED: NITROGLYCERIN OINT 1 INCH/GM PACKET TOPICAL SCH (21:49)
[2021-04-12] MEDS: MORPHINE SULFATE 4 MG/ML SYRINGE IV PRN (22:02)
--- NOTE | 2021-04-13 00:05 | P.PN ---
Subjective Progress Note Date: 04/12/21 Principal diagnosis: Acute Hypoxic Respiratory failure Mr. Langley is an 80-year-old male with a past medical history of atrial fibrillation, diabetes mellitus, GERD, hypertension, hyperlipidemia, renal disease, chronic anemia, former smoker, into the hospital with a chief complaint of difficulty in breathing cough generalized weakness and swelling of bilateral lower extremities. Patient's at the bedside and also provided the history. Patient states for the past couple of days his been having cough with difficulty in breathing. Cough is mostly dry and sometimes whitish sputum. He denies having any fevers chills or rigors. Patient was complaining of generalized weakness and fatigue. He also states that he could not lie flat in the bed so he was using couple of pillows. He has paroxysmal nocturnal dyspnea. He also complains of swelling of his bilateral lower extremities. Patient has history of diastolic heart failure and atrial fibrillation, he is on ant icoagulation with Eliquis. Patient denied having any chest pain or palpitations. She denies having any abdominal pain nausea vomiting or diarrhea. No dysuria or hematuria. Patient denies having any sick contacts. He was recently admitted in the hospital for dizziness and had acute kidney injury. He also had an echocardiogram done showing ejection fraction of 60-65% with severely dilated left atrium, [id number] mitral regurgitation. In the ER at the time of admission patient had a temperature of 98.8, heart rate 100, respiratory 22, blood pressure 189/73, saturating at 93% on 6 L of nasal cannula. On reviewing his labs white count of 14.5, hemoglobin 12.6, platelets 207. Sodium 126, percussion 3.3, chloride 97, bicarb 21, BUN 28, creatinine 1.4. He has elevation in troponin 0.574, 0.492, 0.333 and albumin of 2.6. He had an EKG done showing atrial fibrillation with a rate around 80-90. Chest x- ray was showing mild congestive heart failure and new bilateral pleural effusi ons. Patient was started on a heparin drip, given ceftriaxone and Zithromax in breathing treatments and admitted for further management. On 04/12/2021-last night around 9 PM patient was found to be hypoxic and short of breath and rapid response team was activated. Patient was placed on n onrebreather, given IV Lasix and transferred to the ICU early this morning. Currently the patient is in the ICU on BiPAP and states that his breathing is much better on BiPAP. He states that the BiPAP is helping him a lot. On reviewing the patient's vitals temperature of 98, heart rate 65, respiratory rate 20, blood pressure 133/64 saturating at about 90% on BiPAP 12 / 5 cm of water with 100% FiO2. On reviewing the patient's vitals from this morning white count of 11.6, hemoglobin 11.1, platelets 251. Sodium 124, potassium 3.9, chloride 93, bicarb 20, BUN a 48, creatinine 1.78. Complete ROS could not be done as pt is on BiPAP Active Medications Albuterol/Ipratropium (Ipratropium-Albuterol 3 Ml Neb) 3 ml INHALATION RT-Q4H PRN PRN Reason: shortness of breath Last Admin: 04/12/21 11:11 Dose: 3 ml Documented by: Apixaban (Apixaban 2.5 Mg Tablet) 2.5 mg PO BID [facility]; Protocol Last Admin: 04/12/21 20:39 Dose: 2.5 mg Documented by: Aspirin (Aspirin 81 Mg) 81 mg PO DAILY [facility] Last Admin: 04/12/21 07:56 Dose: 81 mg Documented by: Atorvastatin Calcium (Atorvastatin 40 Mg Tab) 40 mg PO [facility] Last Admin: 04/12/21 20:39 Dose: 40 mg Documented by: Azithromycin (Azithromycin 500 Mg Tab) 500 mg PO DAILY [facility] Stop: 04/16/21 09:01 Last Admin: 04/12/21 07:55 Dose: 500 mg Documented by: Doxazosin Mesylate (Doxazosin 2 Mg Tab) 2 mg PO HS [facility] Last Admin: 04/12/21 20:48 Dose: 2 mg Documented by: Ergocalciferol (Ergocalciferol 1,250 Mcg (50,000 Iu) Capsule) 1,250 mcg PO Q14D [facility] Furosemide (Furosemide 10 Mg/Ml 4 Ml Vial) 40 mg IV Q12H [facility] Last Admin: 04/12/21 17:50 Dose: 40 mg Documented by: Hydralazine HCl (Hydralazine Hcl 50 Mg Tab) 100 mg PO TID [facility] Last Admin: 04/12/21 20:39 Dose: 100 mg Documented by: Ceftriaxone Sodium 2 gm/ (Sodium Chloride) 50 mls @ 100 mls/hr IVPB Q24H [facility] Last Admin: 04/12/21 07:55 Dose: 100 mls/hr Documented by: Insulin Aspart (Insulin Aspart (Novolog) 100 Unit/Ml Vial) 0 unit SQ ACHS [facility]; Protocol Last Admin: 04/12/21 20:40 Dose: 4 unit Documented by: Insulin Aspart (Insulin Aspart (Novolog) 100 Unit/Ml Vial) 2 unit SQ AC-TID [facility] Last Admin: 04/12/21 17:50 Dose: 2 unit Documented by: Insulin Detemir (Insulin Detemir (Levemir) 100 Unit/Ml Syr) 12 unit SQ HS [facility] Last Admin: 04/12/21 20:40 Dose: 12 unit Documented by: Metoprolol Tartrate (Metoprolol Tartrate 25 Mg Tab) 25 mg PO BID [facility] Last Admin: 04/12/21 20:39 Dose: 25 mg Documented by: Miscellaneous Information (Pneumonia Protocol Utilized 1 Each Misc) 1 each PO ONCE PRN PRN Reason: Per Protocol Morphine Sulfate (Morphine Sulfate 4 Mg/Ml Syringe) 4 mg IV Q4HR PRN PRN Reason: Chest Pain Last Admin: 04/12/21 22:02 Dose: 4 mg Documented by: Nifedipine (Nifedipine Xl 90 Mg Tab.Er.24) 90 mg PO DAILY [facility] Last Admin: 04/12/21 07:55 Dose: 90 mg Documented by: Nitroglycerin (Nitroglycerin Sl Tabs 0.4 Mg Tab) 0.4 mg SUBLINGUAL Q5M PRN PRN Reason: Chest Pain Nitroglycerin (Nitroglycerin Oint 1 Inch/Gm Packet) 1 inch TOPICAL Q8H [facility] Last Admin: 04/12/21 20:39 Dose: 1 inch Documented by: Patient's Own ( Dulaglutide [ Trulicity] 1.5 Mg/0. 5 Ml Pen.Injctr) 1.5 mg SQ TU [facility] Pantoprazole Sodium (Pantoprazole 40 Mg Tablet) 40 mg PO DAILY [facility] Last Admin: 04/12/21 07:56 Dose: 40 mg Documented by: Temazepam (Temazepam 15 Mg Cap) 15 mg PO HS PRN PRN Reason: Insomnia Last Admin: 04/12/21 20:51 Dose: 15 mg Documented by: Objective - Vital Signs Vital signs: Vital Signs Temp 98.3 F 04/12/21 11:30 Pulse 67 04/12/21 11:30 Resp 29 H 04/12/21 11:30 BP 118/59 04/12/21 11:30 Pulse Ox 98 04/12/21 11:30 Intake & Output 04/11/21 04/12/21 04/12/21 18:59 06:59 18:59 Intake Total 240 118 Output Total 1550 800 Balance -1310 -800 118 Weight 81.3 kg 81 kg Intake: Oral 240 118 Output: Urine 1300 800 Uretheral (Hill) 400 Post Void Residual 250 Other: Voiding Method Indwelling Catheter Indwelling Catheter # Bowel Movements 0 - Exam PHYSICAL EXAMINATION: GENERAL: in the ICU on BiPAP HEENT: Pupils are round and equally reacting to light. EOMI. No scleral icterus. No conjunctival pallor. CARDIOVASCULAR: S1 and S2 present. Irregularly irregular PULMONARY: Diminished breath sounds in both the bilateral lower lung thomson ABDOMEN: Soft,non -tender, normal bowel sounds. No guarding or rigidity. MUSCULOSKELETAL: No joint swelling or deformity. EXTREMITIES: Positive for bilateral pedal edema NEUROLOGICAL: Alert awake oriented 3 . Gross neurological examination did not reveal any focal deficits. SKIN:No rash - Labs CBC & Chem 7: 04/12/21 08:21 04/12/21 08:21 Labs: Abnormal Lab Results - Last 24 Hours (Table) 04/11/21 04/11/21 04/11/21 Range/Units 17:22 20:20 21:01 WBC (3.8-10.6) k/uL RBC (4.30-5.90) m/uL Hgb (13.0-17.5) gm/dL Hct (39.0-53.0) % Neutrophils # (1.3-7.7) k/uL Lymphocytes # (1.0-4.8) k/uL D-Dimer (<0.60) mg/L FEU ABG pO2 (83-108) mmHg ABG Total CO2 (19-24) mmol/L ABG O2 Saturation (94-97) % Sodium (137-145) mmol/L Chloride (98-107) mmol/L Carbon Dioxide (22-30) mmol/L BUN (9-20) mg/dL Creatinine (0.66-1.25) mg/dL Glucose (74-99) mg/dL POC Glucose (mg/dL) 261 H 265 H 244 H (75-99) mg/dL Calcium (8.4-10.2) mg/dL Total Protein (6.3-8.2) g/dL Albumin (3.5-5.0) g/dL 04/11/21 04/11/21 04/12/21 Range/Units 21:14 21:41 07:16 WBC (3.8-10.6) k/uL RBC (4.30-5.90) m/uL Hgb (13.0-17.5) gm/dL Hct (39.0-53.0) % Neutrophils # (1.3-7.7) k/uL Lymphocytes # (1.0-4.8) k/uL D-Dimer 1.70 H (<0.60) mg/L FEU ABG pO2 65 L (83-108) mmHg ABG Total CO2 25 H (19-24) mmol/L ABG O2 Saturation 93.4 L (94-97) % Sodium (137-145) mmol/L Chloride (98-107) mmol/L Carbon Dioxide (22-30) mmol/L BUN (9-20) mg/dL Creatinine (0.66-1.25) mg/dL Glucose (74-99) mg/dL POC Glucose (mg/dL) 181 H (75-99) mg/dL Calcium (8.4-10.2) mg/dL Total Protein (6.3-8.2) g/dL Albumin (3.5-5.0) g/dL 04/12/21 04/12/21 04/12/21 Range/Units 08:21 08:21 11:03 WBC 11.6 H (3.8-10.6) k/uL RBC 3.66 L (4.30-5.90) m/uL Hgb 11.1 L (13.0-17.5) gm/dL Hct 34.2 L (39.0-53.0) % Neutrophils # 9.8 H (1.3-7.7) k/uL Lymphocytes # 0.8 L (1.0-4.8) k/uL D-Dimer (<0.60) mg/L FEU ABG pO2 (83-108) mmHg ABG Total CO2 (19-24) mmol/L ABG O2 Saturation (94-97) % Sodium 124 L (137-145) mmol/L Chloride 93 L (98-107) mmol/L Carbon Dioxide 20 L (22-30) mmol/L BUN 48 H (9-20) mg/dL Creatinine 1.78 H (0.66-1.25) mg/dL Glucose 234 H (74-99) mg/dL POC Glucose (mg/dL) 236 H (75-99) mg/dL Calcium 7.6 L (8.4-10.2) mg/dL Total Protein 5.7 L (6.3-8.2) g/dL Albumin 2.6 L (3.5-5.0) g/dL Microbiology - Last 24 Hours (Table) 04/11/21 06:35 Blood Culture - Preliminary Blood No Growth after 24 hours 04/11/21 06:20 Blood Culture - Preliminary Blood No Growth after 24 hours 04/11/21 19:31 Gram Stain - Preliminary Sputum Sputum Culture - Preliminary Assessment and Plan Assessment: ASSESSMENT Acute Hypoxic respiratory failure due to CHF exacerbation, Bilateral Pleural effusions Acute diastolic congestive heart failure exacerbation Bilateral pleural effusion Hyponatremia hypervolemic Hypokalemia Chronic kidney disease stage III Elevated troponins Moderate protein calorie malnutrition Atrial fibrillation on anticoagulation with Eliquis Hypertension Hyperlipidemia GERD Diabetes mellitus Former smoker PLAN: Continue to monitor in [facility] on BiPAP Continue with IV Lasix, Hold nephrotoxic agents and will consult Nephrology Patient had an echocardiogram showing ejection fraction of 50-60% but severely d ilated left atrium, Cardiology consulted Pulmonary consulted and ordered a CT sca of the chest for bilateral pleural effusion Continue with anticoagulation for atrial fibrillation Unclear at this point of time with the patient has pneumonia or not, for now we'll continue with ceftriaxone and Zithromax Adjusted dose of insulin depending upon the patient's blood sugars GI DVT prophylaxis Overall prognosis is guarded Further recommendations depending on the progress of the patient
[2021-04-13] MEDS: MORPHINE SULFATE 4 MG/ML SYRINGE IV PRN ×2 (02:04→17:15)
[2021-04-13 04:37] LABS: Basophils % (A) 0 %; Eosinophils % (A) 0 %; HCT 31.7 % (39.0-53.0); HGB 10.4 gm/dL (13.0-17.5); Lymphocytes # (A) 0.6 k/uL (1.0-4.8); Lymphocytes % (A) 4 %; MCH 30.5 pg (25.0-35.0); MCHC 32.9 g/dL (31.0-37.0); MCV 92.6 fL (80.0-100.0); Monocytes # (A) 0.7 k/uL (0-1.0); Monocytes % (A) 6 %; Neutrophils # (A) 11.7 k/uL (1.3-7.7); Neutrophils % (A) 88 %; Platelet Count 254 k/uL (150-450); RBC 3.42 m/uL (4.30-5.90); RDW 14.1 % (11.5-15.5); WBC 13.3 k/uL (3.8-10.6)
[2021-04-13 04:53] LABS: Albumin 2.5 g/dL (3.5-5.0); Calcium 7.8 mg/dL (8.4-10.2); Potassium 3.5 mmol/L (3.5-5.1); Total Bilirubin 0.5 mg/dL (0.2-1.3); Total Protein 5.5 g/dL (6.3-8.2)
[2021-04-13 06:42] LABS: Glucose,Whole Blood 181 mg/dL (75-99)
[2021-04-13] MEDS: INSULIN ASPART (NovoLOG) 100 UNIT/ML VIAL SQ SCH ×7 (07:18→21:18)
[2021-04-13] MEDS: NITROGLYCERIN OINT 1 INCH/GM PACKET TOPICAL SCH ×3 (07:19→23:48)
[2021-04-13] MEDS: FUROSEMIDE 10 MG/ML 4 ML VIAL IV SCH (07:19)
--- NOTE | 2021-04-13 07:45 | XR ---
EXAMINATION TYPE: XR chest 1V portable DATE OF EXAM: 04/13/2021 COMPARISON: 04/11/2021 and prior HISTORY: Shortness of breath TECHNIQUE: Single frontal view of the chest is obtained. FINDINGS AND IMPRESSION: Suboptimal technique, limited evaluation. Mild pulmonary vascular congestion and bilateral opacities which may be on the basis of atelectasis a nd/or pneumonia, interval improvement. New small right pleural effusion. No large left pleural effusion. No pneumothorax. Enlarged cardiac silhouette similar to prior study. Mediastinal silhouette within normal limit. Thoracic aorta atherosclerotic calcifications, stable. Degenerative changes in the spine, no acute osseous abnormality.
[2021-04-13] MEDS ORDERED: Potassium Replacement Protocol 1 EACH MISC MISCELLANE PRN (07:50)
[2021-04-13] MEDS: IPRATROPIUM-ALBUTEROL 3 ML NEB INHALATION PRN ×2 (07:55→16:11)
[2021-04-13] MEDS: METOPROLOL TARTRATE 25 MG TAB PO SCH ×2 (08:28→21:20)
[2021-04-13] MEDS: PANTOPRAZOLE 40 MG TABLET PO SCH (08:28)
[2021-04-13] MEDS: AZITHROMYCIN 500 MG TAB PO SCH (08:28)
[2021-04-13] MEDS: hydrALAZINE HCL 50 MG TAB PO SCH ×3 (08:30→22:24)
[2021-04-13] MEDS: ASPIRIN 81 MG PO SCH (08:30)
[2021-04-13] MEDS: NIFEdipine XL 90 MG TAB.ER.24 PO SCH (08:31)
[2021-04-13] MEDS ORDERED: FUROSEMIDE 100 MG in SODIUM CHLORIDE 0.9% 90 ML IV SCH (08:45)
--- NOTE | 2021-04-13 09:06 | P.PN ---
Subjective Progress Note Date: 04/13/21 80-year-old male patient hospitalized for worsening shortness of breath. The patient was having orthopnea, unable to lay down flat in bed because of worsening shortness of breath. He is known to have history of CHF, diastolic heart failure, chronic atrial fibrillation and addition to diabetes mellitus and hypertension and hyperlipidemia and chronic kidney disease. Also suffers from chronic anemia. He was having some increased cough. Limited congestion. No chest pain. Over the past few days breathing got worse. He presented to the hospital because of worsening shortness of breath. Overnight he became more dyspneic and hypoxic. He was seen by the hospitalists and the patient was placed on a BiPAP and the patient was given additional dose of Lasix which somewhat improved his respiratory status. At the time of my evaluation, the patient was still struggling with his breathing. His pulse ox was around 76% on 6 L of oxygen by nasal cannula. At that point I put him back on a BiPAP at a pressure of 12/5 cm of water with an FiO2 of 100% and I transfer this patient to the intensive care unit. I also given additional dose of Lasix 60 mg IV push. Note that he was in atrial fibrillation. He was having some labored breathing. He was not using excessive muscle breathing. Limited edema in lower extremities bilaterally. His previous echocardiogram showed a preserved LV function with an ejection fraction of 665%, dilated LA, mild to moderate mitral regurgitation. His sodium is at time of admission was 126. BUN was 28 with a creatinine of 1.4. Troponins were minimally elevated at 0.5 and 0.4 and 0.3 respectively 3. EKG was consistent with atrial fibrillation, chest exit showed mild pulmonary vessel congestion and bilateral pleural effusion. Patient was started on IV he liliana. The patient was given also Rocephin and Zithromax by the medical group regarding possibility of a pneumonia. His white cell count was at 14.5 with hemoglobin of 12.6. On today's evaluation of 04/13/2021, the patient seems in much more awake compared to yesterday. More interactive. He is less short of breath. He was taken briefly off the BiPAP. Nevertheless, he seems felt to be wanting the BiPAP and benefiting from the BiPAP which is running at a pressure of 12/6 cm of water with an FiO2 of 80%. He was diuresed with Lasix IV and his fluid balance is -2.1 L over the past 24 hours. He is headed towards a negative fluid balance. CAT scan of the chest was completed yesterday and it showed moderate to large sized bilateral pleural effusion, worse on the right, there is also ate lectatic changes in the lung bases. There is also occlusion of the right lower lobe bronchus which obviously raises the concern for underlying lesion within the right lower lobe. I think this is probably related to atelectasis. He does have some mild cardiomegaly. He was dynamically stable. No hypotension. On his blood work, the patient has a white cell count of 15.3. Sodium is 124. Creatinine is at 58 with a creatinine of 2.3. Legionella urine antigen came back negative. He remains on anticoagulation with Eliquis. His cardiac rhythm remains a atrial fibrillation. Nephrology evaluated this patient and want to start the patient on a Lasix drip. He remains on empiric antibiotic coverage with a combination of Rocephin and Zithromax. Objective - Vital Signs Vital signs: Vital Signs Temp 98.2 F 04/13/21 04:00 Pulse 74 04/13/21 08:06 Resp 16 04/13/21 07:30 BP 122/100 04/13/21 07:30 Pulse Ox 90 L 04/13/21 07:30 Intake & Output 04/12/21 04/13/21 04/13/21 18:59 06:59 18:59 Intake Total 368 240 Output Total 360 435 30 Balance 8 -195 -30 Weight 84.5 kg Intake: Oral 368 240 Output: Urine 360 435 30 Other: Voiding Method Indwelling Catheter Indwelling Catheter - Exam mild degree of respiratory distress, placed on a BiPAP at a pressure of 12/5 with an FiO2 of 80%. Head exam was generally normal. There was no scleral icterus or corneal arcus. Mucous membranes were moist. Neck was supple and without jugular venous distension, thyromegaly, or carotid bruits. Carotids were easily palpable bilaterally. There was no adenopathy. Lungs sounds are quite diminished in lung bases bilaterally along with some dull ness to percussion. No wheezes. Heart sounds are irregular, positive S1-S2, consistent with atrial fibrillation. Some accentuation of the second heart sound. No significant murmurs appreciated. Abdominal exam revealed normal bowel sounds. The abdomen was soft, non-tender, and without masses, organomegaly, or appreciable enlargement of the abdominal aorta Examination of the extremities revealed easily palpable radial, femoral and pedal pulses. There was no cyanosis, clubbing or edema. Examination of the skin revealed no evidence of significant rashes, suspicious appearing nevi or other concerning lesions. Neurologically, the patient is awake and alert and the patient does not have any focal neurological deficit. Cranial nerves are essentially intact. - Labs CBC & Chem 7: 04/13/21 04:17 04/13/21 04:17 Labs: Abnormal Lab Results - Last 24 Hours (Table) 04/12/21 04/12/21 04/12/21 Range/Units 08:21 08:21 11:03 WBC 11.6 H (3.8-10.6) k/uL RBC 3.66 L (4.30-5.90) m/uL Hgb 11.1 L (13.0-17.5) gm/dL Hct 34.2 L (39.0-53.0) % Neutrophils # 9.8 H (1.3-7.7) k/uL Lymphocytes # 0.8 L (1.0-4.8) k/uL Sodium 124 L (137-145) mmol/L Chloride 93 L (98-107) mmol/L Carbon Dioxide 20 L (22-30) mmol/L BUN 48 H (9-20) mg/dL Creatinine 1.78 H (0.66-1.25) mg/dL Glucose 234 H (74-99) mg/dL POC Glucose (mg/dL) 236 H (75-99) mg/dL Calcium 7.6 L (8.4-10.2) mg/dL Total Protein 5.7 L (6.3-8.2) g/dL Albumin 2.6 L (3.5-5.0) g/dL 04/12/21 04/12/21 04/13/21 Range/Units 16:49 20:25 04:17 WBC 13.3 H (3.8-10.6) k/uL RBC 3.42 L (4.30-5.90) m/uL Hgb 10.4 L (13.0-17.5) gm/dL Hct 31.7 L (39.0-53.0) % Neutrophils # 11.7 H (1.3-7.7) k/uL Lymphocytes # 0.6 L (1.0-4.8) k/uL Sodium (137-145) mmol/L Chloride (98-107) mmol/L Carbon Dioxide (22-30) mmol/L BUN (9-20) mg/dL Creatinine (0.66-1.25) mg/dL Glucose (74-99) mg/dL POC Glucose (mg/dL) 157 H 259 H (75-99) mg/dL Calcium (8.4-10.2) mg/dL Total Protein (6.3-8.2) g/dL Albumin (3.5-5.0) g/dL 04/13/21 04/13/21 Range/Units 04:17 06:41 WBC (3.8-10.6) k/uL RBC (4.30-5.90) m/uL Hgb (13.0-17.5) gm/dL Hct (39.0-53.0) % Neutrophils # (1.3-7.7) k/uL Lymphocytes # (1.0-4.8) k/uL Sodium 124 L (137-145) mmol/L Chloride 93 L (98-107) mmol/L Carbon Dioxide (22-30) mmol/L BUN 58 H (9-20) mg/dL Creatinine 2.38 H (0.66-1.25) mg/dL Glucose 154 H (74-99) mg/dL POC Glucose (mg/dL) 181 H (75-99) mg/dL Calcium 7.8 L (8.4-10.2) mg/dL Total Protein 5.5 L (6.3-8.2) g/dL Albumin 2.5 L (3.5-5.0) g/dL Microbiology - Last 24 Hours (Table) 04/11/21 06:35 Blood Culture - Preliminary Blood No Growth after 48 hours 04/11/21 06:20 Blood Culture - Preliminary Blood No Growth after 48 hours 04/11/21 19:31 Gram Stain - Preliminary Sputum Sputum Culture - Preliminary Assessment and Plan Plan: 1 acute hypoxic respiratory failure, likely on the basis of decompensated heart failure, and large bilateral pleural effusions, not pneumonia, doubt pulmonary embolism. Note that the patient had some abnormal troponin leak at a time of admission. This could be related to non-STEMI, although troponin leak in the setting of CHF and abnormal chronic kidney failure cannot be completely ruled out. Computed tomography scan of the chest was done and the patient has moderate to large bilateral pleural effusion. The patient would benefit from immediate or urgent thoracentesis. He still BiPAP dependent. Despite his diuresis, he continues to be BiPAP dependent. Knowing that he is on Eliquis, I think the risk-benefit of the procedure favors performing it to give him immediate symptomatic relief.. Not associated his Eliquis this morning. Prefer to drain his right lung as the patient has a large right-sided pleural effusion which is currently significant respiratory compromise., Doubt any endobronchial tumor involving the right lower lobe and the findings on the CAT scan is probably related to compressive atelectasis due to large bilateral pleural effusions. 2 chronic atrial fibrillation 3 history of diastolic heart failure 4 chronic stage III kidney disease, With a component of an acute kidney injury 5 hyponatremia, could be related to CHF 6 hypertension 7 hyperlipidemia 8 chronic anemia 9 diabetes mellitus type 2 Plan We'll proceed with a right-sided thoracentesis Hold Eliquis for today Continue Lasix and utilize drip as recommended by nephrology Put the patient on BiPAP at a pressure of 12/5 with an FiO2 of 80% Gradually wean off the FiO2 and probably BiPAP postthoracentesis Continue Lasix 40 mg IV every 12 hours Monitor I's and O's Echocardiogram was noted cardiology consultation We'll continue to follow.
--- NOTE | 2021-04-13 09:17 | P.NPCON ---
History of Present Illness - Reason for Consult acute renal failure, chronic renal failure - History of Present Illness Reason for consultation: Acute kidney injury on chronic kidney disease History of present illness: A stent patient is a 80-year-old male seen in renal consultation for acute kidney injury on chronic disease. Patient has chronic kidney disease stage III. Baseline creatinine near 1.5. Patient presented to the hospital with shortness of breath. Patient was initially on a medical floor and developed worsening or shortness of breath and a rapid team was called. He received IV Lasix and was subsequently transferred to the ICU. He is currently on nasal cannula. Urine output has been about 30-40 mL an hour. He is maintained on IV Lasix 40 mg twice daily. Sodium level is also low at 124. Patient's chest CT revealed a lateral pleural effusions. He is scheduled for thoracentesis today. No vomiting or diarrhea. No fever or chills. Denies use of nonsteroidals. He does have long-standing history of diabetes mellitus. Blood pressures controlled. Vital signs are stable. General: On nasal cannula. HEENT: Head exam is unremarkable. Neck is without jugular venous distension. LUNGS: Breath sounds decreased. HEART: Rate and Rhythm are regular. ABDOMEN: Soft, no distention. EXTREMITITES: 1+ edema. Past Medical History Past Medical History: Atrial Fibrillation, Diabetes Mellitus, GERD/Reflux, Hyperlipidemia, Hypertension, Pneumonia, Renal Disease Additional Past Medical History / Comment(s): NIDDM TYPE II, ANEMIA CHRONIC History of Any Multi-Drug Resistant Organisms: None Reported Past Surgical History: No Surgical Hx Reported Additional Past Surgical History / Comment(s): BILATERAL CATARACT REMOVALS WITH LENS IMPLANTS. Past Anesthesia/Blood Transfusion Reactions: No Reported Reaction Past Psychological History: No Psychological Hx Reported Smoking Status: Former smoker Past Alcohol Use History: Rare Past Drug Use History: None Reported - Past Family History Father Family Medical History: Diabetes Mellitus Additional Family Medical History / Comment(s): FATHER AT THE AGE OF 89YRS. Mother Family Medical History: COPD Additional Family Medical History / Comment(s): MOTHER HAD A "BAD HEART." SHE OF EMPHYSEMA AT THE AGE OF 68YRS. Brother(s) Additional Family Medical History / Comment(s): Alzheimer's Disease Medications and Allergies Home Medications Medication Instructions Recorded Confirmed Type Aspirin EC [Ecotrin Low Dose] 81 mg PO DAILY 05/28/17 04/11/21 History Atorvastatin [Lipitor] 80 mg PO HS 05/28/17 04/11/21 History EPINEPHrine (Auto Inject) [Epipen] 0.3 mg PO ONCE PRN 05/28/17 04/11/21 History Pioglitazone [Actos] 45 mg PO DAILY 05/28/17 04/11/21 History Primidone [Mysoline] 50 mg PO DAILY 05/28/17 04/11/21 History Apixaban [Eliquis] 2.5 mg PO BID #1 tab 06/02/17 04/11/21 Rx Dulaglutide [Trulicity] 1.5 mg SQ TU 04/04/19 04/11/21 History Ergocalciferol [Vitamin D2 (1250 1,250 mcg PO Q14D 03/22/21 04/11/21 History Mcg = [id number] Iu)] INSULIN LISPRO (HumaLOG) [humaLOG] See Protocol SQ TID-W/MEALS PRN 03/22/21 04/11/21 History Omeprazole Magnesium [PriLOSEC] 20 mg PO DAILY 03/22/21 04/11/21 History Doxazosin [Cardura] 2 mg PO HS #30 tab 03/26/21 04/11/21 Rx hydrALAZINE HCL [Apresoline] 100 mg PO TID #90 tablet 03/26/21 04/11/21 Rx Insulin Degludec [Tresiba 12 units SQ HS 04/11/21 04/11/21 History Flextouch U-200] NIFEdipine XL [Procardia Xl] 90 mg PO DAILY 04/11/21 04/11/21 History Allergies Allergy/AdvReac Type Severity Reaction Status Date / Time bee venom protein (honey bee) Allergy Anaphylaxis Verified 04/11/21 07:22 Physical Exam Vitals: Vital Signs Temp Pulse Resp BP Pulse Ox 04/13/21 08:06 74 04/13/21 07:55 69 04/13/21 07:30 62 16 122/100 90 L 04/13/21 07:00 74 18 129/106 89 L 04/13/21 06:30 69 13 117/60 94 L 04/13/21 06:00 68 20 118/55 93 L 04/13/21 05:30 62 12 116/60 92 L 04/13/21 05:00 66 15 113/52 93 L 04/13/21 04:30 70 19 116/54 94 L 04/13/21 04:00 98.2 F 64 15 112/55 93 L 04/13/21 03:30 65 17 114/55 93 L 04/13/21 03:00 65 18 115/66 91 L 04/13/21 02:30 62 23 126/54 90 L 04/13/21 02:00 66 22 121/60 94 L 04/13/21 01:30 63 23 118/59 93 L 04/13/21 01:00 65 24 122/59 95 04/13/21 00:30 67 26 H 121/61 92 L 04/13/21 00:00 98.4 F 66 28 H 122/61 94 L 04/12/21 23:30 67 27 H 104/67 94 L 04/12/21 23:00 65 19 115/64 96 04/12/21 22:30 75 19 146/69 96 04/12/21 22:00 82 29 H 133/69 94 L 04/12/21 21:30 83 31 H 134/81 95 04/12/21 21:00 92 30 H 142/76 92 L 04/12/21 20:47 85 28 H 142/76 94 L 04/12/21 20:30 92 31 H 147/83 93 L 04/12/21 20:00 98.5 F 80 30 H 141/65 93 L 04/12/21 19:30 75 30 H 148/72 94 L 04/12/21 19:00 72 33 H 140/53 93 L 04/12/21 18:30 70 31 H 140/56 88 L 04/12/21 18:00 72 32 H 137/58 88 L 04/12/21 17:30 71 13 138/64 91 L 04/12/21 17:00 69 26 H 138/62 96 04/12/21 16:30 65 22 134/61 95 04/12/21 16:00 98 F 65 20 133/64 94 L 04/12/21 15:30 67 22 132/63 94 L 04/12/21 15:00 66 27 H 128/65 95 04/12/21 14:30 67 28 H 129/60 96 04/12/21 14:00 68 36 H 128/63 93 L 04/12/21 13:30 64 26 H 121/59 93 L 04/12/21 13:00 57 L 25 H 122/59 92 L 04/12/21 12:30 65 23 123/54 91 L 04/12/21 12:00 98.2 F 64 31 H 117/62 93 L 04/12/21 11:30 98.3 F 67 29 H 118/59 98 04/12/21 11:17 64 04/12/21 11:11 60 04/12/21 10:50 30 H 80 L 04/12/21 10:45 28 H 75 L Intake and Output 04/12/21 04/13/21 04/13/21 22:59 06:59 14:59 Intake Total 250 240 Output Total 325 320 30 Balance -75 -80 -30 Intake: Oral 250 240 Output: Urine 325 320 30 Other: Voiding Method Indwelling Catheter Indwelling Catheter Weight 84.5 kg Results - Lab Results Most recent lab results ABG pH 7.44 (7.35-7.45) 04/11/21 21:14 ABG pCO2 35 mmHg (35-45) 04/11/21 21:14 ABG pO2 65 mmHg (83-108) L 04/11/21 21:14 ABG HCO3 24 mmol/L (21-25) 04/11/21 21:14 ABG O2 Saturation 93.4 % (94-97) L 04/11/21 21:14 Calcium 7.8 mg/dL (8.4-10.2) L 04/13/21 04:17 Magnesium 1.9 mg/dL (1.6-2.3) 04/11/21 03:25 04/13/21 04:17 04/13/21 04:17 Assessment and Plan Plan: Assessment: 1. Acute kidney injury secondary to ATN secondary to cardiorenal syndrome. Creatinine 2.38 today. 2. 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 3. Hypervolemic hyponatremia. 4. Diabetes mellitus. 5. Hypertension with chronic disease. 6. Volume overload with bilateral pleural effusions. 7. Acute on chronic diastolic CHF. 8. Hypokalemia from diuresis. Plan: Start Lasix drip at 5 mL an hour. Thoracentesis today. 1200 mL fluid restriction. Hold hydralazine and oxytocin for systolic blood pressure less than 120. Replace potassium. Avoid nephrotoxins. Continue to monitor renal function and urine output. Thank you for the consultation. I will continue to follow the patient with you during his hospital stay.
--- NOTE | 2021-04-13 09:25 | P.PCN ---
Date of Procedure: 04/13/21 Preoperative Diagnosis: right sided pleural effusion Postoperative Diagnosis: right sided pleural effusion Procedure(s) Performed: thoracentesis Anesthesia: local Surgeon: Minh Oh Estimated Blood Loss (ml): 0 Pathology: other Condition: critical Disposition: ICU Operative Findings: A time out was performed and the chest x-ray was reviewed, the appropriate side was confirmed and marked. My hands were washed immediately prior to the procedure. I wore a surgical cap, mask with protective eyewear, sterile gown and sterile gloves throughout the procedure. The patient was prepped and draped in a sterile manner using chlorhexidine scrub after the appropriate level was pe rcussed and confirmed by ultrasound. 1% lidocaine was used to anesthesize the skin, subcutaneous tissue, superior aspect of the rib periosteum and parietal pleura. A finder needle was then introduced over the superior aspect of the rib to locate the pleural fluid; 2colored fluid was aspirated at a depth of approximately 2 cm. A 10-blade scalpel was used to ford the skin at the insertion site. The Ddko-e-Kdowoeyo needle was then introduced through the skin incision into the pleural space using negative aspiration pressure and the red colometric indicator to confirm appropriate positioning of the needle. The thoracentesis catheter was then threaded without difficulty. 1700 ml of turbid colored fluid was removed without difficulty. The catheter was then removed. No immediate complications were noted during the procedure. A post-procedure chest x-ray is pending at the time of this note. The fluid will ---- be sent for studies. Estimated blood loss is 0cc
[2021-04-13] MEDS: POTASSIUM CHLORIDE ER 20 MEQ TAB.ER PO SCH ×2 (09:39→11:23)
[2021-04-13] MEDS: APIXABAN 2.5 MG TABLET PO SCH ×2 (09:46→21:20)
--- NOTE | 2021-04-13 10:31 | XR ---
EXAMINATION TYPE: XR chest 1V DATE OF EXAM: 04/13/2021 COMPARISON: Chest x-ray 04/13/2021 HISTORY: Status post thoracentesis TECHNIQUE: Single frontal view of the chest is obtained. FINDINGS: There is interval improvement in aeration within the right hemithorax. No evident pneumoth orax. IMPRESSION: No evident complication status post thoracentesis.
[2021-04-13 12:06] LABS: Glucose,Whole Blood 315 mg/dL (75-99)
[2021-04-13 12:09] LABS: Glucose,Whole Blood 317 mg/dL (75-99)
--- NOTE | 2021-04-13 13:21 | P.PN ---
Subjective 80-year-old male patient hospitalized for worsening shortness of breath. The patient was having orthopnea, unable to lay down flat in bed because of worsening shortness of breath. He is known to have history of CHF, diastolic heart failure, chronic atrial fibrillation and addition to diabetes mellitus and hypertension and hyperlipidemia and chronic kidney disease. Also suffers from chronic anemia. He was having some increased cough. Limited congestion. No chest pain. Over the past few days breathing got worse. He presented to the hospital because of worsening shortness of breath. Overnight he became more dyspneic and hypoxic. He was seen by the hospitalists and the patient was placed on a BiPAP and the patient was given additional dose of Lasix which somewhat improved his respiratory status. At the time of my evaluation, the patient was still struggling with his breathing. His pulse ox was around 76% on 6 L of oxygen by nasal cannula. At that point I put him back on a BiPAP at a pressure of 12/5 cm of water with an FiO2 of 100% and I transfer this patient to the intensive care unit. I also given additional dose of Lasix 60 mg IV push. Note that he was in atrial fibrillation. He was having some labored breathing. He was not using excessive muscle breathing. Limited edema in lower extremities bilaterally. His previous echocardiogram showed a preserved LV function with an ejection fraction of 665%, dilated LA, mild to moderate mitral regurgitation. His sodium is at time of admission was 126. BUN was 28 with a creatinine of 1.4. Troponins were minimally elevated at 0.5 and 0.4 and 0.3 respectively 3. EKG was consistent with atrial fibrillation, chest exit showed mild pulmonary vessel congestion and bilateral pleural effusion. Patient was started on IV heparin. The patient was given also Rocephin and Zithromax by the medical group regarding possibility of a pneumonia. His white cell count was at 14.5 with hemoglobin of 12.6. On today's evaluation of 04/12/2021, the patient seems in much more awake compared to yesterday. More interactive. He is less short of breath. He was taken briefly off the BiPAP. Nevertheless, he seems felt to be wanting the BiPAP and benefiting from the BiPAP which is running at a pressure of 12/6 cm of water with an FiO2 of 80%. He was diuresed with Lasix IV and his fluid balance is -2.1 L over the past 24 hours. He is headed towards a negative fluid b alance. CAT scan of the chest was completed yesterday and it showed moderate to large sized bilateral pleural effusion, worse on the right, there is also atelectatic changes in the lung bases. There is also occlusion of the right lower lobe bronchus which obviously raises the concern for underlying lesion within the right lower lobe. I think this is probably related to atelectasis. He does have some mild cardiomegaly. He was dynamically stable. No hypotension. On his blood work, the patient has a white cell count of 15.3. Sodium is 124. Creatinine is at 58 with a creatinine of 2.3. Legionella urine antigen came back negative. He remains on anticoagulation with Eliquis. His cardiac rhythm remains a atrial fibrillation. Nephrology evaluated this patient and want to start the patient on a Lasix drip. He remains on empiric antibiotic coverage with a combination of Rocephin and Zithromax. 04/13/2021 Patient had a thoracentesis on the right side with removal of around 2 and half liters of fluid. I reviewed the CT and x-ray imaging there is no evidence of pneumonia and this can you azithromycin probably will not need Rocephin either. Patient Appears to have hypervolemic hyponatremia for which patient is on IV Lasix drip although patient doesn't have much of urine output since then. Patient still has some bilateral pleural effusions with some atelectasis. PHYSICAL EXAMINATION: GENERAL: The patient is alert and oriented x3, not in any acute distress. Well developed, well nourished. HEENT: Pupils are round and equally reacting to light. EOMI. No scleral icterus. No conjunctival pallor. Normocephalic, atraumatic. No pharyngeal erythema. No thyromegaly. CARDIOVASCULAR: S1 and S2 present. No murmurs, rubs, or gallops. PULMONARY: Chest is clear to auscultation, no wheezing or crackles. ABDOMEN: Soft, nontender, nondistended, normoactive bowel sounds. No palpable organomegaly. MUSCULOSKELETAL: No joint swelling or deformity. EXTREMITIES: No cyanosis, clubbing, does have some pedal edema NEUROLOGICAL: Gross neurological examination did not reveal any focal deficits. SKIN: No rashes. Assessment and Plan Plan: 1 acute hypoxic respiratory failure, likely on the basis of decompensated heart failure, and large bilateral pleural effusions, not pneumonia, and Lasix will be discontinued doubt pulmonary embolism. Patient is status post thoracentesis on the right side with removal of 2.5 L. 2 chronic atrial fibrillation: Presently rate controlled 3 chronic diastolic dysfunction with acute exacerbation 4 chronic stage III kidney disease, With a component of an acute kidney injury 5 hyponatremia, hypervolemic hyponatremia secondary to CHF on IV Lasix drip 6 hypertension 7 hyperlipidemia 8 chronic anemia 9 diabetes mellitus type 2 Objective - Vital Signs Vital signs: Vital Signs Temp 97.4 F L 04/13/21 12:00 Pulse 58 L 04/13/21 13:00 Resp 17 04/13/21 13:00 BP 104/52 04/13/21 13:00 Pulse Ox 91 L 04/13/21 13:00 Intake & Output 04/12/21 04/13/21 04/13/21 18:59 06:59 18:59 Intake Total 368 240 90 Output Total 862 922 9142 Balance 8 -308 -6777 Weight 84.5 kg Intake: IV 90 Furosemide 100 mg In 20 Sodium Chloride 0.9% 90 ml @ 5 MG/HR 5 mls/hr IV .Q20H JOÃO Rx#:[id number] Normal Saline 0.9 @ 5mL/ 20 hr cefTRIAXone 2 gm In 50 Sodium Chloride 0.9% 50 ml @ 100 mls/hr IVPB Q24H [facility]ÃO Rx#:[id number] Oral 368 240 Output: Drainage 1700 Right Back 1700 Urine 360 435 145 Other: Voiding Method Indwelling Catheter Indwelling Catheter Indwelling Catheter - Labs CBC & Chem 7: 04/13/21 04:17 04/13/21 04:17 Labs: Abnormal Lab Results - Last 24 Hours (Table) 04/12/21 04/12/21 04/13/21 Range/Units 16:49 20:25 04:17 WBC 13.3 H (3.8-10.6) k/uL RBC 3.42 L (4.30-5.90) m/uL Hgb 10.4 L (13.0-17.5) gm/dL Hct 31.7 L (39.0-53.0) % Neutrophils # 11.7 H (1.3-7.7) k/uL Lymphocytes # 0.6 L (1.0-4.8) k/uL Sodium (137-145) mmol/L Chloride (98-107) mmol/L BUN (9-20) mg/dL Creatinine (0.66-1.25) mg/dL Glucose (74-99) mg/dL POC Glucose (mg/dL) 157 H 259 H (75-99) mg/dL Calcium (8.4-10.2) mg/dL Total Protein (6.3-8.2) g/dL Albumin (3.5-5.0) g/dL 04/13/21 04/13/21 04/13/21 Range/Units 04:17 06:41 12:05 WBC (3.8-10.6) k/uL RBC (4.30-5.90) m/uL Hgb (13.0-17.5) gm/dL Hct (39.0-53.0) % Neutrophils # (1.3-7.7) k/uL Lymphocytes # (1.0-4.8) k/uL Sodium 124 L (137-145) mmol/L Chloride 93 L (98-107) mmol/L BUN 58 H (9-20) mg/dL Creatinine 2.38 H (0.66-1.25) mg/dL Glucose 154 H (74-99) mg/dL POC Glucose (mg/dL) 181 H 315 H (75-99) mg/dL Calcium 7.8 L (8.4-10.2) mg/dL Total Protein 5.5 L (6.3-8.2) g/dL Albumin 2.5 L (3.5-5.0) g/dL 04/13/21 Range/Units 12:08 WBC (3.8-10.6) k/uL RBC (4.30-5.90) m/uL Hgb (13.0-17.5) gm/dL Hct (39.0-53.0) % Neutrophils # (1.3-7.7) k/uL Lymphocytes # (1.0-4.8) k/uL Sodium (137-145) mmol/L Chloride (98-107) mmol/L BUN (9-20) mg/dL Creatinine (0.66-1.25) mg/dL Glucose (74-99) mg/dL POC Glucose (mg/dL) 317 H (75-99) mg/dL Calcium (8.4-10.2) mg/dL Total Protein (6.3-8.2) g/dL Albumin (3.5-5.0) g/dL Microbiology - Last 24 Hours (Table) 04/11/21 19:31 Gram Stain - Final Sputum Sputum Culture - Final 04/11/21 06:35 Blood Culture - Preliminary Blood No Growth after 48 hours 04/11/21 06:20 Blood Culture - Preliminary Blood No Growth after 48 hours
--- NOTE | 2021-04-13 13:35 | US ---
EXAMINATION TYPE: US kidneys/renal and bladder DATE OF EXAM: 04/13/2021 COMPARISON: 04/14/2012 CLINICAL HISTORY: shu. TECHNIQUE: Sonographic evaluation of the kidneys and urinary bladder. Exam limited due to overlying b owel gas and ribs. EXAM MEASUREMENTS: Right Kidney: 9.6 x 4.5 x 4.0 cm Left Kidney: 10.6 x 5.5 x 4.1 cm Right Kidney: Cystic area seen mid pole 1.3 x 1.1 x 1.5cm . Renal parenchyma is increased in echogen icity. Left Kidney: cystic area upper pole and lower pole measuring 2 cm. Renal parenchyma is increased in echogenicity. Bladder: Hill's catheter, partially distended. Bilateral Jets seen: No There is no evidence for hydronephrosis at this point in time. No nephrolithiasis is seen. IMPRESSION: 1. No hydronephrosis. 2. Increased renal parenchymal echogenicity suggests medical renal disease. 3. Bilateral renal cortical cysts, slightly enlarged compared to 04/14/2012.
[2021-04-13 13:44] LABS: Appearance,BF Clear
[2021-04-13 13:45] LABS: Nucleated Cells, Body Fluid 130 /uL; RBC, Body Fluid 455 /uL
[2021-04-13 13:50] LABS: Mononuclear WBC,Body Fluid 72 %; Polynuclear WBC,Body Fluid 28 %; Total Cells Counted,Body Fluid 100
[2021-04-13 14:38] LABS: Albumin 2.7 g/dL (3.5-5.0); Calcium 8.1 mg/dL (8.4-10.2); Potassium 4.2 mmol/L (3.5-5.1); Total Bilirubin 0.3 mg/dL (0.2-1.3); Total Protein 5.9 g/dL (6.3-8.2)
[2021-04-13 17:11] LABS: Glucose,Whole Blood 219 mg/dL (75-99)
--- NOTE | 2021-04-13 18:48 | PN ---
PROGRESS NOTE Wilfredo is an 80-year-old gentleman who was transferred from the floor to ICU because of respiratory insufficiency. He had pleural effusions and underwent thoracenteses on the right side. This morning, he is doing better, does not seem to be in respiratory distress. Shortness of breath has improved. On exam, heart rate is 60 beats per minute. Blood pressure is 110/60, respiratory rate 18. Chest exam reveals diminished air entry at the left base. Heart exam reveals first and second heart sounds. No gallop. Abdomen is soft. Exam of extremities did not reveal any edema. Labs show a hemoglobin of 10.4, platelet count is 250. BUN is 58, creatinine is 2.3. The patient is currently on aspirin, Eliquis, Lipitor, Cardura, Apresoline, insulin, Lopressor, nitro paste and Lasix drip. The patient was on Procardia XL 90 mg daily. I decreased it to 30 mg daily. ASSESSMENT: 1. Chronic diastolic heart failure with pleural effusions. 2. Chronic renal failure. 3. Atrial fibrillation. MMODL / IJN: [id number] /
[2021-04-13 19:37] LABS: Calcium 8.2 mg/dL (8.4-10.2); Potassium 4.3 mmol/L (3.5-5.1); Total Bilirubin 0.3 mg/dL (0.2-1.3); Total Protein 6.3 g/dL (6.3-8.2)
[2021-04-13 21:14] LABS: Glucose,Whole Blood 194 mg/dL (75-99)
[2021-04-13] MEDS: ATORVASTATIN 40 MG TAB PO SCH (21:19)
[2021-04-13] MEDS: INSULIN DETEMIR (LEVEMIR) 100 UNIT/ML SYR SQ SCH (21:19)
[2021-04-13] MEDS: DOXAZOSIN 2 MG TAB PO SCH (21:20)
[2021-04-13] MEDS ORDERED: FUROSEMIDE 10 MG/ML 10 ML VIAL IV STA (22:19)
[2021-04-13] MEDS: TEMAZEPAM 15 MG CAP PO PRN (23:48)
[2021-04-14 03:34] LABS: HCT 28.2 % (39.0-53.0); MCH 32.5 pg (25.0-35.0); MCHC 35.5 g/dL (31.0-37.0); MCV 91.5 fL (80.0-100.0); Mean Platelet Volume 7.9; Platelet Count 248 k/uL (150-450); RBC 3.08 m/uL (4.30-5.90); RDW 13.8 % (11.5-15.5); WBC 11.9 k/uL (3.8-10.6)
[2021-04-14 03:41] LABS: Calcium 7.6 mg/dL (8.4-10.2)
[2021-04-14 03:52] LABS: Potassium 4.5 mmol/L (3.5-5.1)
[2021-04-14 06:32] LABS: Glucose,Whole Blood 137 mg/dL (75-99)
[2021-04-14] MEDS: NITROGLYCERIN OINT 1 INCH/GM PACKET TOPICAL SCH ×3 (07:09→22:11)
[2021-04-14] MEDS: INSULIN ASPART (NovoLOG) 100 UNIT/ML VIAL SQ SCH ×5 (07:10→21:32)
--- NOTE | 2021-04-14 07:35 | XR ---
EXAMINATION TYPE: XR chest 1V portable DATE OF EXAM: 04/14/2021 COMPARISON: Chest x-ray 04/13/2021 HISTORY: Shortness of breath TECHNIQUE: Single frontal view of the chest is obtained. FINDINGS: Bibasilar density persists, heart size is stable. There is blunting of the costophrenic an gles. No evident pneumothorax. Aorta is dense. IMPRESSION: Basilar atelectasis, correlate for pneumonia versus edema, associated effusions
[2021-04-14] MEDS: IPRATROPIUM-ALBUTEROL 3 ML NEB INHALATION PRN ×4 (07:54→20:28)
[2021-04-14] MEDS ORDERED: TOLVAPTAN 15 MG 1/2 TABLET PO ONE (08:52)
[2021-04-14] MEDS: hydrALAZINE HCL 50 MG TAB PO SCH ×3 (09:21→23:38)
[2021-04-14] MEDS: NIFEdipine XL 30 MG TAB.ER.24 PO SCH (09:22)
--- NOTE | 2021-04-14 09:23 | P.PN ---
Subjective 80-year-old male patient hospitalized for worsening shortness of breath. The patient was having orthopnea, unable to lay down flat in bed because of worsening shortness of breath. He is known to have history of CHF, diastolic heart failure, chronic atrial fibrillation and addition to diabetes mellitus and hypertension and hyperlipidemia and chronic kidney disease. Also suffers from chronic anemia. He was having some increased cough. Limited congestion. No chest pain. Over the past few days breathing got worse. He presented to the hospital because of worsening shortness of breath. Overnight he became more dyspneic and hypoxic. He was seen by the hospitalists and the patient was placed on a BiPAP and the patient was given additional dose of Lasix which somewhat improved his respiratory status. At the time of my evaluation, the patient was still struggling with his breathing. His pulse ox was around 76% on 6 L of oxygen by nasal cannula. At that point I put him back on a BiPAP at a pressure of 12/5 cm of water with an FiO2 of 100% and I transfer this patient to the intensive care unit. I also given additional dose of Lasix 60 mg IV push. Note that he was in atrial fibrillation. He was having some labored breathing. He was not using excessive muscle breathing. Limited edema in lower extremities bilaterally. His previous echocardiogram showed a preserved LV function with an ejection fraction of 665%, dilated LA, mild to moderate mitral regurgitation. His sodium is at time of admission was 126. BUN was 28 with a creatinine of 1.4. Troponins were minimally elevated at 0.5 and 0.4 and 0.3 respectively 3. EKG was consistent with atrial fibrillation, chest exit showed mild pulmonary vessel congestion and bilateral pleural effusion. Patient was started on IV heparin. The patient was given also Rocephin and Zithromax by the medical group regarding possibility of a pneumonia. His white cell count was at 14.5 with hemoglobin of 12.6. On today's evaluation of 04/12/2021, the patient seems in much more awake compared to yesterday. More interactive. He is less short of breath. He was taken briefly off the BiPAP. Nevertheless, he seems felt to be wanting the BiPAP and benefiting from the BiPAP which is running at a pressure of 12/6 cm of water with an FiO2 of 80%. He was diuresed with Lasix IV and his fluid balance is -2.1 L over the past 24 hours. He is headed towards a negative fluid b alance. CAT scan of the chest was completed yesterday and it showed moderate to large sized bilateral pleural effusion, worse on the right, there is also atelectatic changes in the lung bases. There is also occlusion of the right lower lobe bronchus which obviously raises the concern for underlying lesion within the right lower lobe. I think this is probably related to atelectasis. He does have some mild cardiomegaly. He was dynamically stable. No hypotension. On his blood work, the patient has a white cell count of 15.3. Sodium is 124. Creatinine is at 58 with a creatinine of 2.3. Legionella urine antigen came back negative. He remains on anticoagulation with Eliquis. His cardiac rhythm remains a atrial fibrillation. Nephrology evaluated this patient and want to start the patient on a Lasix drip. He remains on empiric antibiotic coverage with a combination of Rocephin and Zithromax. 04/13/2021 Patient had a thoracentesis on the right side with removal of around 2 and half liters of fluid. I reviewed the CT and x-ray imaging there is no evidence of pneumonia and this can you azithromycin probably will not need Rocephin either. Patient Appears to have hypervolemic hyponatremia for which patient is on IV Lasix drip although patient doesn't have much of urine output since then. Patient still has some bilateral pleural effusions with some atelectasis. 04/14/2021 His serum creatinine and serum sodium continued to get worse patient received Samsca. Patient the probably will need hemodialysis patient was switched from IV Lasix drip to 80 mg twice a day of IV Lasix. Patient blood sugars are bit down today closely monitor this continue pre-meal insulin continue with Levemir. All the anti-happens medications are being held because of acute renal failure. Chest x-ray showed significant improvement of pleural effusions. Patient doesn't have much of urine output since yesterday. PHYSICAL EXAMINATION: GENERAL: The patient is alert and oriented x3, not in any acute distress. Well developed, well nourished. HEENT: Pupils are round and equally reacting to light. EOMI. No scleral icterus. No conjunctival pallor. Normocephalic, atraumatic. No pharyngeal erythema. No thyromegaly. CARDIOVASCULAR: S1 and S2 present. No murmurs, rubs, or gallops. PULMONARY: Chest is clear to auscultation, no wheezing or crackles. ABDOMEN: Soft, nontender, nondistended, normoactive bowel sounds. No palpable organomegaly. MUSCULOSKELETAL: No joint swelling or deformity. EXTREMITIES: No cyanosis, clubbing, does have some pedal edema NEUROLOGICAL: Gross neurological examination did not reveal any focal deficits. SKIN: No rashes. Assessment and Plan Plan: 1 acute hypoxic respiratory failure, likely on the basis of decompensated heart failure, and large bilateral pleural effusions, not pneumonia, and medics were d iscontinued patient was switched to IV Lasix from IV Lasix drip. Patient is status post thoracentesis on the right side with removal of 2.5 L. 2 chronic atrial fibrillation: Presently rate controlled 3 chronic diastolic dysfunction with acute exacerbation 4 chronic stage III kidney disease, With a component of an acute kidney injury from a cardiorenal syndrome patient may end up needing hemodialysis. 5 hyponatremia, hypervolemic hyponatremia secondary to CHF on IV Lasix . No improvement with IV Lasix because of which Samsca was ordered by nephrology. 6 hypertension: Holding off on antidepressant medications because of worsening renal function 7 hyperlipidemia 8 chronic anemia 9 diabetes mellitus type 2 Objective - Vital Signs Vital signs: Vital Signs Temp 97.5 F L 04/14/21 00:00 Pulse 65 04/14/21 08:09 Resp 26 H 04/14/21 08:00 BP 123/56 04/14/21 08:00 Pulse Ox 96 04/14/21 08:00 Intake & Output 04/13/21 04/14/21 04/14/21 18:59 06:59 18:59 Intake Total 1200 60 15 Output Total 1914 155 45 Balance -714 -95 -30 Weight 86.3 kg Intake: IV 120 60 15 Furosemide 100 mg In 25 Sodium Chloride 0.9% 90 ml @ 5 MG/HR 5 mls/hr IV .Q20H [facility] Rx#:[id number] Normal Saline 0.9 @ 5mL/ 45 60 15 hr cefTRIAXone 2 gm In 50 Sodium Chloride 0.9% 50 ml @ 100 mls/hr IVPB Q24H [facility] Rx#:[id number] Oral 1080 Output: Drainage 1700 Right Back 1700 Urine 214 155 45 Other: Voiding Method Indwelling Catheter Indwelling Catheter # Bowel Movements 0 - Labs CBC & Chem 7: 04/14/21 03:15 04/14/21 03:15 Labs: Abnormal Lab Results - Last 24 Hours (Table) 04/13/21 04/13/21 04/13/21 Range/Units 12:05 12:08 13:48 WBC (3.8-10.6) k/uL RBC (4.30-5.90) m/uL Hgb (13.0-17.5) gm/dL Hct (39.0-53.0) % Sodium 123 L (137-145) mmol/L Chloride 91 L (98-107) mmol/L Carbon Dioxide 19 L (22-30) mmol/L BUN 62 H (9-20) mg/dL Creatinine 2.69 H (0.66-1.25) mg/dL Glucose 284 H (74-99) mg/dL POC Glucose (mg/dL) 315 H 317 H (75-99) mg/dL Calcium 8.1 L (8.4-10.2) mg/dL Alkaline Phosphatase (38-126) U/L Total Protein 5.9 L (6.3-8.2) g/dL Albumin 2.7 L (3.5-5.0) g/dL 04/13/21 04/13/21 04/13/21 Range/Units 17:09 19:04 21:12 WBC (3.8-10.6) k/uL RBC (4.30-5.90) m/uL Hgb (13.0-17.5) gm/dL Hct (39.0-53.0) % Sodium 124 L (137-145) mmol/L Chloride 91 L (98-107) mmol/L Carbon Dioxide 20 L (22-30) mmol/L BUN 65 H (9-20) mg/dL Creatinine 2.83 H (0.66-1.25) mg/dL Glucose 212 H (74-99) mg/dL POC Glucose (mg/dL) 219 H 194 H (75-99) mg/dL Calcium 8.2 L (8.4-10.2) mg/dL Alkaline Phosphatase 133 H (38-126) U/L Total Protein (6.3-8.2) g/dL Albumin 3.0 L (3.5-5.0) g/dL 04/14/21 04/14/21 04/14/21 Range/Units 03:15 03:15 06:31 WBC 11.9 H (3.8-10.6) k/uL RBC 3.08 L (4.30-5.90) m/uL Hgb 10.0 L (13.0-17.5) gm/dL Hct 28.2 L (39.0-53.0) % Sodium 121 L (137-145) mmol/L Chloride 93 L (98-107) mmol/L Carbon Dioxide 18 L (22-30) mmol/L BUN 73 H (9-20) mg/dL Creatinine 2.81 H (0.66-1.25) mg/dL Glucose 151 H (74-99) mg/dL POC Glucose (mg/dL) 137 H (75-99) mg/dL Calcium 7.6 L (8.4-10.2) mg/dL Alkaline Phosphatase (38-126) U/L Total Protein (6.3-8.2) g/dL Albumin (3.5-5.0) g/dL Microbiology - Last 24 Hours (Table) 04/11/21 06:35 Blood Culture - Preliminary Blood No Growth after 72 hours 04/11/21 06:20 Blood Culture - Preliminary Blood No Growth after 72 hours 04/13/21 09:15 Gram Stain - Preliminary Pleural Fluid Body Fluid Culture - Preliminary 04/11/21 19:31 Gram Stain - Final Sputum Sputum Culture - Final
--- NOTE | 2021-04-14 09:34 | P.PN ---
Subjective Patient is seen in follow-up for acute kidney injury on chronic kidney disease. Creatinine stable at the patient is oliguric. Sodium level is down to 121. He is currently on 15 L nonrebreather as well as nasal cannula. Awake and alert. Vital signs are stable. General: The patient appeared well nourished and normally developed. HEENT: On nonrebreather. LUNGS: Breath sounds decreased. HEART: Rate and Rhythm are regular. ABDOMEN: Soft, no distention. EXTREMITITES: Trace edema. Objective - Vital Signs Vital signs: Vital Signs Temp 97.5 F L 04/14/21 00:00 Pulse 65 04/14/21 08:09 Resp 26 H 04/14/21 08:00 BP 123/56 04/14/21 08:00 Pulse Ox 96 04/14/21 08:00 Intake & Output 04/13/21 04/14/21 04/14/21 18:59 06:59 18:59 Intake Total 1200 60 15 Output Total 1914 155 45 Balance -714 -95 -30 Weight 86.3 kg Intake: IV 120 60 15 Furosemide 100 mg In 25 Sodium Chloride 0.9% 90 ml @ 5 MG/HR 5 mls/hr IV .Q20H [facility] Rx#:[id number] Normal Saline 0.9 @ 5mL/ 45 60 15 hr cefTRIAXone 2 gm In 50 Sodium Chloride 0.9% 50 ml @ 100 mls/hr IVPB Q24H [facility] Rx#:[id number] Oral 1080 Output: Drainage 1700 Right Back 1700 Urine 214 155 45 Other: Voiding Method Indwelling Catheter Indwelling Catheter # Bowel Movements 0 - Labs CBC & Chem 7: 04/14/21 03:15 04/14/21 03:15 Labs: Abnormal Lab Results - Last 24 Hours (Table) 04/13/21 04/13/21 04/13/21 Range/Units 12:05 12:08 13:48 WBC (3.8-10.6) k/uL RBC (4.30-5.90) m/uL Hgb (13.0-17.5) gm/dL Hct (39.0-53.0) % Sodium 123 L (137-145) mmol/L Chloride 91 L (98-107) mmol/L Carbon Dioxide 19 L (22-30) mmol/L BUN 62 H (9-20) mg/dL Creatinine 2.69 H (0.66-1.25) mg/dL Glucose 284 H (74-99) mg/dL POC Glucose (mg/dL) 315 H 317 H (75-99) mg/dL Calcium 8.1 L (8.4-10.2) mg/dL Alkaline Phosphatase (38-126) U/L Total Protein 5.9 L (6.3-8.2) g/dL Albumin 2.7 L (3.5-5.0) g/dL 04/13/21 04/13/21 04/13/21 Range/Units 17:09 19:04 21:12 WBC (3.8-10.6) k/uL RBC (4.30-5.90) m/uL Hgb (13.0-17.5) gm/dL Hct (39.0-53.0) % Sodium 124 L (137-145) mmol/L Chloride 91 L (98-107) mmol/L Carbon Dioxide 20 L (22-30) mmol/L BUN 65 H (9-20) mg/dL Creatinine 2.83 H (0.66-1.25) mg/dL Glucose 212 H (74-99) mg/dL POC Glucose (mg/dL) 219 H 194 H (75-99) mg/dL Calcium 8.2 L (8.4-10.2) mg/dL Alkaline Phosphatase 133 H (38-126) U/L Total Protein (6.3-8.2) g/dL Albumin 3.0 L (3.5-5.0) g/dL 04/14/21 04/14/21 04/14/21 Range/Units 03:15 03:15 06:31 WBC 11.9 H (3.8-10.6) k/uL RBC 3.08 L (4.30-5.90) m/uL Hgb 10.0 L (13.0-17.5) gm/dL Hct 28.2 L (39.0-53.0) % Sodium 121 L (137-145) mmol/L Chloride 93 L (98-107) mmol/L Carbon Dioxide 18 L (22-30) mmol/L BUN 73 H (9-20) mg/dL Creatinine 2.81 H (0.66-1.25) mg/dL Glucose 151 H (74-99) mg/dL POC Glucose (mg/dL) 137 H (75-99) mg/dL Calcium 7.6 L (8.4-10.2) mg/dL Alkaline Phosphatase (38-126) U/L Total Protein (6.3-8.2) g/dL Albumin (3.5-5.0) g/dL Microbiology - Last 24 Hours (Table) 04/11/21 06:35 Blood Culture - Preliminary Blood No Growth after 72 hours 04/11/21 06:20 Blood Culture - Preliminary Blood No Growth after 72 hours 04/13/21 09:15 Gram Stain - Preliminary Pleural Fluid Body Fluid Culture - Preliminary 04/11/21 19:31 Gram Stain - Final Sputum Sputum Culture - Final Assessment and Plan Plan: Assessment: 1. Acute kidney injury secondary to ATN secondary to cardiorenal syndrome. Creatinine stable at 2.81 today. 2. 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 3. Hypervolemic hyponatremia. 4. Diabetes mellitus. 5. Hypertension with chronic kidney disease. 6. Volume overload with bilateral pleural effusions. Status post right-sided thoracentesis on April 13 with 1700 mL drained. 7. Acute on chronic diastolic CHF. 8. Hypokalemia from diuresis. Replaced. Better. 9. Metabolic acidosis secondary to acute kidney injury. Plan: Add IV Lasix 80 mg twice daily. Samsca 15 mg once now. 1200 mL fluid restriction. Add oral bicarbonate. Avoid nephrotoxins. Continue to monitor renal function and urine output. Repeat BMP this evening. If no improvement in urine output in the next 24 hours, will initiate renal replacement therapy. Patient agreeable. Hold all antihypertensives for systolic blood pressure less than 125. Case discussed with the material scheduler. May need another thoracentesis today.
--- NOTE | 2021-04-14 09:35 | P.PN ---
Subjective Progress Note Date: 04/14/21 80-year-old male patient hospitalized for worsening shortness of breath. The patient was having orthopnea, unable to lay down flat in bed because of worsening shortness of breath. He is known to have history of CHF, diastolic heart failure, chronic atrial fibrillation and addition to diabetes mellitus and hypertension and hyperlipidemia and chronic kidney disease. Also suffers from chronic anemia. He was having some increased cough. Limited congestion. No chest pain. Over the past few days breathing got worse. He presented to the hospital because of worsening shortness of breath. Overnight he became more dyspneic and hypoxic. He was seen by the hospitalists and the patient was placed on a BiPAP and the patient was given additional dose of Lasix which somewhat improved his respiratory status. At the time of my evaluation, the patient was still struggling with his breathing. His pulse ox was around 76% on 6 L of oxygen by nasal cannula. At that point I put him back on a BiPAP at a pressure of 12/5 cm of water with an FiO2 of 100% and I transfer this patient to the intensive care unit. I also given additional dose of Lasix 60 mg IV push. Note that he was in atrial fibrillation. He was having some labored breathing. He was not using excessive muscle breathing. Limited edema in lower extremities bilaterally. His previous echocardiogram showed a preserved LV function with an ejection fraction of 665%, dilated LA, mild to moderate mitral regurgitation. His sodium is at time of admission was 126. BUN was 28 with a creatinine of 1.4. Troponins were minimally elevated at 0.5 and 0.4 and 0.3 respectively 3. EKG was consistent with atrial fibrillation, chest exit showed mild pulmonary vessel congestion and bilateral pleural effusion. Patient was started on IV he liliana. The patient was given also Rocephin and Zithromax by the medical group regarding possibility of a pneumonia. His white cell count was at 14.5 with hemoglobin of 12.6. On today's evaluation of 04/13/2021, the patient seems in much more awake compared to yesterday. More interactive. He is less short of breath. He was taken briefly off the BiPAP. Nevertheless, he seems felt to be wanting the BiPAP and benefiting from the BiPAP which is running at a pressure of 12/6 cm of water with an FiO2 of 80%. He was diuresed with Lasix IV and his fluid balance is -2.1 L over the past 24 hours. He is headed towards a negative fluid balance. CAT scan of the chest was completed yesterday and it showed moderate to large sized bilateral pleural effusion, worse on the right, there is also ate lectatic changes in the lung bases. There is also occlusion of the right lower lobe bronchus which obviously raises the concern for underlying lesion within the right lower lobe. I think this is probably related to atelectasis. He does have some mild cardiomegaly. He was dynamically stable. No hypotension. On his blood work, the patient has a white cell count of 15.3. Sodium is 124. Creatinine is at 58 with a creatinine of 2.3. Legionella urine antigen came back negative. He remains on anticoagulation with Eliquis. His cardiac rhythm remains a atrial fibrillation. Nephrology evaluated this patient and want to start the patient on a Lasix drip. He remains on empiric antibiotic coverage with a combination of Rocephin and Zithromax. 04/14/2021, the patient is still having some shortness of breath and hypoxemia. After some initial improvement following his thoracentesis, overnight the patient's oxygenation gradually got worse. He was placed back on the BiPAP and currently is on 1 and 1 L facemask. Repeat chest x-ray from today showing atelectatic changes in the right lung base along with some bilateral pleural effusion. Note that his urine output also dropped. The patient was given Lasix and currently receiving IV Lasix at a dose of 80 mg every 12 hours. Note that the urine output is in order of 10-20 mL an hour. His creatinine is up to 2.8 and the sodium level is up and down to 121. Discussed the case with nephrology and the patient will be given Lasix along with semsca 15 mg. Obvious is more comfortable compared to yesterday. Nevertheless, he continues to require high levels of oxygen. His cardiac rhythm is sinus for now. His pulse ox is order of 93%. BP stable at 131/59. Objective - Vital Signs Vital signs: Vital Signs Temp 97.5 F L 04/14/21 00:00 Pulse 65 04/14/21 08:09 Resp 26 H 04/14/21 08:00 BP 123/56 04/14/21 08:00 Pulse Ox 96 04/14/21 08:00 Intake & Output 04/13/21 04/14/21 04/14/21 18:59 06:59 18:59 Intake Total 1200 60 15 Output Total 1914 155 45 Balance -714 -95 -30 Weight 86.3 kg Intake: IV 120 60 15 Furosemide 100 mg In 25 Sodium Chloride 0.9% 90 ml @ 5 MG/HR 5 mls/hr IV .Q20H [facility] Rx#:[id number] Normal Saline 0.9 @ 5mL/ 45 60 15 hr cefTRIAXone 2 gm In 50 Sodium Chloride 0.9% 50 ml @ 100 mls/hr IVPB Q24H [facility] Rx#:[id number] Oral 1080 Output: Drainage 1700 Right Back 1700 Urine 214 155 45 Other: Voiding Method Indwelling Catheter Indwelling Catheter # Bowel Movements 0 - Exam mild degree of respiratory distress, placed on 100%, NRB Head exam was generally normal. There was no scleral icterus or corneal arcus. Mucous membranes were moist. Neck was supple and without jugular venous distension, thyromegaly, or carotid bruits. Carotids were easily palpable bilaterally. There was no adenopathy. Lungs sounds are quite diminished in lung bases bilaterally along with some dullness to percussion. No wheezes. Heart sounds are irregular, positive S1-S2, consistent with atrial fibrillation. Some accentuation of the second heart sound. No significant murmurs appreciated. Abdominal exam revealed normal bowel sounds. The abdomen was soft, non-tender, and without masses, organomegaly, or appreciable enlargement of the abdominal aorta Examination of the extremities revealed easily palpable radial, femoral and pedal pulses. There was no cyanosis, clubbing or edema. Examination of the skin revealed no evidence of significant rashes, suspicious appearing nevi or other concerning lesions. Neurologically, the patient is awake and alert and the patient does not have any focal neurological deficit. Cranial nerves are essentially intact. - Labs CBC & Chem 7: 04/14/21 03:15 04/14/21 03:15 Labs: Abnormal Lab Results - Last 24 Hours (Table) 04/13/21 04/13/21 04/13/21 Range/Units 12:05 12:08 13:48 WBC (3.8-10.6) k/uL RBC (4.30-5.90) m/uL Hgb (13.0-17.5) gm/dL Hct (39.0-53.0) % Sodium 123 L (137-145) mmol/L Chloride 91 L (98-107) mmol/L Carbon Dioxide 19 L (22-30) mmol/L BUN 62 H (9-20) mg/dL Creatinine 2.69 H (0.66-1.25) mg/dL Glucose 284 H (74-99) mg/dL POC Glucose (mg/dL) 315 H 317 H (75-99) mg/dL Calcium 8.1 L (8.4-10.2) mg/dL Alkaline Phosphatase (38-126) U/L Total Protein 5.9 L (6.3-8.2) g/dL Albumin 2.7 L (3.5-5.0) g/dL 04/13/21 04/13/21 04/13/21 Range/Units 17:09 19:04 21:12 WBC (3.8-10.6) k/uL RBC (4.30-5.90) m/uL Hgb (13.0-17.5) gm/dL Hct (39.0-53.0) % Sodium 124 L (137-145) mmol/L Chloride 91 L (98-107) mmol/L Carbon Dioxide 20 L (22-30) mmol/L BUN 65 H (9-20) mg/dL Creatinine 2.83 H (0.66-1.25) mg/dL Glucose 212 H (74-99) mg/dL POC Glucose (mg/dL) 219 H 194 H (75-99) mg/dL Calcium 8.2 L (8.4-10.2) mg/dL Alkaline Phosphatase 133 H (38-126) U/L Total Protein (6.3-8.2) g/dL Albumin 3.0 L (3.5-5.0) g/dL 04/14/21 04/14/21 04/14/21 Range/Units 03:15 03:15 06:31 WBC 11.9 H (3.8-10.6) k/uL RBC 3.08 L (4.30-5.90) m/uL Hgb 10.0 L (13.0-17.5) gm/dL Hct 28.2 L (39.0-53.0) % Sodium 121 L (137-145) mmol/L Chloride 93 L (98-107) mmol/L Carbon Dioxide 18 L (22-30) mmol/L BUN 73 H (9-20) mg/dL Creatinine 2.81 H (0.66-1.25) mg/dL Glucose 151 H (74-99) mg/dL POC Glucose (mg/dL) 137 H (75-99) mg/dL Calcium 7.6 L (8.4-10.2) mg/dL Alkaline Phosphatase (38-126) U/L Total Protein (6.3-8.2) g/dL Albumin (3.5-5.0) g/dL Microbiology - Last 24 Hours (Table) 04/11/21 06:35 Blood Culture - Preliminary Blood No Growth after 72 hours 04/11/21 06:20 Blood Culture - Preliminary Blood No Growth after 72 hours 04/13/21 09:15 Gram Stain - Preliminary Pleural Fluid Body Fluid Culture - Preliminary 04/11/21 19:31 Gram Stain - Final Sputum Sputum Culture - Final Assessment and Plan Plan: 1 acute hypoxic respiratory failure, likely on the basis of decompensated heart failure, and large bilateral pleural effusions, not pneumonia, doubt pulmonary embolism. Note that the patient had some abnormal troponin leak at a time of ad mission. This could be related to non-STEMI, although troponin leak in the setting of CHF and abnormal chronic kidney failure cannot be completely ruled out. Computed tomography scan of the chest was done and the patient has moderate to large bilateral pleural effusion. The patient showed some immediate improvement following the thoracentesis. A total of 1.7 L of fluid was removed from the right lung yesterday. Nevertheless, he became hypoxic again and that is a combination of pleural fluid on the right and some residual pleural fluid on the left is also seen on today's chest x-ray. He is currently on a 1 L facemask. He would benefit from another thoracentesis on the left.. 2 chronic atrial fibrillation him a currently back to normal sinus rhythm 3 history of diastolic heart failure 4 chronic stage III kidney disease, With a component of an acute kidney injury 5 hyponatremia, could be related to CHF 6 hypertension 7 hyperlipidemia 8 chronic anemia 9 diabetes mellitus type 2 10 Hyponatremia Plan We'll proceed with a left sided thoracentesis Continue Lasix IV 80 mg q 12 Put the patient on 100%, NRB Gradually wean off the FiO2 and probably BiPAP postthoracentesis Monitor I's and O's Semsca for drop in the Na level Echocardiogram was noted cardiology consultation We'll continue to follow.
--- NOTE | 2021-04-14 09:46 | P.PCN ---
Date of Procedure: 04/14/21 Preoperative Diagnosis: left sided effusion Postoperative Diagnosis: left sided effusion Procedure(s) Performed: left thoracentesis Anesthesia: local Surgeon: Minh Oh Estimated Blood Loss (ml): 0 Pathology: none sent Condition: critical Disposition: ICU Operative Findings: Preoperative Diagnosis: left sided pleural effusion Postoperative Diagnosis: left sided pleural effusion Procedure(s) Performed: thoracentesis Anesthesia: local Surgeon: Minh Oh Estimated Blood Loss (ml): 0 Pathology: other Condition: critical Disposition: ICU Operative Findings: A time out was performed and the chest x-ray was reviewed, the appropriate side was confirmed and marked. My hands were washed immediately prior to the procedure. I wore a surgical cap, mask with protective eyewear, sterile gown and sterile gloves throughout the procedure. The patient was prepped and draped in a sterile manner using chlorhexidine scrub after the appropriate level was percussed and confirmed by ultrasound. 1% lidocaine was used to anesthesize the skin, subcutaneous tissue, superior aspect of the rib periosteum and parietal pleura. A finder needle was then introduced over the superior aspect of the rib to locate the pleural fluid; 2colored fluid was aspirated at a depth of approximately 2 cm. A 10-blade scalpel was used to ford the skin at the insertion site. The [id number] needle was then introduced through the skin incision into the pleural space using negative aspiration pressure and the red colometric indicator to confirm appropriate positioning of the needle. The thoracentesis catheter was then threaded without difficulty 700 ml of turbid colored fluid was removed without difficulty. The catheter was then removed. No immediate complications were noted during the procedure. A post-procedure chest x-ray is pending at the time of this note. The fluid will not be sent for studies. Estimated blood loss is 0cc
--- NOTE | 2021-04-14 10:11 | XR ---
EXAMINATION TYPE: XR chest 1V portable DATE OF EXAM: 04/14/2021 COMPARISON: Chest x-ray 04/14/2021 HISTORY: Status post thoracentesis TECHNIQUE: Single frontal view of the chest is obtained. FINDINGS: There is improved aeration at the left lung base. No evident pneumothorax. No other signif icant interval change. IMPRESSION: No evident complication status post left thoracentesis
[2021-04-14] MEDS: PANTOPRAZOLE 40 MG TABLET PO SCH (10:19)
[2021-04-14] MEDS: ASPIRIN 81 MG PO SCH (10:19)
[2021-04-14] MEDS: FUROSEMIDE 10 MG/ML 10 ML VIAL IV SCH ×2 (10:19→21:31)
[2021-04-14] MEDS: APIXABAN 2.5 MG TABLET PO SCH ×2 (10:19→21:34)
[2021-04-14] MEDS: SODIUM BICARBONATE TAB 650 MG TAB PO SCH ×2 (10:31→21:34)
[2021-04-14] MEDS: METOPROLOL TARTRATE 25 MG TAB PO SCH ×2 (10:38→21:33)
[2021-04-14 11:42] LABS: Glucose,Whole Blood 207 mg/dL (75-99)
--- NOTE | 2021-04-14 14:57 | PN ---
PROGRESS NOTE INTERVAL HISTORY: The patient is doing better this morning. He had left-sided thoracentesis and 700 cc of fluid has been removed. He is not making any urine. The Lasix drip had been stopped. Antihypertensives are currently on hold. PHYSICAL EXAMINATION: On exam heart rate is 75 beats per minute. Blood pressure is 130/59. Respiratory rate is 18.Chest exam reveals diminished air entry at the bases. Heart exam reveals first and second heart sounds. No gallop. There is an ejection systolic murmur in the aortic area. Examination of extremities reveals mild bilateral edema. LABORATORY DATA: Labs show a hemoglobin of 10, BUN is 73, creatinine is 2.8, potassium is 4.5. ASSESSMENT: 1. Acute renal failure. 2. Permanent atrial fibrillation, controlled ventricular rate. 3. Diastolic heart failure. 4. Pleural effusions. PLAN: I agree with the education faculty member's recommendations. Continue the beta oscar now. MMODL / IJN: [id number] /
[2021-04-14 16:38] LABS: Glucose,Whole Blood 375 mg/dL (75-99)
[2021-04-14 18:58] LABS: Calcium 7.7 mg/dL (8.4-10.2); Potassium 4.4 mmol/L (3.5-5.1)
[2021-04-14 21:24] LABS: Glucose,Whole Blood 338 mg/dL (75-99)
[2021-04-14] MEDS: ATORVASTATIN 40 MG TAB PO SCH (21:33)
[2021-04-14] MEDS: INSULIN DETEMIR (LEVEMIR) 100 UNIT/ML SYR SQ SCH (21:33)
[2021-04-14] MEDS: DOXAZOSIN 2 MG TAB PO SCH (22:10)
[2021-04-14] MEDS: TEMAZEPAM 15 MG CAP PO PRN (23:12)
[2021-04-15 03:43] LABS: HCT 31.3 % (39.0-53.0); HGB 10.3 gm/dL (13.0-17.5); MCV 90.7 fL (80.0-100.0); Mean Platelet Volume 7.5; Platelet Count 298 k/uL (150-450); RBC 3.45 m/uL (4.30-5.90); RDW 14.2 % (11.5-15.5); WBC 13.4 k/uL (3.8-10.6)
[2021-04-15 04:13] LABS: Calcium 7.7 mg/dL (8.4-10.2)
[2021-04-15 07:01] LABS: Glucose,Whole Blood 112 mg/dL (75-99)
--- NOTE | 2021-04-15 07:09 | XR ---
EXAMINATION TYPE: XR chest 1V portable DATE OF EXAM: 04/15/2021 COMPARISON: 04/14/2021 HISTORY: Short of breath TECHNIQUE: Single frontal view of the chest is obtained. FINDINGS: There is unchanged elevation of the right hemidiaphragm with incompletely visualized blunting of the left costophrenic angle which appears similar to the prior exam. IMPRESSION: No significant change since the prior exam.
[2021-04-15] MEDS: NITROGLYCERIN OINT 1 INCH/GM PACKET TOPICAL SCH (07:11)
[2021-04-15] MEDS: INSULIN ASPART (NovoLOG) 100 UNIT/ML VIAL SQ SCH ×4 (07:11→20:31)
[2021-04-15] MEDS: IPRATROPIUM-ALBUTEROL 3 ML NEB INHALATION PRN ×4 (07:39→19:06)
[2021-04-15] MEDS: NIFEdipine XL 30 MG TAB.ER.24 PO SCH (09:29)
[2021-04-15] MEDS: ASPIRIN 81 MG PO SCH (09:40)
[2021-04-15] MEDS: APIXABAN 2.5 MG TABLET PO SCH ×2 (09:40→20:32)
[2021-04-15] MEDS: METOPROLOL TARTRATE 25 MG TAB PO SCH ×2 (09:40→20:32)
[2021-04-15] MEDS: FUROSEMIDE 10 MG/ML 10 ML VIAL IV SCH ×2 (09:40→20:35)
[2021-04-15] MEDS: SODIUM BICARBONATE TAB 650 MG TAB PO SCH ×2 (09:41→20:32)
[2021-04-15] MEDS: PANTOPRAZOLE 40 MG TABLET PO SCH (09:41)
[2021-04-15] MEDS: hydrALAZINE HCL 50 MG TAB PO SCH ×3 (09:41→20:31)
[2021-04-15 11:58] LABS: Glucose,Whole Blood 372 mg/dL (75-99)
[2021-04-15 12:10] LABS: Glucose,Whole Blood 374 mg/dL (75-99)
--- NOTE | 2021-04-15 12:31 | P.PN ---
Subjective 80-year-old male patient hospitalized for worsening shortness of breath. The patient was having orthopnea, unable to lay down flat in bed because of worsening shortness of breath. He is known to have history of CHF, diastolic heart failure, chronic atrial fibrillation and addition to diabetes mellitus and hypertension and hyperlipidemia and chronic kidney disease. Also suffers from chronic anemia. He was having some increased cough. Limited congestion. No chest pain. Over the past few days breathing got worse. He presented to the hospital because of worsening shortness of breath. Overnight he became more dyspneic and hypoxic. He was seen by the hospitalists and the patient was placed on a BiPAP and the patient was given additional dose of Lasix which somewhat improved his respiratory status. At the time of my evaluation, the patient was still struggling with his breathing. His pulse ox was around 76% on 6 L of oxygen by nasal cannula. At that point I put him back on a BiPAP at a pressure of 12/5 cm of water with an FiO2 of 100% and I transfer this patient to the intensive care unit. I also given additional dose of Lasix 60 mg IV push. Note that he was in atrial fibrillation. He was having some labored breathing. He was not using excessive muscle breathing. Limited edema in lower extremities bilaterally. His previous echocardiogram showed a preserved LV function with an ejection fraction of 665%, dilated LA, mild to moderate mitral regurgitation. His sodium is at time of admission was 126. BUN was 28 with a creatinine of 1.4. Troponins were minimally elevated at 0.5 and 0.4 and 0.3 respectively 3. EKG was consistent with atrial fibrillation, chest exit showed mild pulmonary vessel congestion and bilateral pleural effusion. Patient was started on IV heparin. The patient was given also Rocephin and Zithromax by the medical group regarding possibility of a pneumonia. His white cell count was at 14.5 with hemoglobin of 12.6. On today's evaluation of 04/12/2021, the patient seems in much more awake compared to yesterday. More interactive. He is less short of breath. He was taken briefly off the BiPAP. Nevertheless, he seems felt to be wanting the BiPAP and benefiting from the BiPAP which is running at a pressure of 12/6 cm of water with an FiO2 of 80%. He was diuresed with Lasix IV and his fluid balance is -2.1 L over the past 24 hours. He is headed towards a negative fluid b alance. CAT scan of the chest was completed yesterday and it showed moderate to large sized bilateral pleural effusion, worse on the right, there is also atelectatic changes in the lung bases. There is also occlusion of the right lower lobe bronchus which obviously raises the concern for underlying lesion within the right lower lobe. I think this is probably related to atelectasis. He does have some mild cardiomegaly. He was dynamically stable. No hypotension. On his blood work, the patient has a white cell count of 15.3. Sodium is 124. Creatinine is at 58 with a creatinine of 2.3. Legionella urine antigen came back negative. He remains on anticoagulation with Eliquis. His cardiac rhythm remains a atrial fibrillation. Nephrology evaluated this patient and want to start the patient on a Lasix drip. He remains on empiric antibiotic coverage with a combination of Rocephin and Zithromax. 04/13/2021 Patient had a thoracentesis on the right side with removal of around 2 and half liters of fluid. I reviewed the CT and x-ray imaging there is no evidence of pneumonia and this can you azithromycin probably will not need Rocephin either. Patient Appears to have hypervolemic hyponatremia for which patient is on IV Lasix drip although patient doesn't have much of urine output since then. Patient still has some bilateral pleural effusions with some atelectasis. 04/14/2021 His serum creatinine and serum sodium continued to get worse patient received Samsca. Patient the probably will need hemodialysis patient was switched from IV Lasix drip to 80 mg twice a day of IV Lasix. Patient blood sugars are bit down today closely monitor this continue pre-meal insulin continue with Levemir. All the anti-happens medications are being held because of acute renal failure. Chest x-ray showed significant improvement of pleural effusions. Patient doesn't have much of urine output since yesterday. 04/15/2021 Patient overall clinical condition improved. After withholding the anti- hypertensive medications it appears patient's kidney function has improved and patient started having good urine output patient remains on IV Lasix. Patient creatinine improved from 2.81-2.7 today and the serum sodium improved to 125 as well. Patient the oxygen requirements have come down although went back on BiPAP again today. Patient had paracentesis today with removal of 700 mL from the left lung. Patient had presences day before on the right side with removal of around 1700 mL. Patient has mild the leukocytosis of 13,400 patient is presently not an antibiotic was on antibiotics until couple days ago. This is reactive and not no evidence of infection at this time. Patient blood sugars are highly elevated will increase the dose of long-acting insulin at nighttime. Constitutional: Denied any fatigue denied any fever. Cardio vascular: denied any chest pain, palpitations Gastrointestinal denied any nausea vomiting Pulmonary: Denied any shortness of breath cough Neurologic denied any new focal deficits All inpatient medications were reviewed and appropriate changes in these medications as dictated in the interval history and assessment and plan. PHYSICAL EXAMINATION: GENERAL: The patient is alert and oriented x3, not in any acute distress. Well developed, well nourished. HEENT: Pupils are round and equally reacting to light. EOMI. No scleral icterus. No conjunctival pallor. Normocephalic, atraumatic. No pharyngeal erythema. No thyromegaly. CARDIOVASCULAR: S1 and S2 present. No murmurs, rubs, or gallops. PULMONARY: Chest is clear to auscultation, no wheezing or crackles. ABDOMEN: Soft, nontender, nondistended, normoactive bowel sounds. No palpable organomegaly. MUSCULOSKELETAL: No joint swelling or deformity. EXTREMITIES: No cyanosis, clubbing, does have some pedal edema NEUROLOGICAL: Gross neurological examination did not reveal any focal deficits. SKIN: No rashes. Assessment and Plan Plan: 1 acute hypoxic respiratory failure, likely on the basis of decompensated heart failure, and large bilateral pleural effusions, not pneumonia, and medics were discontinued patient was switched to IV Lasix from IV Lasix drip. Patient is status post thoracentesis on the right side with removal of 1700 mL on 04/13/2021 and paracentesis on the left side with removal of around 700 mL on 04/14/2021 patient respiratory status appeared to be improving . 2 chronic atrial fibrillation: Presently rate controlled 3 chronic diastolic dysfunction with acute exacerbation 4 chronic stage III kidney disease, With a component of an acute kidney injury from a cardiorenal syndrome improved urine output 5 hyponatremia, hypervolemic hyponatremia secondary to CHF on IV Lasix . Patient's serum sodium is improving IV Lasix is being continued Olding of antidepressant medications 6 hypertension: Holding off on antihypertensive medications because of worsening renal function 7 hyperlipidemia 8 chronic anemia 9 diabetes mellitus type 2 uncontrolled elevated blood sugars increasing doses long-acting insulin. Objective - Vital Signs Vital signs: Vital Signs Temp 97.9 F 04/15/21 12:00 Pulse 67 04/15/21 12:00 Resp 40 H 04/15/21 12:00 BP 148/82 04/15/21 12:00 Pulse Ox 93 L 04/15/21 12:00 Intake & Output 04/14/21 04/15/21 04/15/21 18:59 06:59 18:59 Intake Total 65 1315 30 Output Total 1545 1960 975 Balance -1814 -897 -942 Intake: IV 65 55 30 Normal Saline 0.9 @ 5mL/ 65 55 30 hr Oral 1260 Output: Urine 845 1960 975 Other 700 Other: Voiding Method Indwelling Catheter Indwelling Catheter Indwelling Catheter # Bowel Movements 0 - Labs CBC & Chem 7: 04/15/21 03:25 04/15/21 03:25 Labs: Abnormal Lab Results - Last 24 Hours (Table) 04/14/21 04/14/21 04/14/21 Range/Units 16:37 18:17 21:23 WBC (3.8-10.6) k/uL RBC (4.30-5.90) m/uL Hgb (13.0-17.5) gm/dL Hct (39.0-53.0) % Sodium 121 L (137-145) mmol/L Chloride 91 L (98-107) mmol/L Carbon Dioxide 18 L (22-30) mmol/L BUN 82 H (9-20) mg/dL Creatinine 3.10 H (0.66-1.25) mg/dL Glucose 388 H (74-99) mg/dL POC Glucose (mg/dL) 375 H 338 H (75-99) mg/dL Calcium 7.7 L (8.4-10.2) mg/dL 04/15/21 04/15/21 04/15/21 Range/Units 03:25 03:25 07:00 WBC 13.4 H (3.8-10.6) k/uL RBC 3.45 L (4.30-5.90) m/uL Hgb 10.3 L (13.0-17.5) gm/dL Hct 31.3 L (39.0-53.0) % Sodium 125 L (137-145) mmol/L Chloride 93 L (98-107) mmol/L Carbon Dioxide (22-30) mmol/L BUN 81 H (9-20) mg/dL Creatinine 2.74 H (0.66-1.25) mg/dL Glucose 110 H (74-99) mg/dL POC Glucose (mg/dL) 112 H (75-99) mg/dL Calcium 7.7 L (8.4-10.2) mg/dL 04/15/21 04/15/21 Range/Units 11:56 12:09 WBC (3.8-10.6) k/uL RBC (4.30-5.90) m/uL Hgb (13.0-17.5) gm/dL Hct (39.0-53.0) % Sodium (137-145) mmol/L Chloride (98-107) mmol/L Carbon Dioxide (22-30) mmol/L BUN (9-20) mg/dL Creatinine (0.66-1.25) mg/dL Glucose (74-99) mg/dL POC Glucose (mg/dL) 372 H 374 H (75-99) mg/dL Calcium (8.4-10.2) mg/dL Microbiology - Last 24 Hours (Table) 04/11/21 06:35 Blood Culture - Preliminary Blood No Growth after 96 hours 04/11/21 06:20 Blood Culture - Preliminary Blood No Growth after 96 hours 04/13/21 09:15 Gram Stain - Preliminary Pleural Fluid Body Fluid Culture - Preliminary
--- NOTE | 2021-04-15 12:52 | P.PN ---
Subjective This is a 80 year old male with paroxysmal atrial fibrillation (on Eliquis), hypertension, type 2 diabetes, hyperlipidemia, sinus bradycardia, mildly prolonged MA interval, chronic kidney disease, chronic diastolic heart failure. Patient follows in the office with Dr. Stratton. We are following the patient for elevated troponin. Patient was admitted 04/11/2021 to the hospital due to shortness of breath, symptoms of orthopndea, PND and leg edema. Patient was started on IV Lasix and required BIPAP and was transferred to the ICU. Chest x- ray on admission revealed persistent central vascular congestion and interstitial edema. CT chest 04/12 revealed moderately large bilateral pleural effusions enlargement the right side. Occlusion of the lower lobe bronchi. Bilateral lower lobe consolidation or atelectasis that is worse on the right side. Previous echocardiogram 03/24/2021 revealed EF of 66 5%, LA severely dilated, mild to moderate mitral regurgitation, mild tricuspid regurgitation. Holter monitor on 02/2021 in the office revealed sinus rhythm with mildly prolonged MA, nighttime bradycardia, likely chronotropic incompetence Limited Echo 04/11/2021 revealed EF 55-60%, trivial pericardial effusion, and large pleural effusion. 04/13- Patient underwent right sided thoracentesis with 1.7L turbid colored fluid removed Ultrasound the kidneys revealed no hydronephrosis, increased renal parenchyma Ecotrin this is a suggestive of medical renal disease. Bilateral renal cortical cyst slightly enlarged compared to old exam in 04/14 patient underwent left-sided thoracentesis with 700 mL turbid colored fluid removed. 04/15/2021: Patient seen at bedside in the ICU. He is alert and oriented x 3. Patient maintained on IV Lasix, Eliquis 2.5 mg twice a day, aspirin 81 mg daily, atorvastatin 40 mg nightly, hydralazine 100 mg 3 times, Toprol tartrate 25 mg twice day, nifedipine 30 mg daily,, doxazosin 2mg night. Doxazosin and Nifedipi ne on hold for renal perfusion. He has been having good urine output with 3.5L over the past 24 hours. Blood pressure 148/82, heart rate 67, afebrile. Continues to require BiPAP. serum creatinine is improvin. WBC 13.4, hemoglobin 10, platelets 298, sodium 125, potassium 4.0, BUN 81 sCr 2.74 (3.10 yesterday). Telemetry reviewed, patient occasionally in atrial fibrillation this morning, but currently maintaining sinus mechanism HR 60-70s. PHYSICAL EXAM: VITAL SIGNS: Reviewed. GENERAL: In no acute distress. NECK: Supple. No JVD or thyromegaly LUNGS: Respirations even and unlabored. Lungs diminished with bibasilar rales. HEART: Regular rate and rhythm. S1 and S2 heard. Systolic murmur. EXTREMITIES: Normal range of motion. No clubbing or cyanosis. Peripheral pulses intact. 1+ bilateral lower extremity edema ASSESSMENT: Elevated troponin trend 0.5, 0.4, 0.3, patient also had elevated troponin during previous admissions. Not indicative of acute coronary syndrome Acute hypoxic respiratory failure Bilateral Pleural Effusions Shortness of breath Acute exacerbation of chronic diastolic heart failure Paroxysmal atrial fibrillation - on Eliquis Currently maintaining sinus mechanism Acute on Chronic kidney disease Hyponatremia PLAN: Continue current cardiac medications. Nifedipine and Doxazosin held today Continue IV lasix per nephrology Accurate I&O, Daily weights Monitor electrolytes and kidney function Further recommendations pending patient course Objective - Vital Signs Vital signs: Vital Signs Temp 98.3 F 04/15/21 04:00 Pulse 74 04/15/21 07:50 Resp 8 L 04/15/21 07:00 BP 150/72 04/15/21 07:00 Pulse Ox 97 04/15/21 07:00 Intake & Output 04/14/21 04/15/21 04/15/21 18:59 06:59 18:59 Intake Total 65 1315 5 Output Total 1545 1960 175 Balance -1480 -645 -170 Intake: IV 65 55 5 Normal Saline 0.9 @ 5mL/ 65 55 5 hr Oral 1260 Output: Urine 845 1960 175 Other 700 Other: Voiding Method Indwelling Catheter Indwelling Catheter - Labs CBC & Chem 7: 04/15/21 03:25 04/15/21 03:25 Labs: Abnormal Lab Results - Last 24 Hours (Table) 04/14/21 04/14/21 04/14/21 Range/Units 11:40 16:37 18:17 WBC (3.8-10.6) k/uL RBC (4.30-5.90) m/uL Hgb (13.0-17.5) gm/dL Hct (39.0-53.0) % Sodium 121 L (137-145) mmol/L Chloride 91 L (98-107) mmol/L Carbon Dioxide 18 L (22-30) mmol/L BUN 82 H (9-20) mg/dL Creatinine 3.10 H (0.66-1.25) mg/dL Glucose 388 H (74-99) mg/dL POC Glucose (mg/dL) 207 H 375 H (75-99) mg/dL Calcium 7.7 L (8.4-10.2) mg/dL 04/14/21 04/15/21 04/15/21 Range/Units 21:23 03:25 03:25 WBC 13.4 H (3.8-10.6) k/uL RBC 3.45 L (4.30-5.90) m/uL Hgb 10.3 L (13.0-17.5) gm/dL Hct 31.3 L (39.0-53.0) % Sodium 125 L (137-145) mmol/L Chloride 93 L (98-107) mmol/L Carbon Dioxide (22-30) mmol/L BUN 81 H (9-20) mg/dL Creatinine 2.74 H (0.66-1.25) mg/dL Glucose 110 H (74-99) mg/dL POC Glucose (mg/dL) 338 H (75-99) mg/dL Calcium 7.7 L (8.4-10.2) mg/dL 04/15/21 Range/Units 07:00 WBC (3.8-10.6) k/uL RBC (4.30-5.90) m/uL Hgb (13.0-17.5) gm/dL Hct (39.0-53.0) % Sodium (137-145) mmol/L Chloride (98-107) mmol/L Carbon Dioxide (22-30) mmol/L BUN (9-20) mg/dL Creatinine (0.66-1.25) mg/dL Glucose (74-99) mg/dL POC Glucose (mg/dL) 112 H (75-99) mg/dL Calcium (8.4-10.2) mg/dL Microbiology - Last 24 Hours (Table) 04/13/21 09:15 Gram Stain - Preliminary Pleural Fluid Body Fluid Culture - Preliminary 04/11/21 06:35 Blood Culture - Preliminary Blood No Growth after 72 hours 07/08/21 06:20 Blood Culture - Preliminary Blood No Growth after 72 hours
--- NOTE | 2021-04-15 13:59 | P.PN ---
Subjective Progress Note Date: 04/15/21 Principal diagnosis: Acute hypoxic respiratory failure secondary to acute on chronic diastolic congestive heart failure. And bilateral pleural effusions. 80-year-old male patient hospitalized for worsening shortness of breath. The patient was having orthopnea, unable to lay down flat in bed because of worsening shortness of breath. He is known to have history of CHF, diastolic heart failure, chronic atrial fibrillation and addition to diabetes mellitus and hypertension and hyperlipidemia and chronic kidney disease. Also suffers from chronic anemia. He was having some increased cough. Limited congestion. No chest pain. Over the past few days breathing got worse. He presented to the hospital because of worsening shortness of breath. Overnight he became more dys pneic and hypoxic. He was seen by the hospitalists and the patient was placed on a BiPAP and the patient was given additional dose of Lasix which somewhat improved his respiratory status. At the time of my evaluation, the patient was still struggling with his breathing. His pulse ox was around 76% on 6 L of oxygen by nasal cannula. At that point I put him back on a BiPAP at a pressure of 12/5 cm of water with an FiO2 of 100% and I transfer this patient to the intensive care unit. I also given additional dose of Lasix 60 mg IV push. Note that he was in atrial fibrillation. He was having some labored breathing. He was not using excessive muscle breathing. Limited edema in lower extremities bilaterally. His previous echocardiogram showed a preserved LV function with an ejection fraction of 665%, dilated LA, mild to moderate mitral regurgitation. His sodium is at time of admission was 126. BUN was 28 with a creatinine of 1.4. Troponins were minimally elevated at 0.5 and 0.4 and 0.3 respectively 3. EKG was consistent with atrial fibrillation, chest exit showed mild pulmonary vessel congestion and bilateral pleural effusion. Patient was started on IV heparin. The patient was given also Rocephin and Zithromax by the medical group regarding possibility of a pneumonia. His white cell count was at 14.5 with hemoglobin of 12.6. On today's evaluation of 04/13/2021, the patient seems in much more awake compared to yesterday. More interactive. He is less short of breath. He was taken briefly off the BiPAP. Nevertheless, he seems felt to be wanting the BiPAP and benefiting from the BiPAP which is running at a pressure of 12/6 cm of water with an FiO2 of 80%. He was diuresed with Lasix IV and his fluid balance is -2.1 L over the past 24 hours. He is headed towards a negative fluid balance. CAT scan of the chest was completed yesterday and it showed moderate to large sized bilateral pleural effusion, worse on the right, there is also atelectatic changes in the lung bases. There is also occlusion of the right lower lobe bronchus which obviously raises the concern for underlying lesion within the right lower lobe. I think this is probably related to atelectasis. He does have some mild cardiomegaly. He was dynamically stable. No hypotension. On his blood work, the patient has a white cell count of 15.3. Sodium is 124. Creatinine is at 58 with a creatinine of 2.3. Legionella urine antigen came back negative. He remains on anticoagulation with Eliquis. His cardiac rhythm remains a atrial fibrillation. Nephrology evaluated this patient and want to start the patient on a Lasix drip. He remains on empiric antibiotic coverage with a combination of Rocephin and Zithromax. 04/14/2021, the patient is still having some shortness of breath and hypoxemia. After some initial improvement following his thoracentesis, overnight the patient's oxygenation gradually got worse. He was placed back on the BiPAP and currently is on 1 and 1 L facemask. Repeat chest x-ray from today showing atelectatic changes in the right lung base along with some bilateral pleural effusion. Note that his urine output also dropped. The patient was given Lasix and currently receiving IV Lasix at a dose of 80 mg every 12 hours. Note that the urine output is in order of 10-20 mL an hour. His creatinine is up to 2.8 and the sodium level is up and down to 121. Discussed the case with nephrology and the patient will be given Lasix along with semsca 15 mg. Obvious is more comfortable compared to yesterday. Nevertheless, he continues to require high levels of oxygen. His cardiac rhythm is sinus for now. His pulse ox is order of 93%. BP stable at 131/59. Patient was reevaluated today on 04/15/2021, remains in the ICU, patient had bilateral thoracentesis performed in the last few days by Dr. Oh, doing great, feeling much better, he was on BiPAP last night, today he is on 15 L high flow cannula, and his O2 saturation was noted to be 99%, hence I cut down his FiO2 down to 6 L nasal cannula. Chest x-ray continues to show hardly any fluid on the left side, but there is a small right-sided pleural effusion with elevated right hemidiaphragm. Patient had thoracentesis on 04/13 and he had 1700 mL of fluid removed from the right pleural space. He had another thoracentesis on the left side and 700 mL were removed on 04/14. Overall the patient is doing well, improved, less shortness of breath, echocardiogram showed good LV function, RBC the patient came in with a diastolic congestive heart failure and non-ST elevation myocardial infarction. WBC count today is 13.4 hemoglobin is 10.3. Sodium remains low at 125. Electrolytes are normal otherwise. BUN is 81 creatinine 2.74. BNP level few days ago was as high as 16,000. Fluid drained from both spaces seems to be transudative in nature. Objective - Vital Signs Vital signs: Vital Signs Temp 97.9 F 04/15/21 12:00 Pulse 73 04/15/21 13:00 Resp 27 H 04/15/21 13:00 BP 159/67 04/15/21 13:00 Pulse Ox 97 04/15/21 13:00 Intake & Output 04/14/21 04/15/21 04/15/21 18:59 06:59 18:59 Intake Total 65 1315 35 Output Total 1545 1960 1275 Balance -1480 -645 -1240 Intake: IV 65 55 35 Normal Saline 0.9 @ 5mL/ 65 55 35 hr Oral 1260 Output: Urine 845 1960 1275 Other 700 Other: Voiding Method Indwelling Catheter Indwelling Catheter Indwelling Catheter # Bowel Movements 0 - Exam Physical Exam: Revealed 80-year-old white male pleasant in no distress. Head: Atraumatic, normocephalic. HEENT:[Neck is supple.] [No neck masses.] [No thyromegaly.] [No JVD.] Chest: [Symmetrical chest expansion diminished breath sounds at the bases especially at the right base. Cardiac Exam: Irregular irregular rhythm. [Normal S1 and S2, no S3 gallop, no murmur.] Abdomen: [Soft, nontender, no megaly, no rebound, no guarding, normal bowel sounds.] Extremities: [No clubbing, 1+ bipedal edema, no cyanosis.] Neurological Exam: [No focal neurologic deficit.] Alert oriented 3. Psychiatric: Normal mood affect and normal mental status examination. Skin: No rashes. - Labs CBC & Chem 7: 04/15/21 03:25 04/15/21 03:25 Labs: Abnormal Lab Results - Last 24 Hours (Table) 04/14/21 04/14/21 04/14/21 Range/Units 16:37 18:17 21:23 WBC (3.8-10.6) k/uL RBC (4.30-5.90) m/uL Hgb (13.0-17.5) gm/dL Hct (39.0-53.0) % Sodium 121 L (137-145) mmol/L Chloride 91 L (98-107) mmol/L Carbon Dioxide 18 L (22-30) mmol/L BUN 82 H (9-20) mg/dL Creatinine 3.10 H (0.66-1.25) mg/dL Glucose 388 H (74-99) mg/dL POC Glucose (mg/dL) 375 H 338 H (75-99) mg/dL Calcium 7.7 L (8.4-10.2) mg/dL 04/15/21 04/15/21 04/15/21 Range/Units 03:25 03:25 07:00 WBC 13.4 H (3.8-10.6) k/uL RBC 3.45 L (4.30-5.90) m/uL Hgb 10.3 L (13.0-17.5) gm/dL Hct 31.3 L (39.0-53.0) % Sodium 125 L (137-145) mmol/L Chloride 93 L (98-107) mmol/L Carbon Dioxide (22-30) mmol/L BUN 81 H (9-20) mg/dL Creatinine 2.74 H (0.66-1.25) mg/dL Glucose 110 H (74-99) mg/dL POC Glucose (mg/dL) 112 H (75-99) mg/dL Calcium 7.7 L (8.4-10.2) mg/dL 04/15/21 04/15/21 Range/Units 11:56 12:09 WBC (3.8-10.6) k/uL RBC (4.30-5.90) m/uL Hgb (13.0-17.5) gm/dL Hct (39.0-53.0) % Sodium (137-145) mmol/L Chloride (98-107) mmol/L Carbon Dioxide (22-30) mmol/L BUN (9-20) mg/dL Creatinine (0.66-1.25) mg/dL Glucose (74-99) mg/dL POC Glucose (mg/dL) 372 H 374 H (75-99) mg/dL Calcium (8.4-10.2) mg/dL Microbiology - Last 24 Hours (Table) 04/11/21 06:35 Blood Culture - Preliminary Blood No Growth after 96 hours 04/11/21 06:20 Blood Culture - Preliminary Blood No Growth after 96 hours 04/13/21 09:15 Gram Stain - Preliminary Pleural Fluid Body Fluid Culture - Preliminary Assessment and Plan Assessment: Impression: Acute hypoxic respiratory failure secondary to acute on chronic diastolic congestive heart failure and bilateral pleural effusions. Acute non-ST elevation myocardial infarction Bilateral pleural effusions requiring thoracentesis on both sides. Chronic atrial fibrillation. Chronic diastolic congestive heart failure. Chronic kidney disease stage III. Hypervolemic hyponatremia. Hypertension. Chronic anemia. Type 2 diabetes. Dyslipidemia. Recommendation: Continue diuretics. Titrate FiO2 down to a nasal cannula at maybe 3 or 4 L/m. Continue to monitor I's and O's. Continue tolvapten Echocardiogram was noted. Likely transfer to a cardiac floor in the next 24 hours. We'll continue to follow. prognosis remains guarded. Time with Patient: Less than 30
[2021-04-15 16:57] LABS: Glucose,Whole Blood 269 mg/dL (75-99)
--- NOTE | 2021-04-15 17:12 | PN ---
PROGRESS NOTE Patient is seen for followup for acute kidney injury and hyponatremia. The patient is currently being diuresed. He is maintained on IV Lasix 80 mg b.i.d. Renal function has improved with improvement in sodium as well. The patient has an indwelling Hill catheter, 24 hour output at 3.5 L. EXAMINATION: Today blood pressure was 164/68, heart rate of 64 per minute. Patient is afebrile. Examination of the heart S1, S2. Examination of the lungs, decreased breath sounds at bases. Abdomen is soft, nontender. Examination of lower extremities shows edema 1+ bilaterally. CONDITIONER TUMBLER exam grossly intact. No obvious motor deficits noted. LAB: Show sodium 125, potassium 4.0, chloride 93, BUN 81, creatinine 2.74, hemoglobin 10.3 g/dL. ASSESSMENT: 1. Acute kidney injury ATN/cardiorenal syndrome. Renal function is slowly improving. 2. Chronic kidney disease stage 3B. Baseline creatinine about 1.5 secondary to diabetic kidney disease. 3. Hypervolemic hyponatremia, currently improving. 4. Metabolic acidosis associated with acute kidney injury. 5. Acute on chronic diastolic congestive heart failure. 6. Hypertension with chronic kidney disease. PLAN: Continue with current dose of IV Lasix. Repeat labs in a.m. MMODL / IJN: [id number] /
[2021-04-15 19:44] LABS: Glucose,Whole Blood 332 mg/dL (75-99)
[2021-04-15] MEDS: DOXAZOSIN 2 MG TAB PO SCH (20:32)
[2021-04-15] MEDS: ATORVASTATIN 40 MG TAB PO SCH (20:32)
[2021-04-15] MEDS: TEMAZEPAM 15 MG CAP PO PRN (20:33)
[2021-04-15] MEDS ORDERED: INSULIN DETEMIR (LEVEMIR) 100 UNIT/ML SYR SQ SCH (21:00)
[2021-04-16 04:03] LABS: Basophils # (A) 0.1 k/uL (0-0.2); Basophils % (A) 1 %; Eosinophils # (A) 0.1 k/uL (0-0.7); Eosinophils % (A) 1 %; HCT 31.3 % (39.0-53.0); HGB 10.6 gm/dL (13.0-17.5); Lymphocytes # (A) 0.9 k/uL (1.0-4.8); Lymphocytes % (A) 6 %; MCH 31.4 pg (25.0-35.0); MCV 92.5 fL (80.0-100.0); Mean Platelet Volume 7.6; Monocytes % (A) 7 %; Neutrophils # (A) 11.6 k/uL (1.3-7.7); Neutrophils % (A) 84 %; Platelet Count 360 k/uL (150-450); RBC 3.38 m/uL (4.30-5.90); RDW 13.9 % (11.5-15.5); WBC 13.9 k/uL (3.8-10.6)
[2021-04-16 04:16] LABS: Calcium 7.9 mg/dL (8.4-10.2); Potassium 3.8 mmol/L (3.5-5.1)
[2021-04-16] MEDS ORDERED: POTASSIUM CHLORIDE ER 20 MEQ TAB.ER PO SCH (06:30)
[2021-04-16 06:46] LABS: Glucose,Whole Blood 113 mg/dL (75-99)
[2021-04-16] MEDS: INSULIN ASPART (NovoLOG) 100 UNIT/ML VIAL SQ SCH ×4 (06:59→21:30)
[2021-04-16] MEDS: PANTOPRAZOLE 40 MG TABLET PO SCH (07:41)
[2021-04-16] MEDS: METOPROLOL TARTRATE 25 MG TAB PO SCH ×2 (07:41→21:29)
[2021-04-16] MEDS: SODIUM BICARBONATE TAB 650 MG TAB PO SCH (07:41)
[2021-04-16] MEDS: ASPIRIN 81 MG PO SCH (07:42)
[2021-04-16] MEDS: hydrALAZINE HCL 50 MG TAB PO SCH (07:42)
[2021-04-16] MEDS: APIXABAN 2.5 MG TABLET PO SCH ×2 (07:42→21:29)
[2021-04-16] MEDS: NIFEdipine XL 30 MG TAB.ER.24 PO SCH (07:44)
[2021-04-16] MEDS: FUROSEMIDE 10 MG/ML 10 ML VIAL IV SCH ×2 (07:53→21:33)
--- NOTE | 2021-04-16 08:15 | XR ---
EXAMINATION TYPE: XR chest 1V portable DATE OF EXAM: 04/16/2021 CLINICAL HISTORY: chf. TECHNIQUE: Portable semiupright view of the chest. COMPARISON: 04/15/2021 FINDINGS: Large right pleural effusion, increased from 04/15/2021. Small left pleural effusion. Cardia c silhouette is partially obscured and appears within normal limits for size. No pneumothorax. IMPRESSION: Large right pleural effusion, increased from 04/15/2021.
--- NOTE | 2021-04-16 10:52 | XR ---
EXAMINATION TYPE: XR chest 1V portable DATE OF EXAM: 04/16/2021 COMPARISON: Chest x-ray 04/16/2021 HISTORY: Status post thoracentesis TECHNIQUE: Single frontal view of the chest is obtained. FINDINGS: There is interval improved aeration within the right lung. No evident pneumothorax. No oth er significant interval change. IMPRESSION: No evident complication status post right-sided thoracentesis.
[2021-04-16 11:46] LABS: Glucose,Whole Blood 324 mg/dL (75-99)
--- NOTE | 2021-04-16 12:05 | P.PN ---
Subjective This is a 80 year old male with paroxysmal atrial fibrillation (on Eliquis), hypertension, type 2 diabetes, hyperlipidemia, sinus bradycardia, mildly prolonged AR interval, chronic kidney disease, chronic diastolic heart failure. Patient follows in the office with Dr. Stratton. We are following the patient for elevated troponin. Patient was admitted 04/11/2021 to the hospital due to shortness of breath, symptoms of orthopndea, PND and leg edema. Patient was started on IV Lasix and required BIPAP and was transferred to the ICU. Chest x- ray on admission revealed persistent central vascular congestion and interstitial edema. CT chest 04/12 revealed moderately large bilateral pleural effusions enlargement the right side. Occlusion of the lower lobe bronchi. Bilateral lower lobe consolidation or atelectasis that is worse on the right side. Previous echocardiogram 03/24/2021 revealed EF of 66 5%, LA severely dilated, mild to moderate mitral regurgitation, mild tricuspid regurgitation. Holter monitor on 02/2021 in the office revealed sinus rhythm with mildly prolonged AR, nighttime bradycardia, likely chronotropic incompetence Limited Echo 04/11/2021 revealed EF 55-60%, trivial pericardial effusion, and large pleural effusion. 04/13- Patient underwent right sided thoracentesis with 1.7L turbid colored fluid removed Ultrasound the kidneys revealed no hydronephrosis, increased renal parenchyma Ecotrin this is a suggestive of medical renal disease. Bilateral renal cortical cyst slightly enlarged compared to old exam in 04/14 patient underwent left-sided thoracentesis with 700 mL turbid colored fluid removed. 04/15/2021: Nifedipine and Doxazosin held today for renal perfusion 04/16/2021: Patient seen at bedside in the ICU. He is alert and oriented x 3.He is sitting up in the chair, appears to be improving. His oxygenations are still in the 80s% on 15 L high flow nasal cannula, there is concern for aspiration. Patient ma intained on IV Lasix 80mg BID, Eliquis 2.5 mg twice a day, aspirin 81 mg daily, atorvastatin 40 mg nightly, hydralazine 100 mg 3 times, Toprol tartrate 25 mg twice day, nifedipine 30 mg daily, doxazosin 2mg night. He has been having good urine output with 4.5L over the past 24 hours. Blood pressure 115/40 HR 64, afebrile. Continues to require BiPAP. serum creatinine is improvin. WBC 13.9, bun 10.6, platelets 360, sodium 1:30, potassium 3.8, BUN 76, serum creatinine 2.11 (yesterday 2.74). Telemetry reviewed, is currently maintaining sinus mechanism HR 60-70s. PHYSICAL EXAM: VITAL SIGNS: Reviewed. GENERAL: In no acute distress. Does appear slightly short of breath NECK: Supple. No JVD or thyromegaly LUNGS: Respirations even and unlabored. Lungs diminished with bibasilar rales. HEART: Regular rate and rhythm. S1 and S2 heard. Systolic murmur noted. EXTREMITIES: Normal range of motion. No clubbing or cyanosis. Peripheral pulses intact. 1+ bilateral lower extremity edema ASSESSMENT: Elevated troponin trend 0.5, 0.4, 0.3, patient also had elevated troponin during previous admissions. Not indicative of acute coronary syndrome Acute hypoxic respiratory failure Bilateral Pleural Effusions Shortness of breath Acute exacerbation of chronic diastolic heart failure Paroxysmal atrial fibrillation - on Eliquis Currently maintaining sinus mechanism Acute on Chronic kidney disease Hyponatremia PLAN: Plan for patient to undergo barium swallow today Continue current cardiac medications at this time Continue IV lasix per nephrology Accurate I&O, Daily weights Monitor electrolytes and kidney function Further recommendations pending patient course Objective - Vital Signs Vital signs: Vital Signs Temp 99.0 F 04/16/21 04:00 Pulse 75 04/16/21 07:00 Resp 22 04/16/21 07:00 BP 169/66 04/16/21 07:00 Pulse Ox 95 04/16/21 07:00 Intake & Output 04/15/21 04/16/21 04/16/21 18:59 06:59 18:59 Intake Total 160 480 Output Total 1920 2650 100 Balance -1760 -2170 -100 Intake: IV 60 Normal Saline 0.9 @ 5mL/ 60 hr Oral 100 480 Output: Urine 1920 2650 100 Other: Voiding Method Indwelling Catheter Indwelling Catheter # Bowel Movements 1 - Labs CBC & Chem 7: 04/16/21 03:21 04/16/21 03:21 Labs: Abnormal Lab Results - Last 24 Hours (Table) 04/15/21 04/15/21 04/15/21 Range/Units 11:56 12:09 16:55 WBC (3.8-10.6) k/uL RBC (4.30-5.90) m/uL Hgb (13.0-17.5) gm/dL Hct (39.0-53.0) % Neutrophils # (1.3-7.7) k/uL Lymphocytes # (1.0-4.8) k/uL Sodium (137-145) mmol/L Chloride (98-107) mmol/L BUN (9-20) mg/dL Creatinine (0.66-1.25) mg/dL Glucose (74-99) mg/dL POC Glucose (mg/dL) 372 H 374 H 269 H (75-99) mg/dL Calcium (8.4-10.2) mg/dL 04/15/21 04/16/21 04/16/21 Range/Units 19:43 03:21 03:21 WBC 13.9 H (3.8-10.6) k/uL RBC 3.38 L (4.30-5.90) m/uL Hgb 10.6 L (13.0-17.5) gm/dL Hct 31.3 L (39.0-53.0) % Neutrophils # 11.6 H (1.3-7.7) k/uL Lymphocytes # 0.9 L (1.0-4.8) k/uL Sodium 130 L (137-145) mmol/L Chloride 97 L (98-107) mmol/L BUN 76 H (9-20) mg/dL Creatinine 2.11 H (0.66-1.25) mg/dL Glucose 147 H (74-99) mg/dL POC Glucose (mg/dL) 332 H (75-99) mg/dL Calcium 7.9 L (8.4-10.2) mg/dL 04/16/21 Range/Units 06:45 WBC (3.8-10.6) k/uL RBC (4.30-5.90) m/uL Hgb (13.0-17.5) gm/dL Hct (39.0-53.0) % Neutrophils # (1.3-7.7) k/uL Lymphocytes # (1.0-4.8) k/uL Sodium (137-145) mmol/L Chloride (98-107) mmol/L BUN (9-20) mg/dL Creatinine (0.66-1.25) mg/dL Glucose (74-99) mg/dL POC Glucose (mg/dL) 113 H (75-99) mg/dL Calcium (8.4-10.2) mg/dL Microbiology - Last 24 Hours (Table) 04/13/21 09:15 Gram Stain - Preliminary Pleural Fluid Body Fluid Culture - Preliminary 04/11/21 06:35 Blood Culture - Preliminary Blood No Growth after 96 hours 04/11/21 06:20 Blood Culture - Preliminary Blood No Growth after 96 hours
--- NOTE | 2021-04-16 12:24 | US ---
EXAMINATION TYPE: US chest DATE OF EXAM: 04/16/2021 COMPARISON: x-ray 04/16/2021 CLINICAL HISTORY: Markings for thoracentesis by pulmonary staff. TECHNIQUE: Targeted ultrasound of the posterior lower bilateral hemithoraces EXAM MEASUREMENTS: Right Pleural Effusion pocket size: 10.4 cm Right skin surface to fluid distance: 2.3 cm Left Pleural Effusion pocket size: 5.7 cm Left skin surface to fluid distance: 2.0 cm Right side marked for possible thoracentesis outside the dept. Left NOT side marked for possible thoracentesis outside the dept due to lung moving into pocket when patient took a breath Pulmonologists are able to review the images in the patient?s EMR. IMPRESSIONS: Bilateral pleural effusions with right side marked for possible thoracentesis. Left side not marked d ue to intervening lung intermittently.
--- NOTE | 2021-04-16 12:27 | P.PN ---
Subjective Progress Note Date: 04/16/21 Principal diagnosis: Acute hypoxic respiratory failure secondary to acute on chronic diastolic congestive heart failure. And bilateral pleural effusions. 80-year-old male patient hospitalized for worsening shortness of breath. The patient was having orthopnea, unable to lay down flat in bed because of worsening shortness of breath. He is known to have history of CHF, diastolic heart failure, chronic atrial fibrillation and addition to diabetes mellitus and hypertension and hyperlipidemia and chronic kidney disease. Also suffers from chronic anemia. He was having some increased cough. Limited congestion. No chest pain. Over the past few days breathing got worse. He presented to the hospital because of worsening shortness of breath. Overnight he became more dys pneic and hypoxic. He was seen by the hospitalists and the patient was placed on a BiPAP and the patient was given additional dose of Lasix which somewhat improved his respiratory status. At the time of my evaluation, the patient was still struggling with his breathing. His pulse ox was around 76% on 6 L of oxygen by nasal cannula. At that point I put him back on a BiPAP at a pressure of 12/5 cm of water with an FiO2 of 100% and I transfer this patient to the intensive care unit. I also given additional dose of Lasix 60 mg IV push. Note that he was in atrial fibrillation. He was having some labored breathing. He was not using excessive muscle breathing. Limited edema in lower extremities bilaterally. His previous echocardiogram showed a preserved LV function with an ejection fraction of 665%, dilated LA, mild to moderate mitral regurgitation. His sodium is at time of admission was 126. BUN was 28 with a creatinine of 1.4. Troponins were minimally elevated at 0.5 and 0.4 and 0.3 respectively 3. EKG was consistent with atrial fibrillation, chest exit showed mild pulmonary vessel congestion and bilateral pleural effusion. Patient was started on IV heparin. The patient was given also Rocephin and Zithromax by the medical group regarding possibility of a pneumonia. His white cell count was at 14.5 with hemoglobin of 12.6. On today's evaluation of 04/13/2021, the patient seems in much more awake compared to yesterday. More interactive. He is less short of breath. He was taken briefly off the BiPAP. Nevertheless, he seems felt to be wanting the BiPAP and benefiting from the BiPAP which is running at a pressure of 12/6 cm of water with an FiO2 of 80%. He was diuresed with Lasix IV and his fluid balance is -2.1 L over the past 24 hours. He is headed towards a negative fluid balance. CAT scan of the chest was completed yesterday and it showed moderate to large sized bilateral pleural effusion, worse on the right, there is also atelectatic changes in the lung bases. There is also occlusion of the right lower lobe bronchus which obviously raises the concern for underlying lesion within the right lower lobe. I think this is probably related to atelectasis. He does have some mild cardiomegaly. He was dynamically stable. No hypotension. On his blood work, the patient has a white cell count of 15.3. Sodium is 124. Creatinine is at 58 with a creatinine of 2.3. Legionella urine antigen came back negative. He remains on anticoagulation with Eliquis. His cardiac rhythm remains a atrial fibrillation. Nephrology evaluated this patient and want to start the patient on a Lasix drip. He remains on empiric antibiotic coverage with a combination of Rocephin and Zithromax. 04/14/2021, the patient is still having some shortness of breath and hypoxemia. After some initial improvement following his thoracentesis, overnight the patient's oxygenation gradually got worse. He was placed back on the BiPAP and currently is on 1 and 1 L facemask. Repeat chest x-ray from today showing atelectatic changes in the right lung base along with some bilateral pleural effusion. Note that his urine output also dropped. The patient was given Lasix and currently receiving IV Lasix at a dose of 80 mg every 12 hours. Note that the urine output is in order of 10-20 mL an hour. His creatinine is up to 2.8 and the sodium level is up and down to 121. Discussed the case with nephrology and the patient will be given Lasix along with semsca 15 mg. Obvious is more comfortable compared to yesterday. Nevertheless, he continues to require high levels of oxygen. His cardiac rhythm is sinus for now. His pulse ox is order of 93%. BP stable at 131/59. Patient was reevaluated today on 04/15/2021, remains in the ICU, patient had bilateral thoracentesis performed in the last few days by Dr. Oh, doing great, feeling much better, he was on BiPAP last night, today he is on 15 L high flow cannula, and his O2 saturation was noted to be 99%, hence I cut down his FiO2 down to 6 L nasal cannula. Chest x-ray continues to show hardly any fluid on the left side, but there is a small right-sided pleural effusion with elevated right hemidiaphragm. Patient had thoracentesis on 04/13 and he had 1700 mL of fluid removed from the right pleural space. He had another thoracentesis on the left side and 700 mL were removed on 04/14. Overall the patient is doing well, improved, less shortness of breath, echocardiogram showed good LV function, RBC the patient came in with a diastolic congestive heart failure and non-ST elevation myocardial infarction. WBC count today is 13.4 hemoglobin is 10.3. Sodium remains low at 125. Electrolytes are normal otherwise. BUN is 81 creatinine 2.74. BNP level few days ago was as high as 16,000. Fluid drained from both spaces seems to be transudative in nature. Patient was reevaluated today on 04/16/2021, remains in the ICU, patient had worsening pulmonary status over the last 24 hours, he chest x-ray is worse with worsening right-sided pleural effusion and his oxygenation is worsening requiring BiPAP 12/600% FiO2. Hence I'm recommending stat ultrasound of the chest and I am recommending a right-sided thoracentesis. Indeed his ultrasound of the chest showed a good sized pocket and I went ahead and drained his right- sided pleural effusion, drained roughly 1500 mL of free flowing fluid, not bloody, and most likely transudative in nature, diagnostic studies were ordered. Chest follow-up chest x-ray postthoracentesis showed significant improvement. And I'm certain would be able to titrate his FiO2 down and probably eventually go back to a nasal cannula. Patient has been responding to Lasix, nonetheless he continues to have clinical findings of congestive heart failure. His initial presentation was a presentation of non-ST elevation myocardial infarction. CBC today is relatively normal WBC count is 13.9 electrolytes are normal BUN is 76 creatinine 2.11. Steadily improving compared to the last few days was in the range of 3 Objective - Vital Signs Vital signs: Vital Signs Temp 97.9 F 04/16/21 08:00 Pulse 61 04/16/21 11:00 Resp 24 04/16/21 11:00 BP 120/49 04/16/21 11:00 Pulse Ox 92 L 04/16/21 11:00 Intake & Output 04/15/21 04/16/21 04/16/21 18:59 06:59 18:59 Intake Total 160 480 Output Total 1919 2649 1984 Balance -1759 Intake: IV 60 Normal Saline 0.9 @ 5mL/ 60 hr Oral 100 480 Output: Drainage 1300 Right Back 1300 Urine 1919 2649 685 Other: Voiding Method Indwelling Catheter Indwelling Catheter Indwelling Catheter # Bowel Movements 1 - Exam Physical Exam: Revealed 80-year-old white male pleasant, in moderate distress, on BiPAP. With marginal O2 saturation. Head: Atraumatic, normocephalic. HEENT:[Neck is supple.] [No neck masses.] [No thyromegaly.] [No JVD.] Chest: [Symmetrical chest expansion dullness and diminished breath sounds at the right base. Left side is relatively clear. Cardiac Exam: Irregular irregular rhythm. [Normal S1 and S2, no S3 gallop, no murmur.] Abdomen: [Soft, nontender, no megaly, no rebound, no guarding, normal bowel sounds.] Extremities: [No clubbing, 1+ bipedal edema, no cyanosis.] Neurological Exam: [No focal neurologic deficit.] Alert oriented 3. Psychiatric: Normal mood affect and normal mental status examination. Skin: No rashes. - Labs CBC & Chem 7: 04/16/21 03:21 04/16/21 03:21 Labs: Abnormal Lab Results - Last 24 Hours (Table) 04/15/21 04/15/21 04/16/21 Range/Units 16:55 19:43 03:21 WBC 13.9 H (3.8-10.6) k/uL RBC 3.38 L (4.30-5.90) m/uL Hgb 10.6 L (13.0-17.5) gm/dL Hct 31.3 L (39.0-53.0) % Neutrophils # 11.6 H (1.3-7.7) k/uL Lymphocytes # 0.9 L (1.0-4.8) k/uL Sodium (137-145) mmol/L Chloride (98-107) mmol/L BUN (9-20) mg/dL Creatinine (0.66-1.25) mg/dL Glucose (74-99) mg/dL POC Glucose (mg/dL) 269 H 332 H (75-99) mg/dL Calcium (8.4-10.2) mg/dL 04/16/21 04/16/21 04/16/21 Range/Units 03:21 06:45 11:44 WBC (3.8-10.6) k/uL RBC (4.30-5.90) m/uL Hgb (13.0-17.5) gm/dL Hct (39.0-53.0) % Neutrophils # (1.3-7.7) k/uL Lymphocytes # (1.0-4.8) k/uL Sodium 130 L (137-145) mmol/L Chloride 97 L (98-107) mmol/L BUN 76 H (9-20) mg/dL Creatinine 2.11 H (0.66-1.25) mg/dL Glucose 147 H (74-99) mg/dL POC Glucose (mg/dL) 113 H 324 H (75-99) mg/dL Calcium 7.9 L (8.4-10.2) mg/dL Microbiology - Last 24 Hours (Table) 04/13/21 09:15 Gram Stain - Preliminary Pleural Fluid Body Fluid Culture - Preliminary 04/11/21 06:35 Blood Culture - Preliminary Blood No Growth after 120 hours 04/11/21 06:20 Blood Culture - Preliminary Blood No Growth after 120 hours Assessment and Plan Assessment: Impression: Acute hypoxic respiratory failure secondary to acute on chronic diastolic congestive heart failure and bilateral pleural effusions. Acute non-ST elevation myocardial infarction Bilateral pleural effusions requiring 3 thoracentesis procedures since admission, 2 on the right and one on the left. Last thoracentesis on the right side was done on 04/16/2021. Chronic atrial fibrillation. Chronic diastolic congestive heart failure. Chronic kidney disease stage III. Hypervolemic hyponatremia. Hypertension. Chronic anemia. Type 2 diabetes. Dyslipidemia. Recommendation: Right sided thoracentesis done on emergent basis. And was able to drain 1300 mL of fluid. Sent for different diagnostic studies. Continue diuretics. Titrate FiO2 down accordingly. Continue to monitor I's and O's. Continue tolvapten Continue to monitor in the ICU. We'll continue to follow. prognosis remains guarded. Time with Patient: Less than 30
--- NOTE | 2021-04-16 12:55 | P.PN ---
Subjective 80-year-old male patient hospitalized for worsening shortness of breath. The patient was having orthopnea, unable to lay down flat in bed because of worsening shortness of breath. He is known to have history of CHF, diastolic heart failure, chronic atrial fibrillation and addition to diabetes mellitus and hypertension and hyperlipidemia and chronic kidney disease. Also suffers from chronic anemia. He was having some increased cough. Limited congestion. No chest pain. Over the past few days breathing got worse. He presented to the hospital because of worsening shortness of breath. Overnight he became more dyspneic and hypoxic. He was seen by the hospitalists and the patient was placed on a BiPAP and the patient was given additional dose of Lasix which somewhat improved his respiratory status. At the time of my evaluation, the patient was still struggling with his breathing. His pulse ox was around 76% on 6 L of oxygen by nasal cannula. At that point I put him back on a BiPAP at a pressure of 12/5 cm of water with an FiO2 of 100% and I transfer this patient to the intensive care unit. I also given additional dose of Lasix 60 mg IV push. Note that he was in atrial fibrillation. He was having some labored breathing. He was not using excessive muscle breathing. Limited edema in lower extremities bilaterally. His previous echocardiogram showed a preserved LV function with an ejection fraction of 665%, dilated LA, mild to moderate mitral regurgitation. His sodium is at time of admission was 126. BUN was 28 with a creatinine of 1.4. Troponins were minimally elevated at 0.5 and 0.4 and 0.3 respectively 3. EKG was consistent with atrial fibrillation, chest exit showed mild pulmonary vessel congestion and bilateral pleural effusion. Patient was started on IV heparin. The patient was given also Rocephin and Zithromax by the medical group regarding possibility of a pneumonia. His white cell count was at 14.5 with hemoglobin of 12.6. On today's evaluation of 04/12/2021, the patient seems in much more awake compared to yesterday. More interactive. He is less short of breath. He was taken briefly off the BiPAP. Nevertheless, he seems felt to be wanting the BiPAP and benefiting from the BiPAP which is running at a pressure of 12/6 cm of water with an FiO2 of 80%. He was diuresed with Lasix IV and his fluid balance is -2.1 L over the past 24 hours. He is headed towards a negative fluid b alance. CAT scan of the chest was completed yesterday and it showed moderate to large sized bilateral pleural effusion, worse on the right, there is also atelectatic changes in the lung bases. There is also occlusion of the right lower lobe bronchus which obviously raises the concern for underlying lesion within the right lower lobe. I think this is probably related to atelectasis. He does have some mild cardiomegaly. He was dynamically stable. No hypotension. On his blood work, the patient has a white cell count of 15.3. Sodium is 124. Creatinine is at 58 with a creatinine of 2.3. Legionella urine antigen came back negative. He remains on anticoagulation with Eliquis. His cardiac rhythm remains a atrial fibrillation. Nephrology evaluated this patient and want to start the patient on a Lasix drip. He remains on empiric antibiotic coverage with a combination of Rocephin and Zithromax. 04/13/2021 Patient had a thoracentesis on the right side with removal of around 2 and half liters of fluid. I reviewed the CT and x-ray imaging there is no evidence of pneumonia and this can you azithromycin probably will not need Rocephin either. Patient Appears to have hypervolemic hyponatremia for which patient is on IV Lasix drip although patient doesn't have much of urine output since then. Patient still has some bilateral pleural effusions with some atelectasis. 04/14/2021 His serum creatinine and serum sodium continued to get worse patient received Samsca. Patient the probably will need hemodialysis patient was switched from IV Lasix drip to 80 mg twice a day of IV Lasix. Patient blood sugars are bit down today closely monitor this continue pre-meal insulin continue with Levemir. All the anti-happens medications are being held because of acute renal failure. Chest x-ray showed significant improvement of pleural effusions. Patient doesn't have much of urine output since yesterday. 04/15/2021 Patient overall clinical condition improved. After withholding the anti- hypertensive medications it appears patient's kidney function has improved and patient started having good urine output patient remains on IV Lasix. Patient creatinine improved from 2.81-2.7 today and the serum sodium improved to 125 as well. Patient the oxygen requirements have come down although went back on BiPAP again today. Patient had paracentesis today with removal of 700 mL from the left lung. Patient had presences day before on the right side with removal of around 1700 mL. Patient has mild the leukocytosis of 13,400 patient is presently not an antibiotic was on antibiotics until couple days ago. This is reactive and not no evidence of infection at this time. Patient blood sugars are highly elevated will increase the dose of long-acting insulin at nighttime. 04/16/2021 Patient respiratory status is bit worse again patient chest x-ray showing bilateral pleural effusions again this was on the right side patient had an ultrasound subsequently had thoracentesis with removal of around 1200 mL again. Patient unfortunately received blood pressure medication after which his blood pressure went down leading to decreased urine output again I'll completely discontinue antidepressant medications will not need any antibiotic medications unless his blood pressure goes about 200 / 1 10. Patient will be continued on IV Lasix. Patient was having good urine output with improvement in serum sodium and serum creatinine patient does serum sodium went up to 130 and creatinine is 2.11. Constitutional: Denied any fatigue denied any fever. Cardio vascular: denied any chest pain, palpitations Gastrointestinal denied any nausea vomiting Pulmonary:As Mentioned in HPI Neurologic denied any new focal deficits All inpatient medications were reviewed and appropriate changes in these medications as dictated in the interval history and assessment and plan. Constitutional: Denied any fatigue denied any fever. Cardio vascular: denied any chest pain, palpitations Gastrointestinal denied any nausea vomiting Pulmonary: Patient has shortness of breath Neurologic denied any new focal deficits All inpatient medications were reviewed and appropriate changes in these me dications as dictated in the interval history and assessment and plan. PHYSICAL EXAMINATION: GENERAL: The patient is alert and oriented x3, not in any acute distress. Well developed, well nourished. HEENT: Pupils are round and equally reacting to light. EOMI. No scleral icterus. No conjunctival pallor. Normocephalic, atraumatic. No pharyngeal erythema. No thyromegaly. CARDIOVASCULAR: S1 and S2 present. No murmurs, rubs, or gallops. PULMONARY: Chest is clear to auscultation, no wheezing or crackles. ABDOMEN: Soft, nontender, nondistended, normoactive bowel sounds. No palpable organomegaly. MUSCULOSKELETAL: No joint swelling or deformity. EXTREMITIES: No cyanosis, clubbing, does have some pedal edema NEUROLOGICAL: Gross neurological examination did not reveal any focal deficits. SKIN: No rashes. Assessment and Plan Plan: 1 acute hypoxic respiratory failure, likely on the basis of decompensated heart failure, and large bilateral pleural effusions, not pneumonia, patient is on Lasix 80 mg twice a day urine output was started going down again because of the low blood pressure and if his medications were discontinued Patient is status post thoracentesis on the right side with removal of 1700 mL on 04/13/2021 and thoracentesis on the left side with removal of around 700 mL on 04/14/2021 for right-sided thoracentesis again on 04/16/2021 with removal of 122 ml patient respiratory status appeared to be improving . 2 chronic atrial fibrillation: Presently rate controlled 3 chronic diastolic dysfunction with acute exacerbation 4 chronic stage III kidney disease, With a component of an acute kidney injury from a cardiorenal syndrome improved urine output 5 hyponatremia, hypervolemic hyponatremia secondary to CHF on IV Lasix . Patient's serum sodium is improving IV Lasix is being continued Olding of antidepressant medications 6 hypertension: Holding off on antihypertensive medications because of worsening renal function 7 hyperlipidemia 8 chronic anemia 9 diabetes mellitus type 2 uncontrolled elevated blood sugars increasing doses long-acting insulin. Objective - Vital Signs Vital signs: Vital Signs Temp 97.9 F 04/16/21 12:00 Pulse 63 04/16/21 12:00 Resp 17 04/16/21 12:00 BP 117/55 04/16/21 12:00 Pulse Ox 92 L 04/16/21 12:00 Intake & Output 04/15/21 04/16/21 04/16/21 18:59 06:59 18:59 Intake Total 160 480 Output Total 1920 2650 1999 Balance -1759 Intake: IV 60 Normal Saline 0.9 @ 5mL/ 60 hr Oral 100 480 Output: Drainage 1300 Right Back 1300 Urine 1920 2650 700 Other: Voiding Method Indwelling Catheter Indwelling Catheter Indwelling Catheter # Bowel Movements 1 - Labs CBC & Chem 7: 04/16/21 03:21 04/16/21 03:21 Labs: Abnormal Lab Results - Last 24 Hours (Table) 04/15/21 04/15/21 04/16/21 Range/Units 16:55 19:43 03:21 WBC 13.9 H (3.8-10.6) k/uL RBC 3.38 L (4.30-5.90) m/uL Hgb 10.6 L (13.0-17.5) gm/dL Hct 31.3 L (39.0-53.0) % Neutrophils # 11.6 H (1.3-7.7) k/uL Lymphocytes # 0.9 L (1.0-4.8) k/uL Sodium (137-145) mmol/L Chloride (98-107) mmol/L BUN (9-20) mg/dL Creatinine (0.66-1.25) mg/dL Glucose (74-99) mg/dL POC Glucose (mg/dL) 269 H 332 H (75-99) mg/dL Calcium (8.4-10.2) mg/dL 04/16/21 04/16/21 04/16/21 Range/Units 03:21 06:45 11:44 WBC (3.8-10.6) k/uL RBC (4.30-5.90) m/uL Hgb (13.0-17.5) gm/dL Hct (39.0-53.0) % Neutrophils # (1.3-7.7) k/uL Lymphocytes # (1.0-4.8) k/uL Sodium 130 L (137-145) mmol/L Chloride 97 L (98-107) mmol/L BUN 76 H (9-20) mg/dL Creatinine 2.11 H (0.66-1.25) mg/dL Glucose 147 H (74-99) mg/dL POC Glucose (mg/dL) 113 H 324 H (75-99) mg/dL Calcium 7.9 L (8.4-10.2) mg/dL Microbiology - Last 24 Hours (Table) 04/13/21 09:15 Gram Stain - Preliminary Pleural Fluid Body Fluid Culture - Preliminary 04/11/21 06:35 Blood Culture - Preliminary Blood No Growth after 120 hours 04/11/21 06:20 Blood Culture - Preliminary Blood No Growth after 120 hours
--- NOTE | 2021-04-16 13:05 | PN ---
PROGRESS NOTE Patient is seen for followup for acute kidney injury and hyponatremia which is hypervolemic and acute kidney injury is mostly cardiorenal. Currently patient is being diuresed and his renal function has improved with creatinine down to 2.1 from 2.7 yesterday. Sodium is improved to 130 from 125 yesterday. The patient is maintained on Lasix 80 mg IV b.i.d. The patient's respiratory status worsened after swallowing evaluation again today. He had an episode of hypoxia requiring BiPAP after he tried to eat yesterday as well. He also had thoracentesis of about 1.2 L drained this morning by a dbas. This was on the right side. EXAMINATION: Today patient is comfortable. Blood pressure 120/49, heart rate 61 per minute, he is afebrile. Examination of the heart S1, S2. Examination of the lungs, bilateral breath sounds are heard. Abdomen is soft, nontender. Examination of lower extremities shows no significant edema. MARKETING REPRESENTATIVE exam grossly intact. LAB: Show sodium 130, potassium 3.8, chloride 97, BUN 76, creatinine 2.1, hemoglobin 10.6 g/dL. ASSESSMENT: 1. Acute kidney injury, cardiorenal, currently improving. 2. Hypervolemic hyponatremia maintained on diuretics and improving. 3. Right pleural effusion status post thoracentesis. 4. Acute on chronic diastolic congestive heart failure, currently improved. 5. Hypertension with chronic kidney disease. 6. Metabolic acidosis associated with acute kidney injury, now improved. PLAN: Continue with IV Lasix. Discontinue sodium bicarb and repeat labs in a.m. Continue to monitor urine output. MMODL / IJN: [id number] /
[2021-04-16] MEDS ORDERED: PATIENT'S OWN (Dulaglutide [Trulicity] 1.5 MG/0.5 ML Pen.Injctr) SQ SCH (13:37)
[2021-04-16 15:14] LABS: Appearance,BF Clear
[2021-04-16 15:15] LABS: Nucleated Cells, Body Fluid 330 /uL; RBC, Body Fluid 490 /uL
[2021-04-16 15:20] LABS: Mononuclear WBC,Body Fluid 42 %; Polynuclear WBC,Body Fluid 58 %; Total Cells Counted,Body Fluid 100
--- NOTE | 2021-04-16 15:21 | FL ---
EXAMINATION TYPE: FL barium swallow w video DATE OF EXAM: 04/16/2021 COMPARISON: NONE HISTORY: Pleural effusions. The patient was evaluated in the lateral projection during real-time fluoroscopy, during ingestion of barium mixed with solids and liquids. No aspiration or laryngeal penetration. See report from [facility]. No intraoperative images document the procedure, 59 seconds fluoroscopy time was utili zed during the procedure.
[2021-04-16 16:53] LABS: Glucose,Whole Blood 216 mg/dL (75-99)
--- NOTE | 2021-04-16 18:53 | PCN ---
PROCEDURE NOTE PROCEDURE PERFORMED: Right-sided thoracentesis. PREOPERATIVE DIAGNOSIS: Recurrent right pleural effusion. POSTOP DIAGNOSIS: Recurrent right sided pleural effusion. ANESTHESIA USED: 2 mL of 1% lidocaine. PROCEDURE DETAILS: The patient was placed in a sitting upright position, the area below the right scapula was prepared in a sterile fashion and drapes were applied. The area of the fluid was earlier localized by ultrasound guidance. It correlated to the level of the 8th intercostal space and tip of the scapula. The area was locally anesthetized with lidocaine. After cleaning the site, then a 26-gauge needle was inserted at the same site, which is 8th intercostal space and tip of the scapula into the pleural space until the fluid was localized. Then a small tiny incision was made, and a standard thoracentesis catheter and needle were used, advanced into the pleural space. Fluid was obtained, the fluid was free flowing, was slightly yellow in color, and roughly 1300 mL of fluid was drained from the right pleural space. The procedure was well tolerated, no complications, chest x-ray showed no pneumothorax, and no complications. The fluid itself roughly 1500 mL was sent for different diagnostic studies. MMODL / IJN: [id number] /
[2021-04-16 20:08] LABS: Glucose,Whole Blood 316 mg/dL (75-99)
[2021-04-16] MEDS ORDERED: INSULIN DETEMIR (LEVEMIR) 100 UNIT/ML SYR SQ SCH (21:00)
[2021-04-16 21:23] LABS: Glucose, BF Source Pleural Fluid; Glucose, Body Fluid 224 mg/dL; LDH, Body Fluid Source Pleural Fluid; Total Protein, Body Fluid 1320 mg/dL
[2021-04-16] MEDS: DOXAZOSIN 2 MG TAB PO SCH (21:29)
[2021-04-16] MEDS: ATORVASTATIN 40 MG TAB PO SCH (21:29)
[2021-04-16] MEDS: TEMAZEPAM 15 MG CAP PO PRN (21:42)
[2021-04-17 03:48] LABS: Basophils # (A) 0.1 k/uL (0-0.2); Basophils % (A) 1 %; Eosinophils # (A) 0.1 k/uL (0-0.7); Eosinophils % (A) 1 %; HCT 33.4 % (39.0-53.0); HGB 10.7 gm/dL (13.0-17.5); Lymphocytes # (A) 1.3 k/uL (1.0-4.8); Lymphocytes % (A) 13 %; MCH 30.1 pg (25.0-35.0); MCHC 32.1 g/dL (31.0-37.0); MCV 93.7 fL (80.0-100.0); Mean Platelet Volume 7.3; Monocytes # (A) 0.7 k/uL (0-1.0); Monocytes % (A) 7 %; Neutrophils # (A) 8.3 k/uL (1.3-7.7); Neutrophils % (A) 77 %; Platelet Count 358 k/uL (150-450); RBC 3.57 m/uL (4.30-5.90); RDW 14.4 % (11.5-15.5); WBC 10.8 k/uL (3.8-10.6)
[2021-04-17 04:09] LABS: Albumin 2.3 g/dL (3.5-5.0); Potassium 3.5 mmol/L (3.5-5.1); Total Bilirubin 0.3 mg/dL (0.2-1.3); Total Protein 5.4 g/dL (6.3-8.2)
[2021-04-17] MEDS: INSULIN ASPART (NovoLOG) 100 UNIT/ML VIAL SQ SCH ×4 (06:52→21:03)
[2021-04-17] MEDS: POTASSIUM CHLORIDE ER 20 MEQ TAB.ER PO SCH ×2 (06:53→08:57)
--- NOTE | 2021-04-17 07:24 | XR ---
EXAMINATION TYPE: XR chest 1V portable DATE OF EXAM: 04/17/2021 COMPARISON: 04/16/2021 HISTORY: Assess lungs TECHNIQUE: Single frontal view of the chest is obtained. FINDINGS: There is unchanged elevation of the right hemidiaphragm. The left costophrenic angle is excluded from this image. Cardiac silhouette is stable in size. IMPRESSION: No significant change since the prior exam.
[2021-04-17] MEDS: ASPIRIN 81 MG PO SCH (08:56)
[2021-04-17] MEDS: METOPROLOL TARTRATE 25 MG TAB PO SCH ×2 (08:56→21:02)
[2021-04-17] MEDS: APIXABAN 2.5 MG TABLET PO SCH ×2 (08:57→21:02)
[2021-04-17] MEDS: PANTOPRAZOLE 40 MG TABLET PO SCH (08:57)
[2021-04-17] MEDS: FUROSEMIDE 10 MG/ML 10 ML VIAL IV SCH ×2 (08:57→21:03)
[2021-04-17] MEDS ORDERED: ERGOCALCIFEROL 1,250 MCG (50,000 IU) CAPSULE PO SCH (09:00)
[2021-04-17 11:10] LABS: Glucose,Whole Blood 251 mg/dL (75-99)
--- NOTE | 2021-04-17 11:24 | P.PN ---
Subjective This is a 80 year old male with paroxysmal atrial fibrillation (on Eliquis), hypertension, type 2 diabetes, hyperlipidemia, sinus bradycardia, mildly prolonged OR interval, chronic kidney disease, chronic diastolic heart failure. Patient follows in the office with Dr. Stratton. We are following the patient for elevated troponin. Patient was admitted 04/11/2021 to the hospital due to shortness of breath, symptoms of orthopndea, PND and leg edema. Patient was started on IV Lasix and required BIPAP and was transferred to the ICU. Chest x- ray on admission revealed persistent central vascular congestion and interstitial edema. CT chest 04/12 revealed moderately large bilateral pleural effusions enlargement the right side. Occlusion of the lower lobe bronchi. Bilateral lower lobe consolidation or atelectasis that is worse on the right side. Previous echocardiogram 03/24/2021 revealed EF of 66 5%, LA severely dilated, mild to moderate mitral regurgitation, mild tricuspid regurgitation. Holter monitor on 02/2021 in the office revealed sinus rhythm with mildly prolonged OR, nighttime bradycardia, likely chronotropic incompetence Limited Echo 04/11/2021 revealed EF 55-60%, trivial pericardial effusion, and large pleural effusion. 04/13- Patient underwent right sided thoracentesis with 1.7L turbid colored fluid removed Ultrasound the kidneys revealed no hydronephrosis, increased renal parenchyma Ecotrin this is a suggestive of medical renal disease. Bilateral renal cortical cyst slightly enlarged compared to old exam in 04/14 patient underwent left-sided thoracentesis with 700 mL turbid colored fluid removed. 04/15/2021: Nifedipine and Doxazosin held today for renal perfusion 04/17/2021: Patient seen at bedside in the ICU. He is alert and oriented x 3.He is sitting up in the chair, appears to be improving each day. His oxygenations are improving he is 98% on 3L high flow nasal cannula. Patient maintained on IV Lasix 80mg BID, Eliquis 2.5 mg twice a day, aspirin 81 mg daily, atorvastatin 40 mg nightly, hydralazine 100 mg 3 times, metoprolol tartrate 25 mg twice day, doxazosin 2mg night. He has been having good urine output with 3.6L over the past 24 hours. Blood pressure 150/81 HR 58, afebrile. Serum creatinine slowly improving. WBC 10.8, Hgb 10.7, platelets 358, sodium 132, potassium 3.5, BUN 68, serum creatinine 2.07 (yesterday 2.11). Telemetry reviewed, is currently maintaining sinus mechanism HR controlled, occasionally tachycardic up to 120s. Patient underwent barrium swallow yesterday with no aspiration and no impairment, no laryngeal penetration. Chest Xray this morning stable, unchanged elevation of the right hemidiaphragm. PHYSICAL EXAM: VITAL SIGNS: Reviewed. GENERAL: In no acute distress. Does appear slightly short of breath NECK: Supple. No JVD or thyromegaly LUNGS: Respirations even and unlabored. Lungs diminished with bibasilar rales. HEART: Regular rate and rhythm. S1 and S2 heard. Systolic murmur noted. EXTREMITIES: Normal range of motion. No clubbing or cyanosis. Peripheral pulses intact. 1+ bilateral lower extremity edema ASSESSMENT: Elevated troponin trend 0.5, 0.4, 0.3, patient also had elevated troponin during previous admissions. Not indicative of acute coronary syndrome Acute hypoxic respiratory failure Bilateral Pleural Effusions Shortness of breath Acute exacerbation of chronic diastolic heart failure Paroxysmal atrial fibrillation - on Eliquis Currently maintaining sinus mechanism Acute on Chronic kidney disease Hyponatremia PLAN: Continue current cardiac medications at this time Eliquis, aspirin, statin, metoprolol tartrate Continue IV lasix per nephrology Accurate I&O, Daily weights Monitor electrolytes and kidney function Further recommendations pending patient course Objective - Vital Signs Vital signs: Vital Signs Temp 98.0 F 04/17/21 08:00 Pulse 54 L 04/17/21 11:00 Resp 19 04/17/21 11:00 BP 150/81 04/17/21 11:00 Pulse Ox 98 04/17/21 11:00 Intake & Output 04/16/21 04/17/21 04/17/21 18:59 06:59 18:59 Intake Total 200 480 15 Output Total 2605 1085 500 Balance -4812 -035 -561 Intake: IV 15 Normal Saline 0.9 @ 5mL/ 15 hr Oral 200 480 Output: Drainage 1300 Right Back 1300 Urine 1305 1085 500 Other: Voiding Method Indwelling Catheter Indwelling Catheter Indwelling Catheter - Labs CBC & Chem 7: 04/17/21 02:53 04/17/21 02:53 Labs: Abnormal Lab Results - Last 24 Hours (Table) 04/16/21 04/16/2121 Range/Units 11:44 16:52 20:06 WBC (3.8-10.6) k/uL RBC (4.30-5.90) m/uL Hgb (13.0-17.5) gm/dL Hct (39.0-53.0) % Neutrophils # (1.3-7.7) k/uL Sodium (137-145) mmol/L Chloride (98-107) mmol/L BUN (9-20) mg/dL Creatinine (0.66-1.25) mg/dL Glucose (74-99) mg/dL POC Glucose (mg/dL) 324 H 216 H 316 H (75-99) mg/dL Calcium (8.4-10.2) mg/dL ALT (4-49) U/L Alkaline Phosphatase (38-126) U/L Total Protein (6.3-8.2) g/dL Albumin (3.5-5.0) g/dL 04/17/21 04/17/21 04/17/21 Range/Units 02:53 02:53 11:08 WBC 10.8 H (3.8-10.6) k/uL RBC 3.57 L (4.30-5.90) m/uL Hgb 10.7 L (13.0-17.5) gm/dL Hct 33.4 L (39.0-53.0) % Neutrophils # 8.3 H (1.3-7.7) k/uL Sodium 132 L (137-145) mmol/L Chloride 96 L (98-107) mmol/L BUN 68 H (9-20) mg/dL Creatinine 2.07 H (0.66-1.25) mg/dL Glucose 109 H (74-99) mg/dL POC Glucose (mg/dL) 251 H (75-99) mg/dL Calcium 8.0 L (8.4-10.2) mg/dL ALT 53 H (4-49) U/L Alkaline Phosphatase 134 H (38-126) U/L Total Protein 5.4 L (6.3-8.2) g/dL Albumin 2.3 L (3.5-5.0) g/dL Microbiology - Last 24 Hours (Table) 04/16/21 10:15 Gram Stain - Preliminary Pleural Fluid Body Fluid Culture - Preliminary 04/11/21 06:35 Blood Culture - Final Blood No Growth after 144 hours 04/11/21 06:20 Blood Culture - Final Blood No Growth after 144 hours 04/13/21 09:15 Gram Stain - Final Pleural Fluid Body Fluid Culture - Final 04/16/21 10:15 Acid Fast Bacilli Culture - Preliminary Pleural Fluid 04/16/21 10:15 Fungal Culture - Preliminary Pleural Fluid 04/16/21 10:15 Anaerobic Culture - Preliminary Pleural Fluid
--- NOTE | 2021-04-17 11:45 | PN ---
PROGRESS NOTE Patient is seen for followup for acute kidney injury mostly cardiorenal currently improving with diuresis. The patient was also hyponatremic and sodium is up to 132. He is currently off BiPAP, feeling well and breathing much more easily. No significant complaints today. PHYSICAL EXAMINATION: Blood pressure is 144/61, heart rate 58 per minute, he is afebrile. Examination of the heart S1, S2. Examination of the lungs, bilateral breath sounds are heard. Abdomen is soft, nontender. Examination of lower extremities shows trace edema bilaterally. [employer] exam grossly intact. LAB: Show sodium 132, potassium 3.5, chloride 96, BUN 68, creatinine 2.07, hemoglobin 10.7 g/dL. ASSESSMENT: 1. Acute kidney injury, cardiorenal, currently improved. 2. Hypervolemic hyponatremia, now improved. 3. Acute hypoxic respiratory failure associated with aspiration, as well as congestive heart failure exacerbation currently much improved. 4. Right pleural effusion, status post thoracentesis. 5. Acute on chronic diastolic congestive heart failure, now improved. 6. Metabolic acidosis associated with acute kidney injury, currently improved. PLAN: Continue off sodium chloride tabs. Continue with the IV diuretics for now. Repeat labs in a.m. MMODL / IJN: [id number] /
--- NOTE | 2021-04-17 11:51 | P.PN ---
Subjective 80-year-old male patient hospitalized for worsening shortness of breath. The patient was having orthopnea, unable to lay down flat in bed because of worsening shortness of breath. He is known to have history of CHF, diastolic heart failure, chronic atrial fibrillation and addition to diabetes mellitus and hypertension and hyperlipidemia and chronic kidney disease. Also suffers from chronic anemia. He was having some increased cough. Limited congestion. No chest pain. Over the past few days breathing got worse. He presented to the hospital because of worsening shortness of breath. Overnight he became more dyspneic and hypoxic. He was seen by the hospitalists and the patient was placed on a BiPAP and the patient was given additional dose of Lasix which somewhat improved his respiratory status. At the time of my evaluation, the patient was still struggling with his breathing. His pulse ox was around 76% on 6 L of oxygen by nasal cannula. At that point I put him back on a BiPAP at a pressure of 12/5 cm of water with an FiO2 of 100% and I transfer this patient to the intensive care unit. I also given additional dose of Lasix 60 mg IV push. Note that he was in atrial fibrillation. He was having some labored breathing. He was not using excessive muscle breathing. Limited edema in lower extremities bilaterally. His previous echocardiogram showed a preserved LV function with an ejection fraction of 665%, dilated LA, mild to moderate mitral regurgitation. His sodium is at time of admission was 126. BUN was 28 with a creatinine of 1.4. Troponins were minimally elevated at 0.5 and 0.4 and 0.3 respectively 3. EKG was consistent with atrial fibrillation, chest exit showed mild pulmonary vessel congestion and bilateral pleural effusion. Patient was started on IV heparin. The patient was given also Rocephin and Zithromax by the medical group regarding possibility of a pneumonia. His white cell count was at 14.5 with hemoglobin of 12.6. On today's evaluation of 04/12/2021, the patient seems in much more awake compared to yesterday. More interactive. He is less short of breath. He was taken briefly off the BiPAP. Nevertheless, he seems felt to be wanting the BiPAP and benefiting from the BiPAP which is running at a pressure of 12/6 cm of water with an FiO2 of 80%. He was diuresed with Lasix IV and his fluid balance is -2.1 L over the past 24 hours. He is headed towards a negative fluid b alance. CAT scan of the chest was completed yesterday and it showed moderate to large sized bilateral pleural effusion, worse on the right, there is also atelectatic changes in the lung bases. There is also occlusion of the right lower lobe bronchus which obviously raises the concern for underlying lesion within the right lower lobe. I think this is probably related to atelectasis. He does have some mild cardiomegaly. He was dynamically stable. No hypotension. On his blood work, the patient has a white cell count of 15.3. Sodium is 124. Creatinine is at 58 with a creatinine of 2.3. Legionella urine antigen came back negative. He remains on anticoagulation with Eliquis. His cardiac rhythm remains a atrial fibrillation. Nephrology evaluated this patient and want to start the patient on a Lasix drip. He remains on empiric antibiotic coverage with a combination of Rocephin and Zithromax. 04/13/2021 Patient had a thoracentesis on the right side with removal of around 2 and half liters of fluid. I reviewed the CT and x-ray imaging there is no evidence of pneumonia and this can you azithromycin probably will not need Rocephin either. Patient Appears to have hypervolemic hyponatremia for which patient is on IV Lasix drip although patient doesn't have much of urine output since then. Patient still has some bilateral pleural effusions with some atelectasis. 04/14/2021 His serum creatinine and serum sodium continued to get worse patient received Samsca. Patient the probably will need hemodialysis patient was switched from IV Lasix drip to 80 mg twice a day of IV Lasix. Patient blood sugars are bit down today closely monitor this continue pre-meal insulin continue with Levemir. All the anti-happens medications are being held because of acute renal failure. Chest x-ray showed significant improvement of pleural effusions. Patient doesn't have much of urine output since yesterday. 04/15/2021 Patient overall clinical condition improved. After withholding the anti- hypertensive medications it appears patient's kidney function has improved and patient started having good urine output patient remains on IV Lasix. Patient creatinine improved from 2.81-2.7 today and the serum sodium improved to 125 as well. Patient the oxygen requirements have come down although went back on BiPAP again today. Patient had paracentesis today with removal of 700 mL from the left lung. Patient had presences day before on the right side with removal of around 1700 mL. Patient has mild the leukocytosis of 13,400 patient is presently not an antibiotic was on antibiotics until couple days ago. This is reactive and not no evidence of infection at this time. Patient blood sugars are highly elevated will increase the dose of long-acting insulin at nighttime. 04/16/2021 Patient respiratory status is bit worse again patient chest x-ray showing bilateral pleural effusions again this was on the right side patient had an ultrasound subsequently had thoracentesis with removal of around 1200 mL again. Patient unfortunately received blood pressure medication after which his blood pressure went down leading to decreased urine output again I'll completely discontinue antidepressant medications will not need any antibiotic medications unless his blood pressure goes about 200 / 1 10. Patient will be continued on IV Lasix. Patient was having good urine output with improvement in serum sodium and serum creatinine patient does serum sodium went up to 130 and creatinine is 2.11. 04/17/2021 Patient is running at 98% on 3 L of oxygen today significant improvement in his respiratory status patient has good urine output. Patient creatinine continued to improve and serum sodium continued to improve and presently his creatinine is 2.1 serum sodium is 132. Chest x-ray showing elevated right hemidiaphragm. No significant pleural effusions today. Constitutional: Denied any fatigue denied any fever. Cardio vascular: denied any chest pain, palpitations Gastrointestinal denied any nausea vomiting Pulmonary: shortness of breath improved Neurologic denied any new focal deficits All inpatient medications were reviewed and appropriate changes in these medic ations as dictated in the interval history and assessment and plan. PHYSICAL EXAMINATION: GENERAL: The patient is alert and oriented x3, not in any acute distress. Well developed, well nourished. HEENT: Pupils are round and equally reacting to light. EOMI. No scleral icterus. No conjunctival pallor. Normocephalic, atraumatic. No pharyngeal erythema. No thyromegaly. CARDIOVASCULAR: S1 and S2 present. No murmurs, rubs, or gallops. PULMONARY: Chest is clear to auscultation, no wheezing or crackles. ABDOMEN: Soft, nontender, nondistended, normoactive bowel sounds. No palpable organomegaly. MUSCULOSKELETAL: No joint swelling or deformity. EXTREMITIES: No cyanosis, clubbing, does have some pedal edema NEUROLOGICAL: Gross neurological examination did not reveal any focal deficits. SKIN: No rashes. Assessment and Plan Plan: 1 acute hypoxic respiratory failure, likely on the basis of decompensated heart failure, and large bilateral pleural effusions, not pneumonia, patient is on Lasix 80 mg twice a day urine output was started going down again because of the low blood pressure and if his medications were discontinued Patient is status post thoracentesis on the right side with removal of 1700 mL on 04/13/2021 and thoracentesis on the left side with removal of around 700 mL on 04/14/2021 for right-sided thoracentesis again on 04/16/2021 with removal of 1200.patient respiratory status significant improved today . 2 chronic atrial fibrillation: Presently rate controlled 3 chronic diastolic dysfunction with acute exacerbation 4 chronic stage III kidney disease, With a component of an acute kidney injury from a cardiorenal syndrome improved urine output 5 hyponatremia, hypervolemic hyponatremia secondary to CHF on IV Lasix . Patient's serum sodium is improving IV Lasix is being continued Olding of antidepressant medications 6 hypertension: Holding off on antihypertensive medications because of worsening renal function 7 hyperlipidemia 8 chronic anemia 9 diabetes mellitus type 2 uncontrolled elevated blood sugars increasing doses long-acting insulin. Objective - Vital Signs Vital signs: Vital Signs Temp 98.0 F 04/17/21 08:00 Pulse 54 L 04/17/21 11:00 Resp 19 04/17/21 11:00 BP 150/81 04/17/21 11:00 Pulse Ox 98 04/17/21 11:00 Intake & Output 04/16/21 04/17/21 04/17/21 18:59 06:59 18:59 Intake Total 200 480 15 Output Total 2605 1085 500 Balance -4675 -606 -571 Intake: IV 15 Normal Saline 0.9 @ 5mL/ 15 hr Oral 200 480 Output: Drainage 1300 Right Back 1300 Urine 1305 1085 500 Other: Voiding Method Indwelling Catheter Indwelling Catheter Indwelling Catheter - Labs CBC & Chem 7: 04/17/21 02:53 04/17/21 02:53 Labs: Abnormal Lab Results - Last 24 Hours (Table) 04/16/21 04/16/21 04/16/21 Range/Units 11:44 16:52 20:06 WBC (3.8-10.6) k/uL RBC (4.30-5.90) m/uL Hgb (13.0-17.5) gm/dL Hct (39.0-53.0) % Neutrophils # (1.3-7.7) k/uL Sodium (137-145) mmol/L Chloride (98-107) mmol/L BUN (9-20) mg/dL Creatinine (0.66-1.25) mg/dL Glucose (74-99) mg/dL POC Glucose (mg/dL) 324 H 216 H 316 H (75-99) mg/dL Calcium (8.4-10.2) mg/dL ALT (4-49) U/L Alkaline Phosphatase (38-126) U/L Total Protein (6.3-8.2) g/dL Albumin (3.5-5.0) g/dL 04/17/21 04/17/21 04/17/21 Range/Units 02:53 02:53 11:08 WBC 10.8 H (3.8-10.6) k/uL RBC 3.57 L (4.30-5.90) m/uL Hgb 10.7 L (13.0-17.5) gm/dL Hct 33.4 L (39.0-53.0) % Neutrophils # 8.3 H (1.3-7.7) k/uL Sodium 132 L (137-145) mmol/L Chloride 96 L (98-107) mmol/L BUN 68 H (9-20) mg/dL Creatinine 2.07 H (0.66-1.25) mg/dL Glucose 109 H (74-99) mg/dL POC Glucose (mg/dL) 251 H (75-99) mg/dL Calcium 8.0 L (8.4-10.2) mg/dL ALT 53 H (4-49) U/L Alkaline Phosphatase 134 H (38-126) U/L Total Protein 5.4 L (6.3-8.2) g/dL Albumin 2.3 L (3.5-5.0) g/dL Microbiology - Last 24 Hours (Table) 04/16/21 10:15 Gram Stain - Preliminary Pleural Fluid Body Fluid Culture - Preliminary 04/11/21 06:35 Blood Culture - Final Blood No Growth after 144 hours 04/11/21 06:20 Blood Culture - Final Blood No Growth after 144 hours 04/13/21 09:15 Gram Stain - Final Pleural Fluid Body Fluid Culture - Final 04/16/21 10:15 Acid Fast Bacilli Culture - Preliminary Pleural Fluid 04/16/21 10:15 Fungal Culture - Preliminary Pleural Fluid 04/16/21 10:15 Anaerobic Culture - Preliminary Pleural Fluid
[2021-04-17] MEDS ORDERED: INSULIN ASPART (NovoLOG) 100 UNIT/ML VIAL SQ SCH (12:30)
--- NOTE | 2021-04-17 13:15 | P.PN ---
Subjective Progress Note Date: 04/17/21 Principal diagnosis: Acute hypoxic respiratory failure secondary to acute on chronic diastolic congestive heart failure. And bilateral pleural effusions. 80-year-old male patient hospitalized for worsening shortness of breath. The patient was having orthopnea, unable to lay down flat in bed because of worsening shortness of breath. He is known to have history of CHF, diastolic heart failure, chronic atrial fibrillation and addition to diabetes mellitus and hypertension and hyperlipidemia and chronic kidney disease. Also suffers from chronic anemia. He was having some increased cough. Limited congestion. No chest pain. Over the past few days breathing got worse. He presented to the hospital because of worsening shortness of breath. Overnight he became more dys pneic and hypoxic. He was seen by the hospitalists and the patient was placed on a BiPAP and the patient was given additional dose of Lasix which somewhat improved his respiratory status. At the time of my evaluation, the patient was still struggling with his breathing. His pulse ox was around 76% on 6 L of oxygen by nasal cannula. At that point I put him back on a BiPAP at a pressure of 12/5 cm of water with an FiO2 of 100% and I transfer this patient to the intensive care unit. I also given additional dose of Lasix 60 mg IV push. Note that he was in atrial fibrillation. He was having some labored breathing. He was not using excessive muscle breathing. Limited edema in lower extremities bilaterally. His previous echocardiogram showed a preserved LV function with an ejection fraction of 665%, dilated LA, mild to moderate mitral regurgitation. His sodium is at time of admission was 126. BUN was 28 with a creatinine of 1.4. Troponins were minimally elevated at 0.5 and 0.4 and 0.3 respectively 3. EKG was consistent with atrial fibrillation, chest exit showed mild pulmonary vessel congestion and bilateral pleural effusion. Patient was started on IV heparin. The patient was given also Rocephin and Zithromax by the medical group regarding possibility of a pneumonia. His white cell count was at 14.5 with hemoglobin of 12.6. On today's evaluation of 04/13/2021, the patient seems in much more awake compared to yesterday. More interactive. He is less short of breath. He was taken briefly off the BiPAP. Nevertheless, he seems felt to be wanting the BiPAP and benefiting from the BiPAP which is running at a pressure of 12/6 cm of water with an FiO2 of 80%. He was diuresed with Lasix IV and his fluid balance is -2.1 L over the past 24 hours. He is headed towards a negative fluid balance. CAT scan of the chest was completed yesterday and it showed moderate to large sized bilateral pleural effusion, worse on the right, there is also atelectatic changes in the lung bases. There is also occlusion of the right lower lobe bronchus which obviously raises the concern for underlying lesion within the right lower lobe. I think this is probably related to atelectasis. He does have some mild cardiomegaly. He was dynamically stable. No hypotension. On his blood work, the patient has a white cell count of 15.3. Sodium is 124. Creatinine is at 58 with a creatinine of 2.3. Legionella urine antigen came back negative. He remains on anticoagulation with Eliquis. His cardiac rhythm remains a atrial fibrillation. Nephrology evaluated this patient and want to start the patient on a Lasix drip. He remains on empiric antibiotic coverage with a combination of Rocephin and Zithromax. 04/14/2021, the patient is still having some shortness of breath and hypoxemia. After some initial improvement following his thoracentesis, overnight the patient's oxygenation gradually got worse. He was placed back on the BiPAP and currently is on 1 and 1 L facemask. Repeat chest x-ray from today showing atelectatic changes in the right lung base along with some bilateral pleural effusion. Note that his urine output also dropped. The patient was given Lasix and currently receiving IV Lasix at a dose of 80 mg every 12 hours. Note that the urine output is in order of 10-20 mL an hour. His creatinine is up to 2.8 and the sodium level is up and down to 121. Discussed the case with nephrology and the patient will be given Lasix along with semsca 15 mg. Obvious is more comfortable compared to yesterday. Nevertheless, he continues to require high levels of oxygen. His cardiac rhythm is sinus for now. His pulse ox is order of 93%. BP stable at 131/59. Patient was reevaluated today on 04/15/2021, remains in the ICU, patient had bilateral thoracentesis performed in the last few days by Dr. Oh, doing great, feeling much better, he was on BiPAP last night, today he is on 15 L high flow cannula, and his O2 saturation was noted to be 99%, hence I cut down his FiO2 down to 6 L nasal cannula. Chest x-ray continues to show hardly any fluid on the left side, but there is a small right-sided pleural effusion with elevated right hemidiaphragm. Patient had thoracentesis on 04/13 and he had 1700 mL of fluid removed from the right pleural space. He had another thoracentesis on the left side and 700 mL were removed on 04/14. Overall the patient is doing well, improved, less shortness of breath, echocardiogram showed good LV function, RBC the patient came in with a diastolic congestive heart failure and non-ST elevation myocardial infarction. WBC count today is 13.4 hemoglobin is 10.3. Sodium remains low at 125. Electrolytes are normal otherwise. BUN is 81 creatinine 2.74. BNP level few days ago was as high as 16,000. Fluid drained from both spaces seems to be transudative in nature. Patient was reevaluated today on 04/16/2021, remains in the ICU, patient had worsening pulmonary status over the last 24 hours, he chest x-ray is worse with worsening right-sided pleural effusion and his oxygenation is worsening requiring BiPAP 12/600% FiO2. Hence I'm recommending stat ultrasound of the chest and I am recommending a right-sided thoracentesis. Indeed his ultrasound of the chest showed a good sized pocket and I went ahead and drained his right- sided pleural effusion, drained roughly 1500 mL of free flowing fluid, not bloody, and most likely transudative in nature, diagnostic studies were ordered. Chest follow-up chest x-ray postthoracentesis showed significant improvement. And I'm certain would be able to titrate his FiO2 down and probably eventually go back to a nasal cannula. Patient has been responding to Lasix, nonetheless he continues to have clinical findings of congestive heart failure. His initial presentation was a presentation of non-ST elevation myocardial infarction. CBC today is relatively normal WBC count is 13.9 electrolytes are normal BUN is 76 creatinine 2.11. Steadily improving compared to the last few days was in the range of 3 Reevaluated today on 04/17/2021, patient remains in ICU, patient is being treated for pulmonary edema, he is now back on 3 L nasal cannula with O2 sat showed 95%. Patient gradually showed significant improvement after his large volume thoracentesis done yesterday, chest x-ray is showing slight small pleural effusion on the right side, clinically the patient is doing great. Remains on oxygen remains on Eliquis for atrial fibrillation, rate seems to be better controlled. Remains on diuretics, and he is -3 L over the last 24 hours. ABC is relatively normal electrolytes are normal BUN is 68 creatinine 2.07. Readily improving over the last few days Objective - Vital Signs Vital signs: Vital Signs Temp 97.2 F L 04/17/21 12:00 Pulse 57 L 04/17/21 12:00 Resp 15 04/17/21 12:00 BP 136/74 04/17/21 12:00 Pulse Ox 98 04/17/21 12:00 Intake & Output 04/16/21 04/17/21 04/17/21 18:59 06:59 18:59 Intake Total 200 480 20 Output Total 2605 1085 850 Balance -2405 -605 -830 Intake: IV 20 Normal Saline 0.9 @ 5mL/ 20 hr Oral 200 480 Output: Drainage 1300 Right Back 1300 Urine 1305 1085 850 Other: Voiding Method Indwelling Catheter Indwelling Catheter Indwelling Catheter - Exam Physical Exam: Revealed 80-year-old white male pleasant, in moderate distress, on BiPAP. With marginal O2 saturation. Head: Atraumatic, normocephalic. HEENT:[Neck is supple.] [No neck masses.] [No thyromegaly.] [No JVD.] Chest: [Symmetrical chest expansion slightly diminished breath sounds at the right base. Abdomen: [Soft, nontender, no megaly, no rebound, no guarding, normal bowel sounds.] Extremities: [No clubbing, 1+ bipedal edema, no cyanosis.] Neurological Exam: [No focal neurologic deficit.] Alert oriented 3. Psychiatric: Normal mood affect and normal mental status examination. Skin: No rashes. - Labs CBC & Chem 7: 04/17/21 02:53 04/17/21 02:53 Labs: Abnormal Lab Results - Last 24 Hours (Table) 04/16/21 04/16/21 04/17/21 Range/Units 16:52 20:06 02:53 WBC 10.8 H (3.8-10.6) k/uL RBC 3.57 L (4.30-5.90) m/uL Hgb 10.7 L (13.0-17.5) gm/dL Hct 33.4 L (39.0-53.0) % Neutrophils # 8.3 H (1.3-7.7) k/uL Sodium (137-145) mmol/L Chloride (98-107) mmol/L BUN (9-20) mg/dL Creatinine (0.66-1.25) mg/dL Glucose (74-99) mg/dL POC Glucose (mg/dL) 216 H 316 H (75-99) mg/dL Calcium (8.4-10.2) mg/dL ALT (4-49) U/L Alkaline Phosphatase (38-126) U/L Total Protein (6.3-8.2) g/dL Albumin (3.5-5.0) g/dL 04/17/21 04/17/21 Range/Units 02:53 11:08 WBC (3.8-10.6) k/uL RBC (4.30-5.90) m/uL Hgb (13.0-17.5) gm/dL Hct (39.0-53.0) % Neutrophils # (1.3-7.7) k/uL Sodium 132 L (137-145) mmol/L Chloride 96 L (98-107) mmol/L BUN 68 H (9-20) mg/dL Creatinine 2.07 H (0.66-1.25) mg/dL Glucose 109 H (74-99) mg/dL POC Glucose (mg/dL) 251 H (75-99) mg/dL Calcium 8.0 L (8.4-10.2) mg/dL ALT 53 H (4-49) U/L Alkaline Phosphatase 134 H (38-126) U/L Total Protein 5.4 L (6.3-8.2) g/dL Albumin 2.3 L (3.5-5.0) g/dL Microbiology - Last 24 Hours (Table) 04/16/21 10:15 Gram Stain - Preliminary Pleural Fluid Body Fluid Culture - Preliminary 04/11/21 06:35 Blood Culture - Final Blood No Growth after 144 hours 04/11/21 06:20 Blood Culture - Final Blood No Growth after 144 hours 04/13/21 09:15 Gram Stain - Final Pleural Fluid Body Fluid Culture - Final 04/16/21 10:15 Acid Fast Bacilli Culture - Preliminary Pleural Fluid 04/16/21 10:15 Fungal Culture - Preliminary Pleural Fluid 04/16/21 10:15 Anaerobic Culture - Preliminary Pleural Fluid Assessment and Plan Assessment: Impression: Acute hypoxic respiratory failure secondary to acute on chronic diastolic congestive heart failure and bilateral pleural effusions. Acute non-ST elevation myocardial infarction Bilateral pleural effusions requiring 3 thoracentesis procedures since admission, 2 on the right and one on the left. Last thoracentesis on the right side was done on 04/16/2021. Pleural effusions were all transudative in nature. Chronic atrial fibrillation. Chronic diastolic congestive heart failure. Chronic kidney disease stage III. Hypervolemic hyponatremia. Hypertension. Chronic anemia. Type 2 diabetes. Dyslipidemia. Recommendation: Continue diuretics. Continue oxygen and titrate accordingly. Continue to monitor I's and O's. Continue tolvapten Continue to monitor in the ICU. We'll continue to follow. prognosis remains guarded. Time with Patient: Less than 30
[2021-04-17] MEDS ORDERED: PATIENT'S OWN (Dulaglutide [Trulicity] 1.5 MG/0.5 ML Pen.Injctr) SQ SCH (13:30)
[2021-04-17 16:51] LABS: Glucose,Whole Blood 91 mg/dL (75-99)
[2021-04-17 20:16] LABS: Glucose,Whole Blood 289 mg/dL (75-99)
[2021-04-17] MEDS: ATORVASTATIN 40 MG TAB PO SCH (21:02)
[2021-04-17] MEDS: INSULIN DETEMIR (LEVEMIR) 100 UNIT/ML SYR SQ SCH (21:02)
[2021-04-17] MEDS: DOXAZOSIN 2 MG TAB PO SCH (21:02)
[2021-04-17] MEDS: TEMAZEPAM 15 MG CAP PO PRN (21:08)
[2021-04-18 04:23] LABS: Basophils # (A) 0.1 k/uL (0-0.2); Basophils % (A) 1 %; Eosinophils # (A) 0.2 k/uL (0-0.7); Eosinophils % (A) 2 %; HCT 32.2 % (39.0-53.0); HGB 10.9 gm/dL (13.0-17.5); Lymphocytes # (A) 1.7 k/uL (1.0-4.8); Lymphocytes % (A) 14 %; MCH 31.3 pg (25.0-35.0); MCHC 33.9 g/dL (31.0-37.0); MCV 92.4 fL (80.0-100.0); Mean Platelet Volume 7.4; Monocytes # (A) 1.1 k/uL (0-1.0); Monocytes % (A) 10 %; Neutrophils # (A) 8.5 k/uL (1.3-7.7); Neutrophils % (A) 72 %; Platelet Count 415 k/uL (150-450); RBC 3.48 m/uL (4.30-5.90); RDW 13.9 % (11.5-15.5); WBC 11.8 k/uL (3.8-10.6)
[2021-04-18 04:39] LABS: Albumin 2.3 g/dL (3.5-5.0); Calcium 7.9 mg/dL (8.4-10.2); Potassium 3.5 mmol/L (3.5-5.1); Total Bilirubin 0.3 mg/dL (0.2-1.3); Total Protein 5.6 g/dL (6.3-8.2)
[2021-04-18] MEDS: POTASSIUM CHLORIDE ER 20 MEQ TAB.ER PO SCH ×2 (05:22→06:35)
[2021-04-18 06:34] LABS: Glucose,Whole Blood 60 mg/dL (75-99)
[2021-04-18] MEDS: INSULIN ASPART (NovoLOG) 100 UNIT/ML VIAL SQ SCH ×4 (06:35→21:06)
[2021-04-18 06:59] LABS: Glucose,Whole Blood 74 mg/dL (75-99)
[2021-04-18] MEDS: FUROSEMIDE 10 MG/ML 10 ML VIAL IV SCH ×2 (07:43→21:05)
[2021-04-18] MEDS: METOPROLOL TARTRATE 25 MG TAB PO SCH ×2 (07:44→21:06)
[2021-04-18] MEDS: ASPIRIN 81 MG PO SCH (07:44)
[2021-04-18] MEDS: APIXABAN 2.5 MG TABLET PO SCH ×2 (07:45→21:05)
[2021-04-18] MEDS: PANTOPRAZOLE 40 MG TABLET PO SCH (07:45)
--- NOTE | 2021-04-18 09:29 | XR ---
EXAMINATION TYPE: XR chest 1V portable DATE OF EXAM: 04/18/2021 CLINICAL HISTORY: Congestion. TECHNIQUE: Portable semiupright view of the chest. COMPARISON: 04/17/2021 FINDINGS: Redemonstrated elevation of the right hemidiaphragm. There is no focal airspace opacity at the right lung base. Small bilateral pleural effusions and bibasilar haziness. Cardiac size normal. No pneumothorax seen. No acute displaced osseous fracture. IMPRESSION: 1. New focal airspace opacity at the right lung base may represent atelectasis versus developing pneu monia. 2. Small bilateral pleural effusions.
--- NOTE | 2021-04-18 11:11 | P.PN ---
Subjective This is a 80 year old male with paroxysmal atrial fibrillation (on Eliquis), hypertension, type 2 diabetes, hyperlipidemia, sinus bradycardia, mildly prolonged HI interval, chronic kidney disease, chronic diastolic heart failure. Patient follows in the office with Dr. Stratton. We are following the patient for elevated troponin. Patient was admitted 04/11/2021 to the hospital due to shortness of breath, symptoms of orthopndea, PND and leg edema. Patient was started on IV Lasix and required BIPAP and was transferred to the ICU. Chest x- ray on admission revealed persistent central vascular congestion and interstitial edema. CT chest 04/12 revealed moderately large bilateral pleural effusions enlargement the right side. Occlusion of the lower lobe bronchi. Bilateral lower lobe consolidation or atelectasis that is worse on the right side. Previous echocardiogram 03/24/2021 revealed EF of 60-65%, LA severely dilated, mild to moderate mitral regurgitation, mild tricuspid regurgitation. Holter monitor on 02/2021 in the office revealed sinus rhythm with mildly prolonged HI, nighttime bradycardia, likely chronotropic incompetence Limited Echo 04/11/2021 revealed EF 55-60%, trivial pericardial effusion, and large pleural effusion. 04/13- Patient underwent right sided thoracentesis with 1.7L turbid colored fluid removed Ultrasound the kidneys revealed no hydronephrosis, increased renal parenchyma Ecotrin this is a suggestive of medical renal disease. Bilateral renal cortical cyst slightly enlarged compared to old exam in 04/14 patient underwent left-sided thoracentesis with 700 mL turbid colored fluid removed. 04/15/2021: Nifedipine and Doxazosin held today for renal perfusion 04/17/2021:Patient underwent barrium swallow yesterday with no aspiration and no impairment, no laryngeal penetration. Chest Xray this morning stable, unchanged elevation of the right hemidiaphragm. 04/18/2021: Patient seen at bedside in the ICU. He appears to be doing better each day. He is alert and oriented x 3.He is sitting up in the chair, appears to be improving each day. His oxygenations are improving He is now on Room air with SpO2 >92%. Patient maintained on IV Lasix 80mg BID, Eliquis 2.5 mg twice a day, aspirin 81 mg daily, atorvastatin 40 mg nightly, metoprolol tartrate 25 mg twice day, doxazosin 2mg night. He has been having good urine output with 3.6L over the past 24 hours. Blood pressure 150/81 HR 58, afebrile. Serum creatinine slowly improving. WBC 11.8, Hgb 10.9, platelets 415, sodium 134, potassium 3.5, BUN 59, serum creatinine 1.80 (yesterday 2.07). Telemetry reviewed, is currently maintaining sinus mechanism HR controlled in 60-70s. Chest Xray- with right lung base airspace opacity, small bilateral pleural effusion. PHYSICAL EXAM: VITAL SIGNS: Reviewed. GENERAL: In no acute distress. Does appear slightly short of breath NECK: Supple. No JVD or thyromegaly LUNGS: Respirations even and unlabored. Lungs diminished with bibasilar rales. HEART: Regular rate and rhythm. S1 and S2 heard. Systolic murmur noted. EXTREMITIES: Normal range of motion. No clubbing or cyanosis. Peripheral pulses intact. 1+ bilateral lower extremity edema ASSESSMENT: Elevated troponin trend 0.5, 0.4, 0.3, patient also had elevated troponin during previous admissions. Not indicative of acute coronary syndrome Acute hypoxic respiratory failure Bilateral Pleural Effusions Shortness of breath Acute on chronic diastolic heart failure EF 55-60% Paroxysmal atrial fibrillation - on Eliquis Currently maintaining sinus mechanism Acute on Chronic kidney disease Hyponatremia PLAN: Continue current cardiac medications at this time Eliquis, aspirin, statin, metoprolol tartrate Continue IV lasix per nephrology Accurate I&O, Daily weights Monitor electrolytes and kidney function From a cardiology perspective, patient is stable to be transferred to 3S cardiac stepdown unit Further recommendations pending patient course Objective - Vital Signs Vital signs: Vital Signs Temp 97.5 F L 04/18/21 08:00 Pulse 73 04/18/21 08:00 Resp 15 04/18/21 08:00 BP 168/65 04/18/21 08:00 Pulse Ox 96 04/18/21 08:00 Intake & Output 04/17/21 04/18/21 04/18/21 18:59 06:59 18:59 Intake Total 50 55 300 Output Total 1562 2100 125 Balance -1511 175 Weight 75.9 kg Intake: IV 50 5 Normal Saline 0.9 @ 5mL/ 50 5 hr Oral 50 300 Output: Urine 1562 2100 125 Other: Voiding Method Indwelling Catheter Indwelling Catheter Indwelling Catheter - Labs CBC & Chem 7: 07/15/21 03:33 04/18/21 03:33 Labs: Abnormal Lab Results - Last 24 Hours (Table) 04/17/21 04/17/21 04/18/21 Range/Units 11:08 20:14 03:33 WBC 11.8 H (3.8-10.6) k/uL RBC 3.48 L (4.30-5.90) m/uL Hgb 10.9 L (13.0-17.5) gm/dL Hct 32.2 L (39.0-53.0) % Neutrophils # 8.5 H (1.3-7.7) k/uL Monocytes # 1.1 H (0-1.0) k/uL Sodium (137-145) mmol/L Carbon Dioxide (22-30) mmol/L BUN (9-20) mg/dL Creatinine (0.66-1.25) mg/dL POC Glucose (mg/dL) 251 H 289 H (75-99) mg/dL Calcium (8.4-10.2) mg/dL AST (17-59) U/L ALT (4-49) U/L Alkaline Phosphatase (38-126) U/L Total Protein (6.3-8.2) g/dL Albumin (3.5-5.0) g/dL 04/18/21 04/18/21 04/18/21 Range/Units 03:33 06:33 06:57 WBC (3.8-10.6) k/uL RBC (4.30-5.90) m/uL Hgb (13.0-17.5) gm/dL Hct (39.0-53.0) % Neutrophils # (1.3-7.7) k/uL Monocytes # (0-1.0) k/uL Sodium 134 L (137-145) mmol/L Carbon Dioxide 32 H (22-30) mmol/L BUN 59 H (9-20) mg/dL Creatinine 1.80 H (0.66-1.25) mg/dL POC Glucose (mg/dL) 60 L 74 L (75-99) mg/dL Calcium 7.9 L (8.4-10.2) mg/dL AST 82 H (17-59) U/L ALT 81 H (4-49) U/L Alkaline Phosphatase 147 H (38-126) U/L Total Protein 5.6 L (6.3-8.2) g/dL Albumin 2.3 L (3.5-5.0) g/dL Microbiology - Last 24 Hours (Table) 04/16/21 10:15 Acid Fast Bacilli Smear - Final Pleural Fluid Acid Fast Bacilli Culture - Preliminary 04/16/21 10:15 Gram Stain - Preliminary Pleural Fluid Body Fluid Culture - Preliminary 04/11/21 06:35 Blood Culture - Final Blood No Growth after 144 hours 04/11/21 06:20 Blood Culture - Final Blood No Growth after 144 hours 04/13/21 09:15 Gram Stain - Final Pleural Fluid Body Fluid Culture - Final
--- NOTE | 2021-04-18 11:57 | P.PN ---
Subjective Progress Note Date: 04/18/21 Principal diagnosis: Acute hypoxic respiratory failure secondary to acute on chronic diastolic congestive heart failure. And bilateral pleural effusions. 80-year-old male patient hospitalized for worsening shortness of breath. The patient was having orthopnea, unable to lay down flat in bed because of worsening shortness of breath. He is known to have history of CHF, diastolic heart failure, chronic atrial fibrillation and addition to diabetes mellitus and hypertension and hyperlipidemia and chronic kidney disease. Also suffers from chronic anemia. He was having some increased cough. Limited congestion. No chest pain. Over the past few days breathing got worse. He presented to the hospital because of worsening shortness of breath. Overnight he became more dys pneic and hypoxic. He was seen by the hospitalists and the patient was placed on a BiPAP and the patient was given additional dose of Lasix which somewhat improved his respiratory status. At the time of my evaluation, the patient was still struggling with his breathing. His pulse ox was around 76% on 6 L of oxygen by nasal cannula. At that point I put him back on a BiPAP at a pressure of 12/5 cm of water with an FiO2 of 100% and I transfer this patient to the intensive care unit. I also given additional dose of Lasix 60 mg IV push. Note that he was in atrial fibrillation. He was having some labored breathing. He was not using excessive muscle breathing. Limited edema in lower extremities bilaterally. His previous echocardiogram showed a preserved LV function with an ejection fraction of 665%, dilated LA, mild to moderate mitral regurgitation. His sodium is at time of admission was 126. BUN was 28 with a creatinine of 1.4. Troponins were minimally elevated at 0.5 and 0.4 and 0.3 respectively 3. EKG was consistent with atrial fibrillation, chest exit showed mild pulmonary vessel congestion and bilateral pleural effusion. Patient was started on IV heparin. The patient was given also Rocephin and Zithromax by the medical group regarding possibility of a pneumonia. His white cell count was at 14.5 with hemoglobin of 12.6. On today's evaluation of 04/13/2021, the patient seems in much more awake compared to yesterday. More interactive. He is less short of breath. He was taken briefly off the BiPAP. Nevertheless, he seems felt to be wanting the BiPAP and benefiting from the BiPAP which is running at a pressure of 12/6 cm of water with an FiO2 of 80%. He was diuresed with Lasix IV and his fluid balance is -2.1 L over the past 24 hours. He is headed towards a negative fluid balance. CAT scan of the chest was completed yesterday and it showed moderate to large sized bilateral pleural effusion, worse on the right, there is also atelectatic changes in the lung bases. There is also occlusion of the right lower lobe bronchus which obviously raises the concern for underlying lesion within the right lower lobe. I think this is probably related to atelectasis. He does have some mild cardiomegaly. He was dynamically stable. No hypotension. On his blood work, the patient has a white cell count of 15.3. Sodium is 124. Creatinine is at 58 with a creatinine of 2.3. Legionella urine antigen came back negative. He remains on anticoagulation with Eliquis. His cardiac rhythm remains a atrial fibrillation. Nephrology evaluated this patient and want to start the patient on a Lasix drip. He remains on empiric antibiotic coverage with a combination of Rocephin and Zithromax. 04/14/2021, the patient is still having some shortness of breath and hypoxemia. After some initial improvement following his thoracentesis, overnight the patient's oxygenation gradually got worse. He was placed back on the BiPAP and currently is on 1 and 1 L facemask. Repeat chest x-ray from today showing atelectatic changes in the right lung base along with some bilateral pleural effusion. Note that his urine output also dropped. The patient was given Lasix and currently receiving IV Lasix at a dose of 80 mg every 12 hours. Note that the urine output is in order of 10-20 mL an hour. His creatinine is up to 2.8 and the sodium level is up and down to 121. Discussed the case with nephrology and the patient will be given Lasix along with semsca 15 mg. Obvious is more comfortable compared to yesterday. Nevertheless, he continues to require high levels of oxygen. His cardiac rhythm is sinus for now. His pulse ox is order of 93%. BP stable at 131/59. Patient was reevaluated today on 04/15/2021, remains in the ICU, patient had bilateral thoracentesis performed in the last few days by Dr. Oh, doing great, feeling much better, he was on BiPAP last night, today he is on 15 L high flow cannula, and his O2 saturation was noted to be 99%, hence I cut down his FiO2 down to 6 L nasal cannula. Chest x-ray continues to show hardly any fluid on the left side, but there is a small right-sided pleural effusion with elevated right hemidiaphragm. Patient had thoracentesis on 04/13 and he had 1700 mL of fluid removed from the right pleural space. He had another thoracentesis on the left side and 700 mL were removed on 04/14. Overall the patient is doing well, improved, less shortness of breath, echocardiogram showed good LV function, RBC the patient came in with a diastolic congestive heart failure and non-ST elevation myocardial infarction. WBC count today is 13.4 hemoglobin is 10.3. Sodium remains low at 125. Electrolytes are normal otherwise. BUN is 81 creatinine 2.74. BNP level few days ago was as high as 16,000. Fluid drained from both spaces seems to be transudative in nature. Patient was reevaluated today on 04/16/2021, remains in the ICU, patient had worsening pulmonary status over the last 24 hours, he chest x-ray is worse with worsening right-sided pleural effusion and his oxygenation is worsening requiring BiPAP 12/600% FiO2. Hence I'm recommending stat ultrasound of the chest and I am recommending a right-sided thoracentesis. Indeed his ultrasound of the chest showed a good sized pocket and I went ahead and drained his right- sided pleural effusion, drained roughly 1500 mL of free flowing fluid, not bloody, and most likely transudative in nature, diagnostic studies were ordered. Chest follow-up chest x-ray postthoracentesis showed significant improvement. And I'm certain would be able to titrate his FiO2 down and probably eventually go back to a nasal cannula. Patient has been responding to Lasix, nonetheless he continues to have clinical findings of congestive heart failure. His initial presentation was a presentation of non-ST elevation myocardial infarction. CBC today is relatively normal WBC count is 13.9 electrolytes are normal BUN is 76 creatinine 2.11. Steadily improving compared to the last few days was in the range of 3 Reevaluated today on 04/17/2021, patient remains in ICU, patient is being treated for pulmonary edema, he is now back on 3 L nasal cannula with O2 sat showed 95%. Patient gradually showed significant improvement after his large volume thoracentesis done yesterday, chest x-ray is showing slight small pleural effusion on the right side, clinically the patient is doing great. Remains on oxygen remains on Eliquis for atrial fibrillation, rate seems to be better controlled. Remains on diuretics, and he is -3 L over the last 24 hours. ABC is relatively normal electrolytes are normal BUN is 68 creatinine 2.07. Readily improving over the last few days Patient was reevaluated today on 04/18/2021, patient is doing well, remains in the ICU, remains on Coumadin, chest x-ray is showing slight worsening of the right pleural effusion, however clinically the patient is doing well, continues to be in negative fluid balance with Lasix. I have no plans to perform thoracentesis at this point on this patient, he is feeling great, and I plan to transfer the patient to cardiac bed on selective. 3 S. CBC is relatively normal erect lites are normal BUN is 59 and creatinine 1.80, steadily improving since admission. Objective - Vital Signs Vital signs: Vital Signs Temp 97.5 F L 04/18/21 08:00 Pulse 72 04/18/21 10:00 Resp 20 04/18/21 10:00 BP 152/73 04/18/21 10:00 Pulse Ox 94 L 04/18/21 10:00 Intake & Output 04/17/21 04/18/21 04/18/21 18:59 06:59 18:59 Intake Total 50 55 300 Output Total 1562 2100 125 Balance -1511 175 Weight 75.9 kg Intake: IV 50 5 Normal Saline 0.9 @ 5mL/ 50 5 hr Oral 50 300 Output: Urine 1562 2100 125 Other: Voiding Method Indwelling Catheter Indwelling Catheter Indwelling Catheter - Exam Physical Exam: Revealed 80-year-old white male pleasant, in no distress. On room air. Head: Atraumatic, normocephalic. HEENT:[Neck is supple.] [No neck masses.] [No thyromegaly.] [No JVD.] Chest: [Symmetrical chest expansion slightly diminished breath sounds at the right base. Abdomen: [Soft, nontender, no megaly, no rebound, no guarding, normal bowel sounds.] Extremities: [No clubbing, 1+ bipedal edema, no cyanosis.] Neurological Exam: [No focal neurologic deficit.] Alert oriented 3. Psychiatric: Normal mood affect and normal mental status examination. Skin: No rashes. - Labs CBC & Chem 7: 04/18/21 03:33 04/18/21 03:33 Labs: Abnormal Lab Results - Last 24 Hours (Table) 04/17/21 04/18/21 04/18/21 Range/Units 20:14 03:33 03:33 WBC 11.8 H (3.8-10.6) k/uL RBC 3.48 L (4.30-5.90) m/uL Hgb 10.9 L (13.0-17.5) gm/dL Hct 32.2 L (39.0-53.0) % Neutrophils # 8.5 H (1.3-7.7) k/uL Monocytes # 1.1 H (0-1.0) k/uL Sodium 134 L (137-145) mmol/L Carbon Dioxide 32 H (22-30) mmol/L BUN 59 H (9-20) mg/dL Creatinine 1.80 H (0.66-1.25) mg/dL POC Glucose (mg/dL) 289 H (75-99) mg/dL Calcium 7.9 L (8.4-10.2) mg/dL AST 82 H (17-59) U/L ALT 81 H (4-49) U/L Alkaline Phosphatase 147 H (38-126) U/L Total Protein 5.6 L (6.3-8.2) g/dL Albumin 2.3 L (3.5-5.0) g/dL 04/18/21 04/18/21 Range/Units 06:33 06:57 WBC (3.8-10.6) k/uL RBC (4.30-5.90) m/uL Hgb (13.0-17.5) gm/dL Hct (39.0-53.0) % Neutrophils # (1.3-7.7) k/uL Monocytes # (0-1.0) k/uL Sodium (137-145) mmol/L Carbon Dioxide (22-30) mmol/L BUN (9-20) mg/dL Creatinine (0.66-1.25) mg/dL POC Glucose (mg/dL) 60 L 74 L (75-99) mg/dL Calcium (8.4-10.2) mg/dL AST (17-59) U/L ALT (4-49) U/L Alkaline Phosphatase (38-126) U/L Total Protein (6.3-8.2) g/dL Albumin (3.5-5.0) g/dL Microbiology - Last 24 Hours (Table) 04/16/21 10:15 Gram Stain - Preliminary Pleural Fluid Body Fluid Culture - Preliminary 04/16/21 10:15 Acid Fast Bacilli Smear - Final Pleural Fluid Acid Fast Bacilli Culture - Preliminary 04/11/21 06:35 Blood Culture - Final Blood No Growth after 144 hours 04/11/21 06:20 Blood Culture - Final Blood No Growth after 144 hours 04/13/21 09:15 Gram Stain - Final Pleural Fluid Body Fluid Culture - Final Assessment and Plan Assessment: Impression: Acute hypoxic respiratory failure secondary to acute on chronic diastolic congestive heart failure and bilateral pleural effusions. Acute non-ST elevation myocardial infarction Bilateral pleural effusions requiring 3 thoracentesis procedures since admission, 2 on the right and one on the left. Last thoracentesis on the right side was done on 04/16/2021. Pleural effusions were all transudative in nature. Chronic atrial fibrillation. Chronic diastolic congestive heart failure. Chronic kidney disease stage III. Hypervolemic hyponatremia. Hypertension. Chronic anemia. Type 2 diabetes. Dyslipidemia. Recommendation: Continue diuretics. Answer patient out of the ICU to a monitor bed on . Continue to monitor I's and O's. We'll continue to follow. Repeat chest x-ray on every other day Consider discharge planning over the weekend. prognosis remains guarded. Time with Patient: Less than 30
--- NOTE | 2021-04-18 11:57 | PN ---
PROGRESS NOTE Patient is seen for followup for acute kidney injury, mostly cardiorenal, currently improving with IV Lasix. Sodium was also low and now improved with diuresis. The patient is feeling much better. He is off oxygen and he is lying flat without any shortness of breath. PHYSICAL EXAMINATION: On examination today, blood pressure is 152/73, heart rate 72 per minute, he is afebrile. Examination of the heart S1, S2. Examination of the lungs, bilateral breath sounds are heard. Abdomen is soft, nontender. Examination of lower extremities shows no evidence of edema. [employer] exam grossly intact. LAB: Show sodium 134, potassium 3.5, chloride 98, BUN 59, creatinine 1.8, hemoglobin 10.9 g/dL. ASSESSMENT: 1. Acute kidney injury, cardiorenal, currently improving. Serum creatinine down to 1.8 from peak of 3.1 mg/dL. Admitting creatinine was 1.4 mg/dL which appears to be his baseline. 2. Chronic kidney disease, stage III. Baseline creatinine about 1.4-1.5 mg/dL secondary to nephrosclerosis. 3. Acute hypoxic respiratory failure associated with aspiration as well as congestive heart failure exacerbation. 4. Right pleural effusion status post thoracentesis. 5. Hypervolemic hyponatremia, improving with diuresis. Sodium up to 134. 6. Metabolic acidosis associated with renal failure, currently improved. PLAN: Continue with IV diuresis. Maintain off sodium chloride tablets to avoid sodium load in a patient with CHF exacerbation. Encourage increased oral protein intake. MMODL / IJN: [id number] /
[2021-04-18 12:24] LABS: Glucose,Whole Blood 168 mg/dL (75-99)
--- NOTE | 2021-04-18 13:29 | P.PN ---
Subjective 80-year-old male patient hospitalized for worsening shortness of breath. The patient was having orthopnea, unable to lay down flat in bed because of worsening shortness of breath. He is known to have history of CHF, diastolic heart failure, chronic atrial fibrillation and addition to diabetes mellitus and hypertension and hyperlipidemia and chronic kidney disease. Also suffers from chronic anemia. He was having some increased cough. Limited congestion. No chest pain. Over the past few days breathing got worse. He presented to the hospital because of worsening shortness of breath. Overnight he became more dyspneic and hypoxic. He was seen by the hospitalists and the patient was placed on a BiPAP and the patient was given additional dose of Lasix which somewhat improved his respiratory status. At the time of my evaluation, the patient was still struggling with his breathing. His pulse ox was around 76% on 6 L of oxygen by nasal cannula. At that point I put him back on a BiPAP at a pressure of 12/5 cm of water with an FiO2 of 100% and I transfer this patient to the intensive care unit. I also given additional dose of Lasix 60 mg IV push. Note that he was in atrial fibrillation. He was having some labored breathing. He was not using excessive muscle breathing. Limited edema in lower extremities bilaterally. His previous echocardiogram showed a preserved LV function with an ejection fraction of 665%, dilated LA, mild to moderate mitral regurgitation. His sodium is at time of admission was 126. BUN was 28 with a creatinine of 1.4. Troponins were minimally elevated at 0.5 and 0.4 and 0.3 respectively 3. EKG was consistent with atrial fibrillation, chest exit showed mild pulmonary vessel congestion and bilateral pleural effusion. Patient was started on IV heparin. The patient was given also Rocephin and Zithromax by the medical group regarding possibility of a pneumonia. His white cell count was at 14.5 with hemoglobin of 12.6. On today's evaluation of 04/12/2021, the patient seems in much more awake compared to yesterday. More interactive. He is less short of breath. He was taken briefly off the BiPAP. Nevertheless, he seems felt to be wanting the BiPAP and benefiting from the BiPAP which is running at a pressure of 12/6 cm of water with an FiO2 of 80%. He was diuresed with Lasix IV and his fluid balance is -2.1 L over the past 24 hours. He is headed towards a negative fluid b alance. CAT scan of the chest was completed yesterday and it showed moderate to large sized bilateral pleural effusion, worse on the right, there is also atelectatic changes in the lung bases. There is also occlusion of the right lower lobe bronchus which obviously raises the concern for underlying lesion within the right lower lobe. I think this is probably related to atelectasis. He does have some mild cardiomegaly. He was dynamically stable. No hypotension. On his blood work, the patient has a white cell count of 15.3. Sodium is 124. Creatinine is at 58 with a creatinine of 2.3. Legionella urine antigen came back negative. He remains on anticoagulation with Eliquis. His cardiac rhythm remains a atrial fibrillation. Nephrology evaluated this patient and want to start the patient on a Lasix drip. He remains on empiric antibiotic coverage with a combination of Rocephin and Zithromax. 04/13/2021 Patient had a thoracentesis on the right side with removal of around 2 and half liters of fluid. I reviewed the CT and x-ray imaging there is no evidence of pneumonia and this can you azithromycin probably will not need Rocephin either. Patient Appears to have hypervolemic hyponatremia for which patient is on IV Lasix drip although patient doesn't have much of urine output since then. Patient still has some bilateral pleural effusions with some atelectasis. 04/14/2021 His serum creatinine and serum sodium continued to get worse patient received Samsca. Patient the probably will need hemodialysis patient was switched from IV Lasix drip to 80 mg twice a day of IV Lasix. Patient blood sugars are bit down today closely monitor this continue pre-meal insulin continue with Levemir. All the anti-happens medications are being held because of acute renal failure. Chest x-ray showed significant improvement of pleural effusions. Patient doesn't have much of urine output since yesterday. 04/15/2021 Patient overall clinical condition improved. After withholding the anti- hypertensive medications it appears patient's kidney function has improved and patient started having good urine output patient remains on IV Lasix. Patient creatinine improved from 2.81-2.7 today and the serum sodium improved to 125 as well. Patient the oxygen requirements have come down although went back on BiPAP again today. Patient had paracentesis today with removal of 700 mL from the left lung. Patient had presences day before on the right side with removal of around 1700 mL. Patient has mild the leukocytosis of 13,400 patient is presently not an antibiotic was on antibiotics until couple days ago. This is reactive and not no evidence of infection at this time. Patient blood sugars are highly elevated will increase the dose of long-acting insulin at nighttime. 04/16/2021 Patient respiratory status is bit worse again patient chest x-ray showing bilateral pleural effusions again this was on the right side patient had an ultrasound subsequently had thoracentesis with removal of around 1200 mL again. Patient unfortunately received blood pressure medication after which his blood pressure went down leading to decreased urine output again I'll completely discontinue antidepressant medications will not need any antibiotic medications unless his blood pressure goes about 200 / 1 10. Patient will be continued on IV Lasix. Patient was having good urine output with improvement in serum sodium and serum creatinine patient does serum sodium went up to 130 and creatinine is 2.11. 04/17/2021 Patient is running at 98% on 3 L of oxygen today significant improvement in his respiratory status patient has good urine output. Patient creatinine continued to improve and serum sodium continued to improve and presently his creatinine is 2.1 serum sodium is 132. Chest x-ray showing elevated right hemidiaphragm. No significant pleural effusions today. 04/18/2021 Patient overall clinical condition continued to improve and patient is off oxygen no shortness of breath at this time. Patient creatinine continue to improve and is presently about what 1.8 serum sodium is 134. Patient is being transferred out of ICU clinically doing much better should be able to be discharged probably next couple days. Patient will be discharged home. Constitutional: Denied any fatigue denied any fever. Cardio vascular: denied any chest pain, palpitations Gastrointestinal denied any nausea vomiting Pulmonary: shortness of breath improved Neurologic denied any new focal deficits All inpatient medications were reviewed and appropriate changes in these medications as dictated in the interval history and assessment and plan. PHYSICAL EXAMINATION: GENERAL: The patient is alert and oriented x3, not in any acute distress. Well developed, well nourished. HEENT: Pupils are round and equally reacting to light. EOMI. No scleral icterus. No conjunctival pallor. Normocephalic, atraumatic. No pharyngeal erythema. No thyromegaly. CARDIOVASCULAR: S1 and S2 present. No murmurs, rubs, or gallops. PULMONARY: Chest is clear to auscultation, no wheezing or crackles. ABDOMEN: Soft, nontender, nondistended, normoactive bowel sounds. No palpable organomegaly. MUSCULOSKELETAL: No joint swelling or deformity. EXTREMITIES: No cyanosis, clubbing, does have some pedal edema NEUROLOGICAL: Gross neurological examination did not reveal any focal deficits. SKIN: No rashes. Assessment and Plan Plan: 1 acute hypoxic respiratory failure, likely on the basis of decompensated heart failure, and large bilateral pleural effusions, not pneumonia, patient is on Lasix 80 mg twice a day urine output was started going down again because of the low blood pressure and if his medications were discontinued Patient is status post thoracentesis on the right side with removal of 1700 mL on 04/13/2021 and thoracentesis on the left side with removal of around 700 mL on 04/14/2021 for right-sided thoracentesis again on 04/16/2021 with removal of 1200.patient respiratory status significant improved today. Patient can you to improve will be transferred out of ICU . 2 chronic atrial fibrillation: Presently rate controlled 3 chronic diastolic dysfunction with acute exacerbation 4 chronic stage III kidney disease, With a component of an acute kidney injury from a cardiorenal syndrome improved urine output, continue to improve with IV Lasix. Patient is presently on 80 mg twice a day of Lasix 5 hyponatremia, hypervolemic hyponatremia secondary to CHF on IV Lasix . Patient's serum sodium is improving IV Lasix is being continued Olding of antihypertensive medications 6 hypertension: Holding off on antihypertensive medications because of renal dysfunction which is presently improving 7 hyperlipidemia 8 chronic anemia 9 diabetes mellitus type 2 uncontrolled elevated blood sugars increasing doses long-acting insulin. Objective - Vital Signs Vital signs: Vital Signs Temp 97.5 F L 04/18/21 08:00 Pulse 72 04/18/21 10:00 Resp 20 04/18/21 10:00 BP 152/73 04/18/21 10:00 Pulse Ox 94 L 04/18/21 10:00 Intake & Output 04/17/21 04/18/21 04/18/21 18:59 06:59 18:59 Intake Total 50 55 300 Output Total 1562 2100 125 Balance -1511 175 Weight 75.9 kg Intake: IV 50 5 Normal Saline 0.9 @ 5mL/ 50 5 hr Oral 50 300 Output: Urine 1562 2100 125 Other: Voiding Method Indwelling Catheter Indwelling Catheter Indwelling Catheter - Labs CBC & Chem 7: 04/18/21 03:33 04/18/21 03:33 Labs: Abnormal Lab Results - Last 24 Hours (Table) 04/17/21 04/18/21 04/18/21 Range/Units 20:14 03:33 03:33 WBC 11.8 H (3.8-10.6) k/uL RBC 3.48 L (4.30-5.90) m/uL Hgb 10.9 L (13.0-17.5) gm/dL Hct 32.2 L (39.0-53.0) % Neutrophils # 8.5 H (1.3-7.7) k/uL Monocytes # 1.1 H (0-1.0) k/uL Sodium 134 L (137-145) mmol/L Carbon Dioxide 32 H (22-30) mmol/L BUN 59 H (9-20) mg/dL Creatinine 1.80 H (0.66-1.25) mg/dL POC Glucose (mg/dL) 289 H (75-99) mg/dL Calcium 7.9 L (8.4-10.2) mg/dL AST 82 H (17-59) U/L ALT 81 H (4-49) U/L Alkaline Phosphatase 147 H (38-126) U/L Total Protein 5.6 L (6.3-8.2) g/dL Albumin 2.3 L (3.5-5.0) g/dL 04/18/21 04/18/21 04/18/21 Range/Units 06:33 06:57 12:23 WBC (3.8-10.6) k/uL RBC (4.30-5.90) m/uL Hgb (13.0-17.5) gm/dL Hct (39.0-53.0) % Neutrophils # (1.3-7.7) k/uL Monocytes # (0-1.0) k/uL Sodium (137-145) mmol/L Carbon Dioxide (22-30) mmol/L BUN (9-20) mg/dL Creatinine (0.66-1.25) mg/dL POC Glucose (mg/dL) 60 L 74 L 168 H (75-99) mg/dL Calcium (8.4-10.2) mg/dL AST (17-59) U/L ALT (4-49) U/L Alkaline Phosphatase (38-126) U/L Total Protein (6.3-8.2) g/dL Albumin (3.5-5.0) g/dL Microbiology - Last 24 Hours (Table) 04/16/21 10:15 Gram Stain - Preliminary Pleural Fluid Body Fluid Culture - Preliminary 04/16/21 10:15 Acid Fast Bacilli Smear - Final Pleural Fluid Acid Fast Bacilli Culture - Preliminary
--- NOTE | 2021-04-18 15:33 | CDI ---
Documentation Clarification Form Date: 04/18/2021 02:41:52 PM From: Joaquina Barnes RN, CCDS Admit Date: 04/11/2021 06:01:00 AM Patient Name: Wilfredo Langley Visit Number: [id number] Discharge Date: ATTENTION: The Clinical Documentation Specialists (CDI) and [facility] Coding Staff appreciate your assistance in clarifying documentation. Please respond to the clarification below the line at the bottom and electronically sign. The CDI & [facility] Coding staff will review the response and follow-up if needed. Please note: Queries are made part of the Legal Health Record. If you have any questions, please contact the author of this message via ITS. Dr. Mireille Hernadez Conflicting documentation has been found in the medical record. Clarification is requested if the condition is ruled in or out. 04/15/21(and subsequent progress notes) Cardiology progress note: Elevated troponin trend 0.5, 0.4, 0.3, patient also had elevated troponin during previous admissions. Not indicative of acute coronary syndrome. 04/15/21 and subsequent pulmonary progress notes: Acute hypoxic respiratory failure secondary to acute on chronic diastolic congestive heart failure and bilateral pleural effusions. Acute non-ST elevation myocardial infarction History/Risk Factors: Congestive heart failure, Atrial Fibrillation, Diabetes Mellitus, Hypertension, Pneumonia, Renal Disease Clinical Indicators: 80-year-old m present to ED on 04/11/21 with significant shortness of breath, cough and congestion. No chest pain. 04/11/21 Vital sign: 189/73 101 22 98.8 93 % 04/11/21 EKG; Atrial fibrillation with RVR 04/11/21 Labs: WBC 14.5, NA+ 126 BUN 28, CR 1.40, BNP 23721' Troponin I 0.574 04/11 CXR: positive for CHF (per ED review) 04/11/21 ECHO: Overall left ventricular systolic function is normal with, an EF between 55-50 % 04/11 Cardiology: Troponins are mildly elevated at 0.5 and 0.4, but his trops are elevated even on his last admission at 0.5. this could be due to the heart failure, could also be due to the renal insufficiency with elevated creatinine. Treatment: 04/13 Right-sided Thoracentesis\ 04/14 Left-sided thoracentesis 04/16 Right-sided thoracentesis Titrate FiO2 down to nasal cannula Continue to monitor I's and O's. Daily weights Lasix 80 IV BID Lopressor 25 MG PO BID Tolvapten 15 MG PO Once (04/14) Please clarify which diagnosis is most appropriate: [ ]Type II OH due to acute hypoxic respiratory failure without OH [ ] Demand ischemia without OH due to acute hypoxic respiratory failure [ ] Other (please specify) [ ] Unable to determine (Template Last Revised: December 2020) MTDD
[2021-04-18 16:55] LABS: Glucose,Whole Blood 236 mg/dL (75-99)
[2021-04-18 20:32] LABS: Glucose,Whole Blood 230 mg/dL (75-99)
[2021-04-18] MEDS: ATORVASTATIN 40 MG TAB PO SCH (21:05)
[2021-04-18] MEDS: INSULIN DETEMIR (LEVEMIR) 100 UNIT/ML SYR SQ SCH (21:06)
[2021-04-18] MEDS: TEMAZEPAM 15 MG CAP PO PRN (21:11)
[2021-04-18] MEDS: DOXAZOSIN 2 MG TAB PO SCH (21:11)
[2021-04-19 06:39] LABS: Glucose,Whole Blood 108 mg/dL (75-99)
[2021-04-19] MEDS: INSULIN ASPART (NovoLOG) 100 UNIT/ML VIAL SQ SCH ×4 (06:49→20:46)
[2021-04-19] MEDS: FUROSEMIDE 10 MG/ML 10 ML VIAL IV SCH ×2 (08:39→20:46)
[2021-04-19] MEDS: PANTOPRAZOLE 40 MG TABLET PO SCH (08:40)
[2021-04-19] MEDS: METOPROLOL TARTRATE 25 MG TAB PO SCH ×2 (08:40→20:46)
[2021-04-19] MEDS: APIXABAN 2.5 MG TABLET PO SCH ×2 (08:40→20:46)
[2021-04-19] MEDS: ASPIRIN 81 MG PO SCH (08:40)
[2021-04-19 09:45] LABS: Calcium 8.4 mg/dL (8.4-10.2); Potassium 4.1 mmol/L (3.5-5.1)
--- NOTE | 2021-04-19 10:19 | PN ---
PROGRESS NOTE Patient is seen for followup for acute kidney injury, mostly cardiorenal. The patient's renal function has continuously been improving with serum creatinine down to 1.5 now from 3.1 at peak. He is currently being diuresed. Overall significant improvement has been noted. EXAMINATION: Today blood pressure 129/54, heart rate 78 per minute, he is afebrile. Examination of the heart S1, S2. Examination of the lungs, bilateral breath sounds are heard. Abdomen is soft, nontender. Examination of lower extremities shows edema 1+ bilaterally. [employer] exam grossly intact. LAB: Show sodium 137, potassium 4.1, chloride 99, CO2 32, BUN 45, creatinine 1.57. ASSESSMENT: 1. Acute kidney injury, cardiorenal, currently improved. 2. Volume overload, significantly improved. Patient remains with some edema, maintained on IV Lasix which we can continue for now. 3. Acute hypoxic respiratory failure associated with congestive heart failure and aspiration. Currently improved. 4. Right pleural effusion status post thoracentesis. 5. Hypervolemic hyponatremia, improving with diuresis. 6. Metabolic acidosis on initial admission. Currently improved. Etiology is renal failure. 7. Chronic kidney disease stage 3 with baseline creatinine 1.4-1.5 secondary to nephrosclerosis. PLAN: Continue with IV Lasix. MMODL / IJN: [id number] /
[2021-04-19 11:53] LABS: Glucose,Whole Blood 195 mg/dL (75-99)
--- NOTE | 2021-04-19 14:12 | P.PN ---
Subjective Progress Note Date: 04/19/21 80-year-old male patient hospitalized for worsening shortness of breath. The patient was having orthopnea, unable to lay down flat in bed because of worsening shortness of breath. He is known to have history of CHF, diastolic heart failure, chronic atrial fibrillation and addition to diabetes mellitus and hypertension and hyperlipidemia and chronic kidney disease. Also suffers from chronic anemia. He was having some increased cough. Limited congestion. No chest pain. Over the past few days breathing got worse. He presented to the hospital because of worsening shortness of breath. Overnight he became more dyspneic and hypoxic. He was seen by the hospitalists and the patient was placed on a BiPAP and the patient was given additional dose of Lasix which somewhat improved his respiratory status. At the time of my evaluation, the patient was still struggling with his breathing. His pulse ox was around 76% on 6 L of oxygen by nasal cannula. At that point I put him back on a BiPAP at a pressure of 12/5 cm of water with an FiO2 of 100% and I transfer this patient to the intensive care unit. I also given additional dose of Lasix 60 mg IV push. Note that he was in atrial fibrillation. He was having some labored breathing. He was not using excessive muscle breathing. Limited edema in lower extremities bilaterally. His previous echocardiogram showed a preserved LV function with an ejection fraction of 665%, dilated LA, mild to moderate mitral regurgitation. His sodium is at time of admission was 126. BUN was 28 with a creatinine of 1.4. Troponins were minimally elevated at 0.5 and 0.4 and 0.3 respectively 3. EKG was consistent with atrial fibrillation, chest exit showed mild pulmonary vessel congestion and bilateral pleural effusion. Patient was started on IV hep lynne. The patient was given also Rocephin and Zithromax by the medical group regarding possibility of a pneumonia. His white cell count was at 14.5 with hemoglobin of 12.6. On today's evaluation of 04/13/2021, the patient seems in much more awake compared to yesterday. More interactive. He is less short of breath. He was taken briefly off the BiPAP. Nevertheless, he seems felt to be wanting the BiPAP and benefiting from the BiPAP which is running at a pressure of 12/6 cm of water with an FiO2 of 80%. He was diuresed with Lasix IV and his fluid balance is -2.1 L over the past 24 hours. He is headed towards a negative fluid balance. CAT scan of the chest was completed yesterday and it showed moderate to large sized bilateral pleural effusion, worse on the right, there is also atelectatic changes in the lung bases. There is also occlusion of the right lower lobe bronchus which obviously raises the concern for underlying lesion within the right lower lobe. I think this is probably related to atelectasis. He does have some mild cardiomegaly. He was dynamically stable. No h ypotension. On his blood work, the patient has a white cell count of 15.3. Sodium is 124. Creatinine is at 58 with a creatinine of 2.3. Legionella urine antigen came back negative. He remains on anticoagulation with Eliquis. His cardiac rhythm remains a atrial fibrillation. Nephrology evaluated this patient and want to start the patient on a Lasix drip. He remains on empiric antibiotic coverage with a combination of Rocephin and Zithromax. 04/14/2021, the patient is still having some shortness of breath and hypoxemia. After some initial improvement following his thoracentesis, overnight the patient's oxygenation gradually got worse. He was placed back on the BiPAP and currently is on 1 and 1 L facemask. Repeat chest x-ray from today showing atelectatic changes in the right lung base along with some bilateral pleural effusion. Note that his urine output also dropped. The patient was given Lasix and currently receiving IV Lasix at a dose of 80 mg every 12 hours. Note that the urine output is in order of 10-20 mL an hour. His creatinine is up to 2.8 and the sodium level is up and down to 121. Discussed the case with nephrology and the patient will be given Lasix along with semsca 15 mg. Obvious is more comfortable compared to yesterday. Nevertheless, he continues to require high levels of oxygen. His cardiac rhythm is sinus for now. His pulse ox is order of 93%. BP stable at 131/59. Patient was reevaluated today on 04/15/2021, remains in the ICU, patient had bilateral thoracentesis performed in the last few days by Dr. Oh, doing great, feeling much better, he was on BiPAP last night, today he is on 15 L high flow cannula, and his O2 saturation was noted to be 99%, hence I cut down his FiO2 down to 6 L nasal cannula. Chest x-ray continues to show hardly any fluid on the left side, but there is a small right-sided pleural effusion with elevate d right hemidiaphragm. Patient had thoracentesis on 04/13 and he had 1700 mL of fluid removed from the right pleural space. He had another thoracentesis on the left side and 700 mL were removed on 04/14. Overall the patient is doing well, improved, less shortness of breath, echocardiogram showed good LV function, RBC the patient came in with a diastolic congestive heart failure and non-ST elevati on myocardial infarction. WBC count today is 13.4 hemoglobin is 10.3. Sodium remains low at 125. Electrolytes are normal otherwise. BUN is 81 creatinine 2.74. BNP level few days ago was as high as 16,000. Fluid drained from both spaces seems to be transudative in nature. Patient was reevaluated today on 04/16/2021, remains in the ICU, patient had worsening pulmonary status over the last 24 hours, he chest x-ray is worse with worsening right-sided pleural effusion and his oxygenation is worsening requiring BiPAP 12/600% FiO2. Hence I'm recommending stat ultrasound of the chest and I am recommending a right-sided thoracentesis. Indeed his ultrasound of the chest showed a good sized pocket and I went ahead and drained his right- sided pleural effusion, drained roughly 1500 mL of free flowing fluid, not bloody, and most likely transudative in nature, diagnostic studies were ordered. Chest follow-up chest x-ray postthoracentesis showed significant improvement. And I'm certain would be able to titrate his FiO2 down and probably eventually go back to a nasal cannula. Patient has been responding to Lasix, nonetheless he continues to have clinical findings of congestive heart failure. His initial presentation was a presentation of non-ST elevation myocardial infarction. CBC today is relatively normal WBC count is 13.9 electrolytes are normal BUN is 76 creatinine 2.11. Steadily improving compared to the last few days was in the range of 3 Reevaluated today on 04/17/2021, patient remains in ICU, patient is being treated for pulmonary edema, he is now back on 3 L nasal cannula with O2 sat showed 95%. Patient gradually showed significant improvement after his large volume thoracentesis done yesterday, chest x-ray is showing slight small pleural effusion on the right side, clinically the patient is doing great. Remains on oxygen remains on Eliquis for atrial fibrillation, rate seems to be better controlled. Remains on diuretics, and he is -3 L over the last 24 hours. ABC is relatively normal electrolytes are normal BUN is 68 creatinine 2.07. Readily improving over the last few days Patient was reevaluated today on 04/18/2021, patient is doing well, remains in the ICU, remains on Coumadin, chest x-ray is showing slight worsening of the right pleural effusion, however clinically the patient is doing well, continues to be in negative fluid balance with Lasix. I have no plans to perform thoracentesis at this point on this patient, he is feeling great, and I plan to transfer the patient to cardiac bed on selective. 3 S. CBC is relatively normal erect lites are normal BUN is 59 and creatinine 1.80, steadily improving since admission. Patient is seen today 04/19/2021 in follow-up on the selective care unit. He is currently sitting up in bed. Awake and alert in no acute distress. Breathing quite a bit easier today. On room air. Pleural fluid cultures revealed no growth. Pathology negative for malignancy. Sodium 137. Potassium 4.1. Creati nine 1.57. Glucose 112. Remains on IV diuretics, bronchodilators. Anticoagulated with Eliquis. Objective - Vital Signs Vital signs: Vital Signs Temp 98.3 F 04/19/21 04:00 Pulse 64 04/19/21 11:46 Resp 16 04/19/21 11:46 BP 161/70 04/19/21 11:46 Pulse Ox 100 04/19/21 11:46 Intake & Output 04/18/21 04/19/21 04/19/21 18:59 06:59 18:59 Intake Total 550 600 480 Output Total 925 1875 200 Balance -375 -1275 280 Weight 74.1 kg Intake: Oral 550 600 480 Output: Urine 925 1875 200 Other: Voiding Method Indwelling Catheter Indwelling Catheter Indwelling Catheter # Voids 1 3 - Exam GENERAL EXAM: Alert, very pleasant 80-year-old gentleman, on room air, comfortable in no apparent distress. HEAD: Normocephalic. EYES: Normal reaction of pupils, equal size. NOSE: Clear with pink turbinates. THROAT: No erythema or exudates. NECK: No masses, no JVD. CHEST: No chest wall deformity. LUNGS: Equal air entry with faint crackles in the posterior bases. CVS: S1 and S2 normal with no audible murmur, regular rhythm. ABDOMEN: No hepatosplenomegaly, normal bowel sounds, no guarding or rigidity. SPINE: No scoliosis or deformity SKIN: No rashes CENTRAL NERVOUS SYSTEM: No focal deficits, tone is normal in all 4 extremities. EXTREMITIES: There is no peripheral edema. No clubbing, no cyanosis. Peripheral pulses are intact. - Labs CBC & Chem 7: 04/18/21 03:33 04/19/21 08:14 Labs: Abnormal Lab Results - Last 24 Hours (Table) 04/18/21 04/18/21 04/19/21 Range/Units 16:53 20:17 06:33 Carbon Dioxide (22-30) mmol/L BUN (9-20) mg/dL Creatinine (0.66-1.25) mg/dL Glucose (74-99) mg/dL POC Glucose (mg/dL) 236 H 230 H 108 H (75-99) mg/dL 04/19/21 04/19/21 Range/Units 08:14 11:48 Carbon Dioxide 32 H (22-30) mmol/L BUN 45 H (9-20) mg/dL Creatinine 1.57 H (0.66-1.25) mg/dL Glucose 112 H (74-99) mg/dL POC Glucose (mg/dL) 195 H (75-99) mg/dL Microbiology - Last 24 Hours (Table) 04/16/21 10:15 Gram Stain - Preliminary Pleural Fluid Body Fluid Culture - Preliminary 04/16/21 10:15 Anaerobic Culture - Preliminary Pleural Fluid Assessment and Plan Assessment: 1 Acute hypoxic respiratory failure secondary to acute on chronic diastolic congestive heart failure and bilateral pleural effusions. Improved and on room air. 2 Bilateral pleural effusions requiring 3 thoracentesis procedures since admission, 2 on the right and one on the left. Last thoracentesis on the right side was done on 04/16/2021. Pleural effusions were all transudative in nature. 3 Chronic atrial fibrillation. 4 Chronic diastolic congestive heart failure. 5 Chronic kidney disease stage III. 6 Hypervolemic hyponatremia. Recovered sodium 137 7 Hypertension. 8 Chronic anemia. 9 Type 2 diabetes. 10 Dyslipidemia. Plan: The patient was seen and evaluated by Dr. Hernadez Currently stable from the pulmonary and critical care standpoint Continue the current treatment plan I, the cosigning physician, performed a history & physical examination of the patient. Lungs sounds crackles in the posterior bases. Maintaining good O2 saturations in the 90s on room air. I discussed the assessment and plan of care with my nurse practitioner, Mireya Soto. I attest to the above note as dictated by her.
--- NOTE | 2021-04-19 14:28 | P.PN ---
Subjective Progress Note Date: 04/19/21 HISTORY OF PRESENT ILLNESS: Patient examined this morning. Patient is sitting up in a chair. Patient denies chest pain or pressure. He denies shortness of breath. He remains on IV Lasix. Vital signs are stable. PHYSICAL EXAM: VITAL SIGNS: Reviewed. GENERAL: Well-developed in no acute distress. NECK: Supple. No JVD or thyromegaly LUNGS: Respirations even and unlabored. Lungs diminished. HEART: Regular rate and rhythm. S1 and S2 heard. Systolic murmur. EXTREMITIES: Normal range of motion. No clubbing or cyanosis. Peripheral pulses intact. 1+ bilateral lower extremity edema ASSESSMENT: Shortness of breath Acute exacerbation of chronic diastolic heart failure Paroxysmal atrial fibrillation Chronic kidney disease Large pleural effusion PLAN: Continue current cardiac medications Continue IV lasix per nephrology Accurate I&O Daily weights Monitor kidney function Further recommendations pending patient course Anticipate discharge home tomorrow if patient remains stable Nurse practitioner note has been reviewed by physician. Signing provider agrees with the documented findings, assessment, and plan of care. Objective - Vital Signs Vital signs: Vital Signs Temp 98.3 F 04/19/21 04:00 Pulse 64 04/19/21 11:46 Resp 16 04/19/21 11:46 BP 161/70 04/19/21 11:46 Pulse Ox 100 04/19/21 11:46 Intake & Output 04/18/21 04/19/21 04/19/21 18:59 06:59 18:59 Intake Total 550 600 480 Output Total 925 1875 200 Balance -375 -1275 280 Weight 74.1 kg Intake: Oral 550 600 480 Output: Urine 925 1875 200 Other: Voiding Method Indwelling Catheter Indwelling Catheter Indwelling Catheter # Voids 1 3 - Labs CBC & Chem 7: 04/18/21 03:33 04/19/21 08:14 Labs: Abnormal Lab Results - Last 24 Hours (Table) 04/18/21 04/18/21 04/19/21 Range/Units 16:53 20:17 06:33 Carbon Dioxide (22-30) mmol/L BUN (9-20) mg/dL Creatinine (0.66-1.25) mg/dL Glucose (74-99) mg/dL POC Glucose (mg/dL) 236 H 230 H 108 H (75-99) mg/dL 04/19/21 04/19/21 Range/Units 08:14 11:48 Carbon Dioxide 32 H (22-30) mmol/L BUN 45 H (9-20) mg/dL Creatinine 1.57 H (0.66-1.25) mg/dL Glucose 112 H (74-99) mg/dL POC Glucose (mg/dL) 195 H (75-99) mg/dL Microbiology - Last 24 Hours (Table) 04/16/21 10:15 Gram Stain - Preliminary Pleural Fluid Body Fluid Culture - Preliminary 04/16/21 10:15 Anaerobic Culture - Preliminary Pleural Fluid
--- NOTE | 2021-04-19 15:19 | P.PN ---
Subjective 80-year-old male patient hospitalized for worsening shortness of breath. The patient was having orthopnea, unable to lay down flat in bed because of worsening shortness of breath. He is known to have history of CHF, diastolic heart failure, chronic atrial fibrillation and addition to diabetes mellitus and hypertension and hyperlipidemia and chronic kidney disease. Also suffers from chronic anemia. He was having some increased cough. Limited congestion. No chest pain. Over the past few days breathing got worse. He presented to the hospital because of worsening shortness of breath. Overnight he became more dyspneic and hypoxic. He was seen by the hospitalists and the patient was placed on a BiPAP and the patient was given additional dose of Lasix which somewhat improved his respiratory status. At the time of my evaluation, the patient was still struggling with his breathing. His pulse ox was around 76% on 6 L of oxygen by nasal cannula. At that point I put him back on a BiPAP at a pressure of 12/5 cm of water with an FiO2 of 100% and I transfer this patient to the intensive care unit. I also given additional dose of Lasix 60 mg IV push. Note that he was in atrial fibrillation. He was having some labored breathing. He was not using excessive muscle breathing. Limited edema in lower extremities bilaterally. His previous echocardiogram showed a preserved LV function with an ejection fraction of 665%, dilated LA, mild to moderate mitral regurgitation. His sodium is at time of admission was 126. BUN was 28 with a creatinine of 1.4. Troponins were minimally elevated at 0.5 and 0.4 and 0.3 respectively 3. EKG was consistent with atrial fibrillation, chest exit showed mild pulmonary vessel congestion and bilateral pleural effusion. Patient was started on IV heparin. The patient was given also Rocephin and Zithromax by the medical group regarding possibility of a pneumonia. His white cell count was at 14.5 with hemoglobin of 12.6. On today's evaluation of 04/12/2021, the patient seems in much more awake compared to yesterday. More interactive. He is less short of breath. He was taken briefly off the BiPAP. Nevertheless, he seems felt to be wanting the BiPAP and benefiting from the BiPAP which is running at a pressure of 12/6 cm of water with an FiO2 of 80%. He was diuresed with Lasix IV and his fluid balance is -2.1 L over the past 24 hours. He is headed towards a negative fluid b alance. CAT scan of the chest was completed yesterday and it showed moderate to large sized bilateral pleural effusion, worse on the right, there is also atelectatic changes in the lung bases. There is also occlusion of the right lower lobe bronchus which obviously raises the concern for underlying lesion within the right lower lobe. I think this is probably related to atelectasis. He does have some mild cardiomegaly. He was dynamically stable. No hypotension. On his blood work, the patient has a white cell count of 15.3. Sodium is 124. Creatinine is at 58 with a creatinine of 2.3. Legionella urine antigen came back negative. He remains on anticoagulation with Eliquis. His cardiac rhythm remains a atrial fibrillation. Nephrology evaluated this patient and want to start the patient on a Lasix drip. He remains on empiric antibiotic coverage with a combination of Rocephin and Zithromax. 04/13/2021 Patient had a thoracentesis on the right side with removal of around 2 and half liters of fluid. I reviewed the CT and x-ray imaging there is no evidence of pneumonia and this can you azithromycin probably will not need Rocephin either. Patient Appears to have hypervolemic hyponatremia for which patient is on IV Lasix drip although patient doesn't have much of urine output since then. Patient still has some bilateral pleural effusions with some atelectasis. 04/14/2021 His serum creatinine and serum sodium continued to get worse patient received Samsca. Patient the probably will need hemodialysis patient was switched from IV Lasix drip to 80 mg twice a day of IV Lasix. Patient blood sugars are bit down today closely monitor this continue pre-meal insulin continue with Levemir. All the anti-happens medications are being held because of acute renal failure. Chest x-ray showed significant improvement of pleural effusions. Patient doesn't have much of urine output since yesterday. 04/15/2021 Patient overall clinical condition improved. After withholding the anti- hypertensive medications it appears patient's kidney function has improved and patient started having good urine output patient remains on IV Lasix. Patient creatinine improved from 2.81-2.7 today and the serum sodium improved to 125 as well. Patient the oxygen requirements have come down although went back on BiPAP again today. Patient had paracentesis today with removal of 700 mL from the left lung. Patient had presences day before on the right side with removal of around 1700 mL. Patient has mild the leukocytosis of 13,400 patient is presently not an antibiotic was on antibiotics until couple days ago. This is reactive and not no evidence of infection at this time. Patient blood sugars are highly elevated will increase the dose of long-acting insulin at nighttime. 04/16/2021 Patient respiratory status is bit worse again patient chest x-ray showing bilateral pleural effusions again this was on the right side patient had an ultrasound subsequently had thoracentesis with removal of around 1200 mL again. Patient unfortunately received blood pressure medication after which his blood pressure went down leading to decreased urine output again I'll completely discontinue antidepressant medications will not need any antibiotic medications unless his blood pressure goes about 200 / 1 10. Patient will be continued on IV Lasix. Patient was having good urine output with improvement in serum sodium and serum creatinine patient does serum sodium went up to 130 and creatinine is 2.11. 04/17/2021 Patient is running at 98% on 3 L of oxygen today significant improvement in his respiratory status patient has good urine output. Patient creatinine continued to improve and serum sodium continued to improve and presently his creatinine is 2.1 serum sodium is 132. Chest x-ray showing elevated right hemidiaphragm. No significant pleural effusions today. 04/18/2021 Patient overall clinical condition continued to improve and patient is off oxygen no shortness of breath at this time. Patient creatinine continue to improve and is presently about what 1.8 serum sodium is 134. Patient is being transferred out of ICU clinically doing much better should be able to be discharged probably next couple days. Patient will be discharged home. 04/19/2021 Patient is doing very well patient creatinine continue to improve and presently on 1.7. Sodium improved to 137. Nephrology is recommending one more day of IV Lasix. Patient probably can be discharged home tomorrow. Constitutional: Denied any fatigue denied any fever. Cardio vascular: denied any chest pain, palpitations Gastrointestinal denied any nausea vomiting Pulmonary: shortness of breath improved Neurologic denied any new focal deficits All inpatient medications were reviewed and appropriate changes in these medications as dictated in the interval history and assessment and plan. PHYSICAL EXAMINATION: GENERAL: The patient is alert and oriented x3, not in any acute distress. Well developed, well nourished. HEENT: Pupils are round and equally reacting to light. EOMI. No scleral icterus. No conjunctival pallor. Normocephalic, atraumatic. No pharyngeal erythema. No thyromegaly. CARDIOVASCULAR: S1 and S2 present. No murmurs, rubs, or gallops. PULMONARY: Chest is clear to auscultation, no wheezing or crackles. ABDOMEN: Soft, nontender, nondistended, normoactive bowel sounds. No palpable organomegaly. MUSCULOSKELETAL: No joint swelling or deformity. EXTREMITIES: No cyanosis, clubbing, does have some pedal edema NEUROLOGICAL: Gross neurological examination did not reveal any focal deficits. SKIN: No rashes. Assessment and Plan Plan: 1 acute hypoxic respiratory failure, likely on the basis of decompensated heart failure, and large bilateral pleural effusions, not pneumonia, patient is on Lasix 80 mg twice a day urine output was started going down again because of the low blood pressure and if his medications were discontinued Patient is status post thoracentesis on the right side with removal of 1700 mL on 04/13/2021 and thoracentesis on the left side with removal of around 700 mL on 04/14/2021 for right-sided thoracentesis again on 04/16/2021 with removal of 1200.patient respiratory status significant improved today. Patient is doing clinically well and be discharged tomorrow on oral Lasix . 2 chronic atrial fibrillation: Presently rate controlled 3 chronic diastolic dysfunction with acute exacerbation 4 chronic stage III kidney disease, With a component of an acute kidney injury from a cardiorenal syndrome improved urine output, continue to improve with IV Lasix. Patient is presently on 80 mg twice a day of Lasix 5 hyponatremia, hypervolemic hyponatremia secondary to CHF on IV Lasix . Patient's serum sodium is improving IV Lasix is being continued holding of antihypertensive medications 6 hypertension: Holding off on antihypertensive medications because of renal dysfunction which is presently improving 7 hyperlipidemia 8 chronic anemia 9 diabetes mellitus type 2 controlled now ON present regimen which will be continued Objective - Vital Signs Vital signs: Vital Signs Temp 98.3 F 04/19/21 04:00 Pulse 64 04/19/21 11:46 Resp 16 04/19/21 11:46 BP 161/70 04/19/21 11:46 Pulse Ox 100 04/19/21 11:46 Intake & Output 04/18/21 04/19/21 04/19/21 18:59 06:59 18:59 Intake Total 550 600 480 Output Total 925 1875 200 Balance -375 -1275 280 Weight 74.1 kg Intake: Oral 550 600 480 Output: Urine 925 1875 200 Other: Voiding Method Indwelling Catheter Indwelling Catheter Indwelling Catheter # Voids 1 3 - Labs CBC & Chem 7: 04/18/21 03:33 04/19/21 08:14 Labs: Abnormal Lab Results - Last 24 Hours (Table) 04/18/21 04/18/21 04/19/21 Range/Units 16:53 20:17 06:33 Carbon Dioxide (22-30) mmol/L BUN (9-20) mg/dL Creatinine (0.66-1.25) mg/dL Glucose (74-99) mg/dL POC Glucose (mg/dL) 236 H 230 H 108 H (75-99) mg/dL 04/19/21 04/19/21 Range/Units 08:14 11:48 Carbon Dioxide 32 H (22-30) mmol/L BUN 45 H (9-20) mg/dL Creatinine 1.57 H (0.66-1.25) mg/dL Glucose 112 H (74-99) mg/dL POC Glucose (mg/dL) 195 H (75-99) mg/dL Microbiology - Last 24 Hours (Table) 04/16/21 10:15 Gram Stain - Preliminary Pleural Fluid Body Fluid Culture - Preliminary 04/16/21 10:15 Anaerobic Culture - Preliminary Pleural Fluid
[2021-04-19 16:49] LABS: Glucose,Whole Blood 177 mg/dL (75-99)
[2021-04-19 20:12] LABS: Glucose,Whole Blood 305 mg/dL (75-99)
[2021-04-19] MEDS: INSULIN DETEMIR (LEVEMIR) 100 UNIT/ML SYR SQ SCH (20:45)
[2021-04-19] MEDS: ATORVASTATIN 40 MG TAB PO SCH (20:46)
[2021-04-19] MEDS: DOXAZOSIN 2 MG TAB PO SCH (20:46)
[2021-04-19] MEDS: TEMAZEPAM 15 MG CAP PO PRN (22:36)
[2021-04-20 06:04] LABS: Glucose,Whole Blood 106 mg/dL (75-99)
[2021-04-20 06:55] VITALS: RESP 18
[2021-04-20] MEDS: INSULIN ASPART (NovoLOG) 100 UNIT/ML VIAL SQ SCH (07:09)
[2021-04-20] MEDS: FUROSEMIDE 10 MG/ML 10 ML VIAL IV SCH (08:35)
[2021-04-20] MEDS: PANTOPRAZOLE 40 MG TABLET PO SCH (08:35)
[2021-04-20] MEDS: ASPIRIN 81 MG PO SCH (08:35)
[2021-04-20] MEDS: APIXABAN 2.5 MG TABLET PO SCH (08:36)
[2021-04-20] MEDS: METOPROLOL TARTRATE 25 MG TAB PO SCH (08:36)
[2021-04-20 08:53] LABS: Calcium 8.3 mg/dL (8.4-10.2)
[2021-04-20] MEDS ORDERED: amLODIPine 5 MG TAB PO SCH ×2 (09:00→21:00)
--- NOTE | 2021-04-20 09:36 | PN ---
PROGRESS NOTE Patient is seen for followup for acute kidney injury and volume overload. He is currently being diuresed. Creatinine was down to 1.57 on April 19. This morning patient states he is having abdominal discomfort, mostly on the left lower quadrant. He states he has not had a bowel movement for some time now. PHYSICAL EXAMINATION: On examination today, blood pressure was 193/81, heart rate 73 per minute. He is afebrile. Examination of the heart S1, S2. Examination of lungs bilateral breath sounds are heard. Abdomen is soft, nontender. Examination of lower extremities shows no significant edema. [employer] SURVEYOR exam grossly intact. LAB: On April 19, sodium 137, potassium 4.1, serum creatinine 1.57. ASSESSMENT: 1. Acute kidney injury, cardiorenal, currently improving. Lasix remains at 80 mg IV b.i.d., which can be switched to p.o. Lasix today. 2. Volume overload currently improved. 3. Acute hypoxic respiratory failure secondary to congestive heart failure, aspiration, now improved. 4. Chronic kidney disease stage 3. Baseline creatinine 1.4-1.5 secondary to nephrosclerosis. 5. Hypervolemic hyponatremia. Currently improved with diuresis. PLAN: Can switch to oral Lasix 40 mg p.o. b.i.d. upon discharge. MMODL / IJN: [id number] /
[2021-04-20] MEDS ORDERED: hydrALAZINE HCL 50 MG TAB PO SCH (11:00)
[2021-04-20 11:36] LABS: Glucose,Whole Blood 189 mg/dL (75-99)
--- NOTE | 2021-04-20 12:45 | P.PN ---
Subjective Progress Note Date: 04/20/21 80-year-old male patient hospitalized for worsening shortness of breath. The patient was having orthopnea, unable to lay down flat in bed because of worsening shortness of breath. He is known to have history of CHF, diastolic heart failure, chronic atrial fibrillation and addition to diabetes mellitus and hypertension and hyperlipidemia and chronic kidney disease. Also suffers from chronic anemia. He was having some increased cough. Limited congestion. No chest pain. Over the past few days breathing got worse. He presented to the hospital because of worsening shortness of breath. Overnight he became more dyspneic and hypoxic. He was seen by the hospitalists and the patient was placed on a BiPAP and the patient was given additional dose of Lasix which somewhat improved his respiratory status. At the time of my evaluation, the patient was still struggling with his breathing. His pulse ox was around 76% on 6 L of oxygen by nasal cannula. At that point I put him back on a BiPAP at a pressure of 12/5 cm of water with an FiO2 of 100% and I transfer this patient to the intensive care unit. I also given additional dose of Lasix 60 mg IV push. Note that he was in atrial fibrillation. He was having some labored breathing. He was not using excessive muscle breathing. Limited edema in lower extremities bilaterally. His previous echocardiogram showed a preserved LV function with an ejection fraction of 665%, dilated LA, mild to moderate mitral regurgitation. His sodium is at time of admission was 126. BUN was 28 with a creatinine of 1.4. Troponins were minimally elevated at 0.5 and 0.4 and 0.3 respectively 3. EKG was consistent with atrial fibrillation, chest exit showed mild pulmonary vessel congestion and bilateral pleural effusion. Patient was started on IV hep lynne. The patient was given also Rocephin and Zithromax by the medical group regarding possibility of a pneumonia. His white cell count was at 14.5 with hemoglobin of 12.6. On today's evaluation of 04/13/2021, the patient seems in much more awake compared to yesterday. More interactive. He is less short of breath. He was taken briefly off the BiPAP. Nevertheless, he seems felt to be wanting the BiPAP and benefiting from the BiPAP which is running at a pressure of 12/6 cm of water with an FiO2 of 80%. He was diuresed with Lasix IV and his fluid balance is -2.1 L over the past 24 hours. He is headed towards a negative fluid balance. CAT scan of the chest was completed yesterday and it showed moderate to large sized bilateral pleural effusion, worse on the right, there is also atelectatic changes in the lung bases. There is also occlusion of the right lower lobe bronchus which obviously raises the concern for underlying lesion within the right lower lobe. I think this is probably related to atelectasis. He does have some mild cardiomegaly. He was dynamically stable. No h ypotension. On his blood work, the patient has a white cell count of 15.3. Sodium is 124. Creatinine is at 58 with a creatinine of 2.3. Legionella urine antigen came back negative. He remains on anticoagulation with Eliquis. His cardiac rhythm remains a atrial fibrillation. Nephrology evaluated this patient and want to start the patient on a Lasix drip. He remains on empiric antibiotic coverage with a combination of Rocephin and Zithromax. 04/14/2021, the patient is still having some shortness of breath and hypoxemia. After some initial improvement following his thoracentesis, overnight the patient's oxygenation gradually got worse. He was placed back on the BiPAP and currently is on 1 and 1 L facemask. Repeat chest x-ray from today showing atelectatic changes in the right lung base along with some bilateral pleural effusion. Note that his urine output also dropped. The patient was given Lasix and currently receiving IV Lasix at a dose of 80 mg every 12 hours. Note that the urine output is in order of 10-20 mL an hour. His creatinine is up to 2.8 and the sodium level is up and down to 121. Discussed the case with nephrology and the patient will be given Lasix along with semsca 15 mg. Obvious is more comfortable compared to yesterday. Nevertheless, he continues to require high levels of oxygen. His cardiac rhythm is sinus for now. His pulse ox is order of 93%. BP stable at 131/59. Patient was reevaluated today on 04/15/2021, remains in the ICU, patient had bilateral thoracentesis performed in the last few days by Dr. Oh, doing great, feeling much better, he was on BiPAP last night, today he is on 15 L high flow cannula, and his O2 saturation was noted to be 99%, hence I cut down his FiO2 down to 6 L nasal cannula. Chest x-ray continues to show hardly any fluid on the left side, but there is a small right-sided pleural effusion with elevate d right hemidiaphragm. Patient had thoracentesis on 04/13 and he had 1700 mL of fluid removed from the right pleural space. He had another thoracentesis on the left side and 700 mL were removed on 04/14. Overall the patient is doing well, improved, less shortness of breath, echocardiogram showed good LV function, RBC the patient came in with a diastolic congestive heart failure and non-ST elevati on myocardial infarction. WBC count today is 13.4 hemoglobin is 10.3. Sodium remains low at 125. Electrolytes are normal otherwise. BUN is 81 creatinine 2.74. BNP level few days ago was as high as 16,000. Fluid drained from both spaces seems to be transudative in nature. Patient was reevaluated today on 04/16/2021, remains in the ICU, patient had worsening pulmonary status over the last 24 hours, he chest x-ray is worse with worsening right-sided pleural effusion and his oxygenation is worsening requiring BiPAP 12/600% FiO2. Hence I'm recommending stat ultrasound of the chest and I am recommending a right-sided thoracentesis. Indeed his ultrasound of the chest showed a good sized pocket and I went ahead and drained his right- sided pleural effusion, drained roughly 1500 mL of free flowing fluid, not bloody, and most likely transudative in nature, diagnostic studies were ordered. Chest follow-up chest x-ray postthoracentesis showed significant improvement. And I'm certain would be able to titrate his FiO2 down and probably eventually go back to a nasal cannula. Patient has been responding to Lasix, nonetheless he continues to have clinical findings of congestive heart failure. His initial presentation was a presentation of non-ST elevation myocardial infarction. CBC today is relatively normal WBC count is 13.9 electrolytes are normal BUN is 76 creatinine 2.11. Steadily improving compared to the last few days was in the range of 3 Reevaluated today on 04/17/2021, patient remains in ICU, patient is being treated for pulmonary edema, he is now back on 3 L nasal cannula with O2 sat showed 95%. Patient gradually showed significant improvement after his large volume thoracentesis done yesterday, chest x-ray is showing slight small pleural effusion on the right side, clinically the patient is doing great. Remains on oxygen remains on Eliquis for atrial fibrillation, rate seems to be better controlled. Remains on diuretics, and he is -3 L over the last 24 hours. ABC is relatively normal electrolytes are normal BUN is 68 creatinine 2.07. Readily improving over the last few days Patient was reevaluated today on 04/18/2021, patient is doing well, remains in the ICU, remains on Coumadin, chest x-ray is showing slight worsening of the right pleural effusion, however clinically the patient is doing well, continues to be in negative fluid balance with Lasix. I have no plans to perform thoracentesis at this point on this patient, he is feeling great, and I plan to transfer the patient to cardiac bed on selective. 3 S. CBC is relatively normal erect lites are normal BUN is 59 and creatinine 1.80, steadily improving since admission. Patient is seen today 04/19/2021 in follow-up on the selective care unit. He is currently sitting up in bed. Awake and alert in no acute distress. Breathing quite a bit easier today. On room air. Pleural fluid cultures revealed no growth. Pathology negative for malignancy. Sodium 137. Potassium 4.1. Creati nine 1.57. Glucose 112. Remains on IV diuretics, bronchodilators. Anticoagulated with Eliquis. The patient is seen today 04/20/2021 in follow-up on the selective care unit. He is currently up ambulating in his room. Awake and alert in no acute distress. No worsening shortness of breath, cough or congestion. Continue good O2 saturations in the 90s on room air. Sodium 137. Potassium 4.0. Creatinine 1.64. Glucose 189. Pleural fluid cultures revealed no growth. Blood cultures no growth. Sputum culture no growth. He remains on bronchodilators, IV diuretics. Anticoagulated with Eliquis. He is having issues with hypertension. Medications are being adjusted. Objective - Vital Signs Vital signs: Vital Signs Temp 97.4 F L 04/20/21 08:00 Pulse 73 04/20/21 08:00 Resp 18 04/20/21 08:00 BP 160/72 04/20/21 10:41 Pulse Ox 93 L 04/20/21 08:00 Intake & Output 04/19/21 04/20/21 04/20/21 18:59 06:59 18:59 Intake Total 720 240 Output Total 200 360 Balance 520 -360 240 Weight 75.2 kg Intake: Oral 720 240 Output: Urine 200 360 Other: Voiding Method Indwelling Catheter Toilet Urinal # Voids 3 1 - Exam GENERAL EXAM: Alert, very pleasant 80-year-old gentleman, on room air, comfortable in no apparent distress. HEAD: Normocephalic. EYES: Normal reaction of pupils, equal size. NOSE: Clear with pink turbinates. THROAT: No erythema or exudates. NECK: No masses, no JVD. CHEST: No chest wall deformity. LUNGS: Equal air entry with faint crackles in the posterior bases. CVS: S1 and S2 normal with no audible murmur, regular rhythm. ABDOMEN: No hepatosplenomegaly, normal bowel sounds, no guarding or rigidity. SPINE: No scoliosis or deformity SKIN: No rashes CENTRAL NERVOUS SYSTEM: No focal deficits, tone is normal in all 4 extremities. EXTREMITIES: There is no peripheral edema. No clubbing, no cyanosis. Peripheral pulses are intact. - Labs CBC & Chem 7: 04/18/21 03:33 04/20/21 07:42 Labs: Abnormal Lab Results - Last 24 Hours (Table) 04/19/21 04/19/21 04/20/21 Range/Units 16:48 20:11 06:03 Carbon Dioxide (22-30) mmol/L BUN (9-20) mg/dL Creatinine (0.66-1.25) mg/dL Glucose (74-99) mg/dL POC Glucose (mg/dL) 177 H 305 H 106 H (75-99) mg/dL Calcium (8.4-10.2) mg/dL 04/20/21 04/20/21 Range/Units 07:42 11:33 Carbon Dioxide 31 H (22-30) mmol/L BUN 41 H (9-20) mg/dL Creatinine 1.64 H (0.66-1.25) mg/dL Glucose 67 L (74-99) mg/dL POC Glucose (mg/dL) 189 H (75-99) mg/dL Calcium 8.3 L (8.4-10.2) mg/dL Microbiology - Last 24 Hours (Table) 04/16/21 10:15 Anaerobic Culture - Final Pleural Fluid 04/16/21 10:15 Gram Stain - Preliminary Pleural Fluid Body Fluid Culture - Preliminary Assessment and Plan Assessment: 1 Acute hypoxic respiratory failure secondary to acute on chronic diastolic congestive heart failure and bilateral pleural effusions. Improved and on room air. 2 Bilateral pleural effusions requiring 3 thoracentesis procedures since admi ssion, 2 on the right and one on the left. Last thoracentesis on the right side was done on 04/16/2021. Pleural effusions were all transudative in nature. 3 Chronic atrial fibrillation. 4 Chronic diastolic congestive heart failure. 5 Chronic kidney disease stage III. 6 Hypervolemic hyponatremia. Recovered sodium 137 7 Hypertension. 8 Chronic anemia. 9 Type 2 diabetes. 10 Dyslipidemia. Plan: The patient was seen and evaluated by Dr. Hernadez Currently stable from the pulmonary and critical care standpoint Remains on room air Follow-up chest x-ray in a.m. Continue the current treatment plan I, the cosigning physician, performed a history & physical examination of the patient. Lungs sounds crackles in the posterior bases. Maintaining good O2 saturations in the 90s on room air. I discussed the assessment and plan of care with my nurse practitioner, Mireya Soto. I attest to the above note as dictated by her.
[2021-04-20 13:11] VITALS: BP 151/61; PULSE 66; TEMP 98
--- NOTE | 2021-04-20 13:41 | P.PN ---
Subjective Progress Note Date: 04/20/21 HISTORY OF PRESENT ILLNESS: Patient examined this morning. Patient is sitting up in a chair. Patient denies chest pain or pressure. He denies shortness of breath. He remains on IV Lasix. Patient's blood pressure is elevated this morning. PHYSICAL EXAM: VITAL SIGNS: Reviewed. GENERAL: Well-developed in no acute distress. NECK: Supple. No JVD or thyromegaly LUNGS: Respirations even and unlabored. Lungs diminished. HEART: Regular rate and rhythm. S1 and S2 heard. Systolic murmur. EXTREMITIES: Normal range of motion. No clubbing or cyanosis. Peripheral pulses intact. 1+ bilateral lower extremity edema ASSESSMENT: Shortness of breath Acute exacerbation of chronic diastolic heart failure Paroxysmal atrial fibrillation Chronic kidney disease Large pleural effusion PLAN: Continue current cardiac medications Continue IV lasix per nephrology. Okay to transitioned to oral dosing from a cardiac standpoint Resume home dose of hydralazine Accurate I&O Daily weights Monitor kidney function Patient is stable for discharge home today from a cardiac standpoint We will sign off. Please reconsult if needed. Nurse practitioner note has been reviewed by physician. Signing provider agrees with the documented findings, assessment, and plan of care. Objective - Vital Signs Vital signs: Vital Signs Temp 98 F 04/20/21 13:09 Pulse 66 04/20/21 13:09 Resp 18 04/20/21 13:09 BP 151/61 04/20/21 13:09 Pulse Ox 98 04/20/21 13:09 Intake & Output 04/19/21 04/20/21 04/20/21 18:59 06:59 18:59 Intake Total 720 420 Output Total 200 360 Balance 520 -360 420 Weight 75.2 kg Intake: Oral 720 420 Output: Urine 200 360 Other: Voiding Method Indwelling Catheter Toilet Urinal # Voids 3 1 - Labs CBC & Chem 7: 04/18/21 03:33 04/20/21 07:42 Labs: Abnormal Lab Results - Last 24 Hours (Table) 04/19/21 04/19/21 04/20/21 Range/Units 16:48 20:11 06:03 Carbon Dioxide (22-30) mmol/L BUN (9-20) mg/dL Creatinine (0.66-1.25) mg/dL Glucose (74-99) mg/dL POC Glucose (mg/dL) 177 H 305 H 106 H (75-99) mg/dL Calcium (8.4-10.2) mg/dL 04/20/21 04/20/21 Range/Units 07:42 11:33 Carbon Dioxide 31 H (22-30) mmol/L BUN 41 H (9-20) mg/dL Creatinine 1.64 H (0.66-1.25) mg/dL Glucose 67 L (74-99) mg/dL POC Glucose (mg/dL) 189 H (75-99) mg/dL Calcium 8.3 L (8.4-10.2) mg/dL Microbiology - Last 24 Hours (Table) 04/16/21 10:15 Anaerobic Culture - Final Pleural Fluid
--- NOTE | 2021-04-20 20:13 | P.DS ---
Providers Date of admission: 04/11/21 06:01 Attending physician: Wayne Welch Consults: 04/11/21 17:26 Consult Physician Routine Consulting Provider: Minh Oh Consult Reason/Comments: Bilateral pleural effusion Do you want consulting provider notified?: Yes 04/12/21 23:56 Consult Physician Routine Consulting Provider: Thierry Dawson Consult Reason/Comments: Hyponatremia Do you want consulting provider notified?: Yes Primary care physician: Lesly Ortiz Hospital Course: Diagnoses: Acute diastolic on chronic CHF Acute hypoxic respiratory failure, completely resolved Bilateral pleural effusion secondary to both status post right thoracocentesis starts to and left thoracocentesis 1 Chronic atrial fibrillation acute kidney injury on the top of CK D CK-MB stage III, mostly diabetic nephropathy Type 2 diabetes mellitus Hypertension Hyperlipidemia Hospital course: 80-year-old male patient with past medical history of CHF, diastolic heart failure, chronic atrial fibrillation and addition to diabetes mellitus and hypertension and hyperlipidemia and chronic kidney disease. Also suffers from chronic anemia. Presents because of dyspnea and coughing. His been evaluated by several consultants including pulmonary, cardiology and nephrology services. Patient found to have acute diastolic CHF with bilateral pleural effusion with worsening renal function. He was treated with IV Lasix 80 mg, he has undergone several thoracocentesis to improve his oral effusion. Eventually patient showed interval improvement and on the day of discharge he was breathing quietly and saturating 98% on room air. No other complaints. No chest pain. No GI or urinary complaints. No fever or chills. No change in urine or bowel habits. Patient was eager to go home today. Also his creatinine improved down to 1.6 which is at baseline. Patient was cleared for discharge by all consultants including cardiology, pulmonary and nephrology Upon discharge he was started on Lasix by mouth 40 mg twice a day compared to 80 mg IV twice a day in the hospital. Also nifedipine wasn't stopped and was started on metoprolol and hydralazine 100 mg 3 times a day per cardiology team recommendation. Patient blood pressure was controlled at 151/61. Problems and management plan were discussed with the patient and at bedside and they verbalized understanding and acceptance Patient was found stable and can be discharged home however he needs follow-up as an outpatient. Patient was instructed to follow up with PCP Dr. Ortiz within one week and patient agrees. Patient also instructed to follow up with gi technician Dr. Monreal/Dr. Cardenas in one week, and mines inspector Dr. Trejo 1-2 weeks, and heating fixture tender Dr. Oh in 2 weeks and patient and agreed to call and make his own appointment, as today is weakened Physical exam Gen: patient is a AAOx3, no distress CVS: S1-S2, RRR, no murmur Lungs: B/L CTA, no wheezing Abdomen: soft, no distention, no tenderness, positive bowel sounds Extremity: no leg edema or induration Time spent more than 35 minutes Patient Condition at Discharge: Serious Plan - Discharge Summary New Discharge Prescriptions: New Furosemide [Lasix] 40 mg PO BID #60 tablet Atorvastatin [Lipitor] 40 mg PO HS #30 tab Albuterol Inhaler [Ventolin Hfa Inhaler] 1 puff INHALATION RT-QID PRN #1 vial PRN Reason: Shortness Of Breath Or Wheezing Metoprolol Tartrate [Lopressor] 25 mg PO BID #60 tab Nitroglycerin Sl Tabs [Nitrostat] 0.4 mg SUBLINGUAL Q5M PRN #10 tab PRN Reason: Chest Pain Continue Pioglitazone [Actos] 45 mg PO DAILY Aspirin EC [Ecotrin Low Dose] 81 mg PO DAILY Primidone [Mysoline] 50 mg PO DAILY EPINEPHrine (Auto Inject) [Epipen] 0.3 mg PO ONCE PRN PRN Reason: Anaphylaxis Apixaban [Eliquis] 2.5 mg PO BID #1 tab Dulaglutide [Trulicity] 1.5 mg SQ TU INSULIN LISPRO (HumaLOG) [humaLOG] See Protocol SQ TID-W/MEALS PRN PRN Reason: hyperglycemia Doxazosin [Cardura] 2 mg PO HS #30 tab Insulin Degludec [Tresiba Flextouch U-200] 12 units SQ HS hydrALAZINE HCL [Apresoline] 100 mg PO TID #90 tablet Omeprazole Magnesium [PriLOSEC] 20 mg PO DAILY Ergocalciferol [Vitamin D2 (1250 Mcg = 53725 Iu)] 1,250 mcg PO Q14D Discontinued Atorvastatin [Lipitor] 80 mg PO HS NIFEdipine XL [Procardia Xl] 90 mg PO DAILY Discharge Medication List Aspirin EC [Ecotrin Low Dose] 81 mg PO DAILY 05/28/17 [History] EPINEPHrine (Auto Inject) [Epipen] 0.3 mg PO ONCE PRN 05/28/17 [History] Pioglitazone [Actos] 45 mg PO DAILY 05/28/17 [History] Primidone [Mysoline] 50 mg PO DAILY 05/28/17 [History] Apixaban [Eliquis] 2.5 mg PO BID #1 tab 06/02/17 [Rx] Dulaglutide [Trulicity] 1.5 mg SQ TU 04/04/19 [History] Ergocalciferol [Vitamin D2 (1250 Mcg = 61004 Iu)] 1,250 mcg PO Q14D 03/22/21 [History] INSULIN LISPRO (HumaLOG) [humaLOG] See Protocol SQ TID-W/MEALS PRN 03/22/21 [History] Omeprazole Magnesium [PriLOSEC] 20 mg PO DAILY 03/22/21 [History] Doxazosin [Cardura] 2 mg PO HS #30 tab 03/26/21 [Rx] Insulin Degludec [Tresiba Flextouch U-200] 12 units SQ HS 04/11/21 [History] Albuterol Inhaler [Ventolin Hfa Inhaler] 1 puff INHALATION RT-QID PRN #1 vial 04/20/21 [Rx] Atorvastatin [Lipitor] 40 mg PO HS #30 tab 04/20/21 [Rx] Furosemide [Lasix] 40 mg PO BID #60 tablet 04/20/21 [Rx] Metoprolol Tartrate [Lopressor] 25 mg PO BID #60 tab 04/20/21 [Rx] Nitroglycerin Sl Tabs [Nitrostat] 0.4 mg SUBLINGUAL Q5M PRN #10 tab 04/20/21 [Rx] hydrALAZINE HCL [Apresoline] 100 mg PO TID #90 tablet 04/20/21 [Rx] Follow up Appointment(s)/Referral(s): Sree Cardenas DO [STAFF PHYSICIAN] - 2 Weeks (gi technician ) [facility], [NON-STAFF] - Lesly Ortiz MD [Primary Care Provider] - 1-2 days Thierry Dawson DO [STAFF PHYSICIAN] - 1 Week (nephroligst ) Minh Oh MD [STAFF PHYSICIAN] - 2 Weeks (heating fixture tender ) Patient Instructions/Handouts: Heart Failure (ER) Discharge Disposition: HOME SELF-CARE
== END 2021-04-20 17:03 | disposition home health service (06) | DRG 291 ==
LOC: EC 02:53 → 3SCARD 06:01 → 2SICU 04-12 11:04 → 3SCARD 04-18 14:20
PROVIDERS: ADMIT Hospitalist; ATTEND Hospitalist
PROC: 5A09557 Assistance with Respiratory Ventilation, Greater than 96 Consecutive Hours, Continuous Positive Airway Pressure (ICD-10-PCS; 2021-04-11)
PROC: 0W993ZX Drainage of Right Pleural Cavity, Percutaneous Approach, Diagnostic (ICD-10-PCS; principal; 2021-04-13)
PROC: 0W9B3ZZ Drainage of Left Pleural Cavity, Percutaneous Approach (ICD-10-PCS; 2021-04-14)
PROC: 0W993ZX Drainage of Right Pleural Cavity, Percutaneous Approach, Diagnostic (ICD-10-PCS; 2021-04-16)
DX: I13.0 Hypertensive heart and chronic kidney disease with heart failure and stage 1 through stage 4 chronic kidney disease, or unspecified chronic kidney disease (principal); I50.33 Acute on chronic diastolic (congestive) heart failure; N17.0 Acute kidney failure with tubular necrosis; J96.01 Acute respiratory failure with hypoxia; J91.8 Pleural effusion in other conditions classified elsewhere; E87.1 Hypo-osmolality and hyponatremia; E44.0 Moderate protein-calorie malnutrition; I48.21 Permanent atrial fibrillation; E87.2 Acidosis; J98.11 Atelectasis; D63.1 Anemia in chronic kidney disease; E11.22 Type 2 diabetes mellitus with diabetic chronic kidney disease; N18.32 Chronic kidney disease, stage 3b; Z79.4 Long term (current) use of insulin; E87.6 Hypokalemia; I08.1 Rheumatic disorders of both mitral and tricuspid valves; E78.5 Hyperlipidemia, unspecified; K21.9 Gastro-esophageal reflux disease without esophagitis; G47.00 Insomnia, unspecified; N28.1 Cyst of kidney, acquired; Z68.22 Body mass index [BMI] 22.0-22.9, adult; Z79.01 Long term (current) use of anticoagulants; Z79.82 Long term (current) use of aspirin; Z79.899 Other long term (current) drug therapy; Z87.01 Personal history of pneumonia (recurrent); Z87.891 Personal history of nicotine dependence; Z98.42 Cataract extraction status, left eye; Z98.41 Cataract extraction status, right eye; Z96.1 Presence of intraocular lens; Z98.890 Other specified postprocedural states; Z71.3 Dietary counseling and surveillance; Z91.030 Bee allergy status; Z83.3 Family history of diabetes mellitus; Z82.5 Family history of asthma and other chronic lower respiratory diseases; Z82.49 Family history of ischemic heart disease and other diseases of the circulatory system; Z82.0 Family history of epilepsy and other diseases of the nervous system
CPT/HCPCS: 36415; 36600; 51798; 71045; 71046; 71250; 74230; 76604; 76770; 80048; 80053; 80061; 82550; 82805; 82945; 83605; 83615; 83735; 83880; 84157; 84484; 85025; 85027; 85379; 85610; 85730; 87040; 87070; 87075; 87102; 87116; 87205; 87206; 87252; 87449; 87496; 87498; 87502; 87529; 87634; 87798; 88108; 88305; 89050; 93005; 93308; 94640; 94660; 94760; 99291

== ENCOUNTER 2021-05-25 14:25 | Observation (INO) | payer MEDICARE ==
--- NOTE | 2021-05-25 15:08 | XR ---
EXAMINATION TYPE: XR chest 2V DATE OF EXAM: 05/25/2021 COMPARISON: 04/18/2021 HISTORY: Shortness of breath TECHNIQUE: Frontal and lateral views of the chest are obtained. FINDINGS: Scattered senescent parenchymal changes noted. Hyperinflation compatible with COPD. Improved aeration at the lung bases with small residual effusions and mild linear atelectasis. Heart size is stable. Mediastinal structures are stable and grossly unremarkable. No evidence for hilar prominence. Degenerative changes dorsal spine. IMPRESSION: 1. Improved aeration at the lung bases with small residual effusions and mild linear atelectasis.
[2021-05-25] MEDS ORDERED: predniSONE 20 MG TAB PO STA (15:39)
[2021-05-25] MEDS ORDERED: IPRATROPIUM-ALBUTEROL 3 ML NEB INHALATION STA (15:39)
[2021-05-25 16:05] LABS: Basophils # (A) 0.1 k/uL (0-0.2); Basophils % (A) 1 %; Eosinophils # (A) 0.1 k/uL (0-0.7); Eosinophils % (A) 1 %; HCT 30.6 % (39.0-53.0); HGB 10.2 gm/dL (13.0-17.5); Lymphocytes # (A) 1.3 k/uL (1.0-4.8); Lymphocytes % (A) 13 %; MCH 31.1 pg (25.0-35.0); MCHC 33.4 g/dL (31.0-37.0); MCV 93.2 fL (80.0-100.0); Mean Platelet Volume 8.2; Monocytes % (A) 10 %; Neutrophils # (A) 6.7 k/uL (1.3-7.7); Neutrophils % (A) 71 %; Platelet Count 232 k/uL (150-450); RBC 3.28 m/uL (4.30-5.90); RDW 14.5 % (11.5-15.5); WBC 9.4 k/uL (3.8-10.6)
[2021-05-25 16:33] LABS: INR 0.9 (<1.2); Prothrombin Time 10.1 sec (9.0-12.0)
[2021-05-25 16:34] LABS: Albumin 3.2 g/dL (3.5-5.0); Calcium 8.4 mg/dL (8.4-10.2); Magnesium 2.1 mg/dL (1.6-2.3); Potassium 3.5 mmol/L (3.5-5.1); Total Bilirubin 0.2 mg/dL (0.2-1.3); Total Protein 6.6 g/dL (6.3-8.2)
[2021-05-25 16:36] LABS: Partial Thromboplastin Time 19.8 sec (22.0-30.0)
[2021-05-25] MEDS ORDERED: ASPIRIN 325 MG TAB PO STA (17:26)
[2021-05-25] MEDS ORDERED: ASPIRIN 81 MG PO STA (17:48)
[2021-05-25 17:53] LABS: Glucose,Whole Blood 121 mg/dL (75-99)
[2021-05-25] MEDS ORDERED: NALOXONE 0.4 MG/ML 1 ML VIAL IV PRN (18:59)
--- NOTE | 2021-05-25 18:59 | ED ---
General Adult HPI - General Chief complaint: Shortness of Breath Stated complaint: MARIA TERESA Time Seen by Provider: 05/25/21 15:06 Source: patient, RN notes reviewed, old records reviewed Mode of arrival: wheelchair Limitations: no limitations - History of Present Illness Initial comments: Patient is an 81-year-old male with past medical history remarkable for atrial fibrillation on anticoagulation, heart failure, diabetes, hypertension, hyperlipidemia, GERD, renal disease who presents emergency Department complaining of a one to two-day history worsening shortness of breath. It is worse with exertion. He hasn't noticed any worsening lower extremity edema. He's been dealing with his baseline amount of orthopnea. Denies any paroxysmal nocturnal dyspnea. Denies any chest pain, abdominal pain, nausea, vomiting. Does have a history of COPD as well, but states that the shortness of breath does not resemble his typical dyspnea from that. Denies any nausea or vomiting. Denies any lightheadedness, weakness, numbness. Denies any fevers, chills, cough. He has no other acute complaints at this time. Patient presents over concern for his dyspnea. - Related Data Home Medications Medication Instructions Recorded Confirmed EPINEPHrine (Auto Inject) [Epipen] 0.3 mg PO ONCE PRN 05/28/17 05/25/21 Pioglitazone [Actos] 45 mg PO DAILY 05/28/17 05/25/21 Primidone [Mysoline] 50 mg PO DAILY 05/28/17 05/25/21 Dulaglutide [Trulicity] 1.5 mg SQ TU 04/04/19 05/25/21 Ergocalciferol [Vitamin D2 (1250 1,250 mcg PO Q14D 03/22/21 05/25/21 Mcg = 72382 Iu)] INSULIN LISPRO (HumaLOG) [humaLOG] See Protocol SQ TID-W/MEALS PRN 03/22/21 05/25/21 Omeprazole Magnesium [PriLOSEC] 20 mg PO DAILY 03/22/21 05/25/21 Insulin Glargine,Hum.rec.anlog 14 units SQ DAILY 05/25/21 05/25/21 [Denise Del Rio] Previous Rx's Medication Instructions Recorded Apixaban [Eliquis] 2.5 mg PO BID #1 tab 06/02/17 Albuterol Inhaler [Ventolin Hfa 1 puff INHALATION RT-QID PRN #1 04/20/21 Inhaler] vial Atorvastatin [Lipitor] 40 mg PO HS #30 tab 04/20/21 Furosemide [Lasix] 40 mg PO BID #60 tablet 04/20/21 Metoprolol Tartrate [Lopressor] 25 mg PO BID #60 tab 04/20/21 Nitroglycerin Sl Tabs [Nitrostat] 0.4 mg SUBLINGUAL Q5M PRN #10 tab 04/20/21 hydrALAZINE HCL [Apresoline] 100 mg PO TID #90 tablet 04/20/21 Allergies Allergy/AdvReac Type Severity Reaction Status Date / Time bee venom protein (honey bee) Allergy Anaphylaxis Verified 05/25/21 16:39 Review of Systems ROS Statement: Those systems with pertinent positive or pertinent negative responses have been documented in the HPI. Review of Systems: CONST: Denies fever EYES: Denies blurry vision ENT: Denies nasal congestion C/V: Denies Chest pain RESP: Endorses shortness of breath GI: Denies abdominal pain : Denies dysuria SKIN: Denies rash. MSK: Denies joint pain. NEURO: Denies headache ROS Other: All systems not noted in ROS Statement are negative. Past Medical History Past Medical History: Atrial Fibrillation, Heart Failure, Diabetes Mellitus, GERD/Reflux, Hyperlipidemia, Hypertension, Pneumonia, Renal Disease Additional Past Medical History / Comment(s): NIDDM TYPE II, ANEMIA CHRONIC History of Any Multi-Drug Resistant Organisms: None Reported Past Surgical History: No Surgical Hx Reported Additional Past Surgical History / Comment(s): BILATERAL CATARACT REMOVALS WITH LENS IMPLANTS. Past Anesthesia/Blood Transfusion Reactions: No Reported Reaction Past Psychological History: No Psychological Hx Reported Smoking Status: Former smoker Past Alcohol Use History: Rare Past Drug Use History: None Reported - Past Family History Father Family Medical History: Diabetes Mellitus Additional Family Medical History / Comment(s): FATHER AT THE AGE OF 89YRS. Mother Family Medical History: COPD Additional Family Medical History / Comment(s): MOTHER HAD A "BAD HEART." SHE OF EMPHYSEMA AT THE AGE OF 68YRS. Brother(s) Additional Family Medical History / Comment(s): Alzheimer's Disease General Exam - General Exam Comments Initial Comments: General: Appears in no acute distress. HEAD: Normal with no signs of head trauma. EYES: PERRLA, EOMI, conjunctiva normal, no discharge. ENT: Hearing grossly intact, normal oropharynx. RESPIRATORY: Relatively clear breath sounds bilaterally with very slight end expiratory wheezes in the bases. C/V: Regular rate and rhythm. S1 and S2 auscultated. Peripheral pulses are 2+ intact throughout. Patient has 1+ pitting edema in the bilateral lower extremity to the level of the ankles. ABD: Abd is soft, nontender, nondistended EXT: Normal range of motion, no obvious deformity SKIN: No rashes or lesions observed on exposed skin. NEURO: Alert and oriented 4. No focal deficits. Limitations: no limitations Course Vital Signs 05/25/21 05/25/21 05/25/21 14:26 16:57 17:06 Temperature 98.1 F Pulse Rate 72 74 75 Respiratory 19 18 16 Rate Blood Pressure 194/86 O2 Sat by Pulse 95 Oximetry 05/25/21 18:56 Temperature Pulse Rate 80 Respiratory 16 Rate Blood Pressure 195/65 O2 Sat by Pulse 98 Oximetry Medical Decision Making - Medical Decision Making Based on the patient's presentation and physical exam, I'm concerned for possible cardiac etiology for his current dyspnea. I cannot rule out the possibility of heart failure exacerbation as well. Therefore we will obtain a cardiac workup with troponin, EKG, chest x-ray as well as BNP. Patient was in agreement this plan. We will treat his very mild COPD exacerbation with by mouth prednisone as well as breathing treatments. He'll be connected to continuous cardiac monitoring while is here in the department. Patient's EKG shows no acute signs of ischemia. Chest x-ray reveals no acute cardiopulmonary process. Patient's laboratory studies are remarkable for a mild normocytic anemia with a hemoglobin 10.2. Patient has an elevated BUN/creatinine setting of CK D, however this is improved compared to past values with a creatinine of 1.4 to ambulate at 32. Patient has an elevated troponin of 0.037. BNP is elevated to 2700. COVID-19 is negative. On reevaluation, patient is feeling improved but I did discuss with him that it appears that he has a acute heart failure exacerbation with an elevated troponin. Patient's troponin the past is been elevated in the indeterminate range 0.02 region, this time it is slightly higher than baseline. I did recommend that we admitted the hospital. He was in agreement this plan. I spoke with cardiology Dr. Montelongo regarding the plan and they agreed that no evidence this time. We will trend troponins. He'll be given a dose of Lasix here in the department. Patient was in agreement this plan. Patient was therefore admitted in stable condition. - Lab Data Result diagrams: 05/25/21 15:46 05/25/21 15:46 Lab Results 05/25/21 05/25/21 05/25/21 Range/Units 15:46 15:46 15:46 WBC 9.4 (3.8-10.6) k/uL RBC 3.28 L (4.30-5.90) m/uL Hgb 10.2 L (13.0-17.5) gm/dL Hct 30.6 L (39.0-53.0) % MCV 93.2 (80.0-100.0) fL MCH 31.1 (25.0-35.0) pg MCHC 33.4 (31.0-37.0) g/dL RDW 14.5 (11.5-15.5) % Plt Count 232 (150-450) k/uL MPV 8.2 Neutrophils % 71 % Lymphocytes % 13 % Monocytes % 10 % Eosinophils % 1 % Basophils % 1 % Neutrophils # 6.7 (1.3-7.7) k/uL Lymphocytes # 1.3 (1.0-4.8) k/uL Monocytes # 1.0 (0-1.0) k/uL Eosinophils # 0.1 (0-0.7) k/uL Basophils # 0.1 (0-0.2) k/uL PT 10.1 (9.0-12.0) sec INR 0.9 (<1.2) APTT 19.8 L (22.0-30.0) sec Sodium 135 L (137-145) mmol/L Potassium 3.5 (3.5-5.1) mmol/L Chloride 103 (98-107) mmol/L Carbon Dioxide 25 (22-30) mmol/L Anion Gap 7 mmol/L BUN 32 H (9-20) mg/dL Creatinine 1.42 H (0.66-1.25) mg/dL Est GFR (CKD-EPI)AfAm 53 (>60 ml/min/1.73 sqM) Est GFR (CKD-EPI)NonAf 46 (>60 ml/min/1.73 sqM) Glucose 104 H (74-99) mg/dL POC Glucose (mg/dL) (75-99) mg/dL POC Glu Instructor Bridge ID Calcium 8.4 (8.4-10.2) mg/dL Magnesium 2.1 (1.6-2.3) mg/dL Total Bilirubin 0.2 (0.2-1.3) mg/dL AST 35 (17-59) U/L ALT 25 (4-49) U/L Alkaline Phosphatase 102 (38-126) U/L Troponin I (0.000-0.034) ng/mL NT-Pro-B Natriuret Pep pg/mL Total Protein 6.6 (6.3-8.2) g/dL Albumin 3.2 L (3.5-5.0) g/dL Coronavirus (PCR) (Not Detectd) 05/25/21 05/25/21 05/25/21 Range/Units 15:46 15:46 15:46 WBC (3.8-10.6) k/uL RBC (4.30-5.90) m/uL Hgb (13.0-17.5) gm/dL Hct (39.0-53.0) % MCV (80.0-100.0) fL MCH (25.0-35.0) pg MCHC (31.0-37.0) g/dL RDW (11.5-15.5) % Plt Count (150-450) k/uL MPV Neutrophils % % Lymphocytes % % Monocytes % % Eosinophils % % Basophils % % Neutrophils # (1.3-7.7) k/uL Lymphocytes # (1.0-4.8) k/uL Monocytes # (0-1.0) k/uL Eosinophils # (0-0.7) k/uL Basophils # (0-0.2) k/uL PT (9.0-12.0) sec INR (<1.2) APTT (22.0-30.0) sec Sodium (137-145) mmol/L Potassium (3.5-5.1) mmol/L Chloride (98-107) mmol/L Carbon Dioxide (22-30) mmol/L Anion Gap mmol/L BUN (9-20) mg/dL Creatinine (0.66-1.25) mg/dL Est GFR (CKD-EPI)AfAm (>60 ml/min/1.73 sqM) Est GFR (CKD-EPI)NonAf (>60 ml/min/1.73 sqM) Glucose (74-99) mg/dL POC Glucose (mg/dL) (75-99) mg/dL POC Glu Instructor Bridge ID Calcium (8.4-10.2) mg/dL Magnesium (1.6-2.3) mg/dL Total Bilirubin (0.2-1.3) mg/dL AST (17-59) U/L ALT (4-49) U/L Alkaline Phosphatase (38-126) U/L Troponin I 0.037 H* (0.000-0.034) ng/mL NT-Pro-B Natriuret Pep 2710 pg/mL Total Protein (6.3-8.2) g/dL Albumin (3.5-5.0) g/dL Coronavirus (PCR) Not Detected (Not Detectd) 05/25/21 Range/Units 17:51 WBC (3.8-10.6) k/uL RBC (4.30-5.90) m/uL Hgb (13.0-17.5) gm/dL Hct (39.0-53.0) % MCV (80.0-100.0) fL MCH (25.0-35.0) pg MCHC (31.0-37.0) g/dL RDW (11.5-15.5) % Plt Count (150-450) k/uL MPV Neutrophils % % Lymphocytes % % Monocytes % % Eosinophils % % Basophils % % Neutrophils # (1.3-7.7) k/uL Lymphocytes # (1.0-4.8) k/uL Monocytes # (0-1.0) k/uL Eosinophils # (0-0.7) k/uL Basophils # (0-0.2) k/uL PT (9.0-12.0) sec INR (<1.2) APTT (22.0-30.0) sec Sodium (137-145) mmol/L Potassium (3.5-5.1) mmol/L Chloride (98-107) mmol/L Carbon Dioxide (22-30) mmol/L Anion Gap mmol/L BUN (9-20) mg/dL Creatinine (0.66-1.25) mg/dL Est GFR (CKD-EPI)AfAm (>60 ml/min/1.73 sqM) Est GFR (CKD-EPI)NonAf (>60 ml/min/1.73 sqM) Glucose (74-99) mg/dL POC Glucose (mg/dL) 121 H (75-99) mg/dL POC Glu Instructor Bridge ID Sana Gonzales Calcium (8.4-10.2) mg/dL Magnesium (1.6-2.3) mg/dL Total Bilirubin (0.2-1.3) mg/dL AST (17-59) U/L ALT (4-49) U/L Alkaline Phosphatase (38-126) U/L Troponin I (0.000-0.034) ng/mL NT-Pro-B Natriuret Pep pg/mL Total Protein (6.3-8.2) g/dL Albumin (3.5-5.0) g/dL Coronavirus (PCR) (Not Detectd) - EKG Data -: EKG Interpreted by Me EKG Comments: 12-lead Electrocardiogram Interpretation Note EKG was reviewed and interpreted by myself. 12-lead ECG performed at 1446 is interpreted by me as revealing normal sinus rhythm with first-degree AV block at a rate of and V3 beats per minute. Churdan is normal. CO interval is 230 ms, QR pentecostalism is 90 ms, QTc is 449 ms.. There were no ST or T wave abnormalities to suggest myocardial ischemia or injury. R wave progression across the precordium was satisfactory. There is a PVC present. By my interpretation this EKG is non-diagnostic for acute ischemia. Disposition Clinical Impression: Acute exacerbation of chronic obstructive pulmonary disease, CHF exacerbation, Elevated troponin, Normocytic anemia, CKD (chronic kidney disease) Disposition: ADMITTED IP TO THIS HOSP Condition: Stable
[2021-05-25] MEDS: hydrALAZINE HCL 50 MG TAB PO SCH (21:21)
[2021-05-25] MEDS: FUROSEMIDE 40 MG TAB PO SCH (21:22)
[2021-05-25] MEDS: APIXABAN 2.5 MG TABLET PO SCH (21:22)
[2021-05-25] MEDS: ATORVASTATIN 40 MG TAB PO SCH (21:23)
[2021-05-25] MEDS: METOPROLOL TARTRATE 25 MG TAB PO SCH (21:24)
[2021-05-25] MEDS ORDERED: FUROSEMIDE 40 MG TAB PO STA (21:26)
[2021-05-25 23:03] LABS: Glucose,Whole Blood 452 mg/dL (75-99)
[2021-05-26] MEDS: INSULIN DETEMIR (LEVEMIR) 100 UNIT/ML SYR SQ SCH ×2 (00:24→21:11)
[2021-05-26 07:40] LABS: Glucose,Whole Blood 223 mg/dL (75-99)
[2021-05-26] MEDS: METOPROLOL TARTRATE 25 MG TAB PO SCH ×2 (08:02→21:10)
[2021-05-26] MEDS: hydrALAZINE HCL 50 MG TAB PO SCH ×3 (08:02→21:10)
[2021-05-26] MEDS: PANTOPRAZOLE 40 MG TABLET PO SCH (08:03)
[2021-05-26] MEDS: FUROSEMIDE 40 MG TAB PO SCH ×2 (08:03→21:09)
[2021-05-26] MEDS: INSULIN ASPART (NovoLOG) 100 UNIT/ML VIAL SQ SCH ×4 (08:59→21:12)
[2021-05-26] MEDS: APIXABAN 2.5 MG TABLET PO SCH ×2 (08:59→21:10)
--- NOTE | 2021-05-26 09:23 | P.CRDCN ---
History of Present Illness Consult date: 05/26/21 Reason for Consult (text): Elevated troponin, shortness of breath History of present illness: The patient is an 81-year-old male with past medical history of persistent atrial fibrillation, hypertension, diabetes, and dyslipidemia who follows with Dr. Stratton in the office. We were consult and for new onset of shortness of breath and elevated troponins. The patient states upon awakening yesterday, he developed acute onset of shortness of breath. He states he notified his primary care provider who told him to proceed to the emergency room. He states his breathing did improve once he was in air conditioning and completely resolved shortly after being evaluated in the emergency room. He denies any chest pain or chest pressure. No palpitations or heart fluttering. He is sitting comfortably in bed and breathing well on room air. DIAGNOSTICS: EKG shows sinus rhythm with first-degree AV block and PVCs Chest x-ray shows scattered parenchymal changes and hyperinflation associated to COPD. Improved variation in the lung bases with small residual effusions compared to exam in early April. Limited echocardiogram performed in April shows normal LV function with trivial pericardial effusion and large pleural effusion which was subsequently drained during that admission Laboratory data shows WBC 9.4, hemoglobin 10.2, hematocrit 30.2, platelet 232, sodium 135, potassium 3.5, BUN 32, creatinine 1.4, AST 35, ALT 25, BNP 2710, troponin 0.037, 0.036, 0.037 Vital signs: Temp 98.2F, pulse 81, respiratory rate 16, blood pressure 168/58, 97% on 2 L nasal cannula PAST MEDICAL HISTORY: Persistent atrial fibrillation, hypertension, diabetes, dyslipidemia, diastolic heart failure, chronic kidney disease REVIEW OF SYSTEMS: No fever or chills. No cough or expectoration. No diaphoresis. Patient denies headache, dizziness, blurred vision, double vision. Patient denies any stomach discomfort. No nausea, vomiting. No hematochezia. No hematemesis. Denies any black stools or blood in his stools. Denies dysuria or hematuria. No muscle weakness or numbness. Denies chest pain or chest pressure. Denies palpitations. Dyspnea resolved. PHYSICAL EXAMINATION: This is a 81-year-old male in no apparent distress at the time of my examination. HEENT: Head is atraumatic, normocephalic. Pupils are equal, round. Sclerae anicteric. Conjunctivae are clear. Mucous membranes of the mouth are moist. Neck is supple. There is no jugular venous distention. No carotid bruit is heard. CHEST EXAMINATION: Lungs are clear to auscultation. No chest wall tenderness is noted on palpation or with deep breathing. HEART EXAMINATION: Heart regular rate and rhythm. S1, S2 heard. No gallops or rub. Very soft systolic murmur at the apex. ABDOMEN: Soft, nontender. Bowel sounds are heard. No organomegaly noted. EXTREMITIES: 2+ peripheral pulses with no evidence of peripheral edema and no calf tenderness noted. NEUROLOGIC EXAMINATION: Patient is awake, alert and oriented x3. FINAL ASSESSMENT AND PLAN: Acute onset of shortness of breath, resolved History of diastolic heart failure, mildly elevated BNP Elevated troponins, flat, no rise and fall pattern typical of ACS Persistent atrial fibrillation, rate controlled History of hypertension with LVH History of mitral regurgitation History of chronic kidney disease, GFR 46 PLAN: Resume home antihypertensive regimen Stress echocardiogram to be completed tomorrow Further recommendations will be based upon clinical course The patient has been seen and evaluated. Plan of care has been reviewed and agreed upon by Dr Stratton. Past Medical History Past Medical History: Atrial Fibrillation, Heart Failure, Diabetes Mellitus, GERD/Reflux, Hyperlipidemia, Hypertension, Pneumonia, Renal Disease Additional Past Medical History / Comment(s): NIDDM TYPE II, ANEMIA CHRONIC History of Any Multi-Drug Resistant Organisms: None Reported Past Surgical History: No Surgical Hx Reported Additional Past Surgical History / Comment(s): BILATERAL CATARACT REMOVALS WITH LENS IMPLANTS. Past Anesthesia/Blood Transfusion Reactions: No Reported Reaction Past Psychological History: No Psychological Hx Reported Smoking Status: Former smoker Past Alcohol Use History: Rare Past Drug Use History: None Reported - Past Family History Father Family Medical History: Diabetes Mellitus Additional Family Medical History / Comment(s): FATHER AT THE AGE OF 89YRS. Mother Family Medical History: COPD Additional Family Medical History / Comment(s): MOTHER HAD A "BAD HEART." SHE OF EMPHYSEMA AT THE AGE OF 68YRS. Brother(s) Additional Family Medical History / Comment(s): Alzheimer's Disease Medications and Allergies Home Medications Medication Instructions Recorded Confirmed Type EPINEPHrine (Auto Inject) [Epipen] 0.3 mg PO ONCE PRN 05/28/17 05/25/21 History Pioglitazone [Actos] 45 mg PO DAILY 05/28/17 05/25/21 History Primidone [Mysoline] 50 mg PO DAILY 05/28/17 05/25/21 History Apixaban [Eliquis] 2.5 mg PO BID #1 tab 06/02/17 05/25/21 Rx Dulaglutide [Trulicity] 1.5 mg SQ TU 04/04/19 05/25/21 History Ergocalciferol [Vitamin D2 (1250 1,250 mcg PO Q14D 03/22/21 05/25/21 History Mcg = 80880 Iu)] INSULIN LISPRO (HumaLOG) [humaLOG] See Protocol SQ TID-W/MEALS PRN 03/22/21 05/25/21 History Omeprazole Magnesium [PriLOSEC] 20 mg PO DAILY 03/22/21 05/25/21 History Albuterol Inhaler [Ventolin Hfa 1 puff INHALATION RT-QID PRN #1 04/20/21 05/25/21 Rx Inhaler] vial Atorvastatin [Lipitor] 40 mg PO HS #30 tab 04/20/21 05/25/21 Rx Furosemide [Lasix] 40 mg PO BID #60 tablet 04/20/21 05/25/21 Rx Metoprolol Tartrate [Lopressor] 25 mg PO BID #60 tab 04/20/21 05/25/21 Rx Nitroglycerin Sl Tabs [Nitrostat] 0.4 mg SUBLINGUAL Q5M PRN #10 tab 04/20/21 05/25/21 Rx hydrALAZINE HCL [Apresoline] 100 mg PO TID #90 tablet 04/20/21 05/25/21 Rx Insulin Glargine,Hum.rec.anlog 14 units SQ DAILY 05/25/21 05/25/21 History [Denise Del Rio] Allergies Allergy/AdvReac Type Severity Reaction Status Date / Time bee venom protein (honey bee) Allergy Anaphylaxis Verified 05/25/21 16:39 Physical Exam Vitals: Vital Signs Temp Pulse Resp BP Pulse Ox 05/26/21 05:00 74 18 185/79 97 05/25/21 23:30 98.2 F 81 16 168/58 97 05/25/21 18:56 80 16 195/65 98 05/25/21 17:06 75 16 05/25/21 16:57 74 18 05/25/21 14:26 98.1 F 72 19 194/86 95 Results 05/25/21 15:46 05/25/21 15:46 Cardiac Enzymes 05/25/21 05/25/21 05/25/21 Range/Units 15:46 15:46 21:33 AST 35 (17-59) U/L Troponin I 0.037 H* 0.036 H* (0.000-0.034) ng/mL 05/25/21 Range/Units 23:57 AST (17-59) U/L Troponin I 0.037 H* (0.000-0.034) ng/mL Coagulation 05/25/21 Range/Units 15:46 PT 10.1 (9.0-12.0) sec APTT 19.8 L (22.0-30.0) sec CBC 05/25/21 Range/Units 15:46 WBC 9.4 (3.8-10.6) k/uL RBC 3.28 L (4.30-5.90) m/uL Hgb 10.2 L (13.0-17.5) gm/dL Hct 30.6 L (39.0-53.0) % Plt Count 232 (150-450) k/uL Comprehensive Metabolic Panel 05/25/21 Range/Units 15:46 Sodium 135 L (137-145) mmol/L Potassium 3.5 (3.5-5.1) mmol/L Chloride 103 (98-107) mmol/L Carbon Dioxide 25 (22-30) mmol/L BUN 32 H (9-20) mg/dL Creatinine 1.42 H (0.66-1.25) mg/dL Glucose 104 H (74-99) mg/dL Calcium 8.4 (8.4-10.2) mg/dL AST 35 (17-59) U/L ALT 25 (4-49) U/L Alkaline Phosphatase 102 (38-126) U/L Total Protein 6.6 (6.3-8.2) g/dL Albumin 3.2 L (3.5-5.0) g/dL Current Medications Generic Name Dose Route Start Last Admin Trade Name Freq PRN Reason Stop Dose Admin Albuterol Sulfate 1 puff 05/25/21 19:14 Albuterol Hfa Inhaler INHALATION RT-QID PRN Shortness Of Breath Or Wheezing Apixaban 2.5 mg 05/25/21 21:00 05/26/21 08:59 Apixaban 2.5 Mg Tablet PO 2.5 mg BID JOÃO Administration Protocol Atorvastatin Calcium 40 mg 05/25/21 21:00 05/25/21 21:23 Atorvastatin 40 Mg Tab PO 40 mg HS JOÃO Administration Furosemide 40 mg 05/25/21 21:00 05/26/21 08:03 Furosemide 40 Mg Tab PO 40 mg BID JOÃO Administration Hydralazine HCl 100 mg 05/25/21 22:00 05/26/21 08:02 Hydralazine Hcl 50 Mg Tab PO 100 mg TID JOÃO Administration Insulin Aspart 0 unit 05/26/21 07:30 05/26/21 08:59 Insulin Aspart (Novolog) 100 Unit/Ml Vial SQ 3 unit AC-TID JOÃO Administration Protocol Insulin Detemir 14 unit 05/25/21 23:30 05/26/21 00:24 Insulin Detemir (Levemir) 100 Unit/Ml Syr SQ 14 unit HS JOÃO Administration Metoprolol Tartrate 25 mg 05/25/21 21:00 05/26/21 08:02 Metoprolol Tartrate 25 Mg Tab PO 25 mg BID JOÃO Administration Naloxone HCl 0.2 mg 05/25/21 18:59 Naloxone 0.4 Mg/Ml 1 Ml Vial IV Q2M PRN Opioid Reversal Non-Formulary Medication 1.5 mg 05/28/21 21:03 Dulaglutide [Trulicity] SQ TU [facility] Pantoprazole Sodium 40 mg 05/26/21 07:30 05/26/21 08:03 Pantoprazole 40 Mg Tablet PO 40 mg DAILY@0730 JOÃO Administration 05/25/21 15:46 05/25/21 15:46
[2021-05-26] MEDS: predniSONE 20 MG TAB PO SCH (11:23)
[2021-05-26] MEDS: ALBUTEROL HFA INHALER INHALATION PRN ×2 (12:03→16:19)
[2021-05-26 12:30] LABS: Glucose,Whole Blood 142 mg/dL (75-99)
[2021-05-26 16:32] LABS: Glucose,Whole Blood 272 mg/dL (75-99)
[2021-05-26] MEDS ORDERED: IPRATROPIUM-ALBUTEROL 3 ML NEB INHALATION PRN (16:59)
--- NOTE | 2021-05-26 17:00 | P.HPIM ---
History of Present Illness H&P Date: 05/26/21 Chief Complaint: Shortness of Breath 81-year-old male with past medical history remarkable for atrial fibrillation on anticoagulation, heart failure, diabetes, hypertension, hyperlipidemia, GERD, renal disease who presents emergency Department complaining of a one to two-day history worsening shortness of breath. It is worse with exertion. He hasn't noticed any worsening lower extremity edema. He's been dealing with his baseline amount of orthopnea. Denies any paroxysmal nocturnal dyspnea. Denies any chest pain, abdominal pain, nausea, vomiting. Does have a history of COPD as well, but states that the shortness of breath does not resemble his typical dyspnea from that. Denies any nausea or vomiting. Denies any lightheadedness, weakness, numbness. Denies any fevers, chills, cough. He has no other acute complaints at this time. Patient presents over concern for his dyspnea. Initial workup in ED with EKG shows no acute ischemic changes, chest x-ray reve als no acute cardiopulmonary process, labs obtained in ED revealed WBC of 9.4, hemoglobin of 10.2 and platelet count of 232; B UN/creatinine of 32/1.42, troponin mildly elevated at 0.037 and BNP of 2700; COVID-19 is negative Patient received a dose of IV Lasix in ED and is admitted to the hospital for further evaluation and treatment Review of Systems REVIEW OF SYSTEMS: CONSTITUTIONAL: No fever, no malaise, no fatigue. HEENT: No recent visual problems or hearing problems. Denied any sore throat. CARDIOVASCULAR: Shortness of breath. PULMONARY: No shortness of breath, no cough, no hemoptysis. GASTROINTESTINAL: No diarrhea, no nausea, no vomiting, no abdominal pain. NEUROLOGICAL: No headaches, no weakness, no numbness. HEMATOLOGICAL: Denies any bleeding or petechiae. GENITOURINARY: Denies any burning micturition, frequency, or urgency. MUSCULOSKELETAL/RHEUMATOLOGICAL: Denies any joint pain, swelling, or any muscle pain. ENDOCRINE: Denies any polyuria or polydipsia. The rest of the 14-point review of systems is negative. Past Medical History Past Medical History: Atrial Fibrillation, Heart Failure, Diabetes Mellitus, GERD/Reflux, Hyperlipidemia, Hypertension, Pneumonia, Renal Disease Additional Past Medical History / Comment(s): NIDDM TYPE II, ANEMIA CHRONIC History of Any Multi-Drug Resistant Organisms: None Reported Past Surgical History: No Surgical Hx Reported Additional Past Surgical History / Comment(s): BILATERAL CATARACT REMOVALS WITH LENS IMPLANTS. Past Anesthesia/Blood Transfusion Reactions: No Reported Reaction Past Psychological History: No Psychological Hx Reported Smoking Status: Former smoker Past Alcohol Use History: Rare Past Drug Use History: None Reported - Past Family History Father Family Medical History: Diabetes Mellitus Additional Family Medical History / Comment(s): FATHER AT THE AGE OF 89YRS. Mother Family Medical History: COPD Additional Family Medical History / Comment(s): MOTHER HAD A "BAD HEART." SHE OF EMPHYSEMA AT THE AGE OF 68YRS. Brother(s) Additional Family Medical History / Comment(s): Alzheimer's Disease Medications and Allergies Home Medications Medication Instructions Recorded Confirmed Type EPINEPHrine (Auto Inject) [Epipen] 0.3 mg PO ONCE PRN 05/28/17 05/25/21 History Pioglitazone [Actos] 45 mg PO DAILY 05/28/17 05/25/21 History Primidone [Mysoline] 50 mg PO DAILY 05/28/17 05/25/21 History Apixaban [Eliquis] 2.5 mg PO BID #1 tab 06/02/17 05/25/21 Rx Dulaglutide [Trulicity] 1.5 mg SQ TU 04/04/19 05/25/21 History Ergocalciferol [Vitamin D2 (1250 1,250 mcg PO Q14D 03/22/21 05/25/21 History Mcg = [id number] Iu)] INSULIN LISPRO (HumaLOG) [humaLOG] See Protocol SQ TID-W/MEALS PRN 03/22/21 05/25/21 History Omeprazole Magnesium [PriLOSEC] 20 mg PO DAILY 03/22/21 05/25/21 History Albuterol Inhaler [Ventolin Hfa 1 puff INHALATION RT-QID PRN #1 04/20/21 05/25/21 Rx Inhaler] vial Atorvastatin [Lipitor] 40 mg PO HS #30 tab 04/20/21 05/25/21 Rx Furosemide [Lasix] 40 mg PO BID #60 tablet 04/20/21 05/25/21 Rx Metoprolol Tartrate [Lopressor] 25 mg PO BID #60 tab 04/20/21 05/25/21 Rx Nitroglycerin Sl Tabs [Nitrostat] 0.4 mg SUBLINGUAL Q5M PRN #10 tab 04/20/21 05/25/21 Rx hydrALAZINE HCL [Apresoline] 100 mg PO TID #90 tablet 04/20/21 05/25/21 Rx Insulin Glargine,Hum.rec.anlog 14 units SQ DAILY 05/25/21 05/25/21 History [Denise Del Rio] Allergies Allergy/AdvReac Type Severity Reaction Status Date / Time bee venom protein (honey bee) Allergy Anaphylaxis Verified 05/25/21 16:39 Physical Exam Vitals: Vital Signs Temp Pulse Resp BP Pulse Ox 05/26/21 10:17 98.5 F 74 16 176/70 97 05/26/21 05:00 74 18 185/79 97 05/25/21 23:30 98.2 F 81 16 168/58 97 05/25/21 18:56 80 16 195/65 98 05/25/21 17:06 75 16 05/25/21 16:57 74 18 05/25/21 14:26 98.1 F 72 19 194/86 95 HEENT: Head is atraumatic, normocephalic. Pupils are equal, round. Sclerae anicteric. Conjunctivae are clear. Mucous membranes of the mouth are moist. Neck is supple. There is no jugular venous distention. No carotid bruit is heard. CHEST EXAMINATION: Lungs are clear to auscultation. No chest wall tenderness is noted on palpation or with deep breathing. HEART EXAMINATION: Heart regular rate and rhythm. S1, S2 heard. No gallops or rub. Very soft systolic murmur at the apex. ABDOMEN: Soft, nontender. Bowel sounds are heard. No organomegaly noted. EXTREMITIES: 2+ peripheral pulses with no evidence of peripheral edema and no calf tenderness noted. NEUROLOGIC EXAMINATION: Patient is awake, alert and oriented x3. Results CBC & Chem 7: 05/25/21 15:46 05/25/21 15:46 Labs: Abnormal Lab Results - Last 24 Hours (Table) 05/25/21 05/25/21 05/25/21 Range/Units 15:46 15:46 15:46 RBC 3.28 L (4.30-5.90) m/uL Hgb 10.2 L (13.0-17.5) gm/dL Hct 30.6 L (39.0-53.0) % APTT 19.8 L (22.0-30.0) sec Sodium 135 L (137-145) mmol/L BUN 32 H (9-20) mg/dL Creatinine 1.42 H (0.66-1.25) mg/dL Glucose 104 H (74-99) mg/dL POC Glucose (mg/dL) (75-99) mg/dL Troponin I (0.000-0.034) ng/mL Albumin 3.2 L (3.5-5.0) g/dL 05/25/21 05/25/21 05/25/21 Range/Units 15:46 17:51 21:33 RBC (4.30-5.90) m/uL Hgb (13.0-17.5) gm/dL Hct (39.0-53.0) % APTT (22.0-30.0) sec Sodium (137-145) mmol/L BUN (9-20) mg/dL Creatinine (0.66-1.25) mg/dL Glucose (74-99) mg/dL POC Glucose (mg/dL) 121 H (75-99) mg/dL Troponin I 0.037 H* 0.036 H* (0.000-0.034) ng/mL Albumin (3.5-5.0) g/dL 05/25/21 05/25/21 05/26/21 Range/Units 23:02 23:57 07:38 RBC (4.30-5.90) m/uL Hgb (13.0-17.5) gm/dL Hct (39.0-53.0) % APTT (22.0-30.0) sec Sodium (137-145) mmol/L BUN (9-20) mg/dL Creatinine (0.66-1.25) mg/dL Glucose (74-99) mg/dL POC Glucose (mg/dL) 452 H 223 H (75-99) mg/dL Troponin I 0.037 H* (0.000-0.034) ng/mL Albumin (3.5-5.0) g/dL Assessment and Plan Assessment: 1. Acute onset dyspnea; possibly multifactorial; acute exacerbation COPD versus CHF - Patient has been placed on O2 per nasal cannula with plans to keep O2 saturation above 92% 2. Mild exacerbation diastolic CHF - patient did receive dose of IV Lasix in ED; we will continue with home dose of 40 mg by mouth twice a day; we will monitor strict CAITLIN's, daily weights, renal function and electrolytes - Patient has been evaluated by cardiology and is recommended stress echocardiogram; patient does have history of LVH and mitral regurgitation 3. Elevated troponin; patient was discussed with on-call cardiology by ER physician; mild elevation of troponin likely not ischemia related given chronic kidney disease; we will continue to trend troponin with further recommendations from cardiology 4. Acute exacerbation COPD; patient started on prednisone 40 mg by mouth daily; DuoNeb nebulizer treatments 4 times a day and when necessary; add doxycycline 100 mg twice a day for prophylaxis 5. Atrial fibrillation; remains rate controlled on metoprolol 25 mg twice a day; patient is currently anticoagulated with Eliquis 2.5 mg twice a day 6. Hypertension; metoprolol 25 mg twice a day; hydralazine 100 mg by mouth 3 times a day 7. Hyperlipidemia; Lipitor 40 mg by mouth daily at bedtime 8. Diabetes mellitus type 2; continue with home dose of Trulicity; Levemir 14 units subcu daily at bedtime; monitor Accu-Cheks before meals and at bedtime with insulin sliding scale 9. Chronic anemia; seems to be at baseline; monitor CBC DVT prophylaxis; SCDs CODE STATUS; full code
[2021-05-26 20:37] LABS: Glucose,Whole Blood 400 mg/dL (75-99)
[2021-05-26] MEDS: ATORVASTATIN 40 MG TAB PO SCH (21:10)
[2021-05-26] MEDS: DOXYCYCLINE 100 MG CAP PO SCH (21:13)
[2021-05-27] MEDS: INSULIN ASPART (NovoLOG) 100 UNIT/ML VIAL SQ SCH ×4 (06:05→20:35)
[2021-05-27] MEDS: PANTOPRAZOLE 40 MG TABLET PO SCH (06:22)
[2021-05-27 06:49] LABS: Glucose,Whole Blood 128 mg/dL (75-99)
[2021-05-27 07:22] LABS: Basophils # (A) 0.1 k/uL (0-0.2); Basophils % (A) 0 %; Eosinophils # (A) 0.1 k/uL (0-0.7); Eosinophils % (A) 0 %; HCT 35.5 % (39.0-53.0); Hypochromasia Slight; Lymphocytes # (A) 2.4 k/uL (1.0-4.8); Lymphocytes % (A) 16 %; MCH 29.6 pg (25.0-35.0); MCV 95.5 fL (80.0-100.0); Mean Platelet Volume 8.5; Monocytes # (A) 1.2 k/uL (0-1.0); Monocytes % (A) 8 %; Neutrophils # (A) 11.1 k/uL (1.3-7.7); Neutrophils % (A) 74 %; Platelet Count 305 k/uL (150-450); RBC 3.72 m/uL (4.30-5.90); RDW 14.7 % (11.5-15.5); WBC 15.1 k/uL (3.8-10.6)
[2021-05-27] MEDS: ALBUTEROL HFA INHALER INHALATION PRN (07:31)
[2021-05-27 07:35] LABS: Calcium 9.6 mg/dL (8.4-10.2)
[2021-05-27] MEDS: hydrALAZINE HCL 50 MG TAB PO SCH ×3 (08:08→20:33)
[2021-05-27] MEDS: predniSONE 20 MG TAB PO SCH (08:09)
[2021-05-27] MEDS: APIXABAN 2.5 MG TABLET PO SCH ×2 (08:09→19:58)
[2021-05-27] MEDS: FUROSEMIDE 40 MG TAB PO SCH ×2 (08:10→19:59)
[2021-05-27] MEDS: METOPROLOL TARTRATE 25 MG TAB PO SCH ×2 (09:14→19:59)
[2021-05-27] MEDS: DOXYCYCLINE 100 MG CAP PO SCH ×2 (09:14→19:59)
[2021-05-27 11:27] LABS: Glucose,Whole Blood 218 mg/dL (75-99)
[2021-05-27] MEDS: amLODIPine 10 MG TAB PO SCH (11:34)
--- NOTE | 2021-05-27 11:59 | P.PN ---
Subjective The patient is an 81-year-old male with past medical history of persistent atrial fibrillation, hypertension, type 2 diabetes, and dyslipidemia who follows with Dr. Stratton in the office. We were consult and for new onset of shortness of breath and elevated troponins. The patient states upon awakening yesterday, he developed acute onset of shortness of breath. He states he notified his primary care provider who told him to proceed to the emergency room. He states his breathing did improve once he was in air conditioning and completely reso lved shortly after being evaluated in the emergency room. Troponin trend indicated 0.037, 0.036, 0.037. EKG shows sinus rhythm with first-degree AV block and PVCs. Chest x-ray shows scattered parenchymal changes and hyperinflation associated to COPD. Improved variation in the lung bases with small residual effusions compared to exam in early April. Limited echocardiogram performed in April 2021 shows normal LV function 55-60% with trivial pericardial effusion and large pleural effusion which was subsequently drained during that admission 05/27/2021: Patient seen at bedside, no acute distress. He denies chest pain, or shortness of breath. Ambulating in room with no complaints. Blood pressure 212/84, heart rate 50, afebrile, maintaining oxygen saturation. Laboratory reviewed, WBC 15.1, hemoglobin 11, platelets 305, sodium 136, potassium 4.0, BUN 46, serum creatinine 1.6. Patient currently maintained on Eliquis 2.5 mg twice a day, atorvastatin 40 mg nightly, Lasix 40 mg twice a day, hydralazine 100 mg 3 times a day, Toprol titrate 25 mg twice a day. FINAL ASSESSMENT AND PLAN: Acute onset of shortness of breath, resolved Elevated troponins, flat, no rise and fall pattern typical of ACS History of diastolic heart failure, mildly elevated BNP Persistent atrial fibrillation, on Eliquis Hypertension History of mitral regurgitation History of chronic kidney disease PLAN: Start amlodipine 10mg daily Continue home cardiac medications hydralazine, metoprolol tartrate and eliquis. Will hold morning metoprolol tartrate for patient's stress test today. Plan for stress echocardiogram test today. Will monitor patient's blood pressure for improvement. If BP is improved and if stress test is normal with no acute findings. Ok to discharge patient from cardiology perspective and patient can follow up with Dr. Stratton as an outpatient. Objective - Vital Signs Vital signs: Vital Signs Temp 97.8 F 05/27/21 08:00 Pulse 58 L 05/27/21 08:00 Resp 16 05/27/21 08:00 BP 212/84 05/27/21 08:00 Pulse Ox 99 05/27/21 08:00 Intake & Output 05/26/21 05/27/21 05/27/21 18:59 06:59 18:59 Intake Total 240 Balance 240 Weight 78.9 kg Intake: Oral 240 Other: Voiding Method Toilet Toilet # Voids 1 1 # Bowel Movements 1 1 - Labs CBC & Chem 7: 05/27/21 06:32 05/27/21 06:32 Labs: Abnormal Lab Results - Last 24 Hours (Table) 05/26/21 05/26/21 05/26/21 Range/Units 12:27 16:30 20:07 WBC (3.8-10.6) k/uL RBC (4.30-5.90) m/uL Hgb (13.0-17.5) gm/dL Hct (39.0-53.0) % Neutrophils # (1.3-7.7) k/uL Monocytes # (0-1.0) k/uL Sodium (137-145) mmol/L BUN (9-20) mg/dL Creatinine (0.66-1.25) mg/dL Glucose (74-99) mg/dL POC Glucose (mg/dL) 142 H 272 H 400 H (75-99) mg/dL 05/27/21 05/27/21 05/27/21 Range/Units 06:04 06:32 06:32 WBC 15.1 H (3.8-10.6) k/uL RBC 3.72 L (4.30-5.90) m/uL Hgb 11.0 L (13.0-17.5) gm/dL Hct 35.5 L (39.0-53.0) % Neutrophils # 11.1 H (1.3-7.7) k/uL Monocytes # 1.2 H (0-1.0) k/uL Sodium 136 L (137-145) mmol/L BUN 46 H (9-20) mg/dL Creatinine 1.60 H (0.66-1.25) mg/dL Glucose 116 H (74-99) mg/dL POC Glucose (mg/dL) 128 H (75-99) mg/dL
[2021-05-27 16:31] LABS: Glucose,Whole Blood 343 mg/dL (75-99)
[2021-05-27] MEDS ORDERED: NITROGLYCERIN 0.2MG/HR PATCH TRANSDERM STA (18:38)
[2021-05-27] MEDS: hydrALAZINE HCL 20 MG/ML 1 ML VIAL IVP PRN (18:55)
[2021-05-27] MEDS: ATORVASTATIN 40 MG TAB PO SCH (19:59)
[2021-05-27 20:12] LABS: Glucose,Whole Blood 406 mg/dL (75-99)
[2021-05-27] MEDS: INSULIN DETEMIR (LEVEMIR) 100 UNIT/ML SYR SQ SCH (20:34)
[2021-05-27] MEDS: DOCUSATE 100 MG CAP PO SCH (21:22)
[2021-05-28] MEDS: hydrALAZINE HCL 20 MG/ML 1 ML VIAL IVP PRN (04:11)
[2021-05-28 06:02] LABS: Glucose,Whole Blood 116 mg/dL (75-99)
[2021-05-28] MEDS: INSULIN ASPART (NovoLOG) 100 UNIT/ML VIAL SQ SCH ×2 (06:08→13:08)
[2021-05-28] MEDS: PANTOPRAZOLE 40 MG TABLET PO SCH (06:22)
[2021-05-28] MEDS: ALBUTEROL HFA INHALER INHALATION PRN (07:23)
[2021-05-28] MEDS: FUROSEMIDE 40 MG TAB PO SCH (07:58)
[2021-05-28] MEDS: hydrALAZINE HCL 50 MG TAB PO SCH ×2 (07:58→15:18)
[2021-05-28] MEDS: APIXABAN 2.5 MG TABLET PO SCH (07:58)
[2021-05-28] MEDS: predniSONE 20 MG TAB PO SCH (07:59)
[2021-05-28] MEDS: amLODIPine 10 MG TAB PO SCH (07:59)
[2021-05-28] MEDS: DOCUSATE 100 MG CAP PO SCH (07:59)
[2021-05-28] MEDS: DOXYCYCLINE 100 MG CAP PO SCH (07:59)
[2021-05-28] MEDS: METOPROLOL TARTRATE 25 MG TAB PO SCH (07:59)
[2021-05-28 09:09] VITALS: RESP 16; TEMP 98.4
[2021-05-28] MEDS ORDERED: cloNIDine HCL 0.1 MG TAB PO SCH (09:45)
--- NOTE | 2021-05-28 10:41 | P.PN ---
Subjective The patient is an 81-year-old male with past medical history of persistent atrial fibrillation, hypertension, type 2 diabetes, and dyslipidemia who follows with Dr. Stratton in the office. We were consult and for new onset of shortness of breath and elevated troponins. The patient states upon awakening yesterday, he developed acute onset of shortness of breath. He states he notified his primary care provider who told him to proceed to the emergency room. He states his breathing did improve once he was in air conditioning and completely reso lved shortly after being evaluated in the emergency room. Troponin trend indicated 0.037, 0.036, 0.037. EKG shows sinus rhythm with first-degree AV block and PVCs. Chest x-ray shows scattered parenchymal changes and hyperinflation associated to COPD. Improved variation in the lung bases with small residual effusions compared to exam in early April. Limited echocardiogram performed in April 2021 shows normal LV function 55-60% with trivial pericardial effusion and large pleural effusion which was subsequently drained during that admission 05/28/2021: Patient seen at bedside, no acute distress. He denies chest pain, or shortness of breath. Ambulating in room with no complaints. Blood pressure 164/71, heart rate 66, afebrile, maintaining oxygen saturation. Patient currently maintained on Eliquis 2.5 mg twice a day, atorvastatin 40 mg nightly, Lasix 40 mg twice a day, hydralazine 100 mg 3 times a day, metoprolol tartrate 25 mg twice a day, amlodipine 10mg daily. FINAL ASSESSMENT AND PLAN: Acute onset of shortness of breath, resolved Elevated troponins, flat, no rise and fall pattern typical of ACS History of diastolic heart failure, mildly elevated BNP Persistent atrial fibrillation, on Eliquis Hypertension History of mitral regurgitation History of chronic kidney disease PLAN: Start clonidine 0.1mg BID Continue amlodipine Continue home cardiac medications hydralazine, metoprolol tartrate and eliquis. Will hold morning metoprolol tartrate for patient's stress test today. Plan for stress echocardiogram test today. Will monitor patient's blood pressure for improvement. If BP is improved and if stress test is normal with no acute findings. Ok to discharge patient from cardiology perspective and patient can follow up with Dr. Stratton as an outpatient. Objective - Vital Signs Vital signs: Vital Signs Temp 98.4 F 05/28/21 09:08 Pulse 66 05/28/21 09:08 Resp 16 05/28/21 09:08 BP 164/71 05/28/21 09:08 Pulse Ox 97 05/28/21 09:08 Intake & Output 05/27/21 05/28/21 05/28/21 18:59 06:59 18:59 Intake Total 240 Balance 240 Weight 77.2 kg Intake: Oral 240 Other: Voiding Method Toilet Toilet Toilet # Voids 1 2 # Bowel Movements 1 - Labs CBC & Chem 7: 05/27/21 06:32 05/27/21 06:32 Labs: Abnormal Lab Results - Last 24 Hours (Table) 05/27/21 05/27/21 05/27/21 Range/Units 11:25 16:29 20:10 POC Glucose (mg/dL) 218 H 343 H 406 H (75-99) mg/dL 05/28/21 Range/Units 06:01 POC Glucose (mg/dL) 116 H (75-99) mg/dL
--- NOTE | 2021-05-28 11:15 | P.PN ---
Subjective Progress Note Date: 05/27/21 Principal diagnosis: Shortness of breath cyanotic Elevated troponin level 81-year-old male with past medical history remarkable for atrial fibrillation on anticoagulation, heart failure, diabetes, hypertension, hyperlipidemia, GERD, renal disease who presents emergency Department complaining of a one to two-day history worsening shortness of breath. It is worse with exertion. He hasn't noticed any worsening lower extremity edema. He's been dealing with his baseline amount of orthopnea. Denies any paroxysmal nocturnal dyspnea. Denies any chest pain, abdominal pain, nausea, vomiting. Does have a history of COPD as well, but states that the shortness of breath does not resemble his typical dyspnea from that. Denies any nausea or vomiting. Denies any lightheadedness, weakness, numbness. Denies any fevers, chills, cough. He has no other acute complaints at this time. Patient presents over concern for his dyspnea. Initial workup in ED with EKG shows no acute ischemic changes, chest x-ray reveals no acute cardiopulmonary process, labs obtained in ED revealed WBC of 9.4, hemoglobin of 10.2 and platelet count of 232; B UN/creatinine of 32/1.42, troponin mildly elevated at 0.037 and BNP of 2700; COVID-19 is negative Patient received a dose of IV Lasix in ED and is admitted to the hospital for further evaluation and treatment 05/27/2021 Patient is currently resting in the bed comfortably. Shortness of breath is improving. No complaints of chest pain. No nausea vomiting or abdominal pain. Blood pressure is still elevated with SBP 200s. Next and cardiology is planning for stress test possibly blood pressure is better. Laboratory data showed WBC 15.1 hemoglobin 11.0 and platelets 305 Sodium 136 potassium 4.0 BUN 46 and creatinine 1.6 Patient is hyperglycemic and is being continued on insulin sliding scale Patient is being continued on DuoNeb's and prednisone 40 mg daily. Patient has been afebrile. No headache or dizziness or lightheadedness. Current medications reviewed. Objective - Vital Signs Vital signs: Vital Signs Temp 97.8 F 05/27/21 15:46 Pulse 68 05/27/21 15:46 Resp 16 05/27/21 15:46 BP 191/78 05/27/21 17:25 Pulse Ox 98 05/27/21 15:46 Intake & Output 05/26/21 05/27/21 05/27/21 18:59 06:59 18:59 Intake Total 240 240 Balance 240 240 Weight 78.9 kg Intake: Oral 240 240 Other: Voiding Method Toilet Toilet # Voids 1 1 # Bowel Movements 1 1 - Exam HEENT: Head is atraumatic, normocephalic. Pupils are equal, round. Sclerae anicteric. Conjunctivae are clear. Mucous membranes of the mouth are moist. Neck is supple. There is no jugular venous distention. No carotid bruit is heard. CHEST EXAMINATION: Lungs are clear to auscultation. No chest wall tenderness is noted on palpation or with deep breathing. Mild expiratory wheeze. HEART EXAMINATION: Heart regular rate and rhythm. S1, S2 heard. No gallops or rub. Very soft systolic murmur at the apex. ABDOMEN: Soft, nontender. Bowel sounds are heard. No organomegaly noted. EXTREMITIES: 2+ peripheral pulses with no evidence of peripheral edema and no calf tenderness noted. NEUROLOGIC EXAMINATION: Patient is awake, alert and oriented x3. - Labs CBC & Chem 7: 05/27/21 06:32 05/27/21 06:32 Labs: Abnormal Lab Results - Last 24 Hours (Table) 05/26/21 05/27/21 05/27/21 Range/Units 20:07 06:04 06:32 WBC 15.1 H (3.8-10.6) k/uL RBC 3.72 L (4.30-5.90) m/uL Hgb 11.0 L (13.0-17.5) gm/dL Hct 35.5 L (39.0-53.0) % Neutrophils # 11.1 H (1.3-7.7) k/uL Monocytes # 1.2 H (0-1.0) k/uL Sodium (137-145) mmol/L BUN (9-20) mg/dL Creatinine (0.66-1.25) mg/dL Glucose (74-99) mg/dL POC Glucose (mg/dL) 400 H 128 H (75-99) mg/dL 05/27/21 05/27/21 05/27/21 Range/Units 06:32 11:25 16:29 WBC (3.8-10.6) k/uL RBC (4.30-5.90) m/uL Hgb (13.0-17.5) gm/dL Hct (39.0-53.0) % Neutrophils # (1.3-7.7) k/uL Monocytes # (0-1.0) k/uL Sodium 136 L (137-145) mmol/L BUN 46 H (9-20) mg/dL Creatinine 1.60 H (0.66-1.25) mg/dL Glucose 116 H (74-99) mg/dL POC Glucose (mg/dL) 218 H 343 H (75-99) mg/dL Assessment and Plan Assessment: 1. Acute onset dyspnea; possibly multifactorial; acute exacerbation COPD versus CHF - Patient has been placed on O2 per nasal cannula with plans to keep O2 saturation above 92% -Titrate down to room air. Patient is not on home oxygen. 2. Mild acute on chronic diastolic CHF - patient did receive dose of IV Lasix in ED; we will continue with home dose of 40 mg by mouth twice a day; we will monitor strict CAITLIN's, daily weights, renal function and electrolytes - Patient has been evaluated by cardiology and is recommended stress echocardiogram; patient does have history of LVH and mitral regurgitation -Chest x-ray showed improved aeration in the lung bases with small residual effusions and mild linear atelectasis. Encourage incentive spirometry. 3. Elevated troponin; patient was discussed with on-call cardiology by ER physician; mild elevation of troponin likely not ischemia related given chronic kidney disease; we will continue to trend troponin with further recommendations from cardiology 4. Acute exacerbation COPD; patient started on prednisone 40 mg by mouth daily; DuoNeb nebulizer treatments 4 times a day and when necessary; add doxycycline 100 mg twice a day for prophylaxis 5. Atrial fibrillation; remains rate controlled on metoprolol 25 mg twice a day; patient is currently anticoagulated with Eliquis 2.5 mg twice a day 6. Hypertension; metoprolol 25 mg twice a day; hydralazine 100 mg by mouth 3 times a day 7. Hyperlipidemia; Lipitor 40 mg by mouth daily at bedtime 8. Diabetes mellitus type 2; continue with home dose of Trulicity; Levemir 14 units subcu daily at bedtime; monitor Accu-Cheks before meals and at bedtime with insulin sliding scale 9. Chronic anemia; seems to be at baseline; monitor CBC DVT prophylaxis; SCDs CODE STATUS; full code Time with Patient: Greater than 30
[2021-05-28] MEDS ORDERED: DOBUTamine DRIP for NUC MED 500 MG in DEXTROSE/WATER 1 250ML.BAG IV PRN (11:51)
[2021-05-28] MEDS ORDERED: ATROPINE SULFATE 0.1 MG/ML 10ML SYRINGE ONE (12:25)
[2021-05-28 12:51] VITALS: BP 188/71; PULSE 72
[2021-05-28] MEDS ORDERED: METOPROLOL TARTRATE 25 MG TAB PO STA (13:03)
[2021-05-28 14:02] LABS: Calcium 9.4 mg/dL (8.4-10.2)
[2021-05-28 14:18] LABS: Basophils % (A) 0 %; Eosinophils % (A) 0 %; HCT 37.4 % (39.0-53.0); HGB 11.9 gm/dL (13.0-17.5); Hypochromasia Slight; Lymphocytes # (A) 0.5 k/uL (1.0-4.8); Lymphocytes % (A) 4 %; MCH 30.2 pg (25.0-35.0); MCHC 31.8 g/dL (31.0-37.0); Mean Platelet Volume 8.4; Monocytes # (A) 0.2 k/uL (0-1.0); Monocytes % (A) 2 %; Neutrophils # (A) 9.7 k/uL (1.3-7.7); Neutrophils % (A) 93 %; Platelet Count 289 k/uL (150-450); RBC 3.94 m/uL (4.30-5.90); RDW 14.8 % (11.5-15.5); WBC 10.5 k/uL (3.8-10.6)
--- NOTE | 2021-05-28 15:32 | ECHOS ---
STRESS ECHOCARDIOGRAM INDICATIONS: Difficulty in breathing BASELINE HEART RATE: 67 BASELINE BLOOD PRESSURE: 138/140 MAXIMUM HEART RATE: 120 MAXIMUM BLOOD PRESSURE: 177/36 85% MPHR: 118 100% MPHR: 139 METS: NA MAXIMUM STAGE REACHED: NA TOTAL EXERCISE TIME: 16:21 CLINICAL INFORMATION: Baseline EKG revealed normal sinus rhythm with LVH and ST-segment abnormality which could be repolarization abnormality. With the dobutamine administration as per protocol, the heart rate went up from 68 to 120 beats per minute. The patient developed some PACs and isolated PVCs. There were also short runs of PAT noted. By EKG criteria, this is an inconclusive dobutamine stress test because of resting EKG changes. Baseline echo images revealed normal wall motion and wall thickening of all segments. With dobutamine administration as per protocol, there was progressive increase in contractility noted of all segments, suggesting that there is no evidence of any stress- induced ischemia on this study. The patient had some PACs and PVCs and short runs of PAT. By echocardiographic criteria, there is no evidence of ischemia. FINAL IMPRESSION: 1. By EKG criteria, this is an inconclusive dobutamine stress test because of resting EKG changes. 2. Normal dobutamine stress echocardiogram without evidence of ischemia. MMODL / IJN: [id number] /
[2021-05-28] MEDS ORDERED: NON FORMULARY DRUG (Dulaglutide [Trulicity] 1.5 MG/0.5 ML Pen.Injctr) SQ SCH (21:03)
--- NOTE | 2021-06-19 14:47 | P.DS ---
Providers Date of admission: 05/25/21 19:00 Expected date of discharge: 05/28/21 Attending physician: Wayne Welch Consults: 05/25/21 19:01 Consult Physician Routine Consulting Provider: Darryn Stratton Consult Reason/Comments: elevated troponin, heart failure exacerbation Do you want consulting provider notified?: Yes Primary care physician: Lesly Ortiz Hospital Course: Discharge diagnosis 1. Acute onset dyspnea; possibly multifactorial; acute exacerbation COPD versus CHF -Titrate down to room air. 2. Mild acute on chronic diastolic CHF due to uncontrolled hTN - patient did receive dose of IV Lasix in ED; we will continue with home dose of 40 mg by mouth twice a day; we will monitor strict CAITLIN's, daily weights, renal function and electrolytes 3/ mild elevation of troponin likely not ischemia related given chronic kidney disease; Dobutamine stress echo showed normal dobutamine stress echocardiogram without evidence of ischemia. 4. Acute exacerbation COPD; patient started on prednisone 40 mg by mouth daily; DuoNeb nebulizer treatments 4 times a day and when necessary; add doxycycline 100 mg twice a day for prophylaxis 5. Persistant Atrial fibrillation; remains rate controlled on metoprolol 25 mg twice a day; patient is currently anticoagulated with Eliquis 2.5 mg twice a day 6. Hypertension; metoprolol 25 mg twice a day; hydralazine 100 mg by mouth 3 times a day 7. Hyperlipidemia; Lipitor 40 mg by mouth daily at bedtime 8. Diabetes mellitus type 2; continue with home dose of Trulicity; Levemir 14 units subcu daily at bedtime; monitor Accu-Cheks before meals and at bedtime with insulin sliding scale 9. Chronic anemia; seems to be at baseline; monitor CBC Hospital course 81-year-old male with past medical history remarkable for atrial fibrillation on anticoagulation, heart failure, diabetes, hypertension, hyperlipidemia, GERD, renal disease who presents emergency Department complaining of a one to two-day history worsening shortness of breath. It is worse with exertion. He hasn't noticed any worsening lower extremity edema. He's been dealing with his baseline amount of orthopnea. Denies any paroxysmal nocturnal dyspnea. Denies any chest pain, abdominal pain, nausea, vomiting. Does have a history of COPD as well, but states that the shortness of breath does not resemble his typical dyspnea from that. Denies any nausea or vomiting. Denies any lightheadedness, weakness, numbness. Denies any fevers, chills, cough. He has no other acute complaints at this time. Patient presents over concern for his dyspnea. Initial workup in ED with EKG shows no acute ischemic changes, chest x-ray reveals no acute cardiopulmonary process, labs obtained in ED revealed WBC of 9.4, hemoglobin of 10.2 and platelet count of 232; B UN/creatinine of 32/1.42, troponin mildly elevated at 0.037 and BNP of 2700; COVID-19 is negative Patient received a dose of IV Lasix in ED and is admitted to the hospital for further evaluation and treatment 05/27/2021 Patient is currently resting in the bed comfortably. Shortness of breath is improving. No complaints of chest pain. No nausea vomiting or abdominal pain. Blood pressure is still elevated with SBP 200s. Next and cardiology is planning for stress test possibly blood pressure is better. Laboratory data showed WBC 15.1 hemoglobin 11.0 and platelets 305 Sodium 136 potassium 4.0 BUN 46 and creatinine 1.6 Patient is hyperglycemic and is being continued on insulin sliding scale Patient is being continued on DuoNeb's and prednisone 40 mg daily. Patient has been afebrile. No headache or dizziness or lightheadedness. 05/28/2021 Patient is currently lying in the bed comfortable. Able to ambulate in the room. Denied any complaints of chest pain or shortness breath. Blood pressure is elevated this morning. Saturating well on room air. Currently being continued Eliquis, Lasix and hydralazine and metoprolol and amlodipine. Patient was started on clonidine 0.1 mg twice daily as per cardiology recommendations. Stress test was done today. Dobutamine stress echo showed normal dobutamine stress echocardiogram without evidence of ischemia. Patient is cleared from cardiology standpoint. - Exam HEENT: Head is atraumatic, normocephalic. Pupils are equal, round. Sclerae anicteric. Conjunctivae are clear. Mucous membranes of the mouth are moist. Neck is supple. There is no jugular venous distention. No carotid bruit is heard. CHEST EXAMINATION: Lungs are clear to auscultation. No chest wall tenderness is noted on palpation or with deep breathing. Mild expiratory wheeze. HEART EXAMINATION: Heart regular rate and rhythm. S1, S2 heard. No gallops or rub. Very soft systolic murmur at the apex. ABDOMEN: Soft, nontender. Bowel sounds are heard. No organomegaly noted. EXTREMITIES: 2+ peripheral pulses with no evidence of peripheral edema and no calf tenderness noted. NEUROLOGIC EXAMINATION: Patient is awake, alert and oriented x3. Vital signs: Vital Signs Temp 98.4 F 05/28/21 09:08 Pulse 66 05/28/21 09:08 Resp 16 05/28/21 09:08 BP 164/71 05/28/21 09:08 Pulse Ox 97 05/28/21 09:08 Intake & Output 05/27/21 05/28/21 05/28/21 18:59 06:59 18:59 Intake Total 240 Balance 240 Weight 77.2 kg Intake: Oral 240 Other: Voiding Method Toilet Toilet Toilet # Voids 1 2 # Bowel Movements 1 Patient Condition at Discharge: Stable Plan - Discharge Summary Discharge Rx Participant: Yes New Discharge Prescriptions: New RX: cloNIDine HCL [Catapres] 0.1 mg PO BID 30 Days #60 tab RX: Doxycycline [Vibramycin] 100 mg PO BID 2 Days #4 cap RX: amLODIPine [Norvasc] 10 mg PO DAILY 30 Days #30 tab RX: predniSONE [Deltasone] 40 mg PO DAILY #2 tab Continue RX: Pioglitazone [Actos] 45 mg PO DAILY RX: Primidone [Mysoline] 50 mg PO DAILY RX: EPINEPHrine (Auto Inject) [Epipen] 0.3 mg PO ONCE PRN PRN Reason: Anaphylaxis RX: Apixaban [Eliquis] 2.5 mg PO BID #1 tab RX: Dulaglutide [Trulicity] 1.5 mg SQ TU RX: INSULIN LISPRO (HumaLOG) [humaLOG] See Protocol SQ TID-W/MEALS PRN PRN Reason: hyperglycemia RX: Furosemide [Lasix] 40 mg PO BID #60 tablet RX: Atorvastatin [Lipitor] 40 mg PO HS #30 tab RX: Albuterol Inhaler [Ventolin Hfa Inhaler] 1 puff INHALATION RT-QID PRN #1 vial PRN Reason: Shortness Of Breath Or Wheezing RX: hydrALAZINE HCL [Apresoline] 100 mg PO TID #90 tablet RX: Insulin Glargine,Hum.rec.anlog [Touvince Solrolly] 14 units SQ DAILY RX: Omeprazole Magnesium [PriLOSEC] 20 mg PO DAILY RX: Ergocalciferol [Vitamin D2 (1250 Mcg = 79137 Iu)] 1,250 mcg PO Q14D RX: Metoprolol Tartrate [Lopressor] 25 mg PO BID #60 tab RX: Nitroglycerin Sl Tabs [Nitrostat] 0.4 mg SUBLINGUAL Q5M PRN #10 tab PRN Reason: Chest Pain Discharge Medication List RX: EPINEPHrine (Auto Inject) [Epipen] 0.3 mg PO ONCE PRN 05/28/17 [History] RX: Pioglitazone [Actos] 45 mg PO DAILY 05/28/17 [History] RX: Primidone [Mysoline] 50 mg PO DAILY 05/28/17 [History] RX: Apixaban [Eliquis] 2.5 mg PO BID #1 tab 06/02/17 [Rx] RX: Dulaglutide [Trulicity] 1.5 mg SQ TU 04/04/19 [History] RX: Ergocalciferol [Vitamin D2 (1250 Mcg = 89253 Iu)] 1,250 mcg PO Q14D 03/22/21 [History] RX: INSULIN LISPRO (HumaLOG) [humaLOG] See Protocol SQ TID-W/MEALS PRN 03/22/21 [History] RX: Omeprazole Magnesium [PriLOSEC] 20 mg PO DAILY 03/22/21 [History] RX: Albuterol Inhaler [Ventolin Hfa Inhaler] 1 puff INHALATION RT-QID PRN #1 vial 04/20/21 [Rx] RX: Atorvastatin [Lipitor] 40 mg PO HS #30 tab 04/20/21 [Rx] RX: Furosemide [Lasix] 40 mg PO BID #60 tablet 04/20/21 [Rx] RX: Metoprolol Tartrate [Lopressor] 25 mg PO BID #60 tab 04/20/21 [Rx] RX: Nitroglycerin Sl Tabs [Nitrostat] 0.4 mg SUBLINGUAL Q5M PRN #10 tab 04/20/21 [Rx] RX: hydrALAZINE HCL [Apresoline] 100 mg PO TID #90 tablet 04/20/21 [Rx] RX: Insulin Glargine,Hum.rec.anlog [Denise Del Rio] 14 units SQ DAILY 05/25/21 [History] RX: Doxycycline [Vibramycin] 100 mg PO BID 2 Days #4 cap 05/28/21 [Rx] RX: amLODIPine [Norvasc] 10 mg PO DAILY 30 Days #30 tab 05/28/21 [Rx] RX: cloNIDine HCL [Catapres] 0.1 mg PO BID 30 Days #60 tab 05/28/21 [Rx] RX: predniSONE [Deltasone] 40 mg PO DAILY #2 tab 05/28/21 [Rx] Follow up Appointment(s)/Referral(s): Darryn Stratton MD [STAFF PHYSICIAN] - 2 Weeks Lesly Ortiz MD [Primary Care Provider] - 1-2 days Patient Instructions/Handouts: Heart Failure (ER), Heart Healthy Diet (GEN) Discharge Disposition: HOME SELF-CARE
== END 2021-05-28 15:58 | disposition home or self-care (01) ==
LOC: EC 14:25 → 3SCARD 19:00 → OBSVTOIN 05-28 08:08 → INTOOBSV 05-28 08:08 → UNDODISIN 05-28 15:58
PROVIDERS: ADMIT Hospitalist; ATTEND Hospitalist
DX: R06.00 Dyspnea, unspecified (principal); I13.0 Hypertensive heart and chronic kidney disease with heart failure and stage 1 through stage 4 chronic kidney disease, or unspecified chronic kidney disease; I50.33 Acute on chronic diastolic (congestive) heart failure; N18.9 Chronic kidney disease, unspecified; E11.22 Type 2 diabetes mellitus with diabetic chronic kidney disease; J44.1 Chronic obstructive pulmonary disease with (acute) exacerbation; I48.19 Other persistent atrial fibrillation; E11.65 Type 2 diabetes mellitus with hyperglycemia; R77.8 Other specified abnormalities of plasma proteins; E78.5 Hyperlipidemia, unspecified; K21.9 Gastro-esophageal reflux disease without esophagitis; I44.0 Atrioventricular block, first degree; I34.0 Nonrheumatic mitral (valve) insufficiency; J98.11 Atelectasis; D64.9 Anemia, unspecified; Z20.822 Contact with and (suspected) exposure to COVID-19; Z87.01 Personal history of pneumonia (recurrent); Z87.891 Personal history of nicotine dependence; Z79.899 Other long term (current) drug therapy; Z79.01 Long term (current) use of anticoagulants; Z79.4 Long term (current) use of insulin; Z91.030 Bee allergy status; Z81.8 Family history of other mental and behavioral disorders; Z82.5 Family history of asthma and other chronic lower respiratory diseases; Z82.49 Family history of ischemic heart disease and other diseases of the circulatory system; Z83.3 Family history of diabetes mellitus; Z82.0 Family history of epilepsy and other diseases of the nervous system
CPT/HCPCS: 96376; 96374; 99285; 36415; 94640 ×5; 93005; 93351; 83880; 80053; 80048 ×2; 83735; 84484; 85025 ×3; 85610; 85730; 87635; 71046; G0378 ×4; J1250; J0360 ×2; J0461; J7512 ×4

== ENCOUNTER → 2021-07-16 | Outpatient (CLI) | payer MEDICARE ==
--- NOTE | 2021-07-16 09:27 | CT ---
EXAMINATION TYPE: CT abdomen wo con DATE OF EXAM: 07/16/2021 HISTORY: Renal Cyst CT DLP: 249 mGycm. Automated Exposure Control for Dose Reduction was Utilized. TECHNIQUE: CT scan of the abdomen is performed without oral or IV contrast. COMPARISON: Renal ultrasound April 13, 2021 FINDINGS: Within the limitations of a non-contrast study, the following observations are made. LUNG BASES: No significant abnormality is appreciated. LIVER/GB: Small dependent gallstones and/or gallbladder sludge. PANCREAS: Moderate generalized atrophy towards the pancreatic head. SPLEEN: No significant abnormality is seen. ADRENALS: No significant abnormality is seen. KIDNEYS: There is 2.0 cm low dense lesion posteriorly mid to lower pole left kidney axial image 40 fa voring benign thin-walled cyst. There is 2.0 cm low dense lesion laterally mid pole of the left kidne y axis measures 34 favoring benign thin-walled cyst. No suspicious lesions right kidney noted corresp onding to ultrasound abnormality. BOWEL: Mild to moderate colonic fecal prominence. No suspicious small or large bowel dilatation LYMPH NODES: No greater than 1cm abdominal lymph nodes are appreciated. OSSEOUS STRUCTURES: Moderate multilevel spurring in the spine. OTHER: Moderate to severe calcified plaque of the aorta extends into branch vessels. IMPRESSION: As above. Suspect benign thin-walled cysts bilaterally presumed products of chronic medic al renal disease. Renal protocol contrast enhanced CT or MRI would be more definitive in confirming a leonel.
== END | disposition home or self-care (01) ==
LOC: RADCTMAIN 08:24
PROVIDERS: ATTEND Urology
DX: N28.1 Cyst of kidney, acquired (principal)
CPT/HCPCS: 74150

== ENCOUNTER 2022-02-10 08:43 | Inpatient (IN) | payer MEDICARE ==
[2022-02-10] MEDS ORDERED: IPRATROPIUM-ALBUTEROL 3 ML NEB INHALATION STA (09:53)
--- NOTE | 2022-02-10 09:57 | ED ---
General Adult HPI - General Chief complaint: Shortness of Breath Stated complaint: MARIA TERESA Time Seen by Provider: 02/10/22 09:25 Source: patient, RN notes reviewed Mode of arrival: ambulatory Limitations: no limitations - History of Present Illness Initial comments: Patient is a pleasant 81-year-old male presenting to the emergency Department with complaints of difficulty breathing. Symptoms have been present for the past couple of days. Patient does have cough with greenish sputum. No fever. No leg pain. Patient does have history of similar symptoms previously associated with COPD. Patient has had minimal nasal drainage. - Related Data Home Medications Medication Instructions Recorded Confirmed EPINEPHrine (Auto Inject) [Epipen] 0.3 mg PO ONCE PRN 05/28/17 02/10/22 Primidone [Mysoline] 50 mg PO HS 05/28/17 02/10/22 Dulaglutide [Trulicity] 1.5 mg SQ TU 04/04/19 02/10/22 Ergocalciferol [Vitamin D2 (1250 1,250 mcg PO WE 03/22/21 02/10/22 Mcg = 84639 Iu)] Omeprazole Magnesium [PriLOSEC] 20 mg PO DAILY 03/22/21 02/10/22 Insulin Glargine,Hum.rec.anlog 6 units SQ BID 05/25/21 02/10/22 [Toujeo Solostar] Acetaminophen [Tylenol 8 Hour] 650 mg PO Q8H PRN 02/10/22 02/10/22 Acetaminophen/Chlorpheniramine 1 tab PO Q6H PRN 02/10/22 02/10/22 [Coricidin Hbp Cold & Flu Tab] Albuterol Nebulized [Ventolin 2.5 mg INHALATION RT-QID PRN 02/10/22 02/10/22 Nebulized] Cod Liver Oil 1 cap PO DAILY 02/10/22 02/10/22 Furosemide [Lasix] 20 mg PO DAILY 02/10/22 02/10/22 Insulin Lispro [humaLOG Kwikpen] 4 unit SQ AC-TID 02/10/22 02/10/22 Potassium Chloride ER [K-Dur 20] 20 meq PO DAILY 02/10/22 02/10/22 Vitamin B Complex 1 cap PO DAILY 02/10/22 02/10/22 calcitrioL [Rocaltrol] 0.25 mcg PO TU 02/10/22 02/10/22 cloNIDine HCL [Catapres] 0.2 mg PO TID 02/10/22 02/10/22 diphenhydrAMINE HCL [Benadryl] 25 mg PO DAILY PRN 02/10/22 02/10/22 Previous Rx's Medication Instructions Recorded Apixaban [Eliquis] 2.5 mg PO BID #1 tab 06/02/17 Albuterol Inhaler [Ventolin Hfa 1 puff INHALATION RT-QID PRN #1 04/20/21 Inhaler] vial Atorvastatin [Lipitor] 40 mg PO HS #30 tab 04/20/21 hydrALAZINE HCL [Apresoline] 100 mg PO TID #90 tablet 04/20/21 amLODIPine [Norvasc] 10 mg PO DAILY 30 Days #30 tab 05/28/21 Allergies Allergy/AdvReac Type Severity Reaction Status Date / Time bee venom protein (honey bee) Allergy Anaphylaxis Verified 02/10/22 12:26 Review of Systems ROS Statement: Those systems with pertinent positive or pertinent negative responses have been documented in the HPI. ROS Other: All systems not noted in ROS Statement are negative. Constitutional: Denies: fever, chills Eyes: Denies: eye pain ENT: Reports: as per HPI. Denies: ear pain Respiratory: Reports: as per HPI, cough, dyspnea Cardiovascular: Denies: chest pain Endocrine: Denies: fatigue Gastrointestinal: Denies: abdominal pain Genitourinary: Denies: urgency Musculoskeletal: Denies: back pain Skin: Denies: rash Neurological: Denies: weakness Past Medical History Past Medical History: Atrial Fibrillation, Heart Failure, Diabetes Mellitus, GERD/Reflux, Hyperlipidemia, Hypertension, Pneumonia, Renal Disease Additional Past Medical History / Comment(s): NIDDM TYPE II, ANEMIA CHRONIC History of Any Multi-Drug Resistant Organisms: None Reported Past Surgical History: No Surgical Hx Reported Additional Past Surgical History / Comment(s): BILATERAL CATARACT REMOVALS WITH LENS IMPLANTS. Past Anesthesia/Blood Transfusion Reactions: No Reported Reaction Past Psychological History: No Psychological Hx Reported Smoking Status: Former smoker Past Alcohol Use History: None Reported Past Drug Use History: None Reported - Past Family History Father Family Medical History: Diabetes Mellitus Additional Family Medical History / Comment(s): FATHER AT THE AGE OF 89YRS. Mother Family Medical History: COPD Additional Family Medical History / Comment(s): MOTHER HAD A "BAD HEART." SHE OF EMPHYSEMA AT THE AGE OF 68YRS. Brother(s) Additional Family Medical History / Comment(s): Alzheimer's Disease General Exam Limitations: no limitations General appearance: alert, in no apparent distress Head exam: Present: normocephalic Eye exam: Present: normal appearance Neck exam: Present: normal inspection Respiratory exam: Present: wheezes Cardiovascular Exam: Present: regular rate, normal rhythm GI/Abdominal exam: Present: soft. Absent: tenderness Extremities exam: Present: pedal edema (Trace bilateral). Absent: calf tenderness Neurological exam: Present: alert Psychiatric exam: Present: normal affect, normal mood Skin exam: Present: normal color Course Vital Signs 02/10/22 02/10/22 02/10/22 08:45 10:18 10:29 Temperature 98.8 F Pulse Rate 78 75 77 Respiratory 16 18 18 Rate Blood Pressure 182/67 O2 Sat by Pulse 98 Oximetry 02/10/22 11:30 Temperature Pulse Rate 77 Respiratory 20 Rate Blood Pressure 199/109 O2 Sat by Pulse 96 Oximetry EKG Findings - EKG Comments: EKG Findings:: Sinus rhythm with a rate of 67. First 3 AV block NH of 248. QRS 93. QT 415. QTC 431. Normal axis. Normal QRS. Nonspecific ST-T. Medical Decision Making - Medical Decision Making Patient reevaluated. Patient updated on results and plan. Case discussed with Dr. Welch, who will admit covering Dr. Otriz. - Lab Data Result diagrams: 02/10/22 10:01 02/10/22 10:01 Lab Results 02/10/22 02/10/22 02/10/22 Range/Units 10:01 10:01 10:01 WBC 11.6 H (3.8-10.6) k/uL RBC 3.43 L (4.30-5.90) m/uL Hgb 9.0 L (13.0-17.5) gm/dL Hct 29.5 L (39.0-53.0) % MCV 86.0 (80.0-100.0) fL MCH 26.3 (25.0-35.0) pg MCHC 30.6 L (31.0-37.0) g/dL RDW 16.2 H (11.5-15.5) % Plt Count 264 (150-450) k/uL MPV 8.3 Neutrophils % 81 % Lymphocytes % 6 % Monocytes % 8 % Eosinophils % 1 % Basophils % 0 % Neutrophils # 9.4 H (1.3-7.7) k/uL Lymphocytes # 0.7 L (1.0-4.8) k/uL Monocytes # 0.9 (0-1.0) k/uL Eosinophils # 0.1 (0-0.7) k/uL Basophils # 0.0 (0-0.2) k/uL Hypochromasia Marked Anisocytosis Slight Sodium 136 L (137-145) mmol/L Potassium 4.2 (3.5-5.1) mmol/L Chloride 108 H (98-107) mmol/L Carbon Dioxide 18 L (22-30) mmol/L Anion Gap 10 mmol/L BUN 36 H (9-20) mg/dL Creatinine 2.19 H (0.66-1.25) mg/dL Est GFR (CKD-EPI)AfAm 32 (>60 ml/min/1.73 sqM) Est GFR (CKD-EPI)NonAf 27 (>60 ml/min/1.73 sqM) Glucose 209 H (74-99) mg/dL Plasma Lactic Acid Shiva 0.8 (0.7-2.0) mmol/L Calcium 8.1 L (8.4-10.2) mg/dL Total Bilirubin 0.8 (0.2-1.3) mg/dL AST 36 (17-59) U/L ALT 26 (4-49) U/L Alkaline Phosphatase 156 H (38-126) U/L Troponin I (0.000-0.034) ng/mL NT-Pro-B Natriuret Pep pg/mL Total Protein 7.1 (6.3-8.2) g/dL Albumin 3.1 L (3.5-5.0) g/dL Coronavirus (PCR) (Not Detectd) Influenza Type A RNA (Not Detectd) Influenza Type B (PCR) (Not Detectd) 02/10/22 02/10/22 02/10/22 Range/Units 10:01 10:01 10:01 WBC (3.8-10.6) k/uL RBC (4.30-5.90) m/uL Hgb (13.0-17.5) gm/dL Hct (39.0-53.0) % MCV (80.0-100.0) fL MCH (25.0-35.0) pg MCHC (31.0-37.0) g/dL RDW (11.5-15.5) % Plt Count (150-450) k/uL MPV Neutrophils % % Lymphocytes % % Monocytes % % Eosinophils % % Basophils % % Neutrophils # (1.3-7.7) k/uL Lymphocytes # (1.0-4.8) k/uL Monocytes # (0-1.0) k/uL Eosinophils # (0-0.7) k/uL Basophils # (0-0.2) k/uL Hypochromasia Anisocytosis Sodium (137-145) mmol/L Potassium (3.5-5.1) mmol/L Chloride (98-107) mmol/L Carbon Dioxide (22-30) mmol/L Anion Gap mmol/L BUN (9-20) mg/dL Creatinine (0.66-1.25) mg/dL Est GFR (CKD-EPI)AfAm (>60 ml/min/1.73 sqM) Est GFR (CKD-EPI)NonAf (>60 ml/min/1.73 sqM) Glucose (74-99) mg/dL Plasma Lactic Acid Shiva (0.7-2.0) mmol/L Calcium (8.4-10.2) mg/dL Total Bilirubin (0.2-1.3) mg/dL AST (17-59) U/L ALT (4-49) U/L Alkaline Phosphatase (38-126) U/L Troponin I 0.063 H* (0.000-0.034) ng/mL NT-Pro-B Natriuret Pep 4080 pg/mL Total Protein (6.3-8.2) g/dL Albumin (3.5-5.0) g/dL Coronavirus (PCR) (Not Detectd) Influenza Type A RNA Not Detected (Not Detectd) Influenza Type B (PCR) Not Detected (Not Detectd) 02/10/22 Range/Units 10:01 WBC (3.8-10.6) k/uL RBC (4.30-5.90) m/uL Hgb (13.0-17.5) gm/dL Hct (39.0-53.0) % MCV (80.0-100.0) fL MCH (25.0-35.0) pg MCHC (31.0-37.0) g/dL RDW (11.5-15.5) % Plt Count (150-450) k/uL MPV Neutrophils % % Lymphocytes % % Monocytes % % Eosinophils % % Basophils % % Neutrophils # (1.3-7.7) k/uL Lymphocytes # (1.0-4.8) k/uL Monocytes # (0-1.0) k/uL Eosinophils # (0-0.7) k/uL Basophils # (0-0.2) k/uL Hypochromasia Anisocytosis Sodium (137-145) mmol/L Potassium (3.5-5.1) mmol/L Chloride (98-107) mmol/L Carbon Dioxide (22-30) mmol/L Anion Gap mmol/L BUN (9-20) mg/dL Creatinine (0.66-1.25) mg/dL Est GFR (CKD-EPI)AfAm (>60 ml/min/1.73 sqM) Est GFR (CKD-EPI)NonAf (>60 ml/min/1.73 sqM) Glucose (74-99) mg/dL Plasma Lactic Acid Shiva (0.7-2.0) mmol/L Calcium (8.4-10.2) mg/dL Total Bilirubin (0.2-1.3) mg/dL AST (17-59) U/L ALT (4-49) U/L Alkaline Phosphatase (38-126) U/L Troponin I (0.000-0.034) ng/mL NT-Pro-B Natriuret Pep pg/mL Total Protein (6.3-8.2) g/dL Albumin (3.5-5.0) g/dL Coronavirus (PCR) Not Detected (Not Detectd) Influenza Type A RNA (Not Detectd) Influenza Type B (PCR) (Not Detectd) - Radiology Data Radiology results: image reviewed (Chest x-ray shows new small bilateral effusions.) Disposition Clinical Impression: Congestive heart failure, Acute exacerbation of chronic obstructive pulmonary disease Disposition: ADMITTED IP TO THIS HOSP Is patient prescribed a controlled substance at d/c from ED?: No Referrals: Lesly Ortiz MD [Primary Care Provider] - 1-2 days Time of Disposition: 12:14
[2022-02-10 10:17] LABS: Anisocytosis Slight; Basophils % (A) 0 %; Eosinophils # (A) 0.1 k/uL (0-0.7); Eosinophils % (A) 1 %; HCT 29.5 % (39.0-53.0); Hypochromasia Marked; Lymphocytes # (A) 0.7 k/uL (1.0-4.8); Lymphocytes % (A) 6 %; MCH 26.3 pg (25.0-35.0); MCHC 30.6 g/dL (31.0-37.0); Mean Platelet Volume 8.3; Monocytes # (A) 0.9 k/uL (0-1.0); Monocytes % (A) 8 %; Neutrophils # (A) 9.4 k/uL (1.3-7.7); Neutrophils % (A) 81 %; Platelet Count 264 k/uL (150-450); RBC 3.43 m/uL (4.30-5.90); RDW 16.2 % (11.5-15.5); WBC 11.6 k/uL (3.8-10.6)
[2022-02-10 10:38] LABS: Albumin 3.1 g/dL (3.5-5.0); Calcium 8.1 mg/dL (8.4-10.2); Potassium 4.2 mmol/L (3.5-5.1); Total Bilirubin 0.8 mg/dL (0.2-1.3); Total Protein 7.1 g/dL (6.3-8.2)
--- NOTE | 2022-02-10 10:42 | XR ---
EXAMINATION TYPE: XR chest 1V DATE OF EXAM: 02/10/2022 COMPARISON: Chest x-ray May 25, 2021 HISTORY: Increasing shortness of breath. TECHNIQUE: Single AP portable frontal upright view of the chest is obtained. FINDINGS: There is diminished inspiration with small to tiny bilateral pleural effusions and associa augusto bibasilar opacity. Cardiac silhouette size upper limits of normal with overlying loop recorder. The osseous structures are intact. IMPRESSION: Diminished inspiration with new small to tiny bilateral pleural effusions
--- NOTE | 2022-02-10 13:23 | HP ---
HISTORY AND PHYSICAL CHIEF COMPLAINT: Shortness of breath and cough. HISTORY OF PRESENT ILLNESS: This 81-year-old gentleman with a past medical history of atrial fibrillation, CHF, GERD, being followed by Dr. Ortiz in the outpatient setting, not feeling well over the past several months. The patient had increased shortness of breath with cough and currently had greenish yellow sputum and the patient also had generalized edema and some bilateral leg edema also. Patient came to [facility]. Chest x-ray showed possible bilateral infiltrates, bilateral pleural effusion and also BNP is also elevated. The patient also had renal failure, also receiving iron infusion, also from Nephrology. There is no history any headache, loss of conscious or seizures. PAST MEDICAL HISTORY: History of atrial fibrillation, CHF, diabetes type 2. MEDICATIONS: Home medications are reviewed and include: Mysoline, vitamin D2. Dose and rest of medications reviewed. ALLERGIES: BEE VENOM. FAMILY HISTORY: Diabetes mellitus. SOCIAL HISTORY: Previous history of smoking. REVIEW OF SYSTEMS: A 14-point review is negative except as mentioned earlier. PHYSICAL EXAMINATION: Pulse 77. Blood pressure 199/109, respiration 20. HEENT: Conjunctivae normal. NECK is no JVD. CARDIOVASCULAR system: S1, S2 muffled. RESPIRATION: Bilateral scattered rhonchi. Expiratory wheezing and crackles. ABDOMEN: Soft. Obese. LEGS: Bilateral leg edema. NERVOUS SYSTEM: Higher functions as mentioned earlier. Moves all 4 limbs. No focal motor-sensory deficits. LYMPHATICS: No lymph nodes palpable in the neck, axillae or groin. LABS: Reviewed. Creatinine 2.19. WBC 11.6. Troponin 0.063. ASSESSMENT: 1. Chronic obstructive pulmonary disease, acute exacerbation, with bilateral bronchopneumonia with possible pleural effusion. 2. Congestive heart failure acute exacerbation. 3. Renal failure, chronic kidney disease stage 3. 4. Atrial fibrillation. 5. Diabetes mellitus, type 2. 6. Hypertension. RECOMMENDATIONS AND DISCUSSION: This 81-year-old gentleman who presented with multiple complex medical issues. We will monitor the patient closely. The patient had probably combination of lung and cardiac conditions causing the current illness. We will recommend bronchodilators, empiric antibiotics and IV diuretics. Closely monitor with Pulmonology and Cardiology. Otherwise prognosis guarded because of multiple complex medical issues and further recommendations to follow. Discussed with the patient and family. A copy of dictation being forwarded to Dr. Ortiz. MMODL / IJN: [id number] /
[2022-02-10] MEDS ORDERED: ASPIRIN 325 MG TAB PO STA (13:24)
[2022-02-10] MEDS ORDERED: methylPREDNISolone SOD SUCCI 125 MG/2 ML VIAL IV STA (13:24)
[2022-02-10] MEDS ORDERED: IPRATROPIUM-ALBUTEROL 3 ML NEB INHALATION PRN (13:24)
--- NOTE | 2022-02-10 14:30 | P.CRDCN ---
History of Present Illness Consult date: 02/10/22 History of present illness: History of Present Illness: The patient is a 81-year-old male with a known history of persistent atrial fibrillation, maintaining sinus mechanism, diabetes, hypertension and COPD who presented with symptoms of progressive dyspnea and edema for the last week. He has been having worsening symptoms four-week with cough, productive of greenish sputum but no fever. He has progression of his peripheral edema but no clear PND or orthopnea. He denies any chest discomfort, dizziness or palpitations. He denies any recent symptoms to suggest recurrent atrial fibrillation. He had a normal LV systolic function in the past and a normal stress echocardiogram done last year. His activity level has been stable. He has stopped smoking many years ago. In the emergency room he was noted to be in atrial fibrillation with mild elevation of the troponin that has been noted in the past and elevation of his NT proBNP. The patient has a history of chronic kidney disease and chronic anemia. He had elevation of his troponin on prior admission. He has prior admission to the hospital with CHF and preserved systolic function. His medication at home include Norvasc, clonidine, Lasix, Lipitor and Eliquis Review of Systems: Respiratory: He has a history of COPD with chronic dyspnea, worse at this time. GI: [She had nausea and vomiting today. No history of peptic ulcer disease. No recent GI bleed.] : [No hematuria or dysuria.] Nervous System: [No stroke or seizure.] Physical Examination: 81-year-old male with mild to moderate dyspnea, blood pressure 182/67 with a heart rate in the 80s Head: [Normocephalic.] Eyes: [Sclerae nonicteric.] Neck: [Good carotid upstroke, no bruit, no jugular venous distention.] Lungs: Bilateral rhonchi with no wheezes Heart: [Regular rate and rhythm, S1-S2, no S3, no rub. Systolic ejection murmur 3/6 at the base.] Abdomen: [Soft nontender, positive bowel sounds no organomegaly.] Extremities: [2+ edema, intact distal pulses.] Labs: [BUN 36, creatinine 2.19, hemoglobin 9, troponin 0.063, NT proBNP 4080. Chest x-ray with small effusion. EKG shows sinus mechanism with no acute ST segment changes.] Impression: 1. [ Acute exacerbation of CHF was preserved systolic function] 2. [ Probable exacerbation of COPD with bronchitis] 3. [ Chronic kidney disease] 4. History of hypertension 5. Chronic elevation of troponin probably related to the kidney disease 6. History of hyperlipidemia 7. History of diabetes Plan: 1. [ IV diuretics] 2. [ Resume antihypertensive regimen] 3. [ Obtain an echocardiogram with Doppler] 4. [ Follow renal functions] 5. [ The patient would benefit from the use of Jardiance or Farxiga in view of his presentation] 6. Thank you for this consult we will follow with you. Past Medical History Past Medical History: Atrial Fibrillation, Heart Failure, Diabetes Mellitus, GERD/Reflux, Hyperlipidemia, Hypertension, Pneumonia, Renal Disease Additional Past Medical History / Comment(s): NIDDM TYPE II, ANEMIA CHRONIC History of Any Multi-Drug Resistant Organisms: None Reported Past Surgical History: No Surgical Hx Reported Additional Past Surgical History / Comment(s): BILATERAL CATARACT REMOVALS WITH LENS IMPLANTS. Past Anesthesia/Blood Transfusion Reactions: No Reported Reaction Past Psychological History: No Psychological Hx Reported Smoking Status: Former smoker Past Alcohol Use History: None Reported Past Drug Use History: None Reported - Past Family History Father Family Medical History: Diabetes Mellitus Additional Family Medical History / Comment(s): FATHER AT THE AGE OF 89YRS. Mother Family Medical History: COPD Additional Family Medical History / Comment(s): MOTHER HAD A "BAD HEART." SHE OF EMPHYSEMA AT THE AGE OF 68YRS. Brother(s) Additional Family Medical History / Comment(s): Alzheimer's Disease Medications and Allergies Home Medications Medication Instructions Recorded Confirmed Type EPINEPHrine (Auto Inject) [Epipen] 0.3 mg PO ONCE PRN 05/28/17 02/10/22 History Primidone [Mysoline] 50 mg PO HS 05/28/17 02/10/22 History Apixaban [Eliquis] 2.5 mg PO BID #1 tab 06/02/17 02/10/22 Rx Dulaglutide [Trulicity] 1.5 mg SQ TU 04/04/19 02/10/22 History Ergocalciferol [Vitamin D2 (1250 1,250 mcg PO WE 03/22/21 02/10/22 History Mcg = 70414 Iu)] Omeprazole Magnesium [PriLOSEC] 20 mg PO DAILY 03/22/21 02/10/22 History Albuterol Inhaler [Ventolin Hfa 1 puff INHALATION RT-QID PRN #1 04/20/21 02/10/22 Rx Inhaler] vial Atorvastatin [Lipitor] 40 mg PO HS #30 tab 04/20/21 02/10/22 Rx hydrALAZINE HCL [Apresoline] 100 mg PO TID #90 tablet 04/20/21 02/10/22 Rx Insulin Glargine,Hum.rec.anlog 6 units SQ BID 05/25/21 02/10/22 History [Denise [place]] amLODIPine [Norvasc] 10 mg PO DAILY 30 Days #30 tab 05/28/21 02/10/22 Rx Acetaminophen [Tylenol 8 Hour] 650 mg PO Q8H PRN 02/10/22 02/10/22 History Acetaminophen/Chlorpheniramine 1 tab PO Q6H PRN 02/10/22 02/10/22 History [Coricidin Hbp Cold & Flu Tab] Albuterol Nebulized [Ventolin 2.5 mg INHALATION RT-QID PRN 02/10/22 02/10/22 History Nebulized] Cod Liver Oil 1 cap PO DAILY 02/10/22 02/10/22 History Furosemide [Lasix] 20 mg PO DAILY 02/10/22 02/10/22 History Insulin Lispro [humaLOG Kwikpen] 4 unit SQ AC-TID 02/10/22 02/10/22 History Potassium Chloride ER [K-Dur 20] 20 meq PO DAILY 02/10/22 02/10/22 History Vitamin B Complex 1 cap PO DAILY 02/10/22 02/10/22 History calcitrioL [Rocaltrol] 0.25 mcg PO TU 02/10/22 02/10/22 History cloNIDine HCL [Catapres] 0.2 mg PO TID 02/10/22 02/10/22 History diphenhydrAMINE HCL [Benadryl] 25 mg PO DAILY PRN 02/10/22 02/10/22 History Allergies Allergy/AdvReac Type Severity Reaction Status Date / Time bee venom protein (honey bee) Allergy Anaphylaxis Verified 02/10/22 12:26 Physical Exam Vitals: Vital Signs Temp Pulse Resp BP Pulse Ox 02/10/22 11:30 77 20 199/109 96 02/10/22 10:29 77 18 02/10/22 10:18 75 18 02/10/22 08:45 98.8 F 78 16 182/67 98 Intake and Output 02/09/22 02/10/22 02/10/22 22:59 06:59 14:59 Other: Weight 80.286 kg Results 02/10/22 10:01 02/10/22 10:01 Cardiac Enzymes 02/10/22 02/10/22 Range/Units 10:01 10:01 AST 36 (17-59) U/L Troponin I 0.063 H* (0.000-0.034) ng/mL CBC 02/10/22 Range/Units 10:01 WBC 11.6 H (3.8-10.6) k/uL RBC 3.43 L (4.30-5.90) m/uL Hgb 9.0 L (13.0-17.5) gm/dL Hct 29.5 L (39.0-53.0) % Plt Count 264 (150-450) k/uL Comprehensive Metabolic Panel 02/10/22 Range/Units 10:01 Sodium 136 L (137-145) mmol/L Potassium 4.2 (3.5-5.1) mmol/L Chloride 108 H (98-107) mmol/L Carbon Dioxide 18 L (22-30) mmol/L BUN 36 H (9-20) mg/dL Creatinine 2.19 H (0.66-1.25) mg/dL Glucose 209 H (74-99) mg/dL Calcium 8.1 L (8.4-10.2) mg/dL AST 36 (17-59) U/L ALT 26 (4-49) U/L Alkaline Phosphatase 156 H (38-126) U/L Total Protein 7.1 (6.3-8.2) g/dL Albumin 3.1 L (3.5-5.0) g/dL Current Medications Generic Name Dose Route Start Last Admin Trade Name Freq PRN Reason Stop Dose Admin Albuterol/Ipratropium 3 ml 02/10/22 16:00 Ipratropium-Albuterol 3 Ml Neb INHALATION RT-QID JOÃO Albuterol/Ipratropium 3 ml 02/10/22 13:24 Ipratropium-Albuterol 3 Ml Neb INHALATION RT-Q4H PRN Shortness Of Breath Or Wheezing Amlodipine Besylate 10 mg 02/11/22 09:00 Amlodipine 10 Mg Tab PO DAILY [facility] Apixaban 2.5 mg 02/10/22 21:00 Apixaban 2.5 Mg Tablet PO BID [facility] Protocol Atorvastatin Calcium 40 mg 02/10/22 21:00 Atorvastatin 40 Mg Tab PO HS [facility] Clonidine 0.2 mg 02/10/22 16:00 Clonidine Hcl 0.2 Mg Tab PO TID [facility] Furosemide 40 mg 02/10/22 14:00 Furosemide 10 Mg/Ml 4 Ml Vial IV Q12H [facility] Hydralazine HCl 100 mg 02/10/22 16:00 Hydralazine Hcl 50 Mg Tab PO TID [facility] Methylprednisolone Sodium Succinate 60 mg 02/10/22 18:00 Methylprednisolone Sod Succi 125 Mg/2 Ml Vial IV Q6HR [facility] Nitroglycerin 1 inch 02/10/22 13:30 Nitroglycerin Oint 1 Inch/Gm Packet TOPICAL QID [facility] Potassium Chloride 20 meq 02/11/22 09:00 Potassium Chloride Er 20 Meq Tab.Er PO DAILY [facility] Intake and Output 02/09/22 02/10/22 02/10/22 22:59 06:59 14:59 Other: Weight 80.286 kg Patient Weight 02/11/22 06:59 Weight 80.286 kg 02/10/22 10:01 02/10/22 10:01
[2022-02-10] MEDS: NITROGLYCERIN OINT 1 INCH/GM PACKET TOPICAL SCH ×3 (14:34→21:03)
[2022-02-10] MEDS: FUROSEMIDE 10 MG/ML 4 ML VIAL IV SCH (14:34)
[2022-02-10] MEDS: IPRATROPIUM-ALBUTEROL 3 ML NEB INHALATION SCH ×2 (16:32→20:47)
[2022-02-10] MEDS ORDERED: diphenhydrAMINE 25 MG CAP PO PRN (16:46)
[2022-02-10] MEDS ORDERED: ACETAMINOPHEN PO PRN (16:46)
[2022-02-10] MEDS ORDERED: CHLORPHENIRAMINE PO PRN (16:46)
[2022-02-10] MEDS ORDERED: ACETAMINOPHEN TAB 325 MG TAB PO PRN (16:46)
[2022-02-10 17:18] LABS: Glucose,Whole Blood 290 mg/dL (75-99)
--- NOTE | 2022-02-10 17:26 | CA ---
Transthoracic Echo Report Name: Wilfredo Langley Age: 81 Gender: M : 1940 Exam Date: 02/10/2022 14:30 Exam Location: [facility] Ht (in): 71 Wt (lb): 177 Ordering Physician: Kevin Quiles MD ([id number]) Attending/Referring Phys: Operations Research Analyst Pily Platt RDCS Procedure CPT: Indications: chf Cardiac Hx: Technical Quality: Fair Contrast 1: Total Dose (mL): Contrast 2: Total Dose (mL): MEASUREMENTS (Male / Female) Normal Values 2D ECHO LV Diastolic Diameter PLAX 4.7 cm 4.2 - 5.9 / 3.9 - 5.3 cm LV Systolic Diameter PLAX 3.1 cm IVS Diastolic Thickness 1.4 cm 0.6 - 1.0 / 0.6 - 0.9 cm LVPW Diastolic Thickness 1.5 cm 0.6 - 1.0 / 0.6 - 0.9 cm LV Relative Wall Thickness 0.6 RV Internal Dim ED PLAX 2.9 cm LA Systolic Diameter LX 4.1 cm 3.0 - 4.0 / 2.7 - 3.8 cm LA Volume 81.6 cm??? 18 - 58 / 22 - 52 cm??? M-MODE Aortic Root Diameter MM 3.0 cm MV E Point Septal Separation 0.4 cm AV Cusp Separation MM 1.6 cm DOPPLER AV Peak Velocity 199.8 cm/s AV Peak Gradient 16.0 mmHg AV Mean Velocity 127.7 cm/s AV Mean Gradient 7.7 mmHg AV Velocity Time Integral 40.7 cm MV Area PHT 4.0 cm??? Mitral E Point Velocity 172.0 cm/s Mitral A Point Velocity 136.5 cm/s Mitral E to A Ratio 1.3 MV Deceleration Time 191.1 ms MV E' Velocity 7.7 cm/s Mitral E to MV E' Ratio 22.3 TR Peak Velocity 297.2 cm/s TR Peak Gradient 35.3 mmHg Right Ventricular Systolic Press 40.3 mmHg FINDINGS Left Ventricle Left ventricular ejection fraction is estimated at 60-65 %. Left ventricular cavity size normal. Moderate concentric left ventricular hypertrophy. Right Ventricle Normal right ventricular size and function. Mild pulmonary hypertension. Right Atrium Normal right atrial size. Left Atrium Mildly increased left atrial diameter. Severely increased left atrial volume. Mildly increased left atrial area. Mitral Valve Mitral valve thickened. Mild mitral regurgitation. Mitral annular calcification. Aortic Valve Trileaflet aortic valve. No aortic valve stenosis or regurgitation. Focal thickening of the aortic valve cusps. Tricuspid Valve Mild tricuspid regurgitation. Pulmonic Valve Pulmonic valve not well visualized. Pericardium No pericardial effusion. Aorta Normal size aortic root and proximal ascending aorta. CONCLUSIONS Concentric left ventricular hypertrophy with normal LV function M mitral calcification with mild mitral regurgitation Previewed by: Dr. Micky Abreu MD (Electronically Signed) Final Date: 10 Feb 2022 17:25
[2022-02-10] MEDS: cloNIDine HCL 0.2 MG TAB PO SCH ×2 (17:29→21:02)
[2022-02-10] MEDS: hydrALAZINE HCL 50 MG TAB PO SCH ×2 (17:29→21:03)
[2022-02-10] MEDS: INSULIN ASPART (NovoLOG) 100 UNIT/ML VIAL SQ SCH ×3 (17:30→21:03)
[2022-02-10] MEDS: methylPREDNISolone SOD SUCCI 125 MG/2 ML VIAL IV SCH ×2 (17:30→23:15)
[2022-02-10 20:41] LABS: Glucose,Whole Blood 141 mg/dL (75-99)
[2022-02-10] MEDS: APIXABAN 2.5 MG TABLET PO SCH (21:02)
[2022-02-10] MEDS: ATORVASTATIN 40 MG TAB PO SCH (21:02)
[2022-02-10] MEDS: PRIMIDONE 50 MG TAB PO SCH (21:02)
[2022-02-10] MEDS: INSULIN DETEMIR (LEVEMIR) 100 UNIT/ML SYR SQ SCH (21:03)
[2022-02-11] MEDS: FUROSEMIDE 10 MG/ML 4 ML VIAL IV SCH ×2 (03:42→17:35)
[2022-02-11 06:04] LABS: Glucose,Whole Blood 303 mg/dL (75-99)
[2022-02-11] MEDS: methylPREDNISolone SOD SUCCI 125 MG/2 ML VIAL IV SCH ×3 (06:20→17:36)
[2022-02-11] MEDS: INSULIN ASPART (NovoLOG) 100 UNIT/ML VIAL SQ SCH ×7 (06:20→21:02)
--- NOTE | 2022-02-11 08:26 | P.PN ---
Subjective Progress Note Date: 02/11/22 PROGRESS NOTE The patient is an 81-year-old male with a known history of COPD, hypertension, diabetes and hyperlipidemia who presented with symptoms of progressive dyspnea, cough of greenish sputum. He had worsening peripheral edema as well. He's feeling better this morning his breathing is stable. He denies any chest discomfort, dizziness or palpitations. He continues to be in sinus mechanism. He had an echocardiogram yesterday that showed a normal systolic function was moderate LVH and mild tricuspid regurgitation. He continues to be on Norvasc 10 mg daily, Lipitor 40 mg daily, Catapres 0.2 mg 3 times a day Lasix 40 mg IV every 12 hours hydralazine 20 mg 3 times a day and Nitro-Bid in addition to Eliquis PHYSICAL EXAMINATION: Blood pressure 160/60 heart rate 80 LUNGS: Bilateral rhonchi but no wheezes or rales HEART: Regular rate and rhythm, S1, S2. No S3. systolic ejection murmur ABDOMEN: Soft, nontender, no organomegaly EXTREMETIES: Trace edema LAB: Pending IMPRESSION: 1. Symptoms of worsening dyspnea with exacerbation of CHF with preserved systolic function and COPD was possible tracheobronchitis 2. Hypertension 3. Chronic kidney disease 4. Paroxysmal atrial fibrillation, remaining in sinus mechanism 5. Elevation of the troponin with no evidence of acute coronary syndrome 6. Hyperlipidemia 7. Diabetes mellitus PLAN: 1. Follow renal functions 2. Continue IV diuretics for 24 hours 3. Consider adding Jardiance or Farxiga as outpatient 4. Increase physical activity Objective - Vital Signs Vital signs: Vital Signs Temp 97.5 F L 02/10/22 21:00 Pulse 82 02/11/22 03:40 Resp 19 02/11/22 03:40 BP 161/62 02/11/22 03:40 Pulse Ox 91 L 02/11/22 03:40 Intake & Output 02/10/22 02/11/22 02/11/22 18:59 06:59 18:59 Intake Total 240 120 Output Total 1050 600 Balance -810 -480 Weight 80.286 kg 82.8 kg Intake: Oral 240 120 Output: Urine 1050 600 Other: Voiding Method Urinal # Bowel Movements 0 - Labs CBC & Chem 7: 02/10/22 10:01 02/10/22 10:01 Labs: Abnormal Lab Results - Last 24 Hours (Table) 0502/10/22 02/10/22 Range/Units 10:01 10:01 10:01 WBC 11.6 H (3.8-10.6) k/uL RBC 3.43 L (4.30-5.90) m/uL Hgb 9.0 L (13.0-17.5) gm/dL Hct 29.5 L (39.0-53.0) % MCHC 30.6 L (31.0-37.0) g/dL RDW 16.2 H (11.5-15.5) % Neutrophils # 9.4 H (1.3-7.7) k/uL Lymphocytes # 0.7 L (1.0-4.8) k/uL Sodium 136 L (137-145) mmol/L Chloride 108 H (98-107) mmol/L Carbon Dioxide 18 L (22-30) mmol/L BUN 36 H (9-20) mg/dL Creatinine 2.19 H (0.66-1.25) mg/dL Glucose 209 H (74-99) mg/dL POC Glucose (mg/dL) (75-99) mg/dL Calcium 8.1 L (8.4-10.2) mg/dL Alkaline Phosphatase 156 H (38-126) U/L Troponin I 0.063 H* (0.000-0.034) ng/mL Albumin 3.1 L (3.5-5.0) g/dL 02/10/22 02/10/22 02/10/22 Range/Units 13:52 16:48 17:17 WBC (3.8-10.6) k/uL RBC (4.30-5.90) m/uL Hgb (13.0-17.5) gm/dL Hct (39.0-53.0) % MCHC (31.0-37.0) g/dL RDW (11.5-15.5) % Neutrophils # (1.3-7.7) k/uL Lymphocytes # (1.0-4.8) k/uL Sodium (137-145) mmol/L Chloride (98-107) mmol/L Carbon Dioxide (22-30) mmol/L BUN (9-20) mg/dL Creatinine (0.66-1.25) mg/dL Glucose (74-99) mg/dL POC Glucose (mg/dL) 290 H (75-99) mg/dL Calcium (8.4-10.2) mg/dL Alkaline Phosphatase (38-126) U/L Troponin I 0.048 H* 0.051 H* (0.000-0.034) ng/mL Albumin (3.5-5.0) g/dL 02/10/22 02/11/22 Range/Units 20:39 05:56 WBC (3.8-10.6) k/uL RBC (4.30-5.90) m/uL Hgb (13.0-17.5) gm/dL Hct (39.0-53.0) % MCHC (31.0-37.0) g/dL RDW (11.5-15.5) % Neutrophils # (1.3-7.7) k/uL Lymphocytes # (1.0-4.8) k/uL Sodium (137-145) mmol/L Chloride (98-107) mmol/L Carbon Dioxide (22-30) mmol/L BUN (9-20) mg/dL Creatinine (0.66-1.25) mg/dL Glucose (74-99) mg/dL POC Glucose (mg/dL) 141 H 303 H (75-99) mg/dL Calcium (8.4-10.2) mg/dL Alkaline Phosphatase (38-126) U/L Troponin I (0.000-0.034) ng/mL Albumin (3.5-5.0) g/dL
[2022-02-11 08:44] LABS: Basophils % (A) 0 %; Eosinophils % (A) 0 %; HCT 27.1 % (39.0-53.0); Hypochromasia Marked; Lymphocytes # (A) 0.6 k/uL (1.0-4.8); Lymphocytes % (A) 4 %; MCH 26.2 pg (25.0-35.0); MCHC 29.5 g/dL (31.0-37.0); MCV 88.6 fL (80.0-100.0); Mean Platelet Volume 8.7; Monocytes # (A) 0.3 k/uL (0-1.0); Monocytes % (A) 2 %; Neutrophils # (A) 12.5 k/uL (1.3-7.7); Neutrophils % (A) 93 %; Platelet Count 262 k/uL (150-450); RBC 3.05 m/uL (4.30-5.90); WBC 13.4 k/uL (3.8-10.6)
[2022-02-11 08:52] LABS: Calcium 8.1 mg/dL (8.4-10.2); Magnesium 2.2 mg/dL (1.6-2.3); Potassium 3.9 mmol/L (3.5-5.1)
[2022-02-11] MEDS ORDERED: ASPIRIN 325 MG TAB PO SCH (09:00)
[2022-02-11] MEDS: amLODIPine 10 MG TAB PO SCH (09:14)
[2022-02-11] MEDS: hydrALAZINE HCL 50 MG TAB PO SCH ×3 (09:14→21:15)
[2022-02-11] MEDS: PANTOPRAZOLE 40 MG TABLET PO SCH (09:14)
[2022-02-11] MEDS: POTASSIUM CHLORIDE ER 20 MEQ TAB.ER PO SCH (09:14)
[2022-02-11] MEDS: MULTIVITAMINS, THERA 1 EACH TAB PO SCH (09:14)
[2022-02-11] MEDS: cloNIDine HCL 0.2 MG TAB PO SCH (09:14)
[2022-02-11] MEDS: APIXABAN 2.5 MG TABLET PO SCH ×2 (09:14→21:15)
[2022-02-11] MEDS: ISOSORBIDE MONONITRATE ER 60 MG TAB.ER.24H PO SCH (09:14)
[2022-02-11] MEDS: INSULIN DETEMIR (LEVEMIR) 100 UNIT/ML SYR SQ SCH ×2 (09:18→21:15)
[2022-02-11] MEDS: IPRATROPIUM-ALBUTEROL 3 ML NEB INHALATION SCH ×4 (09:20→21:23)
--- NOTE | 2022-02-11 11:15 | P.NPCON ---
History of Present Illness - Reason for Consult acute renal failure, chronic renal failure - History of Present Illness Reason for consultation: Acute kidney injury on chronic kidney disease History of present illness: Patient is a 81-year-old male seen in renal consultation for acute kidney injury on chronic kidney disease. Patient has chronic kidney disease stage IIIB with baseline creatinine near 2. Creatinine in January 2022 is 2.1. Creatinine this admission was 2.19 and is 2.37 today. Etiology is diabetic kidney disease. Patient presented to the hospital due to worsening shortness of breath. Patient states his Lasix was recently increased outpatient from 20-40 mg once daily. However he noticed shortness of breath persisted and came to the hospital for further care. He's currently receiving IV Lasix 40 mg twice daily. Patient's his edema and shortness of breath have improved. He admits to good urine output. No hematuria or dysuria. Denies chest pain. Currently on 2 L nasal cannula. Patient tested negative for coronavirus as well as influenza. Echocardiogram showed ejection fraction of 60-65% with mild mitral regurgitation and pulmonary hypertension. No fever or chills. Vital signs are stable. General: Awake and alert. No acute distress. HEENT: Head exam is unremarkable. LUNGS: Breath sounds decreased. HEART: Rate and Rhythm are regular. ABDOMEN: Soft, no distention. EXTREMITITES: Trace edema. Past Medical History Past Medical History: Atrial Fibrillation, Heart Failure, Diabetes Mellitus, GERD/Reflux, Hyperlipidemia, Hypertension, Pneumonia, Renal Disease Additional Past Medical History / Comment(s): NIDDM TYPE II, ANEMIA CHRONIC History of Any Multi-Drug Resistant Organisms: None Reported Past Surgical History: No Surgical Hx Reported Additional Past Surgical History / Comment(s): BILATERAL CATARACT REMOVALS WITH LENS IMPLANTS. Past Anesthesia/Blood Transfusion Reactions: No Reported Reaction Past Psychological History: No Psychological Hx Reported Additional Psychological History / Comment(s): PT RESIDES WITH HIS SPOUSE. HE IS INDEPENDENT. Smoking Status: Former smoker Past Alcohol Use History: None Reported Additional Past Alcohol Use History / Comment(s): PT STATES HE STARTED SMOKING IN 1960 AND QUIT MANY YRS AGO BUT CANNOT RECALL YEAR OR HIS AGE AT TIME OF QUITTING. Past Drug Use History: None Reported - Past Family History Father Family Medical History: Diabetes Mellitus Additional Family Medical History / Comment(s): FATHER AT THE AGE OF 89YRS. Mother Family Medical History: COPD Additional Family Medical History / Comment(s): MOTHER HAD A "BAD HEART." SHE OF EMPHYSEMA AT THE AGE OF 68YRS. Brother(s) Additional Family Medical History / Comment(s): Alzheimer's Disease Medications and Allergies Home Medications Medication Instructions Recorded Confirmed Type EPINEPHrine (Auto Inject) [Epipen] 0.3 mg PO ONCE PRN 05/28/17 02/10/22 History Primidone [Mysoline] 50 mg PO HS 05/28/17 02/10/22 History Apixaban [Eliquis] 2.5 mg PO BID #1 tab 06/02/17 02/10/22 Rx Dulaglutide [Trulicity] 1.5 mg SQ TU 04/04/19 02/10/22 History Ergocalciferol [Vitamin D2 (1250 1,250 mcg PO WE 03/22/21 02/10/22 History Mcg = 78913 Iu)] Omeprazole Magnesium [PriLOSEC] 20 mg PO DAILY 03/22/21 02/10/22 History Albuterol Inhaler [Ventolin Hfa 1 puff INHALATION RT-QID PRN #1 04/20/21 0506/26 Rx Inhaler] vial Atorvastatin [Lipitor] 40 mg PO HS #30 tab 04/20/21 02/10/22 Rx hydrALAZINE HCL [Apresoline] 100 mg PO TID #90 tablet 04/20/21 02/10/22 Rx Insulin Glargine,Hum.rec.anlog 6 units SQ BID 05/25/21 02/10/22 History [[place]] amLODIPine [Norvasc] 10 mg PO DAILY 30 Days #30 tab 05/28/21 02/10/22 Rx Acetaminophen [Tylenol 8 Hour] 650 mg PO Q8H PRN 02/10/22 02/10/22 History Acetaminophen/Chlorpheniramine 1 tab PO Q6H PRN 02/10/22 02/10/22 History [Coricidin Hbp Cold & Flu Tab] Albuterol Nebulized [Ventolin 2.5 mg INHALATION RT-QID PRN 02/10/22 02/10/22 History Nebulized] Cod Liver Oil 1 cap PO DAILY 02/10/22 02/10/22 History Furosemide [Lasix] 20 mg PO DAILY 02/10/22 02/10/22 History Insulin Lispro [humaLOG Kwikpen] 4 unit SQ AC-TID 02/10/22 02/10/22 History Potassium Chloride ER [K-Dur 20] 20 meq PO DAILY 02/10/22 02/10/22 History Vitamin B Complex 1 cap PO DAILY 02/10/22 02/10/22 History calcitrioL [Rocaltrol] 0.25 mcg PO TU 02/10/22 02/10/22 History cloNIDine HCL [Catapres] 0.2 mg PO TID 02/10/22 02/10/22 History diphenhydrAMINE HCL [Benadryl] 25 mg PO DAILY PRN 02/10/22 02/10/22 History Allergies Allergy/AdvReac Type Severity Reaction Status Date / Time bee venom protein (honey bee) Allergy Anaphylaxis Verified 02/10/22 12:26 Physical Exam Vitals: Vital Signs Temp Pulse Pulse Resp BP BP Pulse Ox 02/11/22 10:00 169/73 02/11/22 09:30 70 02/11/22 09:20 70 91 L 02/11/22 08:00 97.7 F 72 16 193/79 98 02/11/22 03:40 82 19 161/62 91 L 02/11/22 00:17 72 02/11/22 00:05 71 02/10/22 23:15 61 19 162/61 92 L 02/10/22 21:05 69 02/10/22 21:00 97.5 F L 70 18 162/63 96 02/10/22 20:47 61 02/10/22 16:23 74 16 186/92 93 L 02/10/22 16:00 98.0 F 77 18 190/67 97 02/10/22 14:00 97.4 F L 75 16 184/74 95 02/10/22 11:30 77 20 199/109 96 Intake and Output 02/10/22 02/11/22 02/11/22 22:59 06:59 14:59 Intake Total 240 120 Output Total 400 650 600 Balance -160 -650 -480 Intake: Oral 240 120 Output: Urine 400 650 600 Other: Voiding Method Urinal Urinal Urinal # Bowel Movements 0 Weight 80.286 kg 82.8 kg Results - Lab Results Most recent lab results Calcium 8.1 mg/dL (8.4-10.2) L 02/11/22 07:59 Magnesium 2.2 mg/dL (1.6-2.3) 02/11/22 07:59 02/11/22 07:59 02/11/22 07:59 Assessment and Plan Plan: Assessment: 1. Acute kidney injury mostly prerenal secondary to cardiorenal syndrome. Creatinine 2.37 today. 2. Chronic kidney disease stage IIIB with baseline creatinine near 2 secondary to diabetic kidney disease. 3. Acute hypoxic respiratory failure. 4. Volume overload. 5. Acute on chronic diastolic CHF. 6. Metabolic acidosis secondary to acute kidney injury. 7. Chronic a disease mineral bone disease maintained on calcitriol. 8. Anemia of chronic kidney disease. Rule out iron deficiency. 9. Hypertension with chronic kidney disease. Plan: Maintain IV Lasix. Low-salt diet. 1500 mL fluid resection. Add oral bicarbonate. Increase dose of clonidine. Check iron studies. Avoid nephrotoxins. Continue to monitor renal function and urine output. Follow up outpatient 1 week post discharge. Advised patient to monitor his weight closely at home and to call if edema worse ns again is more than 3 pounds in 1 week duration. He was also advised to follow low-salt diet and maintain a 40-45 oz fluid restriction per day upon discharge. Thank you for the consultation. I will continue to follow the patient with you during his hospital stay.
[2022-02-11 11:30] VITALS: BMI 25.4
[2022-02-11 12:07] LABS: Glucose,Whole Blood 288 mg/dL (75-99)
[2022-02-11] MEDS: SODIUM BICARBONATE TAB 650 MG TAB PO SCH ×2 (13:59→21:18)
--- NOTE | 2022-02-11 15:17 | P.PN ---
Subjective Progress Note Date: 02/11/22 This is a pleasant 81-year-old male who was recently admitted with increased shortness of breath and generalized edema and also had cough with sputum production that had progressively been getting worse over the last few months. Patient had chest x-ray on admission that showed possible bilateral infiltrates with bilateral pleural effusion and BMP was elevated. Patient does have renal failure and does follow with nephrology in the outpatient setting and received iron transfusions and will consult nephrology his kidney functions are elevated. Patient is currently maintained on on IV Lasix twice daily and also IV ceftriaxone and IV steroids and recommend continue current regimen. Home medications have been resumed. Labs: WBC is 13.4, hemoglobin is 8.0, platelets are 262, sodium is 134, potassium 3.9, BUN 39, creatinine 2.37, calcium 8.1, magnesium 2.2 Review of systems: Constitutional: No reports of fatigue, fever, or chills Cardiovascular: No reports of chest pain or palpitations Respiratory: No reports of worsening shortness of breath or cough, reports some improvement in breathing GI: No reports of nausea, no reports of of vomiting : No reports of dysuria or retention Neurovascular: No reports of generalized weakness All medications have been reviewed Active Medications Acetaminophen (Acetaminophen Tab 325 Mg Tab) 650 mg PO Q8H PRN PRN Reason: Pain Albuterol/Ipratropium (Ipratropium-Albuterol 3 Ml Neb) 3 ml INHALATION RT-QID [facility] Last Admin: 02/11/22 13:14 Dose: Not Given Documented by: Albuterol/Ipratropium (Ipratropium-Albuterol 3 Ml Neb) 3 ml INHALATION RT-Q4H PRN PRN Reason: Shortness Of Breath Or Wheezing Last Admin: 02/11/22 00:05 Dose: 3 ml Documented by: Amlodipine Besylate (Amlodipine 10 Mg Tab) 10 mg PO DAILY [facility] Last Admin: 02/11/22 09:14 Dose: 10 mg Documented by: Apixaban (Apixaban 2.5 Mg Tablet) 2.5 mg PO BID [facility]; Protocol Last Admin: 02/11/22 09:14 Dose: 2.5 mg Documented by: Atorvastatin Calcium (Atorvastatin 40 Mg Tab) 40 mg PO HS [facility] Last Admin: 02/10/22 21:02 Dose: 40 mg Documented by: Calcitriol (Calcitriol 0.25 Mcg Cap) 0.25 mcg PO TU [facility] Clonidine (Clonidine Hcl 0.1 Mg Tab) 0.3 mg PO TID [facility] Diphenhydramine HCl (Diphenhydramine 25 Mg Cap) 25 mg PO DAILY PRN PRN Reason: Allergy Symptoms Ergocalciferol (Ergocalciferol 1,250 Mcg (50,000 Iu) Capsule) 1,250 mcg PO WE [facility] Furosemide (Furosemide 10 Mg/Ml 4 Ml Vial) 40 mg IV Q12H [facility] Last Admin: 02/11/22 03:42 Dose: 40 mg Documented by: Hydralazine HCl (Hydralazine Hcl 50 Mg Tab) 100 mg PO TID [facility] Last Admin: 02/11/22 09:14 Dose: 100 mg Documented by: Ceftriaxone Sodium 1 gm/ (Sodium Chloride) 50 mls @ 100 mls/hr IVPB Q24HR [facility]; Protocol Last Admin: 02/11/22 09:15 Dose: 100 mls/hr Documented by: Insulin Aspart (Insulin Aspart (Novolog) 100 Unit/Ml Vial) 4 unit SQ AC-TID [facility] Last Admin: 02/11/22 14:00 Dose: 4 unit Documented by: Insulin Aspart (Insulin Aspart (Novolog) 100 Unit/Ml Vial) 0 unit SQ ACHS [facility]; Protocol Last Admin: 02/11/22 14:00 Dose: 8 unit Documented by: Insulin Detemir (Insulin Detemir (Levemir) 100 Unit/Ml Syr) 6 unit SQ BID [facility] Last Admin: 02/11/22 09:18 Dose: 6 unit Documented by: Isosorbide Mononitrate (Isosorbide Mononitrate Er 60 Mg Tab.Er.24h) 60 mg PO DAILY [facility] Last Admin: 02/11/22 09:14 Dose: 60 mg Documented by: Methylprednisolone Sodium Succinate (Methylprednisolone Sod Succi 125 Mg/2 Ml Vial) 60 mg IV Q6HR [facility] Last Admin: 02/11/22 13:59 Dose: 60 mg Documented by: Multivitamins (Multivitamins, Thera 1 Each Tab) 1 each PO DAILY [facility] Last Admin: 02/11/22 09:14 Dose: 1 each Documented by: Dulaglutide [ Trulicity] 1.5 Mg/0. 5 Ml Pen.Injctr 1.5 mg SQ [facility] [place] Acetaminophen/Chlorpheniramine [ Coricidin Hbp Cold- Flu Tablet] 1 Each 1 tab PO Q6H PRN PRN Reason: Cold Symptoms Pantoprazole Sodium (Pantoprazole 40 Mg Tablet) 40 mg PO DAILY [facility] Last Admin: 02/11/22 09:14 Dose: 40 mg Documented by: Potassium Chloride (Potassium Chloride Er 20 Meq Tab.Er) 20 meq PO DAILY [facility] Last Admin: 02/11/22 09:14 Dose: 20 meq Documented by: Primidone (Primidone 50 Mg Tab) 50 mg PO HS [facility] Last Admin: 02/10/22 21:02 Dose: 50 mg Documented by: Sodium Bicarbonate (Sodium Bicarbonate Tab 650 Mg Tab) 650 mg PO BID [facility] Last Admin: 02/11/22 13:59 Dose: 650 mg Documented by: PHYSICAL EXAMINATION: GENERAL: The patient is alert and oriented x4, Well developed, well nourished. HEENT: Pupils are round and equally reacting to light. EOMI. no scleral icterus. No conjunctival pallor. Normocephalic, atraumatic. No pharyngeal erythema. No thyromegaly. CARDIOVASCULAR: S1 and S2 muffled PULMONARY: diminished breath sounds bilaterally with some scattered expiratory wheezing and rhonchi with crackles noted. ABDOMEN: soft. Nontender on exam. obese. non-distended, normoactive bowel sounds. No palpable organomegaly. MUSCULOSKELETAL: No joint swelling or deformity. EXTREMITIES: No cyanosis, clubbing, or pedal edema. Generalized lower extremity edema noted NEUROLOGICAL: Gross neurological examination did not reveal any focal deficits. SKIN: No rashes. Assessment: Chronic obstructive pulmonary disease, acute exacerbation with bilateral bronchopneumonia with possible pleural effusion Congestive heart failure, acute exacerbation Renal failure, chronic kidney disease stage III Atrial fibrillation Diabetes mellitus type 2 Hypertension GI prophylaxis DVT prophylaxis Full code Plan: Recommend to continue with current medications and management. Multiple medical consultations including pulmonary and cardiology and nephrology following and patient is maintained on IV Lasix along with IV steroids and breathing inha lational treatments and will continue IV antibiotics and closely monitor. Patient reports to feeling better today and labs have been reviewed. Will follow-up with repeat chest x-ray and labs in the morning and recommend continue with current dose of IV steroids and IV Lasix at this time. Patient is currently maintained on 2 L via nasal cannula and recommend wean FiO2 as tolerated. Given Multiple complex medical issues, prognosis is guarded. The impression and plan of care has been dictated by Daphney Rosales, nurse practitioner as directed. MD Yris I have performed a history and examination and MDM of this patient, discussed the same with the dictator, and agree with the dictator's assessment and plan as written ,documented as a scribe. Based on total visit time, I have performed more than 50% of the visit. Any additional findings or plans will be noted. Objective - Vital Signs Vital signs: Vital Signs Temp 97.5 F L 02/10/22 21:00 Pulse 82 02/11/22 03:40 Resp 19 02/11/22 03:40 BP 161/62 02/11/22 03:40 Pulse Ox 91 L 02/11/22 03:40 Intake & Output 02/10/22 02/11/22 02/11/22 18:59 06:59 18:59 Intake Total 240 120 Output Total 1050 600 Balance -810 -480 Weight 80.286 kg 82.8 kg Intake: Oral 240 120 Output: Urine 1050 600 Other: Voiding Method Urinal # Bowel Movements 0 - Labs CBC & Chem 7: 02/11/22 07:59 02/11/22 07:59 Labs: Abnormal Lab Results - Last 24 Hours (Table) 02/10/22 02/10/22 02/10/22 Range/Units 10:01 10:01 10:01 WBC 11.6 H (3.8-10.6) k/uL RBC 3.43 L (4.30-5.90) m/uL Hgb 9.0 L (13.0-17.5) gm/dL Hct 29.5 L (39.0-53.0) % MCHC 30.6 L (31.0-37.0) g/dL RDW 16.2 H (11.5-15.5) % Neutrophils # 9.4 H (1.3-7.7) k/uL Lymphocytes # 0.7 L (1.0-4.8) k/uL Sodium 136 L (137-145) mmol/L Chloride 108 H (98-107) mmol/L Carbon Dioxide 18 L (22-30) mmol/L BUN 36 H (9-20) mg/dL Creatinine 2.19 H (0.66-1.25) mg/dL Glucose 209 H (74-99) mg/dL POC Glucose (mg/dL) (75-99) mg/dL Calcium 8.1 L (8.4-10.2) mg/dL Alkaline Phosphatase 156 H (38-126) U/L Troponin I 0.063 H* (0.000-0.034) ng/mL Albumin 3.1 L (3.5-5.0) g/dL 02/10/22 02/10/22 02/10/22 Range/Units 13:52 16:48 17:17 WBC (3.8-10.6) k/uL RBC (4.30-5.90) m/uL Hgb (13.0-17.5) gm/dL Hct (39.0-53.0) % MCHC (31.0-37.0) g/dL RDW (11.5-15.5) % Neutrophils # (1.3-7.7) k/uL Lymphocytes # (1.0-4.8) k/uL Sodium (137-145) mmol/L Chloride (98-107) mmol/L Carbon Dioxide (22-30) mmol/L BUN (9-20) mg/dL Creatinine (0.66-1.25) mg/dL Glucose (74-99) mg/dL POC Glucose (mg/dL) 290 H (75-99) mg/dL Calcium (8.4-10.2) mg/dL Alkaline Phosphatase (38-126) U/L Troponin I 0.048 H* 0.051 H* (0.000-0.034) ng/mL Albumin (3.5-5.0) g/dL 02/10/22 02/11/22 02/11/22 Range/Units 20:39 05:56 07:59 WBC (3.8-10.6) k/uL RBC (4.30-5.90) m/uL Hgb (13.0-17.5) gm/dL Hct (39.0-53.0) % MCHC (31.0-37.0) g/dL RDW (11.5-15.5) % Neutrophils # (1.3-7.7) k/uL Lymphocytes # (1.0-4.8) k/uL Sodium 134 L (137-145) mmol/L Chloride (98-107) mmol/L Carbon Dioxide 18 L (22-30) mmol/L BUN 39 H (9-20) mg/dL Creatinine 2.37 H (0.66-1.25) mg/dL Glucose 284 H (74-99) mg/dL POC Glucose (mg/dL) 141 H 303 H (75-99) mg/dL Calcium 8.1 L (8.4-10.2) mg/dL Alkaline Phosphatase (38-126) U/L Troponin I (0.000-0.034) ng/mL Albumin (3.5-5.0) g/dL 02/11/22 Range/Units 07:59 WBC 13.4 H (3.8-10.6) k/uL RBC 3.05 L (4.30-5.90) m/uL Hgb 8.0 L (13.0-17.5) gm/dL Hct 27.1 L (39.0-53.0) % MCHC 29.5 L (31.0-37.0) g/dL RDW 16.0 H (11.5-15.5) % Neutrophils # 12.5 H (1.3-7.7) k/uL Lymphocytes # 0.6 L (1.0-4.8) k/uL Sodium (137-145) mmol/L Chloride (98-107) mmol/L Carbon Dioxide (22-30) mmol/L BUN (9-20) mg/dL Creatinine (0.66-1.25) mg/dL Glucose (74-99) mg/dL POC Glucose (mg/dL) (75-99) mg/dL Calcium (8.4-10.2) mg/dL Alkaline Phosphatase (38-126) U/L Troponin I (0.000-0.034) ng/mL Albumin (3.5-5.0) g/dL
[2022-02-11] MEDS ORDERED: Dulaglutide [Trulicity] 1.5 MG/0.5 ML Pen.Injctr SQ SCH (16:46)
[2022-02-11 17:03] LABS: Glucose,Whole Blood 444 mg/dL (75-99)
[2022-02-11] MEDS ORDERED: INSULIN ASPART (NovoLOG) 100 UNIT/ML VIAL SQ STA (17:28)
[2022-02-11] MEDS: cloNIDine HCL 0.1 MG TAB PO SCH ×2 (17:35→21:15)
[2022-02-11 20:02] LABS: Glucose,Whole Blood 374 mg/dL (75-99)
[2022-02-11 20:02] LABS: % Iron Saturation 7.25 (15.00-50.00); Ferritin 75.7 ng/mL (22.0-322.0)
[2022-02-11] MEDS: ATORVASTATIN 40 MG TAB PO SCH (21:15)
[2022-02-11] MEDS ORDERED: INSULIN ASPART (NovoLOG) 100 UNIT/ML VIAL SQ ONE (21:15)
[2022-02-11] MEDS: PRIMIDONE 50 MG TAB PO SCH (21:15)
[2022-02-11] MEDS: MELATONIN 5 MG TABLET PO SCH (21:15)
[2022-02-12] MEDS: methylPREDNISolone SOD SUCCI 125 MG/2 ML VIAL IV SCH ×5 (00:29→23:59)
[2022-02-12] MEDS: FUROSEMIDE 10 MG/ML 4 ML VIAL IV SCH (05:24)
[2022-02-12 06:01] LABS: Glucose,Whole Blood 243 mg/dL (75-99)
[2022-02-12] MEDS: INSULIN ASPART (NovoLOG) 100 UNIT/ML VIAL SQ SCH ×8 (07:02→20:50)
[2022-02-12] MEDS: INSULIN DETEMIR (LEVEMIR) 100 UNIT/ML SYR SQ SCH ×2 (07:03→20:50)
[2022-02-12 08:22] LABS: Calcium 8.1 mg/dL (8.4-10.2); Magnesium 2.4 mg/dL (1.6-2.3); Potassium 4.3 mmol/L (3.5-5.1)
[2022-02-12] MEDS: ISOSORBIDE MONONITRATE ER 60 MG TAB.ER.24H PO SCH (08:59)
[2022-02-12] MEDS: hydrALAZINE HCL 50 MG TAB PO SCH ×3 (08:59→20:50)
[2022-02-12] MEDS: SODIUM BICARBONATE TAB 650 MG TAB PO SCH ×2 (09:00→20:50)
[2022-02-12] MEDS: PANTOPRAZOLE 40 MG TABLET PO SCH (09:00)
[2022-02-12] MEDS: APIXABAN 2.5 MG TABLET PO SCH ×2 (09:00→20:50)
[2022-02-12] MEDS: cloNIDine HCL 0.1 MG TAB PO SCH ×3 (09:00→20:50)
[2022-02-12] MEDS: MULTIVITAMINS, THERA 1 EACH TAB PO SCH (09:00)
[2022-02-12] MEDS: POTASSIUM CHLORIDE ER 20 MEQ TAB.ER PO SCH (09:00)
[2022-02-12] MEDS: amLODIPine 10 MG TAB PO SCH (09:00)
[2022-02-12] MEDS: IPRATROPIUM-ALBUTEROL 3 ML NEB INHALATION SCH ×4 (09:06→19:20)
--- NOTE | 2022-02-12 10:29 | P.PN ---
Subjective Patient is seen in follow-up for acute kidney injury on chronic kidney disease. Renal function worse from diuresis. Currently on 3 L nasal cannula. Denies chest pain or shortness of breath. Edema improved. Nonoliguric. Vital signs are stable. General: Awake and alert. No acute distress. HEENT: Head exam is unremarkable. LUNGS: Breath sounds decreased. HEART: Rate and Rhythm are regular. ABDOMEN: Soft, no distention. EXTREMITITES: Trace edema. Objective - Vital Signs Vital signs: Vital Signs Temp 97.7 F 02/12/22 04:00 Pulse 88 02/12/22 09:17 Resp 18 02/12/22 04:00 BP 155/67 02/12/22 04:00 Pulse Ox 97 02/12/22 04:00 Intake & Output 02/11/22 02/12/22 02/12/22 18:59 06:59 18:59 Intake Total 360 20 240 Output Total 900 475 350 Balance -540 -455 -110 Weight 82.8 kg 82.1 kg Intake: IV 20 Invasive Line 1 20 Oral 360 240 Output: Urine 900 475 350 Other: Voiding Method Urinal Urinal # Voids 0 # Bowel Movements 0 - Labs CBC & Chem 7: 02/11/22 07:59 02/12/22 06:52 Labs: Abnormal Lab Results - Last 24 Hours (Table) 02/11/22 02/11/22 02/11/22 Range/Units 07:59 12:02 17:01 Sodium (137-145) mmol/L Carbon Dioxide (22-30) mmol/L BUN (9-20) mg/dL Creatinine (0.66-1.25) mg/dL Glucose (74-99) mg/dL POC Glucose (mg/dL) 288 H 444 H (75-99) mg/dL Calcium (8.4-10.2) mg/dL Magnesium (1.6-2.3) mg/dL Iron 21 L (65-175) ug/dL % Saturation 7.25 L (15.00-50.00) Transferrin 203.0 L (204.0-354.0) mg/dL 02/11/22 02/11/22 02/12/22 Range/Units 17:26 20:00 06:00 Sodium (137-145) mmol/L Carbon Dioxide (22-30) mmol/L BUN (9-20) mg/dL Creatinine (0.66-1.25) mg/dL Glucose 435 H (74-99) mg/dL POC Glucose (mg/dL) 374 H 243 H (75-99) mg/dL Calcium (8.4-10.2) mg/dL Magnesium (1.6-2.3) mg/dL Iron (65-175) ug/dL % Saturation (15.00-50.00) Transferrin (204.0-354.0) mg/dL 02/12/22 Range/Units 06:52 Sodium 134 L (137-145) mmol/L Carbon Dioxide 20 L (22-30) mmol/L BUN 58 H (9-20) mg/dL Creatinine 2.91 H (0.66-1.25) mg/dL Glucose 208 H (74-99) mg/dL POC Glucose (mg/dL) (75-99) mg/dL Calcium 8.1 L (8.4-10.2) mg/dL Magnesium 2.4 H (1.6-2.3) mg/dL Iron (65-175) ug/dL % Saturation (15.00-50.00) Transferrin (204.0-354.0) mg/dL Assessment and Plan Plan: Assessment: 1. Acute kidney injury mostly prerenal secondary to cardiorenal syndrome. Renal function worse from diuresis. Creatinine 2.91 today. 2. Chronic kidney disease stage IIIB with baseline creatinine near 2 secondary to diabetic kidney disease. 3. Acute hypoxic respiratory failure. 4. Volume overload. Improved with diuresis. 5. Acute on chronic diastolic CHF. 6. Metabolic acidosis secondary to acute kidney injury. On oral bicarb. Improved. 7. Chronic a disease mineral bone disease maintained on calcitriol. 8. Anemia of chronic kidney disease. Iron deficiency noted. 9. Hypertension with chronic kidney disease. Exacerbated by steroids. Plan: Stop IV Lasix. Add oral Lasix 40 mg twice daily. Low-salt diet. 1500 mL fluid resection. Add IV iron. Avoid nephrotoxins. Follow-up chest x-ray. Add when necessary hydralazine for systolic blood pressure above 160. Continue to monitor renal function and urine output. Follow up outpatient 1 week post discharge. Check BMP and magnesium level to 3 days postdischarge. Advised patient to monitor his weight closely at home and to call if edema worsens again is more than 3 pounds in 1 week duration. He was also advised to follow low-salt diet and maintain a 40-45 oz fluid restriction per day upon discharge.
--- NOTE | 2022-02-12 10:50 | XR ---
EXAMINATION TYPE: XR chest 1V portable DATE OF EXAM: 02/12/2022 HISTORY: Shortness of breath. COMPARISON: 02/10/2022 TECHNIQUE: Single view of the chest is submitted. FINDINGS: Demonstrated are scattered senescent parenchymal change. Patchy density right lower lobe may reflect developing infiltrate. Suspect small effusion. The heart is stable. Hilar and mediastinal structures are within normal limits. Degenerative changes are seen of the dorsal spine. IMPRESSION: 1. Patchy density right lower lobe may reflect developing infiltrate. Suspect small effusion.
--- NOTE | 2022-02-12 11:10 | P.PN ---
Subjective The patient is an 81-year-old male with past medical history of persistent atrial fibrillation on Eliquis, hypertension, type 2 diabetes, and dyslipidemia. He follows with Dr. Stratton. We were consulted and for congestive heart failure. Presented with symptoms of progressive dyspnea and edema for the last week. He had progression of his peripheral edema but no clear PND or orthopnea. He had been having worsening symptoms four-week with cough, productive of greenish sputum but no fever. Patient was found to be in acute heart failure and started on IV Lasix. Echocardiogram revealed EF of 60-65%, moderate concentric LVH, mild mitral regurgitation mild tricuspid regurgitation 02/12/2022 Patient seen and examined at bedside, no acute distress. breathing improved. Vital signs are stable. Denies any chest pain. Repeat chest x-ray revealed patchy density right lower lobe. Labs, sodium 134, potassium 4.3, BUN 58, serum: 2.9, magnesium 2.4 He's currently maintained on amlodipine 10 mg daily, Eliquis 2.5 mg twice a day, atorvastatin 40 mg nightly, IV Lasix 40 mg twice a day, clonidine 0.3 mg 3 times a day, hydralazine 100 mg 3 times a day, Imdur 60 mg daily GENERAL: Well-appearing, well-nourished and in no acute distress. NECK: Supple without JVD or thyromegaly. LUNGS: Breath sounds Rhonchi to auscultation bilaterally. Respiration equal and unlabored. No wheezes, rales or rhonchi. HEART: Regular rate and rhythm without murmurs, rubs or gallops. S1 and S2 heard. EXTREMITIES: Normal range of motion, no edema. No clubbing or cyanosis. Peripheral pulses intact. ASSESSMENT Acute exacerbation of congestive heart failure with preserved systolic function Probable exacerbation of COPD with bronchitis Chronic kidney disease History of hypertension Chronic elevation of troponin probably related to the kidney disease History of hyperlipidemia History of diabetes PLAN Lasix transitioned to PO 40mg BID Continue current medication regimen Continue anticoagulation with Eliquis The patient would benefit from the use of Jardiance or Farxiga in view of his presentation Further recommendations based on clinical course Nurse Practitioner note has been reviewed, I agree with a documented findings and plan of care. Patient was seen and examined. Objective - Vital Signs Vital signs: Vital Signs Temp 97.7 F 02/11/22 08:00 Pulse 70 02/11/22 09:30 Resp 16 02/11/22 08:00 BP 169/73 02/11/22 10:00 Pulse Ox 91 L 02/11/22 09:20 Intake & Output 02/10/22 02/11/22 02/11/22 18:59 06:59 18:59 Intake Total 240 240 Output Total 1050 900 Balance -810 -660 Weight 80.286 kg 82.8 kg 82.8 kg Intake: Oral 240 240 Output: Urine 1050 900 Other: Voiding Method Urinal Urinal # Bowel Movements 0 - Labs CBC & Chem 7: 02/11/22 07:59 02/12/22 06:52 Labs: Abnormal Lab Results - Last 24 Hours (Table) 02/10/22 02/10/22 02/10/22 Range/Units 13:52 16:48 17:17 WBC (3.8-10.6) k/uL RBC (4.30-5.90) m/uL Hgb (13.0-17.5) gm/dL Hct (39.0-53.0) % MCHC (31.0-37.0) g/dL RDW (11.5-15.5) % Neutrophils # (1.3-7.7) k/uL Lymphocytes # (1.0-4.8) k/uL Sodium (137-145) mmol/L Carbon Dioxide (22-30) mmol/L BUN (9-20) mg/dL Creatinine (0.66-1.25) mg/dL Glucose (74-99) mg/dL POC Glucose (mg/dL) 290 H (75-99) mg/dL Calcium (8.4-10.2) mg/dL Troponin I 0.048 H* 0.051 H* (0.000-0.034) ng/mL 02/10/22 02/11/22 02/11/22 Range/Units 20:39 05:56 07:59 WBC (3.8-10.6) k/uL RBC (4.30-5.90) m/uL Hgb (13.0-17.5) gm/dL Hct (39.0-53.0) % MCHC (31.0-37.0) g/dL RDW (11.5-15.5) % Neutrophils # (1.3-7.7) k/uL Lymphocytes # (1.0-4.8) k/uL Sodium 134 L (137-145) mmol/L Carbon Dioxide 18 L (22-30) mmol/L BUN 39 H (9-20) mg/dL Creatinine 2.37 H (0.66-1.25) mg/dL Glucose 284 H (74-99) mg/dL POC Glucose (mg/dL) 141 H 303 H (75-99) mg/dL Calcium 8.1 L (8.4-10.2) mg/dL Troponin I (0.000-0.034) ng/mL 02/11/22 02/11/22 Range/Units 07:59 12:02 WBC 13.4 H (3.8-10.6) k/uL RBC 3.05 L (4.30-5.90) m/uL Hgb 8.0 L (13.0-17.5) gm/dL Hct 27.1 L (39.0-53.0) % MCHC 29.5 L (31.0-37.0) g/dL RDW 16.0 H (11.5-15.5) % Neutrophils # 12.5 H (1.3-7.7) k/uL Lymphocytes # 0.6 L (1.0-4.8) k/uL Sodium (137-145) mmol/L Carbon Dioxide (22-30) mmol/L BUN (9-20) mg/dL Creatinine (0.66-1.25) mg/dL Glucose (74-99) mg/dL POC Glucose (mg/dL) 288 H (75-99) mg/dL Calcium (8.4-10.2) mg/dL Troponin I (0.000-0.034) ng/mL
--- NOTE | 2022-02-12 11:10 | P.PN ---
Subjective The patient is an 81-year-old male with past medical history of persistent atrial fibrillation on Eliquis, hypertension, type 2 diabetes, and dyslipidemia. He follows with Dr. Stratton. We were consulted and for congestive heart failure. Presented with symptoms of progressive dyspnea and edema for the last week. He had progression of his peripheral edema but no clear PND or orthopnea. He had been having worsening symptoms four-week with cough, productive of greenish sputum but no fever. Patient was found to be in acute heart failure and started on IV Lasix. Echocardiogram revealed EF of 60-65%, moderate concentric LVH, mild mitral regurgitation mild tricuspid regurgitation 02/12/2022 Patient seen and examined at bedside, no acute distress. breathing improved. Vital signs are stable. Denies any chest pain. Repeat chest x-ray revealed patchy density right lower lobe. Labs, sodium 134, potassium 4.3, BUN 58, serum: 2.9, magnesium 2.4 He's currently maintained on amlodipine 10 mg daily, Eliquis 2.5 mg twice a day, atorvastatin 40 mg nightly, IV Lasix 40 mg twice a day, clonidine 0.3 mg 3 times a day, hydralazine 100 mg 3 times a day, Imdur 60 mg daily GENERAL: Well-appearing, well-nourished and in no acute distress. NECK: Supple without JVD or thyromegaly. LUNGS: Breath sounds Rhonchi to auscultation bilaterally. Respiration equal and unlabored. No wheezes, rales or rhonchi. HEART: Regular rate and rhythm without murmurs, rubs or gallops. S1 and S2 heard. EXTREMITIES: Normal range of motion, no edema. No clubbing or cyanosis. Peripheral pulses intact. ASSESSMENT Acute exacerbation of congestive heart failure with preserved systolic function Probable exacerbation of COPD with bronchitis Chronic kidney disease History of hypertension Chronic elevation of troponin probably related to the kidney disease History of hyperlipidemia History of diabetes PLAN Lasix transitioned to PO 40mg BID Continue current medication regimen Continue anticoagulation with Eliquis The patient would benefit from the use of Jardiance or Farxiga in view of his presentation Further recommendations based on clinical course Nurse Practitioner note has been reviewed, I agree with a documented findings and plan of care. Patient was seen and examined. Objective - Vital Signs Vital signs: Vital Signs Temp 97.7 F 02/12/22 04:00 Pulse 88 02/12/22 09:17 Resp 18 02/12/22 04:00 BP 155/67 02/12/22 04:00 Pulse Ox 97 02/12/22 04:00 Intake & Output 02/11/22 02/12/22 02/12/22 18:59 06:59 18:59 Intake Total 360 20 240 Output Total 900 475 350 Balance -540 -455 -110 Weight 82.8 kg 82.1 kg Intake: IV 20 Invasive Line 1 20 Oral 360 240 Output: Urine 900 475 350 Other: Voiding Method Urinal Urinal # Voids 0 # Bowel Movements 0 - Labs CBC & Chem 7: 02/11/22 07:59 02/12/22 06:52 Labs: Abnormal Lab Results - Last 24 Hours (Table) 02/11/22 02/11/22 02/11/22 Range/Units 07:59 12:02 17:01 Sodium (137-145) mmol/L Carbon Dioxide (22-30) mmol/L BUN (9-20) mg/dL Creatinine (0.66-1.25) mg/dL Glucose (74-99) mg/dL POC Glucose (mg/dL) 288 H 444 H (75-99) mg/dL Calcium (8.4-10.2) mg/dL Magnesium (1.6-2.3) mg/dL Iron 21 L (65-175) ug/dL % Saturation 7.25 L (15.00-50.00) Transferrin 203.0 L (204.0-354.0) mg/dL 02/11/22 02/11/22 02/12/22 Range/Units 17:26 20:00 06:00 Sodium (137-145) mmol/L Carbon Dioxide (22-30) mmol/L BUN (9-20) mg/dL Creatinine (0.66-1.25) mg/dL Glucose 435 H (74-99) mg/dL POC Glucose (mg/dL) 374 H 243 H (75-99) mg/dL Calcium (8.4-10.2) mg/dL Magnesium (1.6-2.3) mg/dL Iron (65-175) ug/dL % Saturation (15.00-50.00) Transferrin (204.0-354.0) mg/dL 02/12/22 Range/Units 06:52 Sodium 134 L (137-145) mmol/L Carbon Dioxide 20 L (22-30) mmol/L BUN 58 H (9-20) mg/dL Creatinine 2.91 H (0.66-1.25) mg/dL Glucose 208 H (74-99) mg/dL POC Glucose (mg/dL) (75-99) mg/dL Calcium 8.1 L (8.4-10.2) mg/dL Magnesium 2.4 H (1.6-2.3) mg/dL Iron (65-175) ug/dL % Saturation (15.00-50.00) Transferrin (204.0-354.0) mg/dL
[2022-02-12] MEDS: SODIUM FERRIC GLUCONAT-SUCROSE 125 MG in SODIUM CHLORIDE 0.9% 100 ML IVPB SCH (11:20)
[2022-02-12 11:32] LABS: Glucose,Whole Blood 350 mg/dL (75-99)
--- NOTE | 2022-02-12 12:49 | P.PN ---
Subjective Progress Note Date: 02/12/22 This is a pleasant 81-year-old male who was recently admitted with increased shortness of breath and generalized edema and also had cough with sputum production that had progressively been getting worse over the last few months. Patient had chest x-ray on admission that showed possible bilateral infiltrates with bilateral pleural effusion and BMP was elevated. Patient does have renal failure and does follow with nephrology in the outpatient setting and received iron transfusions and will consult nephrology his kidney functions are elevated. Patient is currently maintained on on IV Lasix twice daily and also IV ceftriaxone and IV steroids and recommend continue current regimen. Home medications have been resumed. 02/12/2022 Patient is seen in follow-up today with multiple medical consultations following including cardiology and nephrology. Patient does follow with nephrology in the outpatient setting and patient has scheduled IV infusion studies at the infusion center and iron studies have been ordered. Patient is continued on IV Lasix along with fluid restrictions and low-salt diet and is diuresing well. Cardiology and plans on transitioning to oral Lasix along with nephrology as kidney functions are worsening and current creatinine is 2.91. Patient continues on 2-3 L via nasal cannula. Patient is also maintained on IV steroids and blood sugars have been elevated and will adjust insulins. Will also add consistent carb diet as patient has been having heart healthy diet only. Patient denies chest pain or worsening shortness of breath. Patient is continued on 2-3 L of oxygen via nasal cannula and does not normally wear this in the outpatient setting. Discussed with case management about possible home O2 to manage his COPD. Will perform home O2 evaluation. Patient is afebrile. Patient denies nausea or vomiting and tolerating diet. Labs: Sodium is 134 with a potassium of 4.3, BUN is 58 and creatinine is 2.91, magnesium is 2.4 Review of systems: Constitutional: No reports of fatigue, fever, or chills Cardiovascular: No reports of chest pain or palpitations Respiratory: No reports of worsening shortness of breath or cough, reports some improvement in breathing GI: No reports of nausea, no reports of of vomiting : No reports of dysuria or retention Neurovascular: No reports of generalized weakness All medications have been reviewed Active Medications Acetaminophen (Acetaminophen Tab 325 Mg Tab) 650 mg PO Q8H PRN PRN Reason: Pain Albuterol/Ipratropium (Ipratropium-Albuterol 3 Ml Neb) 3 ml INHALATION RT-QID [facility] Last Admin: 02/12/22 09:06 Dose: 3 ml Documented by: Albuterol/Ipratropium (Ipratropium-Albuterol 3 Ml Neb) 3 ml INHALATION RT-Q4H PRN PRN Reason: Shortness Of Breath Or Wheezing Last Admin: 02/11/22 00:05 Dose: 3 ml Documented by: Amlodipine Besylate (Amlodipine 10 Mg Tab) 10 mg PO DAILY [facility] Last Admin: 02/12/22 09:00 Dose: 10 mg Documented by: Apixaban (Apixaban 2.5 Mg Tablet) 2.5 mg PO BID [facility]; Protocol Last Admin: 02/12/22 09:00 Dose: 2.5 mg Documented by: Atorvastatin Calcium (Atorvastatin 40 Mg Tab) 40 mg PO HS [facility] Last Admin: 02/11/22 21:15 Dose: 40 mg Documented by: Calcitriol (Calcitriol 0.25 Mcg Cap) 0.25 mcg PO TU [facility] Last Admin: 02/11/22 17:35 Dose: 0.25 mcg Documented by: Clonidine (Clonidine Hcl 0.1 Mg Tab) 0.3 mg PO TID [facility] Last Admin: 02/12/22 09:00 Dose: 0.3 mg Documented by: Diphenhydramine HCl (Diphenhydramine 25 Mg Cap) 25 mg PO DAILY PRN PRN Reason: Allergy Symptoms Ergocalciferol (Ergocalciferol 1,250 Mcg (50,000 Iu) Capsule) 1,250 mcg PO WE [facility] Last Admin: 02/12/22 09:00 Dose: 1,250 mcg Documented by: Furosemide (Furosemide 10 Mg/Ml 4 Ml Vial) 40 mg IV Q12H [facility] Last Admin: 02/12/22 05:24 Dose: 40 mg Documented by: Hydralazine HCl (Hydralazine Hcl 50 Mg Tab) 100 mg PO TID [facility] Last Admin: 02/12/22 08:59 Dose: 100 mg Documented by: Ceftriaxone Sodium 1 gm/ (Sodium Chloride) 50 mls @ 100 mls/hr IVPB Q24HR [facility]; Protocol Last Admin: 02/12/22 08:59 Dose: 100 mls/hr Documented by: Insulin Aspart (Insulin Aspart (Novolog) 100 Unit/Ml Vial) 4 unit SQ AC-TID [facility] Last Admin: 02/12/22 07:02 Dose: 4 unit Documented by: Insulin Aspart (Insulin Aspart (Novolog) 100 Unit/Ml Vial) 0 unit SQ ACHS [facility]; Protocol Last Admin: 02/12/22 07:03 Dose: 8 unit Documented by: Insulin Detemir (Insulin Detemir (Levemir) 100 Unit/Ml Syr) 12 unit SQ BID@0700,2100 [facility] Last Admin: 02/12/22 07:03 Dose: 12 unit Documented by: Isosorbide Mononitrate (Isosorbide Mononitrate Er 60 Mg Tab.Er.24h) 60 mg PO DAILY [facility] Last Admin: 02/12/22 08:59 Dose: 60 mg Documented by: Melatonin (Melatonin 5 Mg Tablet) 5 mg PO HS [facility] Last Admin: 02/11/22 21:15 Dose: 5 mg Documented by: Methylprednisolone Sodium Succinate (Methylprednisolone Sod Succi 125 Mg/2 Ml Vial) 60 mg IV Q6HR [facility] Last Admin: 02/12/22 05:23 Dose: 60 mg Documented by: Multivitamins (Multivitamins, Thera 1 Each Tab) 1 each PO DAILY [facility] Last Admin: 02/12/22 09:00 Dose: 1 each Documented by: Dulaglutide [ Trulicity] 1.5 Mg/0. 5 Ml Pen.Injctr 1.5 mg SQ TU [facility] Last Admin: 02/11/22 17:38 Dose: Not Given Documented by: Acetaminophen/Chlorpheniramine [ Coricidin Hbp Cold- Flu Tablet] 1 Each 1 tab PO Q6H PRN PRN Reason: Cold Symptoms Pantoprazole Sodium (Pantoprazole 40 Mg Tablet) 40 mg PO DAILY [facility] Last Admin: 02/12/22 09:00 Dose: 40 mg Documented by: Potassium Chloride (Potassium Chloride Er 20 Meq Tab.Er) 20 meq PO DAILY [facility] Last Admin: 02/12/22 09:00 Dose: 20 meq Documented by: Primidone (Primidone 50 Mg Tab) 50 mg PO HS [facility] Last Admin: 02/11/22 21:15 Dose: 50 mg Documented by: Sodium Bicarbonate (Sodium Bicarbonate Tab 650 Mg Tab) 650 mg PO BID [facility] Last Admin: 02/12/22 09:00 Dose: 650 mg Documented by: PHYSICAL EXAMINATION: GENERAL: The patient is alert and oriented x4, Well developed, well nourished. HEENT: Pupils are round and equally reacting to light. EOMI. no scleral icterus. No conjunctival pallor. Normocephalic, atraumatic. No pharyngeal erythema. No thyromegaly. CARDIOVASCULAR: S1 and S2 muffled PULMONARY: diminished breath sounds bilaterally with some scattered expiratory wheezing and rhonchi with crackles noted. ABDOMEN: soft. Nontender on exam. obese. Mildly distended, normoactive bowel sounds. No palpable organomegaly. MUSCULOSKELETAL: No joint swelling or deformity. Some mild upper and lower extremity muscle wasting noted. EXTREMITIES: No cyanosis, clubbing, or pedal edema. Generalized lower extremity edema improved NEUROLOGICAL: Gross neurological examination did not reveal any focal deficits. SKIN: No rashes. Assessment: Chronic obstructive pulmonary disease, acute exacerbation with bilateral bronchopneumonia with possible pleural effusion Congestive heart failure, acute exacerbation Renal failure, chronic kidney disease stage III Atrial fibrillation Diabetes mellitus type 2, uncontrolled with hyperglycemia with a possible component of steroid-induced as well Hypertension GI prophylaxis DVT prophylaxis Full code Plan: Recommend to continue with current medications and management. Multiple medical consultations including pulmonary and cardiology and nephrology following and patient was maintained on IV Lasix along with IV steroids and breathing inhalational treatments and will continue IV antibiotics and closely monitor. Patient is diuresing well and cardiology following and transitioning to oral Lasix and also given his increasing kidney functions. Nephrology following and is aware. Iron studies showed low iron and patient is currently receiving IV iron. Patient was maintained on heart healthy diet and is a diabetic and has been having elevated blood sugars with and also combination of reactivity secondary to IV steroids and will adjust to consistent carb and have adjusted insulins along with pre-meals and long acting and closely monitor Accu-Cheks before meals and at bedtime. Patient reports to feeling better today and labs have been reviewed. Chest x-ray today shows patchy density in the right lower lobe may reflect developing infiltrate although suspect small effusion. Will continue with breathing inhalational treatments along with supplemental oxygen and wean FiO2 as tolerated as patient does not normally wear oxygen in the outpatient setting. This was also discussed with case management about possibly requiring home oxygen and will perform home O2 eval to assess for possible home oxygen to manage his COPD. Encouraged increased activity as tolerated and walking the halls and will also add incentive spirometer and recommend to continue using at least 10 times an hour while awake. Given Multiple complex medical issues, prognosis is guarded. The impression and plan of care has been dictated by Daphney Rosales, nurse practitioner as directed. MD Yris I have performed a history and examination and MDM of this patient, discussed the same with the dictator, and agree with the dictator's assessment and plan as written ,documented as a scribe. Based on total visit time, I have performed more than 50% of the visit. Any additional findings or plans will be noted. Objective - Vital Signs Vital signs: Vital Signs Temp 97.7 F 02/12/22 04:00 Pulse 88 02/12/22 09:17 Resp 18 02/12/22 04:00 BP 155/67 02/12/22 04:00 Pulse Ox 97 02/12/22 04:00 Intake & Output 02/11/22 02/12/22 02/12/22 18:59 06:59 18:59 Intake Total 360 20 240 Output Total 900 475 350 Balance -540 -455 -110 Weight 82.8 kg 82.1 kg Intake: IV 20 Invasive Line 1 20 Oral 360 240 Output: Urine 900 475 350 Other: Voiding Method Urinal Urinal # Voids 0 # Bowel Movements 0 - Labs CBC & Chem 7: 02/11/22 07:59 02/12/22 06:52 Labs: Abnormal Lab Results - Last 24 Hours (Table) 02/11/22 02/11/22 02/11/22 Range/Units 07:59 12:02 17:01 Sodium (137-145) mmol/L Carbon Dioxide (22-30) mmol/L BUN (9-20) mg/dL Creatinine (0.66-1.25) mg/dL Glucose (74-99) mg/dL POC Glucose (mg/dL) 288 H 444 H (75-99) mg/dL Calcium (8.4-10.2) mg/dL Magnesium (1.6-2.3) mg/dL Iron 21 L (65-175) ug/dL % Saturation 7.25 L (15.00-50.00) Transferrin 203.0 L (204.0-354.0) mg/dL 02/11/22 02/11/22 02/12/22 Range/Units 17:26 20:00 06:00 Sodium (137-145) mmol/L Carbon Dioxide (22-30) mmol/L BUN (9-20) mg/dL Creatinine (0.66-1.25) mg/dL Glucose 435 H (74-99) mg/dL POC Glucose (mg/dL) 374 H 243 H (75-99) mg/dL Calcium (8.4-10.2) mg/dL Magnesium (1.6-2.3) mg/dL Iron (65-175) ug/dL % Saturation (15.00-50.00) Transferrin (204.0-354.0) mg/dL 02/12/22 Range/Units 06:52 Sodium 134 L (137-145) mmol/L Carbon Dioxide 20 L (22-30) mmol/L BUN 58 H (9-20) mg/dL Creatinine 2.91 H (0.66-1.25) mg/dL Glucose 208 H (74-99) mg/dL POC Glucose (mg/dL) (75-99) mg/dL Calcium 8.1 L (8.4-10.2) mg/dL Magnesium 2.4 H (1.6-2.3) mg/dL Iron (65-175) ug/dL % Saturation (15.00-50.00) Transferrin (204.0-354.0) mg/dL
[2022-02-12 16:12] LABS: Glucose,Whole Blood 282 mg/dL (75-99)
[2022-02-12] MEDS ORDERED: ERGOCALCIFEROL 1,250 MCG (50,000 IU) CAPSULE PO SCH (16:46)
[2022-02-12] MEDS: hydrALAZINE HCL 20 MG/ML 1 ML VIAL IVP PRN ×2 (17:33→23:59)
[2022-02-12] MEDS: FUROSEMIDE 40 MG TAB PO SCH (17:35)
[2022-02-12 19:37] LABS: Glucose,Whole Blood 399 mg/dL (75-99)
[2022-02-12] MEDS: PRIMIDONE 50 MG TAB PO SCH (20:50)
[2022-02-12] MEDS: MELATONIN 5 MG TABLET PO SCH (20:50)
[2022-02-12] MEDS: ATORVASTATIN 40 MG TAB PO SCH (20:50)
[2022-02-13 01:56] LABS: Glucose,Whole Blood 269 mg/dL (75-99)
[2022-02-13] MEDS: INSULIN ASPART (NovoLOG) 100 UNIT/ML VIAL SQ SCH ×9 (02:49→21:42)
[2022-02-13 05:53] LABS: Glucose,Whole Blood 161 mg/dL (75-99)
[2022-02-13] MEDS: methylPREDNISolone SOD SUCCI 125 MG/2 ML VIAL IV SCH ×3 (06:30→17:12)
[2022-02-13] MEDS: INSULIN DETEMIR (LEVEMIR) 100 UNIT/ML SYR SQ SCH ×2 (07:06→21:42)
[2022-02-13] MEDS: IPRATROPIUM-ALBUTEROL 3 ML NEB INHALATION SCH ×4 (07:27→21:27)
[2022-02-13] MEDS: cloNIDine HCL 0.1 MG TAB PO SCH ×3 (07:48→21:41)
[2022-02-13] MEDS: hydrALAZINE HCL 50 MG TAB PO SCH ×3 (07:48→21:42)
[2022-02-13] MEDS: APIXABAN 2.5 MG TABLET PO SCH ×2 (07:49→21:42)
[2022-02-13] MEDS: ISOSORBIDE MONONITRATE ER 60 MG TAB.ER.24H PO SCH (07:49)
[2022-02-13] MEDS: POTASSIUM CHLORIDE ER 20 MEQ TAB.ER PO SCH (07:49)
[2022-02-13] MEDS: PANTOPRAZOLE 40 MG TABLET PO SCH (07:49)
[2022-02-13] MEDS: FUROSEMIDE 40 MG TAB PO SCH ×2 (07:49→15:17)
[2022-02-13] MEDS: SODIUM BICARBONATE TAB 650 MG TAB PO SCH ×2 (07:49→21:42)
[2022-02-13] MEDS: amLODIPine 10 MG TAB PO SCH (07:49)
[2022-02-13] MEDS: MULTIVITAMINS, THERA 1 EACH TAB PO SCH (07:49)
[2022-02-13] MEDS: SODIUM FERRIC GLUCONAT-SUCROSE 125 MG in SODIUM CHLORIDE 0.9% 100 ML IVPB SCH (09:05)
[2022-02-13 10:02] LABS: Calcium 8.3 mg/dL (8.4-10.2); Magnesium 2.4 mg/dL (1.6-2.3); Potassium 4.5 mmol/L (3.5-5.1)
--- NOTE | 2022-02-13 11:25 | P.PN ---
Subjective The patient is an 81-year-old male with past medical history of persistent atrial fibrillation on Eliquis, hypertension, type 2 diabetes, and dyslipidemia. He follows with Dr. Stratton. We were consulted and for congestive heart failure. Presented with symptoms of progressive dyspnea and edema for the last week. He had progression of his peripheral edema but no clear PND or orthopnea. He had been having worsening symptoms four-week with cough, productive of greenish sputum but no fever. Patient was found to be in acute heart failure and started on IV Lasix. Echocardiogram revealed EF of 60-65%, moderate concentric LVH, mild mitral regurgitation mild tricuspid regurgitation 02/13/2022 Patient seen and examined at bedside, no acute distress. Breathing has improved. Vital signs are stable. BP continues slightly elevated with BP 167/63. Denies any chest pain. Repeat chest x-ray revealed patchy density right lower lobe. Labs, sodium 135, potassium 4.5, BUN 67, serum creatinine 2.9, magnesium 2.4 He's currently maintained on amlodipine 10 mg daily, Eliquis 2.5 mg twice a day, atorvastatin 40 mg nightly, PO Lasix 40 mg twice a day, clonidine 0.3 mg 3 times a day, hydralazine 100 mg 3 times a day, Imdur 60 mg daily GENERAL: Well-appearing, Inno acute distress. NECK: Supple without JVD or thyromegaly. LUNGS: Breath sounds Rhonchi to auscultation bilaterally. Respiration equal and unlabored. No wheezes. HEART: Regular rate and rhythm without murmurs, rubs or gallops. S1 and S2 heard. EXTREMITIES: Normal range of motion, no edema. No clubbing or cyanosis. Peripheral pulses intact. ASSESSMENT Acute exacerbation of congestive heart failure with preserved systolic function Probable exacerbation of COPD with bronchitis Chronic kidney disease History of hypertension Chronic elevation of troponin probably related to the kidney disease History of hyperlipidemia History of diabetes PLAN Lasix transitioned to PO 40mg BID, continue Continue current medication regimen Continue anticoagulation with Eliquis The patient would benefit from the use of Jardiance or Farxiga in view of his presentation From a cardiology perspective, patient is stable. Further anti-hypertensive medications can be adjusted as an outpatient Close follow up with Dr. Stratton outpatient. Nurse Practitioner note has been reviewed, I agree with a documented findings and plan of care. Patient was seen and examined. Objective - Vital Signs Vital signs: Vital Signs Temp 97.7 F 02/13/22 07:45 Pulse 76 02/13/22 11:04 Resp 22 02/13/22 07:45 BP 167/63 02/13/22 07:45 Pulse Ox 95 02/13/22 07:45 Intake & Output 02/12/22 02/13/22 02/13/22 18:59 06:59 18:59 Intake Total 380 250 180 Output Total 350 350 Balance 30 -100 180 Intake: IV 20 10 Invasive Line 1 20 10 Oral 360 240 180 Output: Urine 350 350 Other: Voiding Method Urinal Urinal Urinal # Voids 1 - Labs CBC & Chem 7: 02/11/22 07:59 02/13/22 08:30 Labs: Abnormal Lab Results - Last 24 Hours (Table) 02/12/22 02/12/22 02/12/22 Range/Units 11:30 16:10 19:36 Sodium (137-145) mmol/L Carbon Dioxide (22-30) mmol/L BUN (9-20) mg/dL Creatinine (0.66-1.25) mg/dL Glucose (74-99) mg/dL POC Glucose (mg/dL) 350 H 282 H 399 H (75-99) mg/dL Calcium (8.4-10.2) mg/dL Magnesium (1.6-2.3) mg/dL 02/13/22 02/13/22 02/13/22 Range/Units 01:54 05:51 08:30 Sodium 135 L (137-145) mmol/L Carbon Dioxide 15 L (22-30) mmol/L BUN 67 H (9-20) mg/dL Creatinine 2.91 H (0.66-1.25) mg/dL Glucose 262 H (74-99) mg/dL POC Glucose (mg/dL) 269 H 161 H (75-99) mg/dL Calcium 8.3 L (8.4-10.2) mg/dL Magnesium 2.4 H (1.6-2.3) mg/dL
[2022-02-13 11:40] LABS: Glucose,Whole Blood 335 mg/dL (75-99)
--- NOTE | 2022-02-13 14:45 | P.PN ---
Subjective Patient is seen for follow-up for acute kidney injury on top of chronic kidney disease. Renal function had worsened with diuresis. Serum creatinine currently stable at 2.9 mg/dL. Lasix was switched to by mouth yesterday. Urine output documented at 1.3 L for 24 hours. Objective - Vital Signs Vital signs: Vital Signs Temp 97.7 F 02/13/22 07:45 Pulse 75 02/13/22 13:36 Resp 20 02/13/22 11:10 BP 159/71 02/13/22 11:10 Pulse Ox 92 L 02/13/22 11:10 Intake & Output 02/12/22 02/13/22 02/13/22 18:59 06:59 18:59 Intake Total 380 250 420 Output Total 350 350 Balance 30 -100 420 Intake: IV 20 10 Invasive Line 1 20 10 Oral 360 240 420 Output: Urine 350 350 Other: Voiding Method Urinal Urinal Urinal # Voids 1 1 - Exam Patient is awake, comfortable not in any acute distress. Maintained on 4 L nasal cannula with O2 sats at 92%. Examination of the heart S1 and S2 Exertion lungs bilateral breath sounds are heard Abdomen is soft nontender Examination lower extremity shows edema 1+ bilaterally SERGER exam grossly intact - Labs CBC & Chem 7: 02/11/22 07:59 02/13/22 08:30 Labs: Abnormal Lab Results - Last 24 Hours (Table) 02/12/22 02/12/22 02/13/22 Range/Units 16:10 19:36 01:54 Sodium (137-145) mmol/L Carbon Dioxide (22-30) mmol/L BUN (9-20) mg/dL Creatinine (0.66-1.25) mg/dL Glucose (74-99) mg/dL POC Glucose (mg/dL) 282 H 399 H 269 H (75-99) mg/dL Calcium (8.4-10.2) mg/dL Magnesium (1.6-2.3) mg/dL 02/13/22 02/13/22 02/13/22 Range/Units 05:51 08:30 11:39 Sodium 135 L (137-145) mmol/L Carbon Dioxide 15 L (22-30) mmol/L BUN 67 H (9-20) mg/dL Creatinine 2.91 H (0.66-1.25) mg/dL Glucose 262 H (74-99) mg/dL POC Glucose (mg/dL) 161 H 335 H (75-99) mg/dL Calcium 8.3 L (8.4-10.2) mg/dL Magnesium 2.4 H (1.6-2.3) mg/dL Assessment and Plan Assessment: 1. Acute kidney injury associated with cardiorenal syndrome. Renal function slightly worse with diuresis however serum creatinine now staying stable at 2.9. Lasix is currently by mouth 2. CK D stage III B with baseline creatinine around 2. Etiology is diabetic kidney disease 3. Acute hypoxic respiratory failure secondary to CHF exacerbation 4. Volume overload currently improving with diuresis 5. Acute on chronic diastolic CHF 6. Metabolic acidosis associated with acute kidney injury currently maintained on oral sodium bicarb Plan: Continue with oral Lasix Continue fluid restriction Repeat labs in a.m. Close follow-up as outpatient for CK D
--- NOTE | 2022-02-13 14:49 | PN ---
PROGRESS NOTE DATE OF SERVICE: 02/13/2022 This 81-year-old gentleman, admitted with shortness of breath possibly secondary to COPD and CHF, acute exacerbation, also had renal failure. Patient is being closely monitored. Blood sugar is also fluctuating at this time. No chest pain. No palpitation. PHYSICAL EXAMINATION: Pulse is 75, blood pressure 115/70, respiration 20. NECK: No jugular venous distention. CARDIOVASCULAR: S1, S2 muffled. RESPIRATION: Bilateral scattered rhonchi and crackles. ABDOMEN: Soft. NERVOUS SYSTEM: No focal deficit. LABS: Reviewed. Creatinine 2.91. ASSESSMENT: 1. Chronic obstructive pulmonary disease, acute exacerbation, with bilateral bronchopneumonia with possible pleural effusion. 2. Congestive heart failure, acute exacerbation. 3. Renal failure, chronic kidney disease, stage 3. 4. Atrial fibrillation. 5. Diabetes mellitus, type 2, with uncontrolled blood sugars. RECOMMENDATIONS AND DISCUSSION: I recommend to continue current medications, continue with the monitoring, symptomatic treatment. Adjust basal insulin. See orders for further details. Use scale which goes up to 400. The patient might be able to be discharged home in the next 24 hours if he is stable and cleared by multiple consultants. Prognosis guarded. Discussed with the family at length. MMODL / IJN: [id number] /
[2022-02-13 16:18] LABS: Glucose,Whole Blood 321 mg/dL (75-99)
[2022-02-13] MEDS: SENNOSIDES 8.6 MG TAB PO PRN (17:12)
[2022-02-13 20:35] LABS: Glucose,Whole Blood 162 mg/dL (75-99)
[2022-02-13] MEDS: DOCUSATE 100 MG CAP PO SCH (21:42)
[2022-02-13] MEDS: MELATONIN 5 MG TABLET PO SCH (21:42)
[2022-02-13] MEDS: PRIMIDONE 50 MG TAB PO SCH (21:42)
[2022-02-13] MEDS: ATORVASTATIN 40 MG TAB PO SCH (21:42)
[2022-02-13] MEDS: hydrALAZINE HCL 20 MG/ML 1 ML VIAL IVP PRN (23:15)
[2022-02-14] MEDS: SENNOSIDES 8.6 MG TAB PO PRN (05:10)
[2022-02-14] MEDS: methylPREDNISolone SOD SUCCI 125 MG/2 ML VIAL IV SCH ×3 (06:36→11:45)
[2022-02-14 07:08] LABS: Glucose,Whole Blood 160 mg/dL (75-99)
[2022-02-14] MEDS: INSULIN ASPART (NovoLOG) 100 UNIT/ML VIAL SQ SCH ×4 (08:27→11:47)
[2022-02-14] MEDS: SODIUM BICARBONATE TAB 650 MG TAB PO SCH (08:28)
[2022-02-14] MEDS: cloNIDine HCL 0.1 MG TAB PO SCH (08:28)
[2022-02-14] MEDS: hydrALAZINE HCL 50 MG TAB PO SCH (08:28)
[2022-02-14] MEDS: INSULIN DETEMIR (LEVEMIR) 100 UNIT/ML SYR SQ SCH (08:28)
[2022-02-14] MEDS: DOCUSATE 100 MG CAP PO SCH (08:28)
[2022-02-14] MEDS: FUROSEMIDE 40 MG TAB PO SCH (08:29)
[2022-02-14] MEDS: APIXABAN 2.5 MG TABLET PO SCH (08:29)
[2022-02-14] MEDS: ISOSORBIDE MONONITRATE ER 60 MG TAB.ER.24H PO SCH (08:29)
[2022-02-14] MEDS: amLODIPine 10 MG TAB PO SCH (08:29)
[2022-02-14] MEDS: MULTIVITAMINS, THERA 1 EACH TAB PO SCH (08:29)
[2022-02-14] MEDS: PANTOPRAZOLE 40 MG TABLET PO SCH (08:29)
[2022-02-14] MEDS: POTASSIUM CHLORIDE ER 20 MEQ TAB.ER PO SCH (08:29)
[2022-02-14] MEDS: IPRATROPIUM-ALBUTEROL 3 ML NEB INHALATION SCH ×2 (08:34→11:53)
[2022-02-14 08:46] LABS: Anisocytosis Slight; HGB 8.3 gm/dL (13.0-17.5); Hypochromasia Marked; MCH 27.2 pg (25.0-35.0); MCHC 30.8 g/dL (31.0-37.0); MCV 88.5 fL (80.0-100.0); Mean Platelet Volume 8.6; Platelet Count 327 k/uL (150-450); RBC 3.05 m/uL (4.30-5.90); RDW 16.6 % (11.5-15.5)
[2022-02-14 08:56] LABS: Calcium 8.1 mg/dL (8.4-10.2); Potassium 4.2 mmol/L (3.5-5.1)
[2022-02-14] MEDS ORDERED: carvediloL 6.25 MG TAB PO SCH (09:00)
--- NOTE | 2022-02-14 10:25 | P.PN ---
Subjective Patient is seen for follow-up for acute kidney injury on top of chronic kidney disease. Renal function had worsened with diuresis. Serum creatinine currently stable at 2.9 mg/dL. Lasix was switched to by mouth Urine output documented at 800 mL for 24 hours. Objective - Vital Signs Vital signs: Vital Signs Temp 98.2 F 02/14/22 07:37 Pulse 75 02/14/22 08:48 Resp 16 02/14/22 07:52 BP 178/55 02/14/22 07:37 Pulse Ox 97 02/14/22 08:34 Intake & Output 02/13/22 02/14/22 02/14/22 18:59 06:59 18:59 Intake Total 600 20 Output Total 800 450 Balance 600 -780 -450 Intake: IV 20 Invasive Line 1 20 Oral 600 Output: Urine 800 450 Other: Voiding Method Urinal Urinal # Voids 1 1 - Exam Patient is awake, comfortable not in any acute distress. Maintained on 4 L nasa l cannula with O2 sats at 92%. Examination of the heart S1 and S2 Exertion lungs bilateral breath sounds are heard Abdomen is soft nontender Examination lower extremity shows edema 1+ bilaterally HEAD OPERATOR exam grossly intact - Labs CBC & Chem 7: 02/14/22 06:55 02/14/22 06:55 Labs: Abnormal Lab Results - Last 24 Hours (Table) 02/13/22 02/13/22 02/13/22 Range/Units 11:39 16:17 20:26 WBC (3.8-10.6) k/uL RBC (4.30-5.90) m/uL Hgb (13.0-17.5) gm/dL Hct (39.0-53.0) % MCHC (31.0-37.0) g/dL RDW (11.5-15.5) % Sodium (137-145) mmol/L Carbon Dioxide (22-30) mmol/L BUN (9-20) mg/dL Creatinine (0.66-1.25) mg/dL Glucose (74-99) mg/dL POC Glucose (mg/dL) 335 H 321 H 162 H (75-99) mg/dL Calcium (8.4-10.2) mg/dL 02/14/22 02/14/22 02/14/22 Range/Units 06:55 06:55 07:07 WBC 22.2 H (3.8-10.6) k/uL RBC 3.05 L (4.30-5.90) m/uL Hgb 8.3 L (13.0-17.5) gm/dL Hct 27.0 L (39.0-53.0) % MCHC 30.8 L (31.0-37.0) g/dL RDW 16.6 H (11.5-15.5) % Sodium 135 L (137-145) mmol/L Carbon Dioxide 21 L (22-30) mmol/L BUN 66 H (9-20) mg/dL Creatinine 2.94 H (0.66-1.25) mg/dL Glucose 140 H (74-99) mg/dL POC Glucose (mg/dL) 160 H (75-99) mg/dL Calcium 8.1 L (8.4-10.2) mg/dL Assessment and Plan Assessment: 1. Acute kidney injury associated with cardiorenal syndrome. Renal function slightly worse with diuresis however serum creatinine now staying stable at 2.9. Lasix is currently by mouth. Check bladder scan and rule out urine retention 2. CK D stage III B with baseline creatinine around 2. Etiology is diabetic kidney disease 3. Acute hypoxic respiratory failure secondary to CHF exacerbation 4. Volume overload currently improving with diuresis 5. Acute on chronic diastolic CHF 6. Metabolic acidosis associated with acute kidney injury currently maintained on oral sodium bicarb Plan: Check bladder scan and rule out urine retention Continue with oral Lasix Continue fluid restriction Repeat labs in a.m. Close follow-up as outpatient for CK D
[2022-02-14] MEDS: SODIUM FERRIC GLUCONAT-SUCROSE 125 MG in SODIUM CHLORIDE 0.9% 100 ML IVPB SCH (11:42)
[2022-02-14 11:49] LABS: Glucose,Whole Blood 132 mg/dL (75-99)
[2022-02-14 11:50] LABS: Band Neutrophils % 2 %; Lymphocytes # (M) 0.88 k/uL (1.0-4.8); Metamyelocytes # (M) 0.44 k/uL (0); Metamyelocytes % 2 %; Monocytes # (M) 1.98 k/uL (0-1.0); Myelocytes # (M) 0.22 k/uL (0); Myelocytes % 1 %; Neutrophils % (M) 83 %; Nucleated Red Blood Cells 1 /100 WBC (0-0); Total Cells Counted 200
[2022-02-14 12:27] VITALS: BP 168/72; PULSE 79; RESP 18; TEMP 98
[2022-02-14 12:32] LABS: Free Kappa Lt Chain Qnt, Serum 8.03 mg/dL (0.33-1.94); Free Lambda Lt Chain Qnt, Seru 4.63 mg/dL (0.57-2.63)
--- NOTE | 2022-02-14 13:49 | P.PN ---
Subjective The patient is an 81-year-old male with past medical history of persistent atrial fibrillation on Eliquis, hypertension, type 2 diabetes, and dyslipidemia. He follows with Dr. Stratton. We were consulted and for congestive heart failure. Presented with symptoms of progressive dyspnea and edema for the last week. He had progression of his peripheral edema but no clear PND or orthopnea. He had been having worsening symptoms four-week with cough, productive of greenish sputum but no fever. Patient was found to be in acute heart failure and started on IV Lasix. Echocardiogram revealed EF of 60-65%, moderate concentric LVH, mild mitral regurgitation mild tricuspid regurgitation 02/14/2022 Patient seen and examined at bedside this morning , no acute distress. Breathing has improved. Vital signs are stable. BP continues slightly elevated with BP 168/72, stable. Denies any chest pain. Labs, sodium 135, potassium 4.2, BUN 66, serum creatinine 2.94, He's currently maintained on amlodipine 10 mg daily, Eliquis 2.5 mg twice a day, atorvastatin 40 mg nightly, PO Lasix 40 mg twice a day, clonidine 0.3 mg 3 times a day, hydralazine 100 mg 3 times a day, Imdur 60 mg daily GENERAL: Well-appearing, Inno acute distress. NECK: Supple without JVD or thyromegaly. LUNGS: Breath sounds Rhonchi to auscultation bilaterally. Respiration equal and unlabored. No wheezes. HEART: Regular rate and rhythm without murmurs, rubs or gallops. S1 and S2 heard. EXTREMITIES: Normal range of motion, no edema. No clubbing or cyanosis. Peripheral pulses intact. ASSESSMENT Acute exacerbation of congestive heart failure with preserved systolic function Probable exacerbation of COPD with bronchitis Chronic kidney disease History of hypertension Chronic elevation of troponin probably related to the kidney disease History of hyperlipidemia History of diabetes PLAN Lasix transitioned to PO 40mg BID, continue Continue current medication regimen Continue anticoagulation with Eliquis The patient would benefit from the use of Jardiance or Farxiga in view of his presentation From a cardiology perspective, patient is stable. Further anti-hypertensive medications can be adjusted as an outpatient recommend continuing current medica l therapy. Close follow up with Dr. Stratton outpatient. Patient with an appointment on 02/19/22. Nurse Practitioner note has been reviewed, I agree with a documented findings and plan of care. Patient was seen and examined. Objective - Vital Signs Vital signs: Vital Signs Temp 98 F 02/14/22 12:00 Pulse 78 02/14/22 12:02 Resp 18 02/14/22 12:00 BP 168/72 02/14/22 12:00 Pulse Ox 96 02/14/22 12:00 Intake & Output 02/13/22 02/14/22 02/14/22 18:59 06:59 18:59 Intake Total 600 20 Output Total 800 450 Balance 600 -780 -450 Intake: IV 20 Invasive Line 1 20 Oral 600 Output: Urine 800 450 Other: Voiding Method Urinal Urinal # Voids 1 1 - Labs CBC & Chem 7: 02/14/22 06:55 02/14/22 06:55 Labs: Abnormal Lab Results - Last 24 Hours (Table) 02/12/22 02/13/22 02/13/22 Range/Units 06:52 16:17 20:26 WBC (3.8-10.6) k/uL RBC (4.30-5.90) m/uL Hgb (13.0-17.5) gm/dL Hct (39.0-53.0) % MCHC (31.0-37.0) g/dL RDW (11.5-15.5) % Neutrophils # (Manual) (1.3-7.7) k/uL Lymphocytes # (Manual) (1.0-4.8) k/uL Monocytes # (Manual) (0-1.0) k/uL Metamyelocytes # (Man) (0) k/uL Myelocytes # (Manual) (0) k/uL Nucleated RBCs (0-0) /100 WBC Sodium (137-145) mmol/L Carbon Dioxide (22-30) mmol/L BUN (9-20) mg/dL Creatinine (0.66-1.25) mg/dL Glucose (74-99) mg/dL POC Glucose (mg/dL) 321 H 162 H (75-99) mg/dL Calcium (8.4-10.2) mg/dL Free [place] LC, Quant 8.03 H (0.33-1.94) mg/dL Free Lambda LC, Quant 4.63 H (0.57-2.63) mg/dL 02/14/22 02/14/22 02/14/22 Range/Units 06:55 06:55 07:07 WBC 22.0 H (3.8-10.6) k/uL RBC 3.05 L (4.30-5.90) m/uL Hgb 8.3 L (13.0-17.5) gm/dL Hct 27.0 L (39.0-53.0) % MCHC 30.8 L (31.0-37.0) g/dL RDW 16.6 H (11.5-15.5) % Neutrophils # (Manual) 18.70 H (1.3-7.7) k/uL Lymphocytes # (Manual) 0.88 L (1.0-4.8) k/uL Monocytes # (Manual) 1.98 H (0-1.0) k/uL Metamyelocytes # (Man) 0.44 H (0) k/uL Myelocytes # (Manual) 0.22 H (0) k/uL Nucleated RBCs 1 H (0-0) /100 WBC Sodium 135 L (137-145) mmol/L Carbon Dioxide 21 L (22-30) mmol/L BUN 66 H (9-20) mg/dL Creatinine 2.94 H (0.66-1.25) mg/dL Glucose 140 H (74-99) mg/dL POC Glucose (mg/dL) 160 H (75-99) mg/dL Calcium 8.1 L (8.4-10.2) mg/dL Free [place] LC, Quant (0.33-1.94) mg/dL Free Lambda LC, Quant (0.57-2.63) mg/dL 02/14/22 Range/Units 11:47 WBC (3.8-10.6) k/uL RBC (4.30-5.90) m/uL Hgb (13.0-17.5) gm/dL Hct (39.0-53.0) % MCHC (31.0-37.0) g/dL RDW (11.5-15.5) % Neutrophils # (Manual) (1.3-7.7) k/uL Lymphocytes # (Manual) (1.0-4.8) k/uL Monocytes # (Manual) (0-1.0) k/uL Metamyelocytes # (Man) (0) k/uL Myelocytes # (Manual) (0) k/uL Nucleated RBCs (0-0) /100 WBC Sodium (137-145) mmol/L Carbon Dioxide (22-30) mmol/L BUN (9-20) mg/dL Creatinine (0.66-1.25) mg/dL Glucose (74-99) mg/dL POC Glucose (mg/dL) 132 H (75-99) mg/dL Calcium (8.4-10.2) mg/dL Free [place] LC, Quant (0.33-1.94) mg/dL Free Lambda LC, Quant (0.57-2.63) mg/dL
== END 2022-02-14 13:22 | disposition home or self-care (01) | DRG 291 ==
LOC: EC 08:43 → 3SCARD 13:24
PROVIDERS: ADMIT Hospitalist; ATTEND Hospitalist
DX: I13.0 Hypertensive heart and chronic kidney disease with heart failure and stage 1 through stage 4 chronic kidney disease, or unspecified chronic kidney disease (principal); I50.43 Acute on chronic combined systolic (congestive) and diastolic (congestive) heart failure; J18.0 Bronchopneumonia, unspecified organism; J96.01 Acute respiratory failure with hypoxia; E87.2 Acidosis; I48.19 Other persistent atrial fibrillation; J44.0 Chronic obstructive pulmonary disease with (acute) lower respiratory infection; J44.1 Chronic obstructive pulmonary disease with (acute) exacerbation; N17.9 Acute kidney failure, unspecified; D63.1 Anemia in chronic kidney disease; T38.0X5A Adverse effect of glucocorticoids and synthetic analogues, initial encounter; Z20.822 Contact with and (suspected) exposure to COVID-19; E11.22 Type 2 diabetes mellitus with diabetic chronic kidney disease; E11.65 Type 2 diabetes mellitus with hyperglycemia; D50.9 Iron deficiency anemia, unspecified; E78.5 Hyperlipidemia, unspecified; T50.1X5A Adverse effect of loop [high-ceiling] diuretics, initial encounter; I27.20 Pulmonary hypertension, unspecified; K21.9 Gastro-esophageal reflux disease without esophagitis; R01.1 Cardiac murmur, unspecified; I08.1 Rheumatic disorders of both mitral and tricuspid valves; J40 Bronchitis, not specified as acute or chronic; E83.9 Disorder of mineral metabolism, unspecified; M89.8X9 Other specified disorders of bone, unspecified site; N18.32 Chronic kidney disease, stage 3b; Z79.01 Long term (current) use of anticoagulants; Z79.4 Long term (current) use of insulin; Z79.52 Long term (current) use of systemic steroids; Z79.899 Other long term (current) drug therapy; Z87.891 Personal history of nicotine dependence; Z98.42 Cataract extraction status, left eye; Z98.41 Cataract extraction status, right eye; Z91.030 Bee allergy status; X58.XXXA Exposure to other specified factors, initial encounter; Z96.1 Presence of intraocular lens; Z87.01 Personal history of pneumonia (recurrent); Z82.0 Family history of epilepsy and other diseases of the nervous system; Z82.5 Family history of asthma and other chronic lower respiratory diseases; Z83.3 Family history of diabetes mellitus
CPT/HCPCS: 36415; 71045; 80048; 80053; 82728; 82947; 83540; 83550; 83605; 83735; 83880; 83883; 84484; 85025; 86334; 86335; 87502; 87635; 93005; 93306; 94640; 94760; 96374; 96375; 99285